=== PATIENT | female | born 1960 | race Caucasian/White ===

== ENCOUNTER 2017-05-13 17:28 | Inpatient (IN) | payer MEDICAID ==
--- NOTE | 2017-05-13 17:52 | DR.H&P ---
H&P - History & Physical for Day of: H&P Date: 05/13/17 - Chief Complaint Chief Complaint: FEVER, CCC, N/V, ELEVATED BP - Allergies Allergies/Adverse Reactions: Allergies Allergy/AdvReac Type Severity Reaction Status Date / Time MS No Known Drug Allergy Allergy Verified 10/09/15 18:11 [No Known Drug Allergy] - History of Present Illness History of Present Illness: 56WF ADMITTED FROM DR TUBBS OFFICE AFTER PRESENTING WITH FEVER AND CCC FOR 2 WEEKS, PT HAS TAKEN PO ANTIBIOTICS WITHOUT IMPROVEMENT. PT HAS ELEVATED BP IN THE OFFICE TODAY, GIVEN CATAPRES .1MG BP 168/ 98 AFTER MEDICATION, PT HAS PMH OF CVA, DM, HTN, OA, DEPRESSION AND COPD. 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 - Family History Family Medical History: Diabetes Mellitus, Cancer, Heart Failure, Hypertension - Social History Does patient currently use any type of tobacco product: No Have you used tobacco products in the last 12 months: Yes (CIAGRETTES) Type of Tobacco Use: None Does any household member use tobacco: No Alcohol Use: None Drug Use: None - Review of Systems Constitutional: Fever, Chills, Sweats, Weakness, Malaise Eyes: No Symptoms Reported ENT: Nose Congestion Respiratory: Cough, Shortness of Breath, Wheezing Cardiovascular: No Symptoms Reported Gastrointestinal: Nausea, Vomiting Genitourinary: No Symptoms Reported Musculoskeletal: Leg Pain Skin: No Symptoms Reported Neurological: Weakness - Physical Exam Vital Signs: Blood Pressure [Right Arm] 183/86 Blood Pressure [Left Arm] 148/72 Blood Pressure 183/86 Oriented: Normal Eyes: Normal Ear: Normal Nose: Normal Throat: Red, Dry Respiratory: Rhonchi Throughout, Wheezes Throughout Cardiovascular: Normal : Normal Auscultation: Bowel Sounds: Normal Palpation: Normal Tenderness: Epigastric Skin: Normal Musculoskeletal: Back:Lumbar Psychiatric: Anxiety Speech Pattern: Clear (PT IS LOUD AND USES PROFANITY, WORSE AFTER CVA PER FAMILY. PT IS COOPERATIVE AND FOLLOWS COMMANDS) - Assessment/Plan (1) Acute bronchitis Qualifiers: Bronchitis organism: B Status: Acute Plan: ADMIT, FOLLOW PNEUMONIA PATHWAY FOR FAILED OUTPT TREATMENT OF BRONCHITIS, R/O PNEUMONIA. CONSULT RESP, EKG AND CE DUE TO SOB. BLOOD AND SPUTUM AND UA DUE TO FEVER. CONTINUE HOME MEDS, BLOOD SUGAR AND BP CONTROL (2) SOB (shortness of breath) Status: Acute (3) Fever Qualifiers: Fever type: F Encounter type: E Status: Acute (4) HTN (hypertension) Qualifiers: Hypertension type: H Status: Acute (5) Diabetes Qualifiers: Diabetes mellitus type: D Diabetes mellitus complication status: D Diabetes mellitus complication detail: D Diabetic retinopathy severity: D Proliferative retinopathy type: P Diabetes mellitus macular edema: D Diabetes mellitus fdc insulin use: D Laterality: L Chronic kidney disease stage: C Status: Acute (6) CVA (cerebral vascular accident) Qualifiers: CVA mechanism: other Precerebral and cerebral artery: P Laterality of affected vessel: L Qualified Code(s): I63.8 - Other cerebral infarction Status: Acute
[2017-05-13] MEDS ORDERED: CATAPRES TAB 0.1 MG PO PRN (18:39)
[2017-05-13 18:54] VITALS: BMI 28.1
[2017-05-13] MEDS ORDERED: DUONEB 0.5 MG/3 MG ONE (19:35)
[2017-05-13] MEDS ORDERED: SALINE 3% 15 ML NEB TX ONE (20:06)
[2017-05-13 20:09] LABS: BASOPHILS # (AUTO) 0.1 X10^3/uL (0.0-0.1); BASOPHILS % (AUTO) 0.7 % (0.2-1.0); EOSINOPHILS # (AUTO) 0.2 x10^3/uL (0.0-0.2); EOSINOPHILS % (AUTO) 1.4 % (0.9-2.9); HEMATOCRIT 31.1 % (36.0-47.0); HEMOGLOBIN 10.6 g/dL (12.0-16.0); LYMPHOCYTES # (AUTO) 3.3 X10^3/uL (1.3-2.9); LYMPHOCYTES % (AUTO) 19.4 % (21.0-51.0); MEAN CORPUSCULAR HEMOGLOBIN 29.8 pg (27.0-34.0); MEAN CORPUSCULAR HGB CONC 34.2 g/dL (33.0-35.0); MEAN CORPUSCULAR VOLUME 87.1 fL (80.0-100.0); MEAN PLATELET VOLUME 8.1 fL (7.4-11.0); MONOCYTES % (AUTO) 6.1 % (0.0-13.0); NEUTROPHILS # (AUTO) 12.2 x10^3/uL (2.2-4.8); NEUTROPHILS % (AUTO) 72.4 % (42.0-75.0); PLATELET COUNT 537 X10^3/uL (150.0-450.0); RED BLOOD COUNT 3.57 X10^6/uL (3.5-5.4); RED CELL DISTRIBUTION WIDTH 12.5 % (11.6-16.5); WHITE BLOOD COUNT 16.8 X10^3/uL (3.6-10.0)
[2017-05-13] MEDS ORDERED: NS 1/2 1000 ML IV 1,000 ML IV ONE (20:18)
[2017-05-13 20:30] LABS: ALANINE AMINOTRANSFERASE 21 Units/L (12-78); ALBUMIN 2.9 g/dL (3.4-5.0); ALKALINE PHOSPHATASE 76 Units/L (46-116); ASPARTATE AMINO TRANSFERASE 15 Units/L (15-37); BLOOD UREA NITROGEN 19 mg/dL (7-18); CALCIUM 9.4 mg/dL (8.5-10.1); CARBON DIOXIDE 20.2 mmol/L (21-32); CHLORIDE 102 mmol/L (98-107); CKMB % 1.8 % (<4); COR CA(FOR HYPOALB) 10.3 mg/dL (8.5-10.1); COR NA(FOR HYPERGLY) 139 mmol/L (136-145); CREATINE KINASE 57 Units/L (26-192); CREATINE KINASE MB < 1.0 ng/mL (0-4.0); CREATININE 1.02 mg/dL (0.55-1.02); GLUCOSE 217 mg/dL (65-99); SODIUM 136 mmol/L (136-145); TOTAL PROTEIN 8.7 g/dL (6.4-8.2); TROPONIN I < 0.02 ng/mL (0-1.5); eGFR BLACK RACES > 60 (>60); eGFR NON BLACK RACES 60 (>60)
[2017-05-13] MEDS: NS 1/2 1000 ML IV 1,000 ML IV SCH (20:30)
[2017-05-13] MEDS ORDERED: SALINE 3% 15 ML NEB TX NEB ONE (20:30)
[2017-05-13] MEDS: ROBITUSSIN DM PO SCH (20:30)
[2017-05-13] MEDS: SNACK - Diabetic Appropriate PO SCH (20:31)
[2017-05-13] MEDS: LEVAQUIN PREMIX IV 750 MG 750 MG/150 ML BAG IV SCH (20:31)
[2017-05-13] MEDS: TUSSIONEX PENNKINETIC SUSP PO PRN (21:18)
[2017-05-13] MEDS: HumuLIN R SUBCUT PRN (21:19)
--- NOTE | 2017-05-13 21:26 | RAD ---
Chest, two views Indication: Cough, sore throat, nausea Comparison: 07/03/2015 Findings: Mild cardiac silhouette enlargement is unchanged. There is no overt edema, focal infiltrat e, or pleural effusion. The bony thorax is unremarkable. Impression: No acute cardiopulmonary disease. Reported By:
[2017-05-13] MEDS: ZOSYN VIAL 4.5 GM 4.5 GM in NS 100 ML IV + SPIKE MINIBAG* 100 ML IV SCH (22:22)
[2017-05-13 22:47] LABS: BILIRUBIN,URINE NEGATIVE (NEGATIVE); BLOOD/HEMOGLOBIN,URINE NEGATIVE (NEGATIVE); GLUCOSE, URINE NEGATIVE (NEGATIVE); KETONES,URINE NEGATIVE (NEGATIVE); LEUKOCYTE ESTERASE ,URINE NEGATIVE (NEGATIVE); NITRITES,URINE NEGATIVE (NEGATIVE); PROTEIN,URINE NEGATIVE (NEGATIVE); UROBILINOGEN,URINE NORMAL (NORMAL)
[2017-05-13 22:53] LABS: APPEARANCE,URINE CLEAR (CLEAR); BACTERIA,URINE NEGATIVE /HPF (NEGATIVE); COLOR,URINE YELLOW (YELLOW); RBC,URINE NONE SEEN /HPF (NEGATIVE); SQUAMOUS EPITHELIAL CELL,UR RARE /HPF (NEGATIVE)
[2017-05-14 01:13] LABS: CKMB % 2.1 % (<4); CREATINE KINASE 62 Units/L (26-192); CREATINE KINASE MB 1.3 ng/mL (0-4.0); TROPONIN I < 0.02 ng/mL (0-1.5)
[2017-05-14] MEDS: ZOFRAN INJ 4 MG VIAL IVP PRN ×2 (02:13→20:24)
[2017-05-14] MEDS: ZOSYN VIAL 4.5 GM 4.5 GM in NS 100 ML IV + SPIKE MINIBAG* 100 ML IV SCH ×3 (05:14→21:08)
[2017-05-14 06:59] LABS: CREATINE KINASE 50 Units/L (26-192); CREATINE KINASE MB < 1.0 ng/mL (0-4.0); TROPONIN I < 0.02 ng/mL (0-1.5)
[2017-05-14] MEDS: ROBITUSSIN DM PO SCH ×4 (09:15→20:18)
[2017-05-14 09:24] LABS: BASOPHILS # (AUTO) 0.1 X10^3/uL (0.0-0.1); BASOPHILS % (AUTO) 0.8 % (0.2-1.0); EOSINOPHILS # (AUTO) 0.4 x10^3/uL (0.0-0.2); EOSINOPHILS % (AUTO) 2.5 % (0.9-2.9); LYMPHOCYTES % (AUTO) 18.8 % (21.0-51.0); MEAN CORPUSCULAR HEMOGLOBIN 29.9 pg (27.0-34.0); MEAN CORPUSCULAR HGB CONC 34.6 g/dL (33.0-35.0); MEAN CORPUSCULAR VOLUME 86.4 fL (80.0-100.0); MEAN PLATELET VOLUME 7.7 fL (7.4-11.0); MONOCYTES # (AUTO) 1.1 x10^3/uL (0.3-0.8); NEUTROPHILS # (AUTO) 11.3 x10^3/uL (2.2-4.8); NEUTROPHILS % (AUTO) 70.9 % (42.0-75.0); PLATELET COUNT 468 X10^3/uL (150.0-450.0); RED BLOOD COUNT 3.36 X10^6/uL (3.5-5.4); RED CELL DISTRIBUTION WIDTH 12.4 % (11.6-16.5)
[2017-05-14 10:19] LABS: ALANINE AMINOTRANSFERASE 22 Units/L (12-78); ALBUMIN 2.6 g/dL (3.4-5.0); ALKALINE PHOSPHATASE 66 Units/L (46-116); ASPARTATE AMINO TRANSFERASE 14 Units/L (15-37); BLOOD UREA NITROGEN 13 mg/dL (7-18); CALCIUM 9.4 mg/dL (8.5-10.1); CARBON DIOXIDE 21.4 mmol/L (21-32); CHLORIDE 105 mmol/L (98-107); COR CA(FOR HYPOALB) 10.5 mg/dL (8.5-10.1); COR NA(FOR HYPERGLY) 140 mmol/L (136-145); CREATININE 1.13 mg/dL (0.55-1.02); GLUCOSE 128 mg/dL (65-99); SODIUM 139 mmol/L (136-145); TOTAL PROTEIN 8.1 g/dL (6.4-8.2); eGFR BLACK RACES > 60 (>60); eGFR NON BLACK RACES 53 (>60)
[2017-05-14] MEDS: LIPITOR TAB 40 MG PO SCH (10:46)
[2017-05-14] MEDS: KLONOPIN TAB 0.5 MG PO SCH ×2 (10:47→20:18)
[2017-05-14] MEDS: MOBIC TAB 15 MG PO SCH (10:47)
[2017-05-14] MEDS: NS 1/2 1000 ML IV 1,000 ML IV SCH ×2 (13:26→22:03)
--- NOTE | 2017-05-14 13:49 | PCM.PROG ---
Progress Note - Progress Note for Day of Date: 05/14/17 - Subjective Subjective: weak, cough adn fever last night - Past Medical Family Social History Past Med/Fam/Surg Hx: No changes since H&P Allergies: Allergies No Known Allergies Allergy (Verified 05/13/17 19:02) - Review of Systems ROS: No change since H&P - Vital Signs and I&O's Vital Signs: Temperature 98.4 F Pulse Rate [Right Brachial] 83 Pulse Rate 93 Respiratory Rate 19 Blood Pressure [Right Arm] 128/65 Blood Pressure [Left Arm] 125/64 Blood Pressure 183/86 O2 Sat by Pulse Oximetry 94 Intake and Output: Intake & Output 05/12/17 05/13/17 05/14/17 05/15/17 11:59 11:59 11:59 11:59 Intake Total 778 Output Total 400 Balance 378 - Physical Exam Oriented: Normal Eyes: Normal Ear: Normal Nose: Normal Throat: Red, Dry Respiratory: Diminished, Wheezes Cardiovascular: Normal : Normal Auscultation: Bowel Sounds: Normal Tenderness: Epigastric Skin: Normal Musculoskeletal: Back:Lumbar Psychiatric: Anxiety Speech Pattern: Clear, Appropriate - Laboratory and Diagnostics Result Diagrams: 05/14/17 08:48 05/14/17 08:48 Labs: Laboratory WBC 16.0 X10^3/uL (3.6-10.0) H 05/14/17 08:48 RBC 3.36 X10^6/uL (3.5-5.4) L 05/14/17 08:48 Hgb 10.0 g/dL (12.0-16.0) L 05/14/17 08:48 Hct 29.0 % (36.0-47.0) L 05/14/17 08:48 MCV 86.4 fL (80.0-100.0) 05/14/17 08:48 MCH 29.9 pg (27.0-34.0) 05/14/17 08:48 MCHC 34.6 g/dL (33.0-35.0) 05/14/17 08:48 RDW 12.4 % (11.6-16.5) 05/14/17 08:48 Plt Count 468 X10^3/uL (150.0-450.0) H 05/14/17 08:48 MPV 7.7 fL (7.4-11.0) 05/14/17 08:48 Neut % 70.9 % (42.0-75.0) 05/14/17 08:48 Lymph % 18.8 % (21.0-51.0) L 05/14/17 08:48 [place] % 7.0 % (0.0-13.0) 05/14/17 08:48 Eos % 2.5 % (0.9-2.9) 05/14/17 08:48 Baso % 0.8 % (0.2-1.0) 05/14/17 08:48 Neut # 11.3 x10^3/uL (2.2-4.8) H 05/14/17 08:48 Lymph # 3.0 X10^3/uL (1.3-2.9) H 05/14/17 08:48 [place] # 1.1 x10^3/uL (0.3-0.8) H 05/14/17 08:48 Eos # 0.4 x10^3/uL (0.0-0.2) H 05/14/17 08:48 Baso # 0.1 X10^3/uL (0.0-0.1) 05/14/17 08:48 Absolute Nucleated RBC 0.0 /100WBC 05/14/17 08:48 Sodium 139 mmol/L (136-145) 05/14/17 08:48 Corrected Sodium 140 mmol/L (136-145) 05/14/17 08:48 Potassium 3.8 mmol/L (3.5-5.1) 05/14/17 08:48 Chloride 105 mmol/L (98-107) 05/14/17 08:48 Carbon Dioxide 21.4 mmol/L (21-32) 05/14/17 08:48 BUN 13 mg/dL (7-18) 05/14/17 08:48 Creatinine 1.13 mg/dL (0.55-1.02) H 05/14/17 08:48 Est GFR (MDRD) Af Amer > 60 (>60) 05/14/17 08:48 Est GFR (MDRD) Non-Af 53 (>60) L 05/14/17 08:48 Glucose 128 mg/dL (65-99) H 05/14/17 08:48 Calcium 9.4 mg/dL (8.5-10.1) 05/14/17 08:48 Corrected Calcium 10.5 mg/dL (8.5-10.1) H 05/14/17 08:48 Total Bilirubin 0.30 mg/dL (0.2-1.0) 05/14/17 08:48 AST 14 Units/L (15-37) L 05/14/17 08:48 ALT 22 Units/L (12-78) 05/14/17 08:48 Alkaline Phosphatase 66 Units/L (46-116) 05/14/17 08:48 Creatine Kinase 50 Units/L (26-192) 05/14/17 06:20 CK-MB (CK-2) < 1.0 ng/mL (0-4.0) 05/14/17 06:20 CK/CKMB % Calc 2.0 % (<4) 05/14/17 06:20 Troponin I < 0.02 ng/mL (0-1.5) 05/14/17 06:20 Total Protein 8.1 g/dL (6.4-8.2) 05/14/17 08:48 Albumin 2.6 g/dL (3.4-5.0) L 05/14/17 08:48 Globulin 5.5 g/dL (2.5-4.5) H 05/14/17 08:48 Albumin/Globulin Ratio 0.5 Ratio (1.1-2.1) L 05/14/17 08:48 Specimen Type Clean catch urine 05/13/17 22:18 Urine Color Yellow (YELLOW) 05/13/17 22:18 Urine Appearance Clear (CLEAR) 05/13/17 22:18 Urine pH 7.0 (5.0 - 8.0) 05/13/17 22:18 Ur Specific [place] 1.015 (1.000-1.030) 05/13/17 22:18 Urine Protein Negative (NEGATIVE) 05/13/17 22:18 Urine Glucose (UA) Negative (NEGATIVE) 05/13/17 22:18 Urine Ketones Negative (NEGATIVE) 05/13/17 22:18 Urine Occult Blood Negative (NEGATIVE) 05/13/17 22:18 Urine Nitrite Negative (NEGATIVE) 05/13/17 22:18 Urine Bilirubin Negative (NEGATIVE) 05/13/17 22:18 Urine Urobilinogen Normal (NORMAL) 05/13/17 22:18 Ur Leukocyte Esterase Negative (NEGATIVE) 05/13/17 22:18 Urine RBC None seen /HPF (NEGATIVE) 05/13/17 22:18 Urine WBC None seen /HPF (NEGATIVE) 05/13/17 22:18 Ur Squamous Epith Cells Rare /HPF (NEGATIVE) 05/13/17 22:18 Urine Bacteria Negative /HPF (NEGATIVE) 05/13/17 22:18 Ur Culture Indicated? No/not indicated 05/13/17 22:18 - Plan (1) Acute bronchitis Status: Acute Qualifiers: Bronchitis organism: B Plan: CONTINUE PNEUMONIA PATHWAY FOR FAILED OUTPT TREATMENT OF BRONCHITIS. CONSULT RESP, EKG AND CE DUE TO SOB. BLOOD AND SPUTUM AND UA DUE TO FEVER. CONTINUE HOME MEDS, BLOOD SUGAR AND BP CONTROL (2) SOB (shortness of breath) Status: Acute Plan: SERIAL EKG, AND CE'S STABLE, CONTINUE BP CONTROL AND LIPID PANEL (3) Fever Status: Acute Qualifiers: Fever type: F Encounter type: E (4) HTN (hypertension) Status: Acute Qualifiers: Hypertension type: H (5) Diabetes Status: Acute Qualifiers: Diabetes mellitus type: D Diabetes mellitus complication status: D Diabetes mellitus complication detail: D Diabetic retinopathy severity: D Proliferative retinopathy type: P Diabetes mellitus macular edema: D Diabetes mellitus care home insulin use: D Laterality: L Chronic kidney disease stage: C Plan: SSI (6) CVA (cerebral vascular accident) Status: Acute Qualifiers: CVA mechanism: other Precerebral and cerebral artery: P Laterality of affected vessel: L Qualified Code(s): I63.8 - Other cerebral infarction Plan: BP AND LIPID CONTROL
[2017-05-14] MEDS ORDERED: NS 1/2 1000 ML IV 1,000 ML IV ONE (16:17)
[2017-05-14] MEDS: LEVAQUIN PREMIX IV 750 MG 750 MG/150 ML BAG IV SCH ×2 (16:46→19:00)
[2017-05-14] MEDS: TOPAMAX TAB 100 MG PO SCH (20:18)
[2017-05-14] MEDS: NEURONTIN CAP 100 MG PO SCH (20:18)
[2017-05-14] MEDS: COREG TAB 12.5 MG PO SCH (20:18)
[2017-05-14] MEDS: SNACK - Diabetic Appropriate PO SCH (20:24)
[2017-05-15 04:40] LABS: ALANINE AMINOTRANSFERASE 21 Units/L (12-78); ALBUMIN 2.5 g/dL (3.4-5.0); ALKALINE PHOSPHATASE 63 Units/L (46-116); ASPARTATE AMINO TRANSFERASE 14 Units/L (15-37); BLOOD UREA NITROGEN 14 mg/dL (7-18); CALCIUM 8.9 mg/dL (8.5-10.1); CARBON DIOXIDE 22.7 mmol/L (21-32); CHLORIDE 105 mmol/L (98-107); COR CA(FOR HYPOALB) 10.1 mg/dL (8.5-10.1); COR NA(FOR HYPERGLY) 141 mmol/L (136-145); CREATININE 1.04 mg/dL (0.55-1.02); GLUCOSE 173 mg/dL (65-99); SODIUM 139 mmol/L (136-145); TOTAL PROTEIN 7.8 g/dL (6.4-8.2); eGFR BLACK RACES > 60 (>60); eGFR NON BLACK RACES 58 (>60)
[2017-05-15] MEDS: ZOSYN VIAL 4.5 GM 4.5 GM in NS 100 ML IV + SPIKE MINIBAG* 100 ML IV SCH ×3 (05:01→21:01)
[2017-05-15 05:18] LABS: BASOPHILS # (AUTO) 0.1 X10^3/uL (0.0-0.1); BASOPHILS % (AUTO) 0.7 % (0.2-1.0); EOSINOPHILS # (AUTO) 0.5 x10^3/uL (0.0-0.2); HEMATOCRIT 28.2 % (36.0-47.0); HEMOGLOBIN 9.6 g/dL (12.0-16.0); LYMPHOCYTES # (AUTO) 4.1 X10^3/uL (1.3-2.9); MEAN CORPUSCULAR HEMOGLOBIN 29.5 pg (27.0-34.0); MEAN CORPUSCULAR HGB CONC 33.9 g/dL (33.0-35.0); MEAN CORPUSCULAR VOLUME 87.1 fL (80.0-100.0); MEAN PLATELET VOLUME 7.9 fL (7.4-11.0); MONOCYTES % (AUTO) 6.3 % (0.0-13.0); NEUTROPHILS # (AUTO) 9.6 x10^3/uL (2.2-4.8); PLATELET COUNT 484 X10^3/uL (150.0-450.0); RED BLOOD COUNT 3.24 X10^6/uL (3.5-5.4); RED CELL DISTRIBUTION WIDTH 12.2 % (11.6-16.5); WHITE BLOOD COUNT 15.3 X10^3/uL (3.6-10.0)
[2017-05-15] MEDS: MOBIC TAB 15 MG PO SCH (08:53)
[2017-05-15] MEDS: COREG TAB 12.5 MG PO SCH ×2 (08:54→21:02)
[2017-05-15] MEDS: LIPITOR TAB 40 MG PO SCH (08:55)
[2017-05-15] MEDS: PLAVIX PO SCH (08:55)
[2017-05-15] MEDS: TOPAMAX TAB 100 MG PO SCH ×2 (08:55→21:03)
[2017-05-15] MEDS: KLONOPIN TAB 0.5 MG PO SCH ×2 (08:55→21:03)
[2017-05-15] MEDS: ROBITUSSIN DM PO SCH ×4 (08:56→21:01)
[2017-05-15] MEDS ORDERED: PATIENT'S HOME MEDICATION (Meloxicam [Meloxicam] 7.5 MG) PO SCH (09:00)
[2017-05-15] MEDS ORDERED: PATIENT'S HOME MEDICATION (Atorvastatin Calcium [Atorvastatin Calcium] 80 MG) PO SCH (09:00)
[2017-05-15] MEDS: DUONEB 0.5 MG/3 MG NEB SCH ×4 (09:22→21:19)
[2017-05-15] MEDS: NORCO 5/325 MG TAB PO PRN ×3 (10:12→21:02)
[2017-05-15] MEDS: PHENERGAN TAB 25 MG PO PRN ×2 (10:12→22:25)
[2017-05-15] MEDS: SOLU-Medrol 40 MG VIAL IVP SCH ×3 (10:15→21:01)
[2017-05-15] MEDS: MILK OF MAGNESIA PO SCH ×2 (10:15→21:01)
[2017-05-15] MEDS ORDERED: NS 1/2 1000 ML IV 1,000 ML IV ONE (12:42)
[2017-05-15] MEDS: NS 1/2 1000 ML IV 1,000 ML IV SCH (13:05)
[2017-05-15] MEDS: HumuLIN R SUBCUT PRN ×3 (13:05→22:25)
--- NOTE | 2017-05-15 13:26 | PCM.PROG ---
Progress Note - Progress Note for Day of Date: 05/15/17 - Subjective Subjective: PT STATES SHE HAD NO SLEEP LAST NIGHT, CONTINUES WITH SOB AND COUGH. PT WHEEZING WITHOUT COUGHING UP SPUTUM. PLAN TO ADD SMART VEST, SOLU MEDROL 40 IV X 3 DOSES WITH SLINDING SCALE INSULINE COVERAGE, BC NEGATIVE SO FAR ,. WILL CONTINUE IV HYDRATION , IV ATBX, JET NEBS, AND CTA CHEST IN THE AM - Past Medical Family Social History Past Med/Fam/Surg Hx: No changes since H&P Allergies: Allergies No Known Allergies Allergy (Verified 05/13/17 19:02) - Review of Systems ROS: No change since H&P - Vital Signs and I&O's Vital Signs: Temperature 99.3 F Pulse Rate [Left Brachial] 76 Pulse Rate [Right Brachial] 83 Pulse Rate 85 Respiratory Rate 18 Blood Pressure [Right Arm] 134/71 Blood Pressure [Left Arm] 132/76 Blood Pressure 183/86 O2 Sat by Pulse Oximetry 97 Intake and Output: Intake & Output 05/13/17 05/14/17 05/15/17 05/16/17 11:59 11:59 11:59 11:59 Intake Total 778 1585 Output Total 400 1500 Balance 378 85 - Physical Exam Oriented: Normal Eyes: Normal Ear: Normal Nose: Normal Throat: Red, Dry Respiratory: Diminished, Wheezes Cardiovascular: Normal : Normal Auscultation: Bowel Sounds: Normal Tenderness: Epigastric Skin: Normal Musculoskeletal: Back:Lumbar Psychiatric: Anxiety Speech Pattern: Clear, Appropriate - Laboratory and Diagnostics Result Diagrams: 05/15/17 03:55 05/15/17 03:55 Labs: Laboratory WBC 15.3 X10^3/uL (3.6-10.0) H 05/15/17 03:55 RBC 3.24 X10^6/uL (3.5-5.4) L 05/15/17 03:55 Hgb 9.6 g/dL (12.0-16.0) L 05/15/17 03:55 Hct 28.2 % (36.0-47.0) L 05/15/17 03:55 MCV 87.1 fL (80.0-100.0) 05/15/17 03:55 MCH 29.5 pg (27.0-34.0) 05/15/17 03:55 MCHC 33.9 g/dL (33.0-35.0) 05/15/17 03:55 RDW 12.2 % (11.6-16.5) 05/15/17 03:55 Plt Count 484 X10^3/uL (150.0-450.0) H 05/15/17 03:55 MPV 7.9 fL (7.4-11.0) 05/15/17 03:55 Neut % 63.0 % (42.0-75.0) 05/15/17 03:55 Lymph % 27.0 % (21.0-51.0) 05/15/17 03:55 [place] % 6.3 % (0.0-13.0) 05/15/17 03:55 Eos % 3.0 % (0.9-2.9) H 05/15/17 03:55 Baso % 0.7 % (0.2-1.0) 05/15/17 03:55 Neut # 9.6 x10^3/uL (2.2-4.8) H 05/15/17 03:55 Lymph # 4.1 X10^3/uL (1.3-2.9) H 05/15/17 03:55 [place] # 1.0 x10^3/uL (0.3-0.8) H 05/15/17 03:55 Eos # 0.5 x10^3/uL (0.0-0.2) H 05/15/17 03:55 Baso # 0.1 X10^3/uL (0.0-0.1) 05/15/17 03:55 Absolute Nucleated RBC 0.0 /100WBC 05/15/17 03:55 Sodium 139 mmol/L (136-145) 05/15/17 03:55 Corrected Sodium 141 mmol/L (136-145) 05/15/17 03:55 Potassium 3.6 mmol/L (3.5-5.1) 05/15/17 03:55 Chloride 105 mmol/L (98-107) 05/15/17 03:55 Carbon Dioxide 22.7 mmol/L (21-32) 05/15/17 03:55 BUN 14 mg/dL (7-18) 05/15/17 03:55 Creatinine 1.04 mg/dL (0.55-1.02) H 05/15/17 03:55 Est GFR (MDRD) Af Amer > 60 (>60) 05/15/17 03:55 Est GFR (MDRD) Non-Af 58 (>60) L 05/15/17 03:55 Glucose 173 mg/dL (65-99) H 05/15/17 03:55 Calcium 8.9 mg/dL (8.5-10.1) 05/15/17 03:55 Corrected Calcium 10.1 mg/dL (8.5-10.1) 05/15/17 03:55 Total Bilirubin 0.20 mg/dL (0.2-1.0) 05/15/17 03:55 AST 14 Units/L (15-37) L 05/15/17 03:55 ALT 21 Units/L (12-78) 05/15/17 03:55 Alkaline Phosphatase 63 Units/L (46-116) 05/15/17 03:55 Creatine Kinase 50 Units/L (26-192) 05/14/17 06:20 CK-MB (CK-2) < 1.0 ng/mL (0-4.0) 05/14/17 06:20 CK/CKMB % Calc 2.0 % (<4) 05/14/17 06:20 Troponin I < 0.02 ng/mL (0-1.5) 05/14/17 06:20 Total Protein 7.8 g/dL (6.4-8.2) 05/15/17 03:55 Albumin 2.5 g/dL (3.4-5.0) L 05/15/17 03:55 Globulin 5.3 g/dL (2.5-4.5) H 05/15/17 03:55 Albumin/Globulin Ratio 0.5 Ratio (1.1-2.1) L 05/15/17 03:55 Specimen Type Clean catch urine 05/13/17 22:18 Urine Color Yellow (YELLOW) 05/13/17 22:18 Urine Appearance Clear (CLEAR) 05/13/17 22:18 Urine pH 7.0 (5.0 - 8.0) 05/13/17 22:18 Ur Specific [place] 1.015 (1.000-1.030) 05/13/17 22:18 Urine Protein Negative (NEGATIVE) 05/13/17 22:18 Urine Glucose (UA) Negative (NEGATIVE) 05/13/17 22:18 Urine Ketones Negative (NEGATIVE) 05/13/17 22:18 Urine Occult Blood Negative (NEGATIVE) 05/13/17 22:18 Urine Nitrite Negative (NEGATIVE) 05/13/17 22:18 Urine Bilirubin Negative (NEGATIVE) 05/13/17 22:18 Urine Urobilinogen Normal (NORMAL) 05/13/17 22:18 Ur Leukocyte Esterase Negative (NEGATIVE) 05/13/17 22:18 Urine RBC None seen /HPF (NEGATIVE) 05/13/17 22:18 Urine WBC None seen /HPF (NEGATIVE) 05/13/17 22:18 Ur Squamous Epith Cells Rare /HPF (NEGATIVE) 05/13/17 22:18 Urine Bacteria Negative /HPF (NEGATIVE) 05/13/17 22:18 Ur Culture Indicated? No/not indicated 05/13/17 22:18 - Plan (1) Acute bronchitis Status: Acute Qualifiers: Bronchitis organism: B Plan: CONTINUE PNEUMONIA PATHWAY FOR FAILED OUTPT TREATMENT OF BRONCHITIS. RESP THERAPY CONTINUED, CTA CHEST Q AM. UNABLE TO OBTAIN SPUTUM, ENCOURAGE PO FLUIDS, JET NEBS AND SMART VEST. CONTINUE HOME MEDS, BLOOD SUGAR AND BP CONTROL (2) SOB (shortness of breath) Status: Acute Plan: SERIAL EKG, AND CE'S STABLE, CONTINUE BP CONTROL AND LIPID PANEL (3) Fever Status: Acute Qualifiers: Fever type: F Encounter type: E Plan: SYMPTOM CONTROL. CULTURES PENDING. (4) HTN (hypertension) Status: Acute Qualifiers: Hypertension type: H (5) Diabetes Status: Acute Qualifiers: Diabetes mellitus type: D Diabetes mellitus complication status: D Diabetes mellitus complication detail: D Diabetic retinopathy severity: D Proliferative retinopathy type: P Diabetes mellitus macular edema: D Diabetes mellitus senior care insulin use: D Laterality: L Chronic kidney disease stage: C Plan: SSI (6) CVA (cerebral vascular accident) Status: Acute Qualifiers: CVA mechanism: other Precerebral and cerebral artery: P Laterality of affected vessel: L Qualified Code(s): I63.8 - Other cerebral infarction Plan: BP AND LIPID CONTROL
[2017-05-15] MEDS: LEVAQUIN PREMIX IV 750 MG 750 MG/150 ML BAG IV SCH (17:24)
[2017-05-15] MEDS: ZOFRAN INJ 4 MG VIAL IVP PRN (19:29)
[2017-05-15] MEDS: NEURONTIN CAP 100 MG PO SCH (21:02)
[2017-05-15] MEDS: COLACE CAP 100 MG PO SCH (21:02)
[2017-05-15] MEDS: SNACK - Diabetic Appropriate PO SCH (22:24)
[2017-05-16] MEDS: MILK OF MAGNESIA PO SCH ×4 (00:07→22:10)
[2017-05-16] MEDS: AMBIEN PO PRN ×2 (00:08→22:15)
[2017-05-16] MEDS: NS 1/2 1000 ML IV 1,000 ML IV SCH ×2 (03:46→12:01)
[2017-05-16] MEDS ORDERED: NS 100 ML IV 100 ML IV ONE (05:38)
[2017-05-16 06:13] LABS: BASOPHILS % (AUTO) 0.2 % (0.2-1.0); HEMATOCRIT 29.1 % (36.0-47.0); LYMPHOCYTES # (AUTO) 1.6 X10^3/uL (1.3-2.9); LYMPHOCYTES % (AUTO) 10.9 % (21.0-51.0); MEAN CORPUSCULAR HEMOGLOBIN 29.6 pg (27.0-34.0); MEAN CORPUSCULAR HGB CONC 34.2 g/dL (33.0-35.0); MEAN CORPUSCULAR VOLUME 86.4 fL (80.0-100.0); MEAN PLATELET VOLUME 7.8 fL (7.4-11.0); MONOCYTES # (AUTO) 0.4 x10^3/uL (0.3-0.8); MONOCYTES % (AUTO) 2.5 % (0.0-13.0); NEUTROPHILS # (AUTO) 13.1 x10^3/uL (2.2-4.8); NEUTROPHILS % (AUTO) 86.4 % (42.0-75.0); PLATELET COUNT 525 X10^3/uL (150.0-450.0); RED BLOOD COUNT 3.37 X10^6/uL (3.5-5.4); RED CELL DISTRIBUTION WIDTH 12.5 % (11.6-16.5); WHITE BLOOD COUNT 15.2 X10^3/uL (3.6-10.0)
[2017-05-16] MEDS: SOLU-Medrol 40 MG VIAL IVP SCH ×3 (06:17→22:11)
[2017-05-16] MEDS: ZOSYN VIAL 4.5 GM 4.5 GM in NS 100 ML IV + SPIKE MINIBAG* 100 ML IV SCH ×3 (06:17→22:10)
[2017-05-16] MEDS: HumuLIN R SUBCUT PRN ×4 (06:28→22:07)
--- NOTE | 2017-05-16 06:29 | CT ---
EXAM: CTA CHEST WITH CONTRAST INDICATION: Pneumonia COMPARISION: No priors for comparison TECHNIQUE: Spiral CT of the chest was performed with contrast. Thin reconstructions in the axial and para-coron al planes were obtained. 3D MIP imaging sequences were obtained using the axial data. The patient re ceived intravenous contrast without adverse reaction. FINDINGS: There is consolidation in the left lower lobe. Subpleural bleb formation is seen in both lungs. Ther e is sub carinal mediastinal lymphadenopathy. The heart is mildly enlarged. No pulmonary embolism. N o aortic aneurysm or dissection. Atherosclerotic calcifications are seen in the aorta. No pneumothor ax or pleural effusion. The regional skeleton is intact. IMPRESSION: There is left lower lobe consolidation consistent with pneumonia. There is prominence of the subcari nal lymph nodes which are likely reactive related to the left lung changes. Reported By:
[2017-05-16] MEDS: NORCO 5/325 MG TAB PO PRN ×3 (06:38→22:23)
[2017-05-16 06:39] LABS: ALANINE AMINOTRANSFERASE 19 Units/L (12-78); ALBUMIN 2.6 g/dL (3.4-5.0); ALKALINE PHOSPHATASE 64 Units/L (46-116); ASPARTATE AMINO TRANSFERASE 13 Units/L (15-37); BLOOD UREA NITROGEN 20 mg/dL (7-18); CARBON DIOXIDE 20.7 mmol/L (21-32); CHLORIDE 103 mmol/L (98-107); COR CA(FOR HYPOALB) 10.1 mg/dL (8.5-10.1); COR NA(FOR HYPERGLY) 141 mmol/L (136-145); CREATININE 0.97 mg/dL (0.55-1.02); GLUCOSE 299 mg/dL (65-99); SODIUM 136 mmol/L (136-145); TOTAL PROTEIN 8.1 g/dL (6.4-8.2); eGFR BLACK RACES > 60 (>60); eGFR NON BLACK RACES > 60 (>60)
[2017-05-16] MEDS: DUONEB 0.5 MG/3 MG NEB SCH ×4 (08:18→20:23)
[2017-05-16] MEDS: MOBIC TAB 15 MG PO SCH (09:38)
[2017-05-16] MEDS: ROBITUSSIN DM PO SCH ×4 (09:38→22:10)
[2017-05-16] MEDS: KLONOPIN TAB 0.5 MG PO SCH ×2 (09:39→22:15)
[2017-05-16] MEDS: LIPITOR TAB 40 MG PO SCH (09:39)
[2017-05-16] MEDS: PLAVIX PO SCH (09:39)
[2017-05-16] MEDS: COREG TAB 12.5 MG PO SCH ×2 (09:39→22:15)
[2017-05-16] MEDS: TOPAMAX TAB 100 MG PO SCH ×2 (09:39→22:16)
[2017-05-16] MEDS: TUSSIONEX PENNKINETIC SUSP PO PRN (09:47)
[2017-05-16] MEDS: PHENERGAN TAB 25 MG PO PRN ×2 (09:47→22:15)
--- NOTE | 2017-05-16 16:13 | PCM.PROG ---
Progress Note - Progress Note for Day of Date: 05/16/17 - Subjective Subjective: 56-YEAR-OLD WHITE FEMALE ADMITTED 2 DAYS AGO FOR TREATMENT OF BRONCHITIS.PATIENT CONTINUES TO COMPLAIN OF COUGH WITH MILD SPUTUM PRODUCTION. pATIENT WHITE COUNT THIS MORNING CONTINUES TO BE ELEVATED AT 15,000. pATIENT HAD A ct a OF HER CHEST DUE TO HIS SHORTNESS OF BREATH. ct REVEALED LEFT LOWER LOBE PNEUMONIA. pLAN TO CONTINUE iv ANTIBIOTIC THERAPY WELL SPUTUM INDUCTION iv HYDRATION, RESPIRATORY THERAPY AND sMART TEST. pATIENT ON iv STEROIDS WITH SLIDING SCALE INSULIN COVERAGE PLAN TO REPEAT A.M. LABS AND CHEST X-RAY - Past Medical Family Social History Past Med/Fam/Surg Hx: No changes since H&P Allergies: Allergies No Known Allergies Allergy (Verified 05/13/17 19:02) - Review of Systems ROS: No change since H&P - Vital Signs and I&O's Vital Signs: Temperature 97.6 F Pulse Rate [Left Brachial] 87 Pulse Rate [Right Brachial] 89 Pulse Rate 73 Respiratory Rate 20 Blood Pressure [Right Arm] 139/67 Blood Pressure [Left Arm] 143/81 Blood Pressure 183/86 O2 Sat by Pulse Oximetry 96 Intake and Output: Intake & Output 05/14/17 05/15/17 05/16/17 05/17/17 11:59 11:59 11:59 11:59 Intake Total 778 1585 1810 780 Output Total 400 1500 2400 Balance 378 85 -590 780 - Physical Exam Oriented: Normal Eyes: Normal Ear: Normal Nose: Normal Throat: Red, Dry Respiratory: Diminished, Wheezes Cardiovascular: Normal : Normal Auscultation: Bowel Sounds: Normal Tenderness: Epigastric Skin: Normal Musculoskeletal: Back:Lumbar Psychiatric: Anxiety Speech Pattern: Clear, Appropriate - Laboratory and Diagnostics Result Diagrams: 05/16/17 05:41 05/16/17 05:41 Labs: 05/13/17 19:25 Blood Blood Culture - Preliminary 05/13/17 19:05 Blood Blood Culture - Preliminary Laboratory WBC 15.2 X10^3/uL (3.6-10.0) H 05/16/17 05:41 RBC 3.37 X10^6/uL (3.5-5.4) L 05/16/17 05:41 Hgb 10.0 g/dL (12.0-16.0) L 05/16/17 05:41 Hct 29.1 % (36.0-47.0) L 05/16/17 05:41 MCV 86.4 fL (80.0-100.0) 05/16/17 05:41 MCH 29.6 pg (27.0-34.0) 05/16/17 05:41 MCHC 34.2 g/dL (33.0-35.0) 05/16/17 05:41 RDW 12.5 % (11.6-16.5) 05/16/17 05:41 Plt Count 525 X10^3/uL (150.0-450.0) H 05/16/17 05:41 MPV 7.8 fL (7.4-11.0) 05/16/17 05:41 Neut % 86.4 % (42.0-75.0) H 05/16/17 05:41 Lymph % 10.9 % (21.0-51.0) L 05/16/17 05:41 [place] % 2.5 % (0.0-13.0) 05/16/17 05:41 Eos % 0.0 % (0.9-2.9) L 05/16/17 05:41 Baso % 0.2 % (0.2-1.0) 05/16/17 05:41 Neut # 13.1 x10^3/uL (2.2-4.8) H 05/16/17 05:41 Lymph # 1.6 X10^3/uL (1.3-2.9) 05/16/17 05:41 [place] # 0.4 x10^3/uL (0.3-0.8) 05/16/17 05:41 Eos # 0.0 x10^3/uL (0.0-0.2) 05/16/17 05:41 Baso # 0.0 X10^3/uL (0.0-0.1) 05/16/17 05:41 Absolute Nucleated RBC 0.0 /100WBC 05/16/17 05:41 Sodium 136 mmol/L (136-145) 05/16/17 05:41 Corrected Sodium 141 mmol/L (136-145) 05/16/17 05:41 Potassium 4.0 mmol/L (3.5-5.1) 05/16/17 05:41 Chloride 103 mmol/L (98-107) 05/16/17 05:41 Carbon Dioxide 20.7 mmol/L (21-32) L 05/16/17 05:41 BUN 20 mg/dL (7-18) H 05/16/17 05:41 Creatinine 0.97 mg/dL (0.55-1.02) 05/16/17 05:41 Est GFR (MDRD) Af Amer > 60 (>60) 05/16/17 05:41 Est GFR (MDRD) Non-Af > 60 (>60) 05/16/17 05:41 Glucose 299 mg/dL (65-99) H 05/16/17 05:41 Calcium 9.0 mg/dL (8.5-10.1) 05/16/17 05:41 Corrected Calcium 10.1 mg/dL (8.5-10.1) 05/16/17 05:41 Total Bilirubin 0.10 mg/dL (0.2-1.0) L 05/16/17 05:41 AST 13 Units/L (15-37) L 05/16/17 05:41 ALT 19 Units/L (12-78) 05/16/17 05:41 Alkaline Phosphatase 64 Units/L (46-116) 05/16/17 05:41 Creatine Kinase 50 Units/L (26-192) 05/14/17 06:20 CK-MB (CK-2) < 1.0 ng/mL (0-4.0) 05/14/17 06:20 CK/CKMB % Calc 2.0 % (<4) 05/14/17 06:20 Troponin I < 0.02 ng/mL (0-1.5) 05/14/17 06:20 Total Protein 8.1 g/dL (6.4-8.2) 05/16/17 05:41 Albumin 2.6 g/dL (3.4-5.0) L 05/16/17 05:41 Globulin 5.5 g/dL (2.5-4.5) H 05/16/17 05:41 Albumin/Globulin Ratio 0.5 Ratio (1.1-2.1) L 05/16/17 05:41 Specimen Type Clean catch urine 05/13/17 22:18 Urine Color Yellow (YELLOW) 05/13/17 22:18 Urine Appearance Clear (CLEAR) 05/13/17 22:18 Urine pH 7.0 (5.0 - 8.0) 05/13/17 22:18 Ur Specific [place] 1.015 (1.000-1.030) 05/13/17 22:18 Urine Protein Negative (NEGATIVE) 05/13/17 22:18 Urine Glucose (UA) Negative (NEGATIVE) 05/13/17 22:18 Urine Ketones Negative (NEGATIVE) 05/13/17 22:18 Urine Occult Blood Negative (NEGATIVE) 05/13/17 22:18 Urine Nitrite Negative (NEGATIVE) 05/13/17 22:18 Urine Bilirubin Negative (NEGATIVE) 05/13/17 22:18 Urine Urobilinogen Normal (NORMAL) 05/13/17 22:18 Ur Leukocyte Esterase Negative (NEGATIVE) 05/13/17 22:18 Urine RBC None seen /HPF (NEGATIVE) 05/13/17 22:18 Urine WBC None seen /HPF (NEGATIVE) 05/13/17 22:18 Ur Squamous Epith Cells Rare /HPF (NEGATIVE) 05/13/17 22:18 Urine Bacteria Negative /HPF (NEGATIVE) 05/13/17 22:18 Ur Culture Indicated? No/not indicated 05/13/17 22:18 - Plan (1) Pneumonia Status: Acute Qualifiers: Pneumonia type: P Aspiration pneumonia type: A Laterality: L Lung location: L Plan: CONTINUE PNEUMONIA PATHWAY FOR FAILED OUTPT TREATMENT OF BRONCHITIS. RESP THERAPY CONTINUED, CTA CHEST REVEALED LLL PNEUMONIA. UNABLE TO OBTAIN SPUTUM, ENCOURAGE PO FLUIDS, JET NEBS AND SMART VEST. CONTINUE HOME MEDS, BLOOD SUGAR AND BP CONTROL (2) SOB (shortness of breath) Status: Acute Plan: SERIAL EKG, AND CE'S STABLE, CONTINUE BP CONTROL AND LIPID PANEL (3) HTN (hypertension) Status: Acute Qualifiers: Hypertension type: H (4) Diabetes Status: Acute Qualifiers: Diabetes mellitus type: D Diabetes mellitus complication status: D Diabetes mellitus complication detail: D Diabetic retinopathy severity: D Proliferative retinopathy type: P Diabetes mellitus macular edema: D Diabetes mellitus [facility] insulin use: D Laterality: L Chronic kidney disease stage: C Plan: SSI (5) CVA (cerebral vascular accident) Status: Acute Qualifiers: CVA mechanism: other Precerebral and cerebral artery: P Laterality of affected vessel: L Qualified Code(s): I63.8 - Other cerebral infarction Plan: BP AND LIPID CONTROL
[2017-05-16] MEDS ORDERED: NS 1/2 1000 ML IV 1,000 ML IV ONE (16:20)
[2017-05-16] MEDS: LEVAQUIN PREMIX IV 750 MG 750 MG/150 ML BAG IV SCH (17:03)
[2017-05-16] MEDS: NEURONTIN CAP 100 MG PO SCH (22:15)
[2017-05-16] MEDS: COLACE CAP 100 MG PO SCH (22:15)
[2017-05-16] MEDS: SNACK - Diabetic Appropriate PO SCH (22:16)
[2017-05-16] MEDS ORDERED: NS 500 ML IV 500 ML IV ONE (22:20)
[2017-05-17] MEDS: ZOSYN VIAL 4.5 GM 4.5 GM in NS 100 ML IV + SPIKE MINIBAG* 100 ML IV SCH ×2 (05:53→14:10)
[2017-05-17] MEDS: SOLU-Medrol 40 MG VIAL IVP SCH ×2 (05:54→14:10)
[2017-05-17] MEDS: HumuLIN R SUBCUT PRN ×3 (05:56→16:43)
[2017-05-17 06:06] LABS: BASOPHILS % (AUTO) 0.2 % (0.2-1.0); HEMATOCRIT 30.2 % (36.0-47.0); HEMOGLOBIN 10.2 g/dL (12.0-16.0); LYMPHOCYTES # (AUTO) 1.8 X10^3/uL (1.3-2.9); LYMPHOCYTES % (AUTO) 9.5 % (21.0-51.0); MEAN CORPUSCULAR HEMOGLOBIN 29.2 pg (27.0-34.0); MEAN CORPUSCULAR HGB CONC 33.9 g/dL (33.0-35.0); MEAN CORPUSCULAR VOLUME 86.2 fL (80.0-100.0); MONOCYTES # (AUTO) 0.5 x10^3/uL (0.3-0.8); MONOCYTES % (AUTO) 2.7 % (0.0-13.0); NEUTROPHILS # (AUTO) 16.8 x10^3/uL (2.2-4.8); NEUTROPHILS % (AUTO) 87.6 % (42.0-75.0); PLATELET COUNT 515 X10^3/uL (150.0-450.0); RED BLOOD COUNT 3.51 X10^6/uL (3.5-5.4); RED CELL DISTRIBUTION WIDTH 12.4 % (11.6-16.5); WHITE BLOOD COUNT 19.1 X10^3/uL (3.6-10.0)
[2017-05-17] MEDS: NS 1/2 1000 ML IV 1,000 ML IV SCH ×3 (06:06→12:58)
[2017-05-17] MEDS: NORCO 5/325 MG TAB PO PRN ×2 (06:07→16:35)
[2017-05-17 06:35] LABS: ALANINE AMINOTRANSFERASE 24 Units/L (12-78); ALBUMIN 2.6 g/dL (3.4-5.0); ALKALINE PHOSPHATASE 61 Units/L (46-116); ASPARTATE AMINO TRANSFERASE 18 Units/L (15-37); BLOOD UREA NITROGEN 22 mg/dL (7-18); CALCIUM 8.7 mg/dL (8.5-10.1); CARBON DIOXIDE 21.1 mmol/L (21-32); CHLORIDE 104 mmol/L (98-107); COR CA(FOR HYPOALB) 9.8 mg/dL (8.5-10.1); COR NA(FOR HYPERGLY) 141 mmol/L (136-145); CREATININE 0.95 mg/dL (0.55-1.02); GLUCOSE 266 mg/dL (65-99); SODIUM 137 mmol/L (136-145); TOTAL PROTEIN 7.9 g/dL (6.4-8.2); eGFR BLACK RACES > 60 (>60); eGFR NON BLACK RACES > 60 (>60)
[2017-05-17] MEDS: MOBIC TAB 15 MG PO SCH (09:01)
[2017-05-17] MEDS: LIPITOR TAB 40 MG PO SCH (09:01)
[2017-05-17] MEDS: MILK OF MAGNESIA PO SCH (09:02)
[2017-05-17] MEDS: KLONOPIN TAB 0.5 MG PO SCH (09:02)
[2017-05-17] MEDS: PLAVIX PO SCH (09:02)
[2017-05-17] MEDS: COREG TAB 12.5 MG PO SCH (09:02)
[2017-05-17] MEDS: ROBITUSSIN DM PO SCH ×3 (09:02→16:36)
[2017-05-17] MEDS: TOPAMAX TAB 100 MG PO SCH (09:02)
[2017-05-17] MEDS: DUONEB 0.5 MG/3 MG NEB SCH ×3 (09:03→16:22)
[2017-05-17] MEDS: ZOFRAN INJ 4 MG VIAL IVP PRN (10:23)
[2017-05-17] MEDS ORDERED: PATIENT'S HOME MEDICATION (Metformin Hcl [Metformin Hcl] 1,000 MG) PO SCH (12:45)
[2017-05-17] MEDS ORDERED: RIVASTIGMINE TARTRATE 4.5 MG PO SCH (12:45)
[2017-05-17] MEDS ORDERED: NS 1/2 1000 ML IV 1,000 ML IV ONE (12:53)
[2017-05-17] MEDS ORDERED: GLUCOPHAGE ONE (16:32)
[2017-05-17] MEDS ORDERED: GLUCOPHAGE PO SCH (17:00)
[2017-05-17 17:11] VITALS: BP 193/88
[2017-05-17] MEDS ORDERED: LANTUS SC SCH (21:00)
[2017-05-17] MEDS ORDERED: EXELON PO SCH (21:00)
--- NOTE | 2017-05-18 13:25 | RAD ---
HISTORY: Pneumonia Study: Two-view chest Comparison: May 13, 2017 Findings: The trachea is midline. The cardiac silhouette is unremarkable. The lungs demonstrate a small left basilar infiltrate suggesting pneumonia which is best seen lateral view.. The bony thorax is unrem arkable. IMPRESSION: 1. Left lower lobe pneumonia. Reported By:
== END 2017-05-17 17:45 | disposition home or self-care (01) | DRG 202 ==
LOC: OBSVTOIN 17:28 → MED/SURG 17:28
PROVIDERS: ADMIT Internal Medicine; ATTEND Internal Medicine
DX: J20.8 Acute bronchitis due to other specified organisms (principal); J18.1 Lobar pneumonia, unspecified organism; J44.9 Chronic obstructive pulmonary disease, unspecified; R11.2 Nausea with vomiting, unspecified; I10 Essential (primary) hypertension; I25.10 Atherosclerotic heart disease of native coronary artery without angina pectoris; E11.65 Type 2 diabetes mellitus with hyperglycemia; F32.89 Other specified depressive episodes; R06.02 Shortness of breath; I63.8 Other cerebral infarction
CPT/HCPCS: 36415; 71020; 71275; 80053; 81001; 82550; 82553; 82947; 84484; 85025; 87040; 93005; 93010; 94640; 94669; 94760; A4222; Q0169; J1815; J1956; J2405; J2543; J2920; J7620

== ENCOUNTER → 2017-06-16 | Outpatient (CLI) | payer MEDICAID ==
[2017-05-17 17:11] VITALS: BP 193/88
--- NOTE | 2017-06-16 15:17 | MRI ---
HISTORY: Neck pain, paresthesias Study: MRI cervical spine without contrast Comparison: None Technique: Multiplanar multisequence MRI of the cervical spine was obtained utilizing standard depar tmental protocol. Findings: Alignment of the cervical spine is maintained. No abnormal signal characteristics of the bone marro w can be identified. No evidence for fracture or significant bone or edema can be seen. The surrou nding soft tissues are unremarkable. The cervical spinal cord is normal in size and configuration a nd without foci of abnormal signal. C2 -- C3: No evidence for compressive disc disease. The neural foramina are patent. C3 -- C4: No evidence for compressive disc disease. The neural foramina are patent peer C4 -- C5: No evidence for compressive disc disease. The neural foramina are patent. C5 -- C6: No evidence for compressive disc disease. The neural foramina are patent. C6 -- C7: No evidence for compressive disc disease. The neural foramina are patent. C7 -- T1: No evidence for compressive disc disease. The neural foramina are patent. IMPRESSION: No evidence for significant compressive disc disease or compresses spondylitic change at any level. Reported By:
== END ==
LOC: RAD 13:15
PROVIDERS: ATTEND Internal Medicine
DX: M54.2 Cervicalgia (principal)
CPT/HCPCS: 72141

== ENCOUNTER → 2017-06-26 | Outpatient (CLI) | payer MEDICAID ==
--- NOTE | 2017-06-26 12:15 | RAD ---
HISTORY: Thoracic back pain Study: T-spine three views Comparison: None Findings: The alignment is normal with the exception of several millimeters anterolisthesis T2 on T3. This cou ld be better evaluated with CT. The vertebral bodies are of average height. The disc spaces are for the most part preserved. Moderate spondylosis is present. The pedicles are intact. The paraspinous s oft tissues are normal. IMPRESSION: Several millimeters anterolisthesis T2 on T3 which could be better evaluated with CT. Moderate spondylosis Reported By:
== END | disposition home or self-care (01) | DRG 552 ==
LOC: RAD 11:18
PROVIDERS: ATTEND Nurse Practitioner Family
DX: M54.6 Pain in thoracic spine (principal); M47.894 Other spondylosis, thoracic region
CPT/HCPCS: 72072

== ENCOUNTER → 2017-07-09 | Outpatient (CLI) | payer MEDICAID ==
[~2017-07-09] MED LIST: NS 100 ML IV 100 ML IV ONE
[2017-07-09 09:18] LABS: CREATININE 0.9 mg/dL (0.55-1.02)
== END ==
LOC: RAD 08:38
PROVIDERS: ATTEND Nurse Practitioner Family
DX: L04.8 Acute lymphadenitis of other sites (principal)
CPT/HCPCS: 36415; 82565; 84520; A4222

== ENCOUNTER → 2017-07-14 | Outpatient (CLI) | payer MEDICAID ==
--- NOTE | 2017-07-17 08:25 | CT ---
HISTORY: Lymphadenitis left neck Study: CT soft tissue neck with contrast Comparison: None Technique: Axial post-contrast images with coronal and sagittal reformats. Dose reduction procedures were used with MA/kv adjusted for body size. Findings: The parotid and submandibular glands are symmetric and normal. No nasopharyngeal abnormality is ident ified. No sonia pharyngeal abnormality is identified. The piriform sinuses are clear. No definite laryn geal abnormality is identified. The thyroid gland is normal. No enlarged supraclavicular adenopathy i s identified. Retrocaval pretracheal lymphadenopathy is unchanged from a recent CTA chest May 16 17. Multiple but nonenlarged AP window lymph nodes are incidentally noted. The visualized portions of the lung bush are clear. Biapical blebs are present. No skeletal abnormality is identified. The si nuses are clear with the exception of mild inflammatory mucosal changes in the left maxillary sinus. Multiple but nonenlarged lymph nodes are present in the anterior and posterior cervical chains bilate rally. No abnormal soft tissue masses are identified. Calcific atherosclerotic changes present at bot h carotid bifurcations. IMPRESSION: Bilateral but nonenlarged anterior and posterior cervical chain lymph nodes Stable mildly enlarged retrocaval pretracheal lymph node Multiple but nonenlarged left AP window lymph nodes which are new Calcific atherosclerotic change at the carotid bifurcations bilaterally Reported By:
== END | disposition home or self-care (01) ==
LOC: RAD 08:53
PROVIDERS: ATTEND Nurse Practitioner Family
DX: L04.8 Acute lymphadenitis of other sites (principal); M54.2 Cervicalgia
CPT/HCPCS: 70491; A4222

== ENCOUNTER → 2017-08-29 | Outpatient (CLI) | payer MEDICAID ==
[2017-08-29 10:12] LABS: CREATININE 1.26 mg/dL (0.55-1.02)
--- NOTE | 2017-09-01 12:22 | MRI ---
HISTORY: Chronic low back pain Study: MRI lumbar spine with and without contrast Comparison: Technique: Multiplanar multi-sequence pre and postcontrast MRI of the lumbar spine was obtained. Sag ittal T1, sagittal T2, and stir weighted images, axial T1, and axial T2 images were obtained. Sagitta l and axial post-contrast images were obtained. Findings: The lumbar spine demonstrates normal alignment with the expected signal characteristics of the bone m arrow. No areas of abnormal enhancement are identified. The conus of the cord terminates normally. T12 -- L1: Mild noncompressive disc bulging is present. The neural foramina are patent. The joints ar e normal. L1 -- L2: No evidence for compressive disc disease. The neural foramina are patent. The joints are no rmal. L2 -- L3: No evidence for compressive disc disease. The neural foramina are patent. The joints are no rmal. L3 -- L4: Mild broad-based disc bulging effaces the thecal sac and contributes along with mild facet arthropathy to mild lateral recess narrowing bilaterally. L4 -- L5: There is broad-based disc protrusion which extends somewhat more to the left than the right where it contributes along with mild bilateral facet arthropathy to significant lateral recess and f oraminal narrowing. Lateral recess of a lesser degree narrowing is present on the right. L5 -- S1: There is disc degeneration with broad-based disc bulging which contributes along with spond ylitic change and mild bilateral facet arthropathy to lateral recess and foraminal narrowing bilatera lly. IMPRESSION: As above Note: The use of MR contrast in the setting of chronic low back pain and a screening for degenerative disc disease is not necessary and not indicated. The use of contrast should be reserved for postoper ative disc disease, metastatic disease, and infection/inflammation. Reported By:
== END | disposition home or self-care (01) ==
LOC: RAD 09:45
PROVIDERS: ATTEND Nurse Practitioner Family
DX: M54.5 Low back pain (principal); M12.88 Other specific arthropathies, not elsewhere classified, other specified site
CPT/HCPCS: 36415; 72158; 82565; 84520

== ENCOUNTER 2017-12-23 16:29 | Observation (INO) | payer MEDICAID ==
--- NOTE | 2017-12-23 18:32 | DR.H&P ---
H&P - History & Physical for Day of: H&P Date: 12/23/17 - Chief Complaint Chief Complaint: chest pain - Allergies Allergies/Adverse Reactions: Allergies Allergy/AdvReac Type Severity Reaction Status Date / Time No Known Allergies Allergy Verified 05/13/17 19:02 - History of Present Illness History of Present Illness: 57 WF DIRECT ADMIT FROM DR GALAN OFFICE WITH CO CHEST PAIN WITH SOB. PT HAS PMH OF HTN, CAD, HYPERLIPIDEMIA, CVD, COPD, AMITA. PT STATES SHE HAS HAD INCREASED AGEE'S AND ELEVATED BP. PT ADMITTED FOR CARDIAC MONITORING, R/O AMI - Past Medical History Past Medical History: Anxiety, CHF, COPD, Coronary Artery Disease, CVA, Depression, Diabetes, Migraines, Hypertension - Past Surgical History Surgical History: [employer] Surgery - Family History Family Medical History: Diabetes Mellitus, Cancer, Heart Failure, Hypertension - Social History Does patient currently use any type of tobacco product: Yes Have you used tobacco products in the last 12 months: Yes Type of Tobacco Use: Cigarettes Does any household member use tobacco: Yes Alcohol Use: None Drug Use: None - Review of Systems Constitutional: Weakness Eyes: No Symptoms Reported ENT: No Symptoms Reported Respiratory: Shortness of Breath Cardiovascular: Chest Pain Gastrointestinal: Nausea Genitourinary: No Symptoms Reported Musculoskeletal: Back Pain, Leg Pain Skin: No Symptoms Reported - Physical Exam Vital Signs: Blood Pressure [Right Arm] 155/86 Blood Pressure [Left Arm] 193/88 Blood Pressure 193/88 Oriented: Normal Eyes: Normal Ear: Normal Nose: Normal Throat: Normal Respiratory: RLL Diminished, LLL Diminished Cardiovascular: Normal : Normal Auscultation: Bowel Sounds: Normal Palpation: Normal Tenderness: Epigastric Skin: Normal Musculoskeletal: Back:Lumbar Psychiatric: Anxiety Affect: Anxious Speech Pattern: Clear, Appropriate - Assessment/Plan (1) Chest pain Status: Acute Plan: ADMIT, SERIAL CE, EKG'S AND CXR. BP AND LIPID CONTROL. RESUME HOME MED. SSI, REPEAT AM LABS (2) CVA (cerebral vascular accident) Qualifiers: CVA mechanism: other Qualified Code(s): I63.8 - Other cerebral infarction Status: Acute (3) Diabetes Status: Acute (4) HTN (hypertension) Status: Acute (5) History of CVA (cerebrovascular accident) Status: Chronic
[2017-12-23 19:11] LABS: BASOPHILS % (AUTO) 0.2 % (0.2-1.0); EOSINOPHILS # (AUTO) 0.4 x10^3/uL (0.0-0.2); EOSINOPHILS % (AUTO) 2.5 % (0.9-2.9); HEMATOCRIT 35.7 % (36.0-47.0); LYMPHOCYTES # (AUTO) 5.1 X10^3/uL (1.3-2.9); LYMPHOCYTES % (AUTO) 35.2 % (21.0-51.0); MEAN CORPUSCULAR HEMOGLOBIN 29.2 pg (27.0-34.0); MEAN CORPUSCULAR HGB CONC 33.6 g/dL (33.0-35.0); MEAN CORPUSCULAR VOLUME 86.8 fL (80.0-100.0); MEAN PLATELET VOLUME 8.7 fL (7.4-11.0); MONOCYTES # (AUTO) 0.9 x10^3/uL (0.3-0.8); NEUTROPHILS % (AUTO) 56.1 % (42.0-75.0); PLATELET COUNT 309 X10^3/uL (150.0-450.0); RED BLOOD COUNT 4.12 X10^6/uL (3.5-5.4); RED CELL DISTRIBUTION WIDTH 14.8 % (11.6-16.5); WHITE BLOOD COUNT 14.3 X10^3/uL (3.6-10.0)
[2017-12-23 19:24] LABS: PLATELET MORPHOLOGY COMMENT NORMAL (NORMAL)
[2017-12-23 19:34] LABS: BLOOD UREA NITROGEN 22 mg/dL (7-18); CALCIUM 9.5 mg/dL (8.5-10.1); CARBON DIOXIDE 24.6 mmol/L (21-32); CHLORIDE 100 mmol/L (98-107); COR NA(FOR HYPERGLY) 138 mmol/L (136-145); CREATININE 1.04 mg/dL (0.55-1.02); SODIUM 137 mmol/L (136-145); TROPONIN I < 0.02 ng/mL (0-1.5); eGFR BLACK RACES > 60 (>60); eGFR NON BLACK RACES 58 (>60)
[2017-12-23 19:38] LABS: ALANINE AMINOTRANSFERASE 19 Units/L (12-78); ALBUMIN 3.9 g/dL (3.4-5.0); ALKALINE PHOSPHATASE 86 Units/L (46-116); AMYLASE 84 Units/L (25-115); ASPARTATE AMINO TRANSFERASE 19 Units/L (15-37); CKMB % 1.8 % (<4); CREATINE KINASE 128 Units/L (26-192); CREATINE KINASE MB 2.3 ng/mL (0-4.0); LIPASE 261 Units/L (73-393); MAGNESIUM 1.7 mg/dL (1.7-2.9)
[2017-12-23 19:51] VITALS: BMI 29.0
[2017-12-23] MEDS: TOPAMAX TAB 100 MG PO SCH (21:17)
[2017-12-23] MEDS: NEURONTIN CAP 100 MG PO SCH (21:17)
[2017-12-23] MEDS: KLONOPIN TAB 0.5 MG PO SCH (21:17)
[2017-12-23] MEDS: NORCO 5/325 MG TAB PO PRN (21:27)
[2017-12-23] MEDS: NICOTINE PATCH TD SCH (21:28)
[2017-12-23] MEDS: LANTUS SC SCH (21:34)
[2017-12-23] MEDS ORDERED: POTASSIUM CHL 40 MEQ/NS 0.45% 500 ML IV PRN (21:45)
[2017-12-23] MEDS ORDERED: K-RIDER 10 MEQ/NS 100 ML 10 MEQ/100 ML BAG IV PRN (21:45)
[2017-12-23] MEDS ORDERED: POTASSIUM CHLORIDE LIQ 20 MEQ UDC PO PRN (21:45)
[2017-12-23] MEDS ORDERED: MAGNESIUM SULFATE 1 GM/100 mL PREMIX 1 GM/100 ML BAG IV PRN (21:45)
[2017-12-23] MEDS ORDERED: K-LYTE EFFERVESCENT PO PRN (21:45)
[2017-12-23] MEDS ORDERED: MAG-OX TAB PO PRN (21:45)
[2017-12-23] MEDS ORDERED: POTASSIUM CHL 60 MEQ/NS 0.45% 500 ML IV PRN (21:45)
[2017-12-23] MEDS ORDERED: NS 500 ML IV 500 ML IV ONE (22:02)
[2017-12-23 22:18] LABS: BILIRUBIN,URINE NEGATIVE (NEGATIVE); BLOOD/HEMOGLOBIN,URINE NEGATIVE (NEGATIVE); GLUCOSE, URINE NEGATIVE (NEGATIVE); KETONES,URINE NEGATIVE (NEGATIVE); LEUKOCYTE ESTERASE ,URINE 1+ (NEGATIVE); NITRITES,URINE NEGATIVE (NEGATIVE); PROTEIN,URINE NEGATIVE (NEGATIVE); UROBILINOGEN,URINE NORMAL (NORMAL)
[2017-12-23 22:26] LABS: APPEARANCE,URINE CLEAR (CLEAR); BACTERIA,URINE TRACE /HPF (NEGATIVE); COLOR,URINE YELLOW (YELLOW); RBC,URINE 0-1 /HPF (NEGATIVE); RENAL EPITHELIAL CELLS,URINE RARE /HPF (NEGATIVE); SQUAMOUS EPITHELIAL CELL,UR FEW /HPF (NEGATIVE)
[2017-12-24 02:07] LABS: CKMB % 1.9 % (<4); CREATINE KINASE 95 Units/L (26-192); CREATINE KINASE MB 1.8 ng/mL (0-4.0); TROPONIN I < 0.02 ng/mL (0-1.5)
--- NOTE | 2017-12-24 06:49 | RAD ---
History: Chest pain Study: Portable AP chest Comparison: May 17, 2017 Findings: The heart size is normal. The lungs are clear of active disease. There is no edema or effus ion. Impression: No acute cardiopulmonary disease Reported By:
[2017-12-24 06:55] LABS: CHOL/HDL RATIO 3.8 (0.0-5.0)
[2017-12-24 06:57] LABS: CREATINE KINASE 92 Units/L (26-192); CREATINE KINASE MB 1.8 ng/mL (0-4.0); TROPONIN I < 0.02 ng/mL (0-1.5)
[2017-12-24] MEDS: KLONOPIN TAB 0.5 MG PO SCH ×2 (09:36→20:44)
[2017-12-24] MEDS: TOPAMAX TAB 100 MG PO SCH ×2 (09:36→20:43)
[2017-12-24] MEDS: LIPITOR TAB 40 MG PO SCH (09:36)
[2017-12-24] MEDS: NICOTINE PATCH TD SCH (09:36)
[2017-12-24] MEDS: NORCO 5/325 MG TAB PO PRN ×2 (09:37→17:06)
[2017-12-24] MEDS: PLAVIX PO SCH (09:37)
--- NOTE | 2017-12-24 13:50 | PCM.PROG ---
Progress Note - Progress Note for Day of Date: 12/24/17 - Subjective Subjective: the patient is a 57-year-old white female who was admitted for chest pain with shortness of breath. Patient states she's had intermittent chest pain lasting for a few seconds without shortness of breath or diaphoresis since admission. Patient does complain of COPD symptoms and chronic wheezing as well as shortness of breath. Her pain patient's serial cardiac enzymes and EKGs discussed possible CT of the chest in transfer for cardiac catheter and continued pain. - Past Medical Family Social History Past Med/Fam/Surg Hx: No changes since H&P Allergies: Allergies No Known Allergies Allergy (Verified 05/13/17 19:02) - Vital Signs and I&O's Vital Signs: Temperature 98.9 F Pulse Rate [Left Radial] 76 Respiratory Rate 20 Blood Pressure [Right Arm] 115/53 Blood Pressure [Left Arm] 130/67 Blood Pressure 193/88 O2 Sat by Pulse Oximetry 92 Intake and Output: Intake & Output 12/22/17 12/23/17 12/24/17 12/25/17 11:59 11:59 11:59 11:59 Intake Total 1080 Balance 1080 - Physical Exam Oriented: Normal Eyes: Normal Ear: Normal Nose: Normal Throat: Normal Respiratory: Diminished Cardiovascular: Normal : Normal Auscultation: Bowel Sounds: Normal Tenderness: Epigastric Skin: Normal Musculoskeletal: Back:Lumbar Psychiatric: Anxiety Affect: Anxious Speech Pattern: Clear, Appropriate - Laboratory and Diagnostics Result Diagrams: 12/23/17 18:50 12/23/17 18:50 Labs: Laboratory WBC 14.3 X10^3/uL (3.6-10.0) H 12/23/17 18:50 RBC 4.12 X10^6/uL (3.5-5.4) 12/23/17 18:50 Hgb 12.0 g/dL (12.0-16.0) 12/23/17 18:50 Hct 35.7 % (36.0-47.0) L 12/23/17 18:50 MCV 86.8 fL (80.0-100.0) 12/23/17 18:50 MCH 29.2 pg (27.0-34.0) 12/23/17 18:50 MCHC 33.6 g/dL (33.0-35.0) 12/23/17 18:50 RDW 14.8 % (11.6-16.5) 12/23/17 18:50 Plt Count 309 X10^3/uL (150.0-450.0) 12/23/17 18:50 Plt Count Comment Adequate (ADEQUATE) 12/23/17 18:50 MPV 8.7 fL (7.4-11.0) 12/23/17 18:50 Neut % 56.1 % (42.0-75.0) 12/23/17 18:50 Lymph % 35.2 % (21.0-51.0) 12/23/17 18:50 [place] % 6.0 % (0.0-13.0) 12/23/17 18:50 Eos % 2.5 % (0.9-2.9) 12/23/17 18:50 Baso % 0.2 % (0.2-1.0) 12/23/17 18:50 Neut # 8.0 x10^3/uL (2.2-4.8) H 12/23/17 18:50 Lymph # 5.1 X10^3/uL (1.3-2.9) H 12/23/17 18:50 [place] # 0.9 x10^3/uL (0.3-0.8) H 12/23/17 18:50 Eos # 0.4 x10^3/uL (0.0-0.2) H 12/23/17 18:50 Baso # 0.0 X10^3/uL (0.0-0.1) 12/23/17 18:50 Absolute Nucleated RBC 0.1 /100WBC 12/23/17 18:50 Plt Morphology Comment Normal (NORMAL) 12/23/17 18:50 RBC Morphology Normal (NORMAL) 12/23/17 18:50 INR Target Range - 12/23/17 20:06 INR 0.92 (0.8-1.3) 12/23/17 20:06 PTT 25.2 SECONDS (22.9-36.5) 12/23/17 20:06 PTT Comment - 12/23/17 20:06 Sodium 137 mmol/L (136-145) 12/23/17 18:50 Corrected Sodium 138 mmol/L (136-145) 12/23/17 18:50 Potassium 3.3 mmol/L (3.5-5.1) L 12/23/17 18:50 Chloride 100 mmol/L (98-107) 12/23/17 18:50 Carbon Dioxide 24.6 mmol/L (21-32) 12/23/17 18:50 BUN 22 mg/dL (7-18) H 12/23/17 18:50 Creatinine 1.04 mg/dL (0.55-1.02) H 12/23/17 18:50 Est GFR (MDRD) Af Amer > 60 (>60) 12/23/17 18:50 Est GFR (MDRD) Non-Af 58 (>60) L 12/23/17 18:50 Glucose 160 mg/dL (65-99) H 12/23/17 18:50 POC Glucose (mg/dL) 187 mg/dL (65-99) H 12/24/17 11:04 Calcium 9.5 mg/dL (8.5-10.1) 12/23/17 18:50 Corrected Calcium TNP 12/23/17 18:50 Magnesium 1.6 mg/dL (1.7-2.9) L 12/23/17 18:50 Total Bilirubin 0.10 mg/dL (0.2-1.0) L 12/23/17 18:50 AST 19 Units/L (15-37) 12/23/17 18:50 ALT 19 Units/L (12-78) 12/23/17 18:50 Alkaline Phosphatase 86 Units/L (46-116) 12/23/17 18:50 Creatine Kinase 92 Units/L (26-192) 12/24/17 06:05 CK-MB (CK-2) 1.8 ng/mL (0-4.0) 12/24/17 06:05 CK/CKMB % Calc 2.0 % (<4) 12/24/17 06:05 Troponin I < 0.02 ng/mL (0-1.5) 12/24/17 06:05 Total Protein 8.0 g/dL (6.4-8.2) 12/23/17 18:50 Albumin 3.9 g/dL (3.4-5.0) 12/23/17 18:50 Globulin 4.1 g/dL (2.5-4.5) 12/23/17 18:50 Albumin/Globulin Ratio 1.0 Ratio (1.1-2.1) L 12/23/17 18:50 Triglycerides 159 mg/dL (0-150) H 12/24/17 06:05 Cholesterol 149 mg/dL (0-200) 12/24/17 06:05 LDL Cholesterol, Calc 78 mg/dL (0-100) 12/24/17 06:05 HDL Cholesterol 39 mg/dL (40-60) L 12/24/17 06:05 Cholesterol/HDL Ratio 3.8 (0.0-5.0) 12/24/17 06:05 Amylase 84 Units/L (25-115) 12/23/17 18:50 Lipase 261 Units/L (73-393) 12/23/17 18:50 Specimen Type Clean catch urine 12/23/17 22:04 Urine Color Yellow (YELLOW) 12/23/17 22:04 Urine Appearance Clear (CLEAR) 12/23/17 22:04 Urine pH 6.0 (5.0 - 8.0) 12/23/17 22:04 Ur Specific [place] 1.010 (1.000-1.030) 12/23/17 22:04 Urine Protein Negative (NEGATIVE) 12/23/17 22:04 Urine Glucose (UA) Negative (NEGATIVE) 12/23/17 22:04 Urine Ketones Negative (NEGATIVE) 12/23/17 22:04 Urine Occult Blood Negative (NEGATIVE) 12/23/17 22:04 Urine Nitrite Negative (NEGATIVE) 12/23/17 22:04 Urine Bilirubin Negative (NEGATIVE) 12/23/17 22:04 Urine Urobilinogen Normal (NORMAL) 12/23/17 22:04 Ur Leukocyte Esterase 1+ (NEGATIVE) 12/23/17 22:04 Urine RBC 0-1 /HPF (NEGATIVE) 12/23/17 22:04 Urine WBC 1-2 /HPF (NEGATIVE) 12/23/17 22:04 Ur Squamous Epith Cells Few /HPF (NEGATIVE) 12/23/17 22:04 Ur Renal Epithelial Cell Rare /HPF (NEGATIVE) 12/23/17 22:04 Urine Bacteria Trace /HPF (NEGATIVE) 12/23/17 22:04 Ur Culture Indicated? No/not indicated 12/23/17 22:04 - Plan (1) Chest pain Status: Acute Plan: SERIAL CE, EKG'S AND CXR ON ADMISSION. BP AND LIPID CONTROL. RESUME HOME MEDS. SSI, REPEAT AM LABS (2) CVA (cerebral vascular accident) Status: Acute Qualifiers: CVA mechanism: other Qualified Code(s): I63.8 - Other cerebral infarction (3) Diabetes Status: Acute (4) HTN (hypertension) Status: Acute (5) History of CVA (cerebrovascular accident) Status: Chronic (6) COPD (chronic obstructive pulmonary disease) Status: Acute (7) SOB (shortness of breath) Status: Acute Plan: CT CHEST, SUPPLEMENTAL O2
--- NOTE | 2017-12-24 16:55 | CT ---
CT chest without contrast. Indication: Chest pain, shortness of breath Comparison: Chest radiograph 12/24/2017. CTA chest 05/16/2017 Technique: CT images of the chest were obtained without contrast. Automatic exposure control was util ized. Findings: There is multilevel spondylosis. No acute skeletal abnormality is seen. The upper abdomen i s grossly unremarkable. The heart size is normal, without significant pericardial thickening or pericardial effusion. Moderat e coronary artery disease is noted. The thoracic aorta is grossly unremarkable aside from scattered a therosclerotic calcifications. No bulky intrathoracic adenopathy appreciated, within noncontrast CT l imitations. There is mild upper lobe predominant paraseptal emphysema. There is minimal lower lobe atelectasis. T he lungs are otherwise clear. No pleural effusion or pneumothorax. The major airways are patent. Impression: 1. No acute cardiopulmonary abnormality. 2. Emphysema. 3. Coronary artery disease. Reported By:
[2017-12-24] MEDS: LANTUS SC SCH (20:41)
[2017-12-24] MEDS: NEURONTIN CAP 100 MG PO SCH (20:43)
[2017-12-25 06:31] LABS: ALANINE AMINOTRANSFERASE 18 Units/L (12-78); ALBUMIN 3.7 g/dL (3.4-5.0); ALKALINE PHOSPHATASE 78 Units/L (46-116); ASPARTATE AMINO TRANSFERASE 19 Units/L (15-37); BLOOD UREA NITROGEN 17 mg/dL (7-18); CALCIUM 9.1 mg/dL (8.5-10.1); CARBON DIOXIDE 25.2 mmol/L (21-32); CHLORIDE 106 mmol/L (98-107); COR NA(FOR HYPERGLY) 142 mmol/L (136-145); CREATININE 0.87 mg/dL (0.55-1.02); SODIUM 142 mmol/L (136-145); TOTAL PROTEIN 7.6 g/dL (6.4-8.2); eGFR BLACK RACES > 60 (>60); eGFR NON BLACK RACES > 60 (>60)
[2017-12-25 06:35] LABS: BASOPHILS # (AUTO) 0.1 X10^3/uL (0.0-0.1); BASOPHILS % (AUTO) 1.2 % (0.2-1.0); EOSINOPHILS # (AUTO) 0.5 x10^3/uL (0.0-0.2); EOSINOPHILS % (AUTO) 4.2 % (0.9-2.9); HEMOGLOBIN 12.5 g/dL (12.0-16.0); LYMPHOCYTES # (AUTO) 3.5 X10^3/uL (1.3-2.9); LYMPHOCYTES % (AUTO) 31.5 % (21.0-51.0); MEAN CORPUSCULAR HEMOGLOBIN 29.5 pg (27.0-34.0); MEAN CORPUSCULAR HGB CONC 33.7 g/dL (33.0-35.0); MEAN CORPUSCULAR VOLUME 87.3 fL (80.0-100.0); MEAN PLATELET VOLUME 8.7 fL (7.4-11.0); MONOCYTES # (AUTO) 0.7 x10^3/uL (0.3-0.8); MONOCYTES % (AUTO) 6.1 % (0.0-13.0); NEUTROPHILS # (AUTO) 6.3 x10^3/uL (2.2-4.8); PLATELET COUNT 283 X10^3/uL (150.0-450.0); RED BLOOD COUNT 4.23 X10^6/uL (3.5-5.4); RED CELL DISTRIBUTION WIDTH 14.8 % (11.6-16.5)
[2017-12-25] MEDS: NORCO 5/325 MG TAB PO PRN (07:04)
[2017-12-25] MEDS: KLONOPIN TAB 0.5 MG PO SCH (09:30)
[2017-12-25] MEDS: TOPAMAX TAB 100 MG PO SCH (09:30)
[2017-12-25] MEDS: PLAVIX PO SCH (09:30)
[2017-12-25] MEDS: LIPITOR TAB 40 MG PO SCH (09:31)
[2017-12-25] MEDS: NICOTINE PATCH TD SCH (09:31)
[2017-12-25 12:13] VITALS: BP 136/80
== END 2017-12-25 14:25 | disposition home or self-care (01) ==
LOC: MED/SURG 16:29
PROVIDERS: ADMIT Internal Medicine; ATTEND Internal Medicine
DX: R07.89 Other chest pain (principal); R06.02 Shortness of breath; I63.8 Other cerebral infarction; I10 Essential (primary) hypertension; I25.10 Atherosclerotic heart disease of native coronary artery without angina pectoris; F32.89 Other specified depressive episodes; E11.65 Type 2 diabetes mellitus with hyperglycemia; F41.8 Other specified anxiety disorders; Z86.73 Personal history of transient ischemic attack (TIA), and cerebral infarction without residual deficits
CPT/HCPCS: 36415; 71045; 71250; 80053; 80061; 81001; 82150; 82550; 82553; 83690; 83735; 84484; 85025; 85378; 85610; 85730; 93005; 93010; 94760; A4216; A4222; G0378; J1815

== ENCOUNTER 2017-12-26 11:38 | Emergency (ER) | payer MEDICAID ==
[2017-12-26 11:49] VITALS: BP 173/81; BMI 31.1
--- NOTE | 2017-12-26 12:04 | DR.GENAD ---
HPI - HPI Comment HPI Comment: PATIENT DENIES TRAUMA. IN ED, PATIENT HAVE GOOD STRENTH ON THE LEFT SIDE. HER SYMTOM IS SUBSIDING. NO FEVER OR DYSURIA. NO N/V/D. - Complaint/Symptoms Chief Complaint Doctors Comments: LEFT SIDED WEAKNESS SINCE THIS MORNING. Chief Complaint:: "left sided weakness in arm and leg since this morning." - Nurses notes reviewed Nurses Notes Review: Yes - Source History Provided: Family Member, EMS - Mode of Arrival Mode of Arrival: EMS - Timing Onset of Chief Complaint: 12/26/17 Came on: Suddenly - Duration Duration: Since Onset Duration: Hours - Severity Severity: Moderate PMH - PMH Past Medical History: Yes Past Medical History: Anxiety, CHF, COPD, Coronary Artery Disease, CVA, Depression, Diabetes, Migraines, Hypertension Past Surgical History: Yes Surgical History: [employer] Surgery - Family History History of Family Medical Conditions: Yes Family Medical History: Diabetes Mellitus, Cancer, Heart Failure, Hypertension - Social History Does patient currently use any type of tobacco product: Yes Have you used tobacco products in the last 12 months: Yes Type of Tobacco Use: Cigarettes Does any household member use tobacco: No Alcohol Use: None Do you use any recreational Drugs:: No Lives With: Family Lives Where: Home - infectious screening In the last 2 months have you had wt loss of >10#?: NO Have you had fever, night sweats or hemotysis?: No Have you traveled outside the country in the last 6 months?: No Isolation: Standard ROS - Review of Systems Constitutional: Weakness, Fatigue Eyes: negative: Eye Pain ENTM: No Symptoms Reported. negative: Ear Discharge, Nose Discharge, Nose Congestion, Throat Pain Respiratoy: No Symptoms Reported, Non-Productive Cough. negative: Short of Breath, Wheezing, Hemoptysis Cardiovascular: No Symptoms Reported Gastrointestinal/Abdominal: No Symptoms Reported Genitourinary: No Symptoms Reported Neurological: Headache Musculoskeletal: Muscle Pain Integumentary: No Symptoms Reported Hematologic/Lymphatic: No Symptoms Reported Endocrine: No Symptoms Reported All Other Systems: Reviewed and Negative PE - Vital Signs Vitals: Temperature 98 F Pulse Rate 63 Respiratory Rate 18 Blood Pressure [Right Arm] 136/80 Blood Pressure [Left Arm] 178/79 Blood Pressure 173/81 O2 Sat by Pulse Oximetry 99 - General Limitations: No Limitations General Appearance: Alert - Head Head Exam: Normal Inspection - Eyes Eye exam: Normal Appearance - ENT ENT Exam: Normal External Ear Exam External Ear Exam: Normal External Inspection TM/Canal Exam: Bilateral Normal Nose Exam: Normal Nose Exam Mouth Exam: Normal Inspection Throat Exam: Tonsillar Erythema - Neck Neck Exam: Normal Inspection, Full ROM - Chest Chest Inspection: Symmetric Chest Wall Rise MDM - Additional Information Additional Information Obtained From: Family, PCP - Differential Diagnosis Differential Diagnosis: HISTORY LEFT SIDED WEAKNESS/RESOLVE CURRENTLY. Course - Treatment Treatment: SEE ORDERS. - Education/Counseling Education/Counseling: Patient, Education Educated On: Diagnosis, Needs for Follow Up ROR - Labs Reviewed Laboratory Results Reviewed?: Yes Result Diagrams: 12/26/17 12:20 12/26/17 12:20 Laboratory: WBC 11.8 X10^3/uL (3.6-10.0) H 12/26/17 12:20 RBC 4.23 X10^6/uL (3.5-5.4) 12/26/17 12:20 Hgb 12.3 g/dL (12.0-16.0) 12/26/17 12:20 Hct 37.5 % (36.0-47.0) 12/26/17 12:20 MCV 88.7 fL (80.0-100.0) 12/26/17 12:20 MCH 29.0 pg (27.0-34.0) 12/26/17 12:20 MCHC 32.7 g/dL (33.0-35.0) L 12/26/17 12:20 RDW 14.8 % (11.6-16.5) 12/26/17 12:20 Plt Count 294 X10^3/uL (150.0-450.0) 12/26/17 12:20 MPV 8.3 fL (7.4-11.0) 12/26/17 12:20 Neut % 57.4 % (42.0-75.0) 12/26/17 12:20 Lymph % 30.3 % (21.0-51.0) 12/26/17 12:20 [place] % 7.0 % (0.0-13.0) 12/26/17 12:20 Eos % 3.9 % (0.9-2.9) H 12/26/17 12:20 Baso % 1.4 % (0.2-1.0) H 12/26/17 12:20 Neut # 6.8 x10^3/uL (2.2-4.8) H 12/26/17 12:20 Lymph # 3.6 X10^3/uL (1.3-2.9) H 12/26/17 12:20 [place] # 0.8 x10^3/uL (0.3-0.8) 12/26/17 12:20 Eos # 0.5 x10^3/uL (0.0-0.2) H 12/26/17 12:20 Baso # 0.2 X10^3/uL (0.0-0.1) H 12/26/17 12:20 Absolute Nucleated RBC 0.0 /100WBC 12/26/17 12:20 Sodium 141 mmol/L (136-145) 12/26/17 12:20 Corrected Sodium TNP 12/26/17 12:20 Potassium 4.3 mmol/L (3.5-5.1) 12/26/17 12:20 Chloride 107 mmol/L (98-107) 12/26/17 12:20 Carbon Dioxide 26.0 mmol/L (21-32) 12/26/17 12:20 BUN 19 mg/dL (7-18) H 12/26/17 12:20 Creatinine 0.94 mg/dL (0.55-1.02) 12/26/17 12:20 Est GFR (MDRD) Af Amer > 60 (>60) 12/26/17 12:20 Est GFR (MDRD) Non-Af > 60 (>60) 12/26/17 12:20 Glucose 107 mg/dL (65-99) H 12/26/17 12:20 Calcium 9.3 mg/dL (8.5-10.1) 12/26/17 12:20 Corrected Calcium TNP 12/26/17 12:20 Total Bilirubin 0.20 mg/dL (0.2-1.0) 12/26/17 12:20 AST 13 Units/L (15-37) L 12/26/17 12:20 ALT 16 Units/L (12-78) 12/26/17 12:20 Alkaline Phosphatase 84 Units/L (46-116) 12/26/17 12:20 Creatine Kinase 83 Units/L (26-192) 12/26/17 12:20 CK-MB (CK-2) 2.3 ng/mL (0-4.0) 12/26/17 12:20 CK/CKMB % Calc 2.8 % (<4) 12/26/17 12:20 Troponin I < 0.02 ng/mL (0-1.5) 12/26/17 12:20 Total Protein 7.6 g/dL (6.4-8.2) 12/26/17 12:20 Albumin 3.7 g/dL (3.4-5.0) 12/26/17 12:20 Globulin 3.9 g/dL (2.5-4.5) 12/26/17 12:20 Albumin/Globulin Ratio 0.9 Ratio (1.1-2.1) L 12/26/17 12:20 - XRAY XRAY Interpreted by: Radiologist XRAY Findings: REPORT DISCUSS WITH PATIENT. - EKG Rhythm: NSR (EKG NOTED.) - Diagnosis Discharge Problem: Weakness of left side of body - Discharge Plan Disposition: 01 HOME, SELF-CARE Condition: Stable - Follow ups/Referrals Follow ups/Referrals: NFD,None [Primary Care Provider] - 3 days - Instructions Instructions: Paresthesia Additional Instructions: RETURN TOED IF WORSE.
[2017-12-26 12:30] LABS: BASOPHILS # (AUTO) 0.2 X10^3/uL (0.0-0.1); BASOPHILS % (AUTO) 1.4 % (0.2-1.0); EOSINOPHILS # (AUTO) 0.5 x10^3/uL (0.0-0.2); EOSINOPHILS % (AUTO) 3.9 % (0.9-2.9); HEMATOCRIT 37.5 % (36.0-47.0); HEMOGLOBIN 12.3 g/dL (12.0-16.0); LYMPHOCYTES # (AUTO) 3.6 X10^3/uL (1.3-2.9); LYMPHOCYTES % (AUTO) 30.3 % (21.0-51.0); MEAN CORPUSCULAR HGB CONC 32.7 g/dL (33.0-35.0); MEAN CORPUSCULAR VOLUME 88.7 fL (80.0-100.0); MEAN PLATELET VOLUME 8.3 fL (7.4-11.0); MONOCYTES # (AUTO) 0.8 x10^3/uL (0.3-0.8); NEUTROPHILS # (AUTO) 6.8 x10^3/uL (2.2-4.8); NEUTROPHILS % (AUTO) 57.4 % (42.0-75.0); PLATELET COUNT 294 X10^3/uL (150.0-450.0); RED BLOOD COUNT 4.23 X10^6/uL (3.5-5.4); RED CELL DISTRIBUTION WIDTH 14.8 % (11.6-16.5); WHITE BLOOD COUNT 11.8 X10^3/uL (3.6-10.0)
[2017-12-26 12:50] LABS: BLOOD UREA NITROGEN 19 mg/dL (7-18); CALCIUM 9.3 mg/dL (8.5-10.1); CHLORIDE 107 mmol/L (98-107); CREATININE 0.94 mg/dL (0.55-1.02); SODIUM 141 mmol/L (136-145); TROPONIN I < 0.02 ng/mL (0-1.5); eGFR BLACK RACES > 60 (>60); eGFR NON BLACK RACES > 60 (>60)
[2017-12-26 12:54] LABS: ALANINE AMINOTRANSFERASE 16 Units/L (12-78); ALBUMIN 3.7 g/dL (3.4-5.0); ALKALINE PHOSPHATASE 84 Units/L (46-116); ASPARTATE AMINO TRANSFERASE 13 Units/L (15-37); CKMB % 2.8 % (<4); CREATINE KINASE 83 Units/L (26-192); CREATINE KINASE MB 2.3 ng/mL (0-4.0); TOTAL PROTEIN 7.6 g/dL (6.4-8.2)
--- NOTE | 2017-12-26 13:03 | RAD ---
HISTORY: Shortness of breath Study: AP portable chest Comparison: 12/24/2017 Findings: Low volume inspiration is present. There appears to be mild vascular congestion at this time. The h eart size is normal for technique of the film. No acute bony abnormalities are identified. IMPRESSION: 1. Mildly prominent lung markings predominantly centrally suggesting mild centrum pulmonary vascular congestion. Clinical correlation is recommended. 2. Otherwise, no radiographic evidence of acute cardiopulmonary disease or significant change is not ed when compared to the prior examination. Reported By:
--- NOTE | 2017-12-26 13:07 | CT ---
History: Left-sided weakness and altered mental status Study: CT head without contrast. Sagittal and coronal reformations were provided. Comparison: January 29, 2016 Findings: There is an old infarct in the right posterior parietal and right occipital lobe with the f low malacia. There is a smaller old infarct in the left occipital lobe. There is no hemorrhage or mas s or edema. There is enlargement of the right sylvian fissure and right occipital horn. There is no h emorrhage or mass or subdural collection of fluid. The calvarium is intact. There is mucosal thickeni ng in the maxillary sinuses and the right sphenoid sinus. There are prominent subarachnoid spaces. Th e ventricles and sulci are diffusely enlarged, more so than and 2016. Impression: 1. Old infarcts right posterior parietal and occipital lobe larger than on left side 2. Atrophy, no acute disease demonstrated. Reported By:
== END 2017-12-26 14:56 | disposition home or self-care (01) ==
LOC: ER 12:01
DX: R53.1 Weakness (principal); G31.9 Degenerative disease of nervous system, unspecified; R51 Headache
CPT/HCPCS: 36415; 70450; 71045; 80053; 82550; 82553; 84484; 85025; 99283

== ENCOUNTER 2017-12-26 21:17 | Inpatient (IN) | payer MEDICAID ==
--- NOTE | 2017-12-26 21:44 | DR.GENAD ---
HPI - PCP Primary Care Physician: SULY - Complaint/Symptoms Chief Complaint Doctors Comments: Patient states she do not know what is going on but daughter called and states the patient has been going in and out and stands there at times like she is in a trace. Daughter states the patient has had several strokes before and they are wondering if she is regressing. Family states she had not had any recent trauma. States she was here earlier and they let her go home. Son in room with patient and state he want to take her to a different hospital. Patient states she want to go to a different hospital. Patient states she is out of her Lorcets. Patient came in by EMS. 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 Talked with another son and he states patient is on a lot of medicines and she asked him to take her to another hospital but he cannot see what another hospital can do that they cannot do in [place]. Chief Complaint:: DAUGHTER FOUND PT AT HOME IN "TRANCE" STATE; APHASIC; C/O HEADACHE UPON ARRIVAL; OTBS REPORTED BY EMS IS 85 - Nurses notes reviewed Nurses Notes Review: Yes - Source History Provided: Patient, EMS - Mode of Arrival Mode of Arrival: Stretcher - Timing Onset of Chief Complaint: 12/26/17 Came on: Gradually - Duration Duration: Intermittent How lon Duration: Days - Location Location: altered mental status - Severity Severity: Mild - Modifying Factors Worsens:: nothing Improves:: nothing PMH - PMH Past Medical History: Yes Past Medical History: CVA Past Surgical History: No Surgical History: DOLL WIG [employer] ROOTED HAIR Surgery - Family History History of Family Medical Conditions: No Family Medical History: Diabetes Mellitus, Cancer, Heart Failure, Hypertension - Social History Alcohol Use: None Do you use any recreational Drugs:: No Lives With: Alone Lives Where: Home - infectious screening In the last 2 months have you had wt loss of >10#?: NO Have you had fever, night sweats or hemotysis?: No Have you traveled outside the country in the last 6 months?: No Isolation: Standard ROS - Review of Systems Constitutional: No Symptoms Reported, Weakness, Loss of Appetite. negative: See HPI, Chills, Diaphoresis, Fever, Malaise, Irritable, Fatigue, Other Eyes: No Symptoms Reported. negative: See HPI, Eye Pain, Blurred Vision, Tearing, Discharge, Photophobia, Diplopia, Other ENTM: No Symptoms Reported Respiratoy: No Symptoms Reported. negative: See HPI, Productive Cough, Non- Productive Cough, Moist Cough, Dry Cough, Hacking Cough, Barking Cough, Brassy Cough, Orthopnea, Short of Breath, Stridor, Wheezing, Hemoptysis, Other Cardiovascular: negative: No Symptoms Reported, See HPI, Chest Pain, Edema, Palpitations, Syncope, Cyanosis, Skin Mottling, Other Gastrointestinal/Abdominal: No Symptoms Reported. negative: See HPI, Abdominal Pain, Constipation, Diarrhea, Nausea, Vomiting, Food Intolerance, Other Genitourinary: No Symptoms Reported. negative: See HPI, Discharge, Dysuria, Frequency, Hematuria, Pain, Bleeding, Other Neurological: No Symptoms Reported, Weakness, Problems Walking, Speech Problem Musculoskeletal: No Symptoms Reported Integumentary: No Symptoms Reported Hematologic/Lymphatic: No Symptoms Reported Endocrine: No Symptoms Reported Psychiatric: No Symptoms Reported PE - Vital Signs Vitals: Temperature 97.6 F Pulse Rate 63 Respiratory Rate 20 Blood Pressure [Right Arm] 136/80 Blood Pressure [Left Arm] 178/79 Blood Pressure 191/84 O2 Sat by Pulse Oximetry 99 - General Limitations: Altered Mental Status (patient state she do not know what is wrong) General Appearance: Alert, In No Apparent Distress - Head Head Exam: Normal Inspection, Atraumatic, Normocephalic - Eyes Eye exam: Normal Appearance, PERRL, EOMI. negative: Scleral Icterus, Conjunctival Injection, Nystagmus, Miosis, Mydrasis, Periorbital Swelling, Periorbital Tenderness, Other - ENT ENT Exam: Normal Exam, Normal Oropharynx, Normal External Ear Exam, Mucous Membranes Moist, TM's Normal Bilaterally External Ear Exam: Normal External Inspection TM/Canal Exam: Bilateral Normal Nose Exam: Normal Nose Exam Mouth Exam: Normal Inspection Throat Exam: Normal Inspection - Neck Neck Exam: Normal Inspection, Full ROM, Trachea Midline - Chest Chest Inspection: Normal Inspection, Symmetric Chest Wall Rise - Respiratory Respiratory Exam: Normal Lung Sounds Bilat Respiratory Exam: Bilateral Clear to Auscultation - Cardiovascular Cardiovascular Exam: Regular Rate, Normal Rhythm, Normal Heart Sounds - Abdominal Exam Abdominal Exam: Normal Inspection, Normal Bowel Sounds, Soft Abdominal Tenderness: negative: RUQ, RLQ, LUQ, LLQ, Epigastrium, Suprapubic, Diffuse, Mild, Moderate, Severe, Other - Extremities Extremities Exam: Normal Inspection, Full ROM, Normal Capillary Refill. negative: Tenderness, Edema, Joint Swelling, Calf Tenderness, Other - Back Back Exam: Normal Inspection, Full ROM - Neurologic Neurological Exam: Alert, Oriented X3, Reflexes Normal. negative: CN II-XII Intact (patient will not follow command), Normal Gait (gait not tested) - Psychiatric Psychiatric Exam: Normal Affect, Normal Mood - Skin Skin Exam: Warm, Dry, Intact, Normal Color. negative: Rash, Cyanosis, Diaphoresis, Erythema, Pallor, Mottled, Other Course - Consultation Called: 00:03 Call Returned: 00:03 (Dr. Pitts to admit) - Education/Counseling Education/Counseling: Patient, Family Educated On: Treatment, Diagnosis, Needs for Follow Up ROR - Labs Reviewed Laboratory Results Reviewed?: Yes (all lab and x-ray results reviewed and discussed with patient and family) Result Diagrams: 12/26/17 22:43 12/26/17 22:43 Laboratory: WBC 12.7 X10^3/uL (3.6-10.0) H 12/26/17 22:43 RBC 4.24 X10^6/uL (3.5-5.4) 12/26/17 22:43 Hgb 12.3 g/dL (12.0-16.0) 12/26/17 22:43 Hct 36.8 % (36.0-47.0) 12/26/17 22:43 MCV 86.8 fL (80.0-100.0) 12/26/17 22:43 MCH 29.1 pg (27.0-34.0) 12/26/17 22:43 MCHC 33.5 g/dL (33.0-35.0) 12/26/17 22:43 RDW 15.1 % (11.6-16.5) 12/26/17 22:43 Plt Count 311 X10^3/uL (150.0-450.0) 12/26/17 22:43 MPV 8.5 fL (7.4-11.0) 12/26/17 22:43 Neut % 64.2 % (42.0-75.0) 12/26/17 22:43 Lymph % 24.7 % (21.0-51.0) 12/26/17 22:43 [place] % 5.9 % (0.0-13.0) 12/26/17 22:43 Eos % 4.2 % (0.9-2.9) H 12/26/17 22:43 Baso % 1.0 % (0.2-1.0) 12/26/17 22:43 Neut # 8.1 x10^3/uL (2.2-4.8) H 12/26/17 22:43 Lymph # 3.1 X10^3/uL (1.3-2.9) H 12/26/17 22:43 [place] # 0.7 x10^3/uL (0.3-0.8) 12/26/17 22:43 Eos # 0.5 x10^3/uL (0.0-0.2) H 12/26/17 22:43 Baso # 0.1 X10^3/uL (0.0-0.1) 12/26/17 22:43 Absolute Nucleated RBC 0.0 /100WBC 12/26/17 22:43 INR Target Range - 12/26/17 22:43 INR 0.97 (0.8-1.3) 12/26/17 22:43 PTT 27.3 SECONDS (22.9-36.5) 12/26/17 22:43 PTT Comment - 12/26/17 22:43 D-Dimer < 100 ng/mL (0-400) 12/26/17 22:43 Sodium 140 mmol/L (136-145) 12/26/17 22:43 Corrected Sodium TNP 12/26/17 22:43 Potassium 3.2 mmol/L (3.5-5.1) L 12/26/17 22:43 Chloride 105 mmol/L (98-107) 12/26/17 22:43 Carbon Dioxide 23.4 mmol/L (21-32) 12/26/17 22:43 BUN 17 mg/dL (7-18) 12/26/17 22:43 Creatinine 0.97 mg/dL (0.55-1.02) 12/26/17 22:43 Est GFR (MDRD) Af Amer > 60 (>60) 12/26/17 22:43 Est GFR (MDRD) Non-Af > 60 (>60) 12/26/17 22:43 Glucose 94 mg/dL (65-99) 12/26/17 22:43 Calcium 9.5 mg/dL (8.5-10.1) 12/26/17 22:43 Corrected Calcium TNP 12/26/17 22:43 Magnesium 1.7 mg/dL (1.7-2.9) 12/26/17 22:43 Total Bilirubin 0.30 mg/dL (0.2-1.0) 12/26/17 22:43 AST 15 Units/L (15-37) 12/26/17 22:43 ALT 18 Units/L (12-78) 12/26/17 22:43 Alkaline Phosphatase 88 Units/L (46-116) 12/26/17 22:43 Creatine Kinase 78 Units/L (26-192) 12/26/17 22:43 CK-MB (CK-2) 2.2 ng/mL (0-4.0) 12/26/17 22:43 CK/CKMB % Calc 2.8 % (<4) 12/26/17 22:43 Troponin I < 0.02 ng/mL (0-1.5) 12/26/17 22:43 Total Protein 8.0 g/dL (6.4-8.2) 12/26/17 22:43 Albumin 3.9 g/dL (3.4-5.0) 12/26/17 22:43 Globulin 4.1 g/dL (2.5-4.5) 12/26/17 22:43 Albumin/Globulin Ratio 1.0 Ratio (1.1-2.1) L 12/26/17 22:43 Triglycerides 157 mg/dL (0-150) H 12/27/17 22:43 Cholesterol 190 mg/dL (0-200) 12/27/17 22:43 LDL Cholesterol, Calc 112 mg/dL (0-100) H 12/27/17 22:43 HDL Cholesterol 47 mg/dL (40-60) 12/27/17 22:43 Cholesterol/HDL Ratio 4.0 (0.0-5.0) 12/27/17 22:43 - XRAY XRAY Interpreted by: Radiologist (CT head: Old infarcts right posterior parietal and occipital lobe larger than on left side. Atrophy, no acute disease) XRAY Findings: CXR: Mildly prominent lung markings predominantly centrally suggesting mild - Diagnosis Discharge Problem: Altered mental status, CVA prob recurrent, Aphasia, Hypokalemia, Hypertension, Diabetes, History of CVA (cerebrovascular accident) - Discharge Plan Disposition: ADMITTED INPATIENT Condition: Stable - Follow ups/Referrals Follow ups/Referrals: BETZAIDA PORTILLO [Primary Care Provider] - 3 days - Instructions
[2017-12-26] MEDS ORDERED: NS 1000 ML 1,000 ML ONE ×2 (22:08→22:36)
[2017-12-26 23:04] LABS: BASOPHILS # (AUTO) 0.1 X10^3/uL (0.0-0.1); EOSINOPHILS # (AUTO) 0.5 x10^3/uL (0.0-0.2); EOSINOPHILS % (AUTO) 4.2 % (0.9-2.9); HEMATOCRIT 36.8 % (36.0-47.0); HEMOGLOBIN 12.3 g/dL (12.0-16.0); LYMPHOCYTES # (AUTO) 3.1 X10^3/uL (1.3-2.9); LYMPHOCYTES % (AUTO) 24.7 % (21.0-51.0); MEAN CORPUSCULAR HEMOGLOBIN 29.1 pg (27.0-34.0); MEAN CORPUSCULAR HGB CONC 33.5 g/dL (33.0-35.0); MEAN CORPUSCULAR VOLUME 86.8 fL (80.0-100.0); MEAN PLATELET VOLUME 8.5 fL (7.4-11.0); MONOCYTES # (AUTO) 0.7 x10^3/uL (0.3-0.8); MONOCYTES % (AUTO) 5.9 % (0.0-13.0); NEUTROPHILS # (AUTO) 8.1 x10^3/uL (2.2-4.8); NEUTROPHILS % (AUTO) 64.2 % (42.0-75.0); PLATELET COUNT 311 X10^3/uL (150.0-450.0); RED BLOOD COUNT 4.24 X10^6/uL (3.5-5.4); RED CELL DISTRIBUTION WIDTH 15.1 % (11.6-16.5); WHITE BLOOD COUNT 12.7 X10^3/uL (3.6-10.0)
[2017-12-26 23:24] LABS: BLOOD UREA NITROGEN 17 mg/dL (7-18); CALCIUM 9.5 mg/dL (8.5-10.1); CARBON DIOXIDE 23.4 mmol/L (21-32); CHLORIDE 105 mmol/L (98-107); CREATININE 0.97 mg/dL (0.55-1.02); SODIUM 140 mmol/L (136-145); TROPONIN I < 0.02 ng/mL (0-1.5); eGFR BLACK RACES > 60 (>60); eGFR NON BLACK RACES > 60 (>60)
[2017-12-26 23:44] LABS: ALANINE AMINOTRANSFERASE 18 Units/L (12-78); ALBUMIN 3.9 g/dL (3.4-5.0); ALKALINE PHOSPHATASE 88 Units/L (46-116); ASPARTATE AMINO TRANSFERASE 15 Units/L (15-37); CKMB % 2.8 % (<4); CREATINE KINASE 78 Units/L (26-192); CREATINE KINASE MB 2.2 ng/mL (0-4.0); MAGNESIUM 1.7 mg/dL (1.7-2.9)
[2017-12-27] MEDS ORDERED: LOVENOX INJ 80 MG SYR SC SCH (01:00)
[2017-12-27] MEDS: PLAVIX PO SCH ×2 (01:33→09:24)
[2017-12-27] MEDS: K-LYTE EFFERVESCENT PO SCH ×2 (01:33→09:23)
[2017-12-27] MEDS: NS 1/2 1000 ML IV 1,000 ML IV SCH (04:00)
[2017-12-27] MEDS ORDERED: NS 1/2 1000 ML IV 1,000 ML IV ONE (06:05)
[2017-12-27 06:08] VITALS: BMI 29.0
[2017-12-27 06:52] LABS: ALANINE AMINOTRANSFERASE 18 Units/L (12-78); ALKALINE PHOSPHATASE 94 Units/L (46-116); ASPARTATE AMINO TRANSFERASE 16 Units/L (15-37); BLOOD UREA NITROGEN 17 mg/dL (7-18); CALCIUM 9.6 mg/dL (8.5-10.1); CARBON DIOXIDE 23.4 mmol/L (21-32); CHLORIDE 105 mmol/L (98-107); CKMB % 2.5 % (<4); CREATINE KINASE 72 Units/L (26-192); CREATINE KINASE MB 1.8 ng/mL (0-4.0); CREATININE 0.91 mg/dL (0.55-1.02); SODIUM 141 mmol/L (136-145); TOTAL PROTEIN 8.2 g/dL (6.4-8.2); TROPONIN I < 0.02 ng/mL (0-1.5); eGFR BLACK RACES > 60 (>60); eGFR NON BLACK RACES > 60 (>60)
[2017-12-27 14:12] LABS: BASOPHILS # (AUTO) 0.1 X10^3/uL (0.0-0.1); BASOPHILS % (AUTO) 0.7 % (0.2-1.0); EOSINOPHILS # (AUTO) 0.4 x10^3/uL (0.0-0.2); EOSINOPHILS % (AUTO) 3.5 % (0.9-2.9); HEMATOCRIT 35.2 % (36.0-47.0); HEMOGLOBIN 12.1 g/dL (12.0-16.0); LYMPHOCYTES # (AUTO) 2.5 X10^3/uL (1.3-2.9); LYMPHOCYTES % (AUTO) 24.7 % (21.0-51.0); MEAN CORPUSCULAR HEMOGLOBIN 29.5 pg (27.0-34.0); MEAN CORPUSCULAR HGB CONC 34.4 g/dL (33.0-35.0); MEAN CORPUSCULAR VOLUME 85.7 fL (80.0-100.0); MEAN PLATELET VOLUME 8.5 fL (7.4-11.0); MONOCYTES # (AUTO) 0.5 x10^3/uL (0.3-0.8); MONOCYTES % (AUTO) 4.9 % (0.0-13.0); NEUTROPHILS # (AUTO) 6.8 x10^3/uL (2.2-4.8); NEUTROPHILS % (AUTO) 66.2 % (42.0-75.0); PLATELET COUNT 332 X10^3/uL (150.0-450.0); RED BLOOD COUNT 4.11 X10^6/uL (3.5-5.4); RED CELL DISTRIBUTION WIDTH 14.9 % (11.6-16.5); WHITE BLOOD COUNT 10.3 X10^3/uL (3.6-10.0)
[2017-12-27] MEDS ORDERED: HumuLIN R SUBCUT PRN (17:37)
[2017-12-27 20:43] LABS: BILIRUBIN,URINE NEGATIVE (NEGATIVE); BLOOD/HEMOGLOBIN,URINE NEGATIVE (NEGATIVE); GLUCOSE, URINE NEGATIVE (NEGATIVE); KETONES,URINE NEGATIVE (NEGATIVE); LEUKOCYTE ESTERASE ,URINE 1+ (NEGATIVE); NITRITES,URINE NEGATIVE (NEGATIVE); PROTEIN,URINE NEGATIVE (NEGATIVE); UROBILINOGEN,URINE NORMAL (NORMAL)
[2017-12-27] MEDS ORDERED: CEREBYX INJ IVP ONE (20:55)
[2017-12-27 21:11] LABS: APPEARANCE,URINE CLEAR (CLEAR); BACTERIA,URINE NEGATIVE /HPF (NEGATIVE); COLOR,URINE YELLOW (YELLOW); RBC,URINE 0-3 /HPF (NEGATIVE); SQUAMOUS EPITHELIAL CELL,UR FEW /HPF (NEGATIVE)
[2017-12-27] MEDS ORDERED: CEREBYX INJ ONE (21:43)
[2017-12-27] MEDS ORDERED: NS 100 ML IV 100 ML IV ONE (21:44)
[2017-12-27] MEDS ORDERED: CEREBYX IVP SCH (22:00)
[2017-12-27] MEDS ORDERED: NS IVP SCH (22:00)
[2017-12-27] MEDS: COLACE CAP 100 MG PO SCH (22:30)
[2017-12-27] MEDS: SNACK - Diabetic Appropriate PO SCH (22:30)
[2017-12-27] MEDS: MILK OF MAGNESIA PO SCH (22:31)
--- NOTE | 2017-12-27 22:38 | VAS ---
HISTORY: Carotid stenosis Study: Color-flow duplex Doppler studies were performed of the neck vessels. Comparison: None Technique: Multiple galan scale and color flow Doppler images of the right and left carotid arterial s ystem were obtained. The vertebral arterial system was evaluated as well. Findings: There is mild intimal thickening in both bifurcations. The peak velocity on the right is 83 centimete rs/seconds and the peak velocity on the left is 115 centimeters/second. There is no significant plaqu e or narrowing on the real-time images. The ICA to CCA ratios are unremarkable. There is antegrade fl ow in the vertebrals. There is no spectral broadening. IMPRESSION: Mild intimal thickening in the bifurcations causing narrowing in the range of 0-15% with no hemodynam ically significant plaque or narrowing seen. Reported By:
[2017-12-28 06:21] LABS: BASOPHILS # (AUTO) 0.1 X10^3/uL (0.0-0.1); BASOPHILS % (AUTO) 0.9 % (0.2-1.0); EOSINOPHILS # (AUTO) 0.2 x10^3/uL (0.0-0.2); EOSINOPHILS % (AUTO) 1.4 % (0.9-2.9); HEMATOCRIT 34.8 % (36.0-47.0); HEMOGLOBIN 11.9 g/dL (12.0-16.0); LYMPHOCYTES # (AUTO) 3.8 X10^3/uL (1.3-2.9); LYMPHOCYTES % (AUTO) 29.5 % (21.0-51.0); MEAN CORPUSCULAR HEMOGLOBIN 29.1 pg (27.0-34.0); MEAN CORPUSCULAR HGB CONC 34.3 g/dL (33.0-35.0); MEAN CORPUSCULAR VOLUME 84.8 fL (80.0-100.0); MEAN PLATELET VOLUME 8.6 fL (7.4-11.0); MONOCYTES # (AUTO) 0.8 x10^3/uL (0.3-0.8); MONOCYTES % (AUTO) 6.6 % (0.0-13.0); NEUTROPHILS # (AUTO) 7.9 x10^3/uL (2.2-4.8); NEUTROPHILS % (AUTO) 61.6 % (42.0-75.0); PLATELET COUNT 334 X10^3/uL (150.0-450.0); RED CELL DISTRIBUTION WIDTH 14.9 % (11.6-16.5); WHITE BLOOD COUNT 12.9 X10^3/uL (3.6-10.0)
[2017-12-28 06:52] LABS: ALANINE AMINOTRANSFERASE 16 Units/L (12-78); ALBUMIN 3.6 g/dL (3.4-5.0); ALKALINE PHOSPHATASE 82 Units/L (46-116); ASPARTATE AMINO TRANSFERASE 14 Units/L (15-37); BLOOD UREA NITROGEN 21 mg/dL (7-18); CALCIUM 9.2 mg/dL (8.5-10.1); CHLORIDE 106 mmol/L (98-107); COR NA(FOR HYPERGLY) 141 mmol/L (136-145); CREATININE 0.93 mg/dL (0.55-1.02); SODIUM 141 mmol/L (136-145); TOTAL PROTEIN 7.5 g/dL (6.4-8.2); eGFR BLACK RACES > 60 (>60); eGFR NON BLACK RACES > 60 (>60)
[2017-12-28] MEDS ORDERED: POTASSIUM CHLORIDE LIQ 20 MEQ UDC PO PRN (07:59)
[2017-12-28] MEDS ORDERED: K-LYTE EFFERVESCENT PO PRN (07:59)
[2017-12-28] MEDS ORDERED: MAGNESIUM SULFATE 1 GM/100 mL PREMIX 1 GM/100 ML BAG IV PRN (07:59)
[2017-12-28] MEDS ORDERED: K-RIDER 10 MEQ/NS 100 ML 10 MEQ/100 ML BAG IV PRN (07:59)
[2017-12-28] MEDS ORDERED: MAG-OX TAB PO PRN (07:59)
[2017-12-28] MEDS ORDERED: POTASSIUM CHL 40 MEQ/NS 0.45% 500 ML IV PRN (07:59)
[2017-12-28] MEDS ORDERED: POTASSIUM CHL 60 MEQ/NS 0.45% 500 ML IV PRN (07:59)
[2017-12-28] MEDS: DILANTIN CAP 100 MG EXT REL PO SCH ×2 (08:55→20:24)
[2017-12-28] MEDS ORDERED: NS 100 ML IV 100 ML IV ONE (09:06)
[2017-12-28] MEDS: K-LYTE EFFERVESCENT PO SCH (10:45)
[2017-12-28] MEDS: PLAVIX PO SCH (10:46)
[2017-12-28] MEDS: MILK OF MAGNESIA PO SCH ×2 (10:48→21:30)
--- NOTE | 2017-12-28 12:41 | CT ---
HISTORY: Altered mental status, aphasia, CVA Study: CTA neck without and with contrast Comparison: July 14, 2017 and December 26, 2017 Technique: CT angiography of the neck was performed prior to and after the administration of intraven ous contrast utilizing standard protocol with MIP 3D reformatted post processing performed and review ed. AEC was utilized. Findings: Incidentals: There is chronic paranasal sinus mucosal thickening with air-fluid levels noted in the l eft maxillary, left ethmoid, and right sphenoid sinuses likely indicating an acute component. There a re stable nonspecific cervical and mediastinal lymph nodes. Biapical paraseptal emphysema is noted. Vascular: Coronary and aortic atherosclerosis are noted. The aortic arch and takeoff of the great ves sels demonstrate mild atherosclerotic plaque but no flow-limiting stenosis, aneurysm, or dissection. The right subclavian artery is widely patent. The left subclavian artery demonstrates multifocal shor t-segment 50-60% stenosis. The bilateral vertebral arteries are codominant and widely patent. The dima ateral common carotid arteries are widely patent. There is irregular mixed soft and calcified plaque in the right carotid bulb extending into the proximal ICA with segmental 60-70% stenosis. There is pr edominately calcified plaque in the left carotid bulb and proximal ICA with short-segment high-grade stenosis in the proximal ICA of 70-80% and with soft plaque noted extending distally but without high -grade stenosis in the mid and distal portions. IMPRESSION: Moderate to high-grade bilateral internal carotid artery stenosis, left greater than right. Acute on chronic paranasal sinusitis. Reported By:
[2017-12-28] MEDS ORDERED: GLUCOPHAGE ONE (16:00)
[2017-12-28] MEDS ORDERED: GLUCOPHAGE XR PO ONE (16:06)
[2017-12-28] MEDS: GLUCOPHAGE PO SCH (16:38)
[2017-12-28] MEDS: HYDROCHLOROTHIAZIDE 12.5 MG CAP PO SCH (16:38)
[2017-12-28] MEDS: NORVASC TAB 5 MG PO SCH (16:38)
[2017-12-28] MEDS: COREG TAB 12.5 MG PO SCH (20:23)
[2017-12-28] MEDS: NEURONTIN CAP 100 MG PO SCH (20:24)
[2017-12-28] MEDS: EXELON PO SCH (20:25)
[2017-12-28] MEDS: TOPAMAX TAB 100 MG PO SCH (20:26)
[2017-12-28] MEDS: COLACE CAP 100 MG PO SCH (20:26)
[2017-12-28] MEDS: SNACK - Diabetic Appropriate PO SCH (20:27)
[2017-12-28] MEDS: LANTUS SC SCH (20:27)
[2017-12-29] MEDS ORDERED: NS 1/2 1000 ML IV 1,000 ML IV ONE (05:53)
[2017-12-29] MEDS: NS 1/2 1000 ML IV 1,000 ML IV SCH (05:56)
[2017-12-29 06:30] LABS: BASOPHILS # (AUTO) 0.2 X10^3/uL (0.0-0.1); EOSINOPHILS # (AUTO) 0.1 x10^3/uL (0.0-0.2); EOSINOPHILS % (AUTO) 0.9 % (0.9-2.9); HEMATOCRIT 34.3 % (36.0-47.0); HEMOGLOBIN 11.8 g/dL (12.0-16.0); LYMPHOCYTES # (AUTO) 4.2 X10^3/uL (1.3-2.9); MEAN CORPUSCULAR HEMOGLOBIN 29.4 pg (27.0-34.0); MEAN CORPUSCULAR HGB CONC 34.5 g/dL (33.0-35.0); MEAN CORPUSCULAR VOLUME 85.1 fL (80.0-100.0); MEAN PLATELET VOLUME 8.4 fL (7.4-11.0); MONOCYTES # (AUTO) 1.2 x10^3/uL (0.3-0.8); MONOCYTES % (AUTO) 7.7 % (0.0-13.0); NEUTROPHILS # (AUTO) 9.4 x10^3/uL (2.2-4.8); NEUTROPHILS % (AUTO) 62.4 % (42.0-75.0); PLATELET COUNT 329 X10^3/uL (150.0-450.0); RED BLOOD COUNT 4.03 X10^6/uL (3.5-5.4); RED CELL DISTRIBUTION WIDTH 14.9 % (11.6-16.5)
[2017-12-29 06:39] LABS: ALANINE AMINOTRANSFERASE 16 Units/L (12-78); ALBUMIN 3.6 g/dL (3.4-5.0); ALKALINE PHOSPHATASE 84 Units/L (46-116); ASPARTATE AMINO TRANSFERASE 15 Units/L (15-37); BLOOD UREA NITROGEN 20 mg/dL (7-18); CALCIUM 8.8 mg/dL (8.5-10.1); CARBON DIOXIDE 22.7 mmol/L (21-32); CHLORIDE 101 mmol/L (98-107); MAGNESIUM 2.1 mg/dL (1.7-2.9); SODIUM 137 mmol/L (136-145); TOTAL PROTEIN 7.6 g/dL (6.4-8.2); eGFR BLACK RACES > 60 (>60); eGFR NON BLACK RACES 55 (>60)
[2017-12-29] MEDS: GLUCOPHAGE PO SCH (08:16)
[2017-12-29] MEDS: KLONOPIN TAB 1 MG PO SCH ×2 (09:55→21:12)
[2017-12-29] MEDS ORDERED: DULCOLAX SUPPOSITORY 10 MG RECTAL ONE (10:47)
[2017-12-29] MEDS: ATIVAN INJ 2 MG VIAL IVP SCH (11:31)
[2017-12-29] MEDS ORDERED: ROCEPHIN VIAL 1 GM 1 GM in NS 100 ML IV + SPIKE MINIBAG* 100 ML IV SCH (13:15)
--- NOTE | 2017-12-29 14:02 | RAD ---
Examination: Portable AP chest History: COPD Comparison December 26, 2017 Findings: Continued normal heart size with no acute pulmonary or pleural lesion identified. Impression: No significant change or acute chest findings Reported By:
--- NOTE | 2017-12-29 14:33 | MRI ---
HISTORY: Altered mental status, aphasia, severe confusion, headaches Study: MRI brain with and without contrast Comparison: CT performed on 12/26/2017 Technique: Multisequence, multiplanar imaging of the brain was performed both before and after the administratio n of 16 cc Omniscan. Findings: Imaging of the brain demonstrates gliosis and encephalomalacia involving the bilateral posterior temp oral lobes and posterior parietal lobes. There is associated gyriform T1 hyperintense signal within t hese regions as well, findings most consistent with late subacute to early chronic infarcts with asso ciated pseudo laminar necrosis. No restricted diffusion is identified to suggest acute or early subac lukas infarcts. Similar findings are also identified within the medial right occipital lobe and likely reflect late subacute to early chronic right [employer] distribution infarct as well. There is no intracrani al hemorrhage or midline shift. The midline structures are intact. Global atrophy is noted. There is focal T2/FLAIR hyperintense signal present within the right posterior frontal lobe along the superior aspect of the sylvian fissure, likely reflecting prior remote ischemia. No extra-axial fluid collect ion is identified. The basilar cisterns are patent. The bilateral cerebellopontine angles are grossly unremarkable. Postcontrast images demonstrate no abnormal contrast enhancement within the brain. Air -fluid levels are present within the bilateral maxillary sinuses and right sphenoid sinus, findings w hich can be seen in acute sinusitis in the appropriate clinical setting. IMPRESSION: 1. Findings most consistent with late subacute to early chronic infarcts involving the bilateral post erior temporal lobes and posterior parietal lobes as well as the medial right occipital lobe with ass ociated pseudolaminar necrosis. No acute or early subacute infarct identified. 2. Mild global atrophy and prior remote ischemia involving the posterior right frontal lobe. 3. Air-fluid levels within the paranasal sinuses, findings which can be seen with acute sinusitis in the appropriate clinical setting. Reported By:
[2017-12-29] MEDS: PLAVIX PO SCH (16:20)
[2017-12-29] MEDS: LIPITOR TAB 40 MG PO SCH (16:24)
[2017-12-29] MEDS: COREG TAB 12.5 MG PO SCH ×2 (16:24→21:15)
[2017-12-29] MEDS: DILANTIN CAP 100 MG EXT REL PO SCH ×2 (16:26→21:12)
[2017-12-29] MEDS: EXELON PO SCH ×2 (16:27→21:12)
[2017-12-29] MEDS: HYDROCHLOROTHIAZIDE 12.5 MG CAP PO SCH (16:27)
[2017-12-29] MEDS: TOPAMAX TAB 100 MG PO SCH ×2 (16:27→21:12)
[2017-12-29] MEDS: ROCEPHIN 1 GM IV PREMIX 1 GM/50 ML IV.SOLN. IV SCH (16:32)
[2017-12-29] MEDS: NORVASC TAB 5 MG PO SCH (16:32)
[2017-12-29] MEDS: NEURONTIN CAP 300 MG PO SCH (16:33)
[2017-12-29] MEDS: TYLENOL 325 MG TAB PO PRN (16:35)
[2017-12-29] MEDS: MILK OF MAGNESIA PO SCH ×2 (16:44→21:15)
[2017-12-29] MEDS: K-LYTE EFFERVESCENT PO SCH (17:09)
[2017-12-29] MEDS: COLACE CAP 100 MG PO SCH (21:12)
[2017-12-29] MEDS: NEURONTIN CAP 100 MG PO SCH (21:13)
[2017-12-29] MEDS: LANTUS SC SCH (21:13)
[2017-12-29] MEDS: SNACK - Diabetic Appropriate PO SCH (21:15)
[2017-12-30 05:38] LABS: BASOPHILS # (AUTO) 0.2 X10^3/uL (0.0-0.1); BASOPHILS % (AUTO) 1.2 % (0.2-1.0); EOSINOPHILS # (AUTO) 0.3 x10^3/uL (0.0-0.2); EOSINOPHILS % (AUTO) 1.9 % (0.9-2.9); HEMATOCRIT 36.9 % (36.0-47.0); HEMOGLOBIN 12.6 g/dL (12.0-16.0); LYMPHOCYTES # (AUTO) 3.6 X10^3/uL (1.3-2.9); LYMPHOCYTES % (AUTO) 27.7 % (21.0-51.0); MEAN CORPUSCULAR HEMOGLOBIN 29.2 pg (27.0-34.0); MEAN CORPUSCULAR HGB CONC 34.2 g/dL (33.0-35.0); MEAN CORPUSCULAR VOLUME 85.3 fL (80.0-100.0); MEAN PLATELET VOLUME 8.5 fL (7.4-11.0); MONOCYTES % (AUTO) 7.5 % (0.0-13.0); NEUTROPHILS # (AUTO) 8.1 x10^3/uL (2.2-4.8); NEUTROPHILS % (AUTO) 61.7 % (42.0-75.0); PLATELET COUNT 315 X10^3/uL (150.0-450.0); RED BLOOD COUNT 4.33 X10^6/uL (3.5-5.4); RED CELL DISTRIBUTION WIDTH 14.9 % (11.6-16.5); WHITE BLOOD COUNT 13.1 X10^3/uL (3.6-10.0)
[2017-12-30 05:57] LABS: ALANINE AMINOTRANSFERASE 18 Units/L (12-78); ALBUMIN 3.9 g/dL (3.4-5.0); ALKALINE PHOSPHATASE 96 Units/L (46-116); ASPARTATE AMINO TRANSFERASE 12 Units/L (15-37); BLOOD UREA NITROGEN 17 mg/dL (7-18); CALCIUM 9.5 mg/dL (8.5-10.1); CARBON DIOXIDE 26.6 mmol/L (21-32); CHLORIDE 100 mmol/L (98-107); COR NA(FOR HYPERGLY) 138 mmol/L (136-145); CREATININE 1.07 mg/dL (0.55-1.02); SODIUM 137 mmol/L (136-145); TOTAL PROTEIN 8.3 g/dL (6.4-8.2); eGFR BLACK RACES > 60 (>60); eGFR NON BLACK RACES 56 (>60)
[2017-12-30] MEDS ORDERED: GLUCOPHAGE ONE (06:15)
[2017-12-30] MEDS: GLUCOPHAGE PO SCH (06:17)
[2017-12-30] MEDS: NS 1/2 1000 ML IV 1,000 ML IV SCH (06:31)
[2017-12-30] MEDS: ROCEPHIN 1 GM IV PREMIX 1 GM/50 ML IV.SOLN. IV SCH ×2 (09:19→13:50)
[2017-12-30] MEDS: MILK OF MAGNESIA PO SCH (09:19)
[2017-12-30] MEDS: COREG TAB 12.5 MG PO SCH (09:20)
[2017-12-30] MEDS: DILANTIN CAP 100 MG EXT REL PO SCH ×2 (09:20→22:02)
[2017-12-30] MEDS: TOPAMAX TAB 100 MG PO SCH ×2 (09:20→22:00)
[2017-12-30] MEDS: KLONOPIN TAB 1 MG PO SCH ×2 (09:20→22:00)
[2017-12-30] MEDS: HYDROCHLOROTHIAZIDE 12.5 MG CAP PO SCH (09:20)
[2017-12-30] MEDS: NEURONTIN CAP 300 MG PO SCH (09:20)
[2017-12-30] MEDS: NORVASC TAB 5 MG PO SCH (09:20)
[2017-12-30] MEDS: EXELON PO SCH ×2 (09:20→22:01)
[2017-12-30] MEDS: LIPITOR TAB 40 MG PO SCH (09:21)
[2017-12-30] MEDS: PLAVIX PO SCH (09:22)
[2017-12-30] MEDS: K-LYTE EFFERVESCENT PO SCH (11:28)
[2017-12-30] MEDS: ATIVAN INJ 2 MG VIAL IVP SCH (11:29)
--- NOTE | 2017-12-30 13:17 | PCM.PROG ---
Progress Note - Progress Note for Day of Date: 12/29/17 - Subjective Subjective: patient is a 57-year-old white female who was admitted on 210 with altered mental status and reported seizure activity. Patient is having episodes of confusion as well as "talking out of her head" patient does have an inappropriate verbal responses as well as increased agitation and in cooperation with family and staff. Patient does have a history of CVA, previously had a CT in the ER with an MRI of the brain pending for today. Plan to continue blood sugar and blood pressure control patient is already on an aspirin and statin and Plavix which we will continue and evaluate further after MRI - Past Medical Family Social History Past Med/Fam/Surg Hx: No changes since H&P Allergies: Allergies No Known Allergies Allergy (Verified 05/13/17 19:02) - Review of Systems ROS: No change since H&P - Vital Signs and I&O's Vital Signs: Temperature 98.6 F Pulse Rate [Brachial] 66 Pulse Rate 63 Respiratory Rate 20 Blood Pressure [Right Arm] 136/75 Blood Pressure [Left Arm] 116/69 Blood Pressure 191/84 O2 Sat by Pulse Oximetry 98 Intake and Output: Intake & Output 12/28/17 12/29/17 12/30/17 12/31/17 11:59 11:59 11:59 11:59 Intake Total 120 1165 630 Output Total 450 3250 600 Balance -330 -2085 30 - Physical Exam Oriented: Person Eyes: Normal Ear: Normal Nose: Normal Throat: Normal Respiratory: Wheezes Cardiovascular: Normal. negative: Edema : Normal Auscultation: Bowel Sounds: Normal Tenderness: Normal Skin: Normal Musculoskeletal: Back:Lumbar Mood Description: Flat, Anxious Affect: Anxious Speech Pattern: Clear, Inappropriate (patient having any appropriate verbal responses, loud verbal outburst, using profanity repeatedly "talking to herself ") - Laboratory and Diagnostics Result Diagrams: 12/30/17 05:20 12/30/17 05:20 Labs: Laboratory WBC 13.1 X10^3/uL (3.6-10.0) H 12/30/17 05:20 RBC 4.33 X10^6/uL (3.5-5.4) 12/30/17 05:20 Hgb 12.6 g/dL (12.0-16.0) 12/30/17 05:20 Hct 36.9 % (36.0-47.0) 12/30/17 05:20 MCV 85.3 fL (80.0-100.0) 12/30/17 05:20 MCH 29.2 pg (27.0-34.0) 12/30/17 05:20 MCHC 34.2 g/dL (33.0-35.0) 12/30/17 05:20 RDW 14.9 % (11.6-16.5) 12/30/17 05:20 Plt Count 315 X10^3/uL (150.0-450.0) 12/30/17 05:20 MPV 8.5 fL (7.4-11.0) 12/30/17 05:20 Neut % 61.7 % (42.0-75.0) 12/30/17 05:20 Lymph % 27.7 % (21.0-51.0) 12/30/17 05:20 [place] % 7.5 % (0.0-13.0) 12/30/17 05:20 Eos % 1.9 % (0.9-2.9) 12/30/17 05:20 Baso % 1.2 % (0.2-1.0) H 12/30/17 05:20 Neut # 8.1 x10^3/uL (2.2-4.8) H 12/30/17 05:20 Lymph # 3.6 X10^3/uL (1.3-2.9) H 12/30/17 05:20 [place] # 1.0 x10^3/uL (0.3-0.8) H 12/30/17 05:20 Eos # 0.3 x10^3/uL (0.0-0.2) H 12/30/17 05:20 Baso # 0.2 X10^3/uL (0.0-0.1) H 12/30/17 05:20 Absolute Nucleated RBC 0.0 /100WBC 12/30/17 05:20 INR Target Range - 12/26/17 22:43 INR 0.97 (0.8-1.3) 12/26/17 22:43 PTT 27.3 SECONDS (22.9-36.5) 12/26/17 22:43 PTT Comment - 12/26/17 22:43 D-Dimer < 100 ng/mL (0-400) 12/26/17 22:43 Sodium 137 mmol/L (136-145) 12/30/17 05:20 Corrected Sodium 138 mmol/L (136-145) 12/30/17 05:20 Potassium 3.3 mmol/L (3.5-5.1) L 12/30/17 05:20 Chloride 100 mmol/L (98-107) 12/30/17 05:20 Carbon Dioxide 26.6 mmol/L (21-32) 12/30/17 05:20 BUN 17 mg/dL (7-18) 12/30/17 05:20 Creatinine 1.07 mg/dL (0.55-1.02) H 12/30/17 05:20 Est GFR (MDRD) Af Amer > 60 (>60) 12/30/17 05:20 Est GFR (MDRD) Non-Af 56 (>60) L 12/30/17 05:20 Glucose 135 mg/dL (65-99) H 12/30/17 05:20 POC Glucose (mg/dL) 142 mg/dL (65-99) H 12/30/17 12:48 Calcium 9.5 mg/dL (8.5-10.1) 12/30/17 05:20 Corrected Calcium TNP 12/30/17 05:20 Magnesium 2.1 mg/dL (1.7-2.9) 12/29/17 05:50 Total Bilirubin 0.30 mg/dL (0.2-1.0) 12/30/17 05:20 AST 12 Units/L (15-37) L 12/30/17 05:20 ALT 18 Units/L (12-78) 12/30/17 05:20 Alkaline Phosphatase 96 Units/L (46-116) 12/30/17 05:20 Creatine Kinase 72 Units/L (26-192) 12/27/17 05:33 CK-MB (CK-2) 1.8 ng/mL (0-4.0) 12/27/17 05:33 CK/CKMB % Calc 2.5 % (<4) 12/27/17 05:33 Troponin I < 0.02 ng/mL (0-1.5) 12/27/17 05:33 Total Protein 8.3 g/dL (6.4-8.2) H 12/30/17 05:20 Albumin 3.9 g/dL (3.4-5.0) 12/30/17 05:20 Globulin 4.4 g/dL (2.5-4.5) 12/30/17 05:20 Albumin/Globulin Ratio 0.9 Ratio (1.1-2.1) L 12/30/17 05:20 Triglycerides 157 mg/dL (0-150) H 12/27/17 22:43 Cholesterol 190 mg/dL (0-200) 12/27/17 22:43 LDL Cholesterol, Calc 112 mg/dL (0-100) H 12/27/17 22:43 HDL Cholesterol 47 mg/dL (40-60) 12/27/17:43 Cholesterol/HDL Ratio 4.0 (0.0-5.0) 12/27/17 22:43 Specimen Type Catherized urine 12/27/17 20:10 Urine Color Yellow (YELLOW) 12/27/17 20:10 Urine Appearance Clear (CLEAR) 12/27/17 20:10 Urine pH 7.0 (5.0 - 8.0) 12/27/17 20:10 Ur Specific [place] 1.015 (1.000-1.030) 12/27/17 20:10 Urine Protein Negative (NEGATIVE) 12/27/17 20:10 Urine Glucose (UA) Negative (NEGATIVE) 12/27/17 20:10 Urine Ketones Negative (NEGATIVE) 12/27/17 20:10 Urine Occult Blood Negative (NEGATIVE) 12/27/17 20:10 Urine Nitrite Negative (NEGATIVE) 12/27/17 20:10 Urine Bilirubin Negative (NEGATIVE) 12/27/17 20:10 Urine Urobilinogen Normal (NORMAL) 12/27/17 20:10 Ur Leukocyte Esterase 1+ (NEGATIVE) 12/27/17 20:10 Urine RBC 0-3 /HPF (NEGATIVE) 12/27/17 20:10 Urine WBC 1-4 /HPF (NEGATIVE) 12/27/17 20:10 Ur Squamous Epith Cells Few /HPF (NEGATIVE) 12/27/17 20:10 Urine Bacteria Negative /HPF (NEGATIVE) 12/27/17 20:10 Ur Culture Indicated? No/not indicated 12/27/17 20:10 Phenytoin 14.7 ug/mL (10-20) 12/28/17 05:33 - Plan (1) Altered mental status Status: Acute Plan: MRI PENDING, SYMPTOMATIC TREATMENT. CONTINUE O2, ASPIRIN, PLAVIX AND STATIN. BLOOD SUGAR AND BLOOD PRESSURE CONTROL (2) Anxiety Status: Acute (3) Carotid artery stenosis with cerebral infarction Status: Acute (4) HTN (hypertension) Status: Acute (5) Diabetes Status: Chronic (6) History of CVA (cerebrovascular accident) Status: Chronic (7) COPD (chronic obstructive pulmonary disease) Status: Chronic Plan: RESP THERAPY, IV ATBX (8) Seizure Status: Acute Plan: DILANTIN, MONITOR, EEG ORDERED
[2017-12-30] MEDS: TYLENOL 325 MG TAB PO PRN (13:19)
--- NOTE | 2017-12-30 13:23 | PCM.PROG ---
Progress Note - Progress Note for Day of Date: 12/30/17 - Subjective Subjective: patient is a 57-year-old white female who was admitted on 210 with altered mental status and reported seizure activity. Patient is having episodes of confusion as well as "talking out of her head" patient does have an inappropriate verbal responses as well as increased agitation and in cooperation with family and staff. patient is a little more calm this morning, currently in restraints continued to have some inappropriate responses patient did state "I've had a stroke" on interview this morning. Patient does have a history of CVA, previously had a CT in the ER with an MRI yesterday with subacute findings of CVA. Discussed possible transfer to tertiary care facilty. Plan to continue blood sugar and blood pressure control patient is already on an aspirin and statin and Plavix, seizure precautions. - Past Medical Family Social History Past Med/Fam/Surg Hx: No changes since H&P Allergies: Allergies No Known Allergies Allergy (Verified 05/13/17 19:02) - Review of Systems ROS: No change since H&P - Vital Signs and I&O's Vital Signs: Temperature 98.6 F Pulse Rate [Brachial] 66 Pulse Rate 63 Respiratory Rate 20 Blood Pressure [Right Arm] 136/75 Blood Pressure [Left Arm] 116/69 Blood Pressure 191/84 O2 Sat by Pulse Oximetry 98 Intake and Output: Intake & Output 12/28/17 12/29/17 12/30/17 12/31/17 11:59 11:59 11:59 11:59 Intake Total 120 1165 630 Output Total 450 3250 600 Balance -330 -2085 30 - Physical Exam Oriented: Person Eyes: Normal Ear: Normal Nose: Normal Throat: Normal Respiratory: Wheezes Cardiovascular: Normal. negative: Edema : Normal Auscultation: Bowel Sounds: Normal Tenderness: Normal Skin: Normal Musculoskeletal: Back:Lumbar Mood Description: Flat, Anxious Affect: Anxious Speech Pattern: Clear, Inappropriate (patient having any appropriate verbal responses, loud verbal outburst, using profanity repeatedly "talking to herself ") - Laboratory and Diagnostics Result Diagrams: 12/30/17 05:20 12/30/17 05:20 Labs: Laboratory WBC 13.1 X10^3/uL (3.6-10.0) H 12/30/17 05:20 RBC 4.33 X10^6/uL (3.5-5.4) 12/30/17 05:20 Hgb 12.6 g/dL (12.0-16.0) 12/30/17 05:20 Hct 36.9 % (36.0-47.0) 12/30/17 05:20 MCV 85.3 fL (80.0-100.0) 12/30/17 05:20 MCH 29.2 pg (27.0-34.0) 12/30/17 05:20 MCHC 34.2 g/dL (33.0-35.0) 12/30/17 05:20 RDW 14.9 % (11.6-16.5) 12/30/17 05:20 Plt Count 315 X10^3/uL (150.0-450.0) 12/30/17 05:20 MPV 8.5 fL (7.4-11.0) 12/30/17 05:20 Neut % 61.7 % (42.0-75.0) 12/30/17 05:20 Lymph % 27.7 % (21.0-51.0) 12/30/17 05:20 [place] % 7.5 % (0.0-13.0) 12/30/17 05:20 Eos % 1.9 % (0.9-2.9) 12/30/17 05:20 Baso % 1.2 % (0.2-1.0) H 12/30/17 05:20 Neut # 8.1 x10^3/uL (2.2-4.8) H 12/30/17 05:20 Lymph # 3.6 X10^3/uL (1.3-2.9) H 12/30/17 05:20 [place] # 1.0 x10^3/uL (0.3-0.8) H 12/30/17 05:20 Eos # 0.3 x10^3/uL (0.0-0.2) H 12/30/17 05:20 Baso # 0.2 X10^3/uL (0.0-0.1) H 12/30/17 05:20 Absolute Nucleated RBC 0.0 /100WBC 12/30/17 05:20 INR Target Range - 12/26/17 22:43 INR 0.97 (0.8-1.3) 12/26/17 22:43 PTT 27.3 SECONDS (22.9-36.5) 12/26/17 22:43 PTT Comment - 12/26/17 22:43 D-Dimer < 100 ng/mL (0-400) 12/26/17 22:43 Sodium 137 mmol/L (136-145) 12/30/17 05:20 Corrected Sodium 138 mmol/L (136-145) 12/30/17 05:20 Potassium 3.3 mmol/L (3.5-5.1) L 12/30/17 05:20 Chloride 100 mmol/L (98-107) 12/30/17 05:20 Carbon Dioxide 26.6 mmol/L (21-32) 12/30/17 05:20 BUN 17 mg/dL (7-18) 12/30/17 05:20 Creatinine 1.07 mg/dL (0.55-1.02) H 12/30/17 05:20 Est GFR (MDRD) Af Amer > 60 (>60) 12/30/17 05:20 Est GFR (MDRD) Non-Af 56 (>60) L 12/30/17 05:20 Glucose 135 mg/dL (65-99) H 12/30/17 05:20 POC Glucose (mg/dL) 142 mg/dL (65-99) H 12/30/17 12:48 Calcium 9.5 mg/dL (8.5-10.1) 12/30/17 05:20 Corrected Calcium TNP 12/30/17 05:20 Magnesium 2.1 mg/dL (1.7-2.9) 12/29/17 05:50 Total Bilirubin 0.30 mg/dL (0.2-1.0) 12/30/17 05:20 AST 12 Units/L (15-37) L 12/30/17 05:20 ALT 18 Units/L (12-78) 12/30/17 05:20 Alkaline Phosphatase 96 Units/L (46-116) 12/30/17 05:20 Creatine Kinase 72 Units/L (26-192) 12/27/17 05:33 CK-MB (CK-2) 1.8 ng/mL (0-4.0) 12/27/17 05:33 CK/CKMB % Calc 2.5 % (<4) 12/27/17 05:33 Troponin I < 0.02 ng/mL (0-1.5) 12/27/17 05:33 Total Protein 8.3 g/dL (6.4-8.2) H 12/30/17 05:20 Albumin 3.9 g/dL (3.4-5.0) 12/30/17 05:20 Globulin 4.4 g/dL (2.5-4.5) 12/30/17 05:20 Albumin/Globulin Ratio 0.9 Ratio (1.1-2.1) L 12/30/17 05:20 Triglycerides 157 mg/dL (0-150) H 12/27/17 22:43 Cholesterol 190 mg/dL (0-200) 12/27/17 22:43 LDL Cholesterol, Calc 112 mg/dL (0-100) H 12/27/17 22:43 HDL Cholesterol 47 mg/dL (40-60) 12/27/17 22:43 Cholesterol/HDL Ratio 4.0 (0.0-5.0) 12/27/17 22:43 Specimen Type Catherized urine 12/27/17 20:10 Urine Color Yellow (YELLOW) 12/27/17 20:10 Urine Appearance Clear (CLEAR) 12/27/17 20:10 Urine pH 7.0 (5.0 - 8.0) 12/27/17 20:10 Ur Specific [place] 1.015 (1.000-1.030) 12/27/17 20:10 Urine Protein Negative (NEGATIVE) 12/27/17 20:10 Urine Glucose (UA) Negative (NEGATIVE) 12/27/17 20:10 Urine Ketones Negative (NEGATIVE) 12/27/17 20:10 Urine Occult Blood Negative (NEGATIVE) 12/27/17 20:10 Urine Nitrite Negative (NEGATIVE) 12/27/17 20:10 Urine Bilirubin Negative (NEGATIVE) 12/27/17 20:10 Urine Urobilinogen Normal (NORMAL) 12/27/17 20:10 Ur Leukocyte Esterase 1+ (NEGATIVE) 12/27/17 20:10 Urine RBC 0-3 /HPF (NEGATIVE) 12/27/17 20:10 Urine WBC 1-4 /HPF (NEGATIVE) 12/27/17 20:10 Ur Squamous Epith Cells Few /HPF (NEGATIVE) 12/27/17 20:10 Urine Bacteria Negative /HPF (NEGATIVE) 12/27/17 20:10 Ur Culture Indicated? No/not indicated 12/27/17 20:10 Phenytoin 14.7 ug/mL (10-20) 12/28/17 05:33 - Plan (1) Altered mental status Status: Acute Plan: MRI ON CHART, SYMPTOMATIC TREATMENT. CONTINUE O2, ASPIRIN, PLAVIX AND STATIN. BLOOD SUGAR AND BLOOD PRESSURE CONTROL (2) Anxiety Status: Acute (3) Carotid artery stenosis with cerebral infarction Status: Acute (4) HTN (hypertension) Status: Acute (5) Diabetes Status: Chronic (6) History of CVA (cerebrovascular accident) Status: Chronic (7) COPD (chronic obstructive pulmonary disease) Status: Chronic Plan: RESP THERAPY, IV ATBX (8) Seizure Status: Acute Plan: DILANTIN, MONITOR, EEG ORDERED
[2017-12-30] MEDS: COLACE CAP 100 MG PO SCH (22:01)
[2017-12-30] MEDS: LANTUS SC SCH (22:03)
[2017-12-31] MEDS ORDERED: GLUCOPHAGE ONE ×2 (06:00→09:19)
[2017-12-31 06:17] LABS: BASOPHILS # (AUTO) 0.1 X10^3/uL (0.0-0.1); BASOPHILS % (AUTO) 0.9 % (0.2-1.0); EOSINOPHILS # (AUTO) 0.3 x10^3/uL (0.0-0.2); EOSINOPHILS % (AUTO) 2.5 % (0.9-2.9); HEMATOCRIT 36.8 % (36.0-47.0); HEMOGLOBIN 12.7 g/dL (12.0-16.0); LYMPHOCYTES # (AUTO) 3.8 X10^3/uL (1.3-2.9); LYMPHOCYTES % (AUTO) 29.1 % (21.0-51.0); MEAN CORPUSCULAR HEMOGLOBIN 29.2 pg (27.0-34.0); MEAN CORPUSCULAR HGB CONC 34.6 g/dL (33.0-35.0); MEAN CORPUSCULAR VOLUME 84.5 fL (80.0-100.0); MEAN PLATELET VOLUME 8.6 fL (7.4-11.0); MONOCYTES % (AUTO) 7.8 % (0.0-13.0); NEUTROPHILS # (AUTO) 7.9 x10^3/uL (2.2-4.8); NEUTROPHILS % (AUTO) 59.7 % (42.0-75.0); PLATELET COUNT 338 X10^3/uL (150.0-450.0); RED BLOOD COUNT 4.36 X10^6/uL (3.5-5.4); RED CELL DISTRIBUTION WIDTH 14.8 % (11.6-16.5); WHITE BLOOD COUNT 13.2 X10^3/uL (3.6-10.0)
[2017-12-31 06:41] LABS: ALANINE AMINOTRANSFERASE 16 Units/L (12-78); ALBUMIN 3.9 g/dL (3.4-5.0); ALKALINE PHOSPHATASE 115 Units/L (46-116); ASPARTATE AMINO TRANSFERASE 16 Units/L (15-37); BLOOD UREA NITROGEN 16 mg/dL (7-18); CALCIUM 9.7 mg/dL (8.5-10.1); CARBON DIOXIDE 23.1 mmol/L (21-32); CHLORIDE 99 mmol/L (98-107); CREATININE 1.02 mg/dL (0.55-1.02); SODIUM 136 mmol/L (136-145); TOTAL PROTEIN 8.5 g/dL (6.4-8.2); eGFR BLACK RACES > 60 (>60); eGFR NON BLACK RACES 60 (>60)
[2017-12-31] MEDS: DILANTIN CAP 100 MG EXT REL PO SCH (09:38)
[2017-12-31] MEDS: LIPITOR TAB 40 MG PO SCH (09:38)
[2017-12-31] MEDS: COREG TAB 12.5 MG PO SCH (09:38)
[2017-12-31] MEDS: K-LYTE EFFERVESCENT PO SCH (09:38)
[2017-12-31] MEDS: NEURONTIN CAP 300 MG PO SCH (09:38)
[2017-12-31] MEDS: ROCEPHIN 1 GM IV PREMIX 1 GM/50 ML IV.SOLN. IV SCH (09:38)
[2017-12-31] MEDS: HYDROCHLOROTHIAZIDE 12.5 MG CAP PO SCH (09:39)
[2017-12-31] MEDS: GLUCOPHAGE PO SCH (09:39)
[2017-12-31] MEDS: KLONOPIN TAB 1 MG PO SCH (09:39)
[2017-12-31] MEDS: TOPAMAX TAB 100 MG PO SCH (09:39)
[2017-12-31] MEDS: EXELON PO SCH (09:39)
[2017-12-31] MEDS: MILK OF MAGNESIA PO SCH (09:40)
[2017-12-31] MEDS: PLAVIX PO SCH (09:40)
[2017-12-31] MEDS: ATIVAN INJ 2 MG VIAL IVP SCH (11:27)
[2017-12-31 16:48] VITALS: BP 127/80
[2017-12-31] MEDS ORDERED: ATIVAN INJ 2 MG VIAL IVP SCH (18:24)
[2017-12-31] MEDS ORDERED: ATIVAN INJ 2 MG VIAL ONE (18:28)
== END 2017-12-31 18:40 | disposition short-term general hospital (02) | DRG 948 ==
LOC: ER 21:21 → MED/SURG 12-27 01:35 → OBSVTOIN 12-27 13:00
PROVIDERS: ADMIT Internal Medicine; ATTEND Internal Medicine
DX: R41.82 Altered mental status, unspecified (principal); G40.89 Other seizures; E11.65 Type 2 diabetes mellitus with hyperglycemia; Z86.73 Personal history of transient ischemic attack (TIA), and cerebral infarction without residual deficits; I25.10 Atherosclerotic heart disease of native coronary artery without angina pectoris; J44.9 Chronic obstructive pulmonary disease, unspecified; I10 Essential (primary) hypertension; I25.2 Old myocardial infarction; F41.8 Other specified anxiety disorders; E78.2 Mixed hyperlipidemia; Z79.01 Long term (current) use of anticoagulants; Z78.1 Physical restraint status; F32.89 Other specified depressive episodes; M13.89 Other specified arthritis, multiple sites; D72.828 Other elevated white blood cell count; E87.6 Hypokalemia; R47.01 Aphasia
CPT/HCPCS: 36415; 70450; 70498; 70553; 71045; 71250; 80053; 80061; 80185; 81001; 82150; 82550; 82553; 83690; 83735; 84484; 85025; 85378; 85610; 85730; 87040; 87086; 93005; 93010; 93880; 94760; 95819; 96365; 96374; 99283; 99285; A4216; A4222; S0078; G0378; J0696; J1815; J2060

== ENCOUNTER 2018-01-01 18:06 | Inpatient (IN) | payer MEDICAID ==
[2018-01-02 02:02] VITALS: BMI 23.6
[2018-01-02 05:50] LABS: BASOPHILS # (AUTO) 0.2 X10^3/uL (0.0-0.1); BASOPHILS % (AUTO) 1.2 % (0.2-1.0); EOSINOPHILS # (AUTO) 0.4 x10^3/uL (0.0-0.2); EOSINOPHILS % (AUTO) 2.8 % (0.9-2.9); HEMATOCRIT 35.5 % (36.0-47.0); HEMOGLOBIN 12.3 g/dL (12.0-16.0); LYMPHOCYTES # (AUTO) 3.9 X10^3/uL (1.3-2.9); LYMPHOCYTES % (AUTO) 27.9 % (21.0-51.0); MEAN CORPUSCULAR HEMOGLOBIN 29.2 pg (27.0-34.0); MEAN CORPUSCULAR HGB CONC 34.6 g/dL (33.0-35.0); MEAN CORPUSCULAR VOLUME 84.4 fL (80.0-100.0); MEAN PLATELET VOLUME 8.5 fL (7.4-11.0); MONOCYTES # (AUTO) 0.8 x10^3/uL (0.3-0.8); NEUTROPHILS # (AUTO) 8.7 x10^3/uL (2.2-4.8); NEUTROPHILS % (AUTO) 62.1 % (42.0-75.0); PLATELET COUNT 343 X10^3/uL (150.0-450.0); RED BLOOD COUNT 4.21 X10^6/uL (3.5-5.4); RED CELL DISTRIBUTION WIDTH 14.9 % (11.6-16.5)
[2018-01-02 06:02] LABS: PLATELET MORPHOLOGY COMMENT NORMAL (NORMAL)
[2018-01-02 06:07] LABS: ALANINE AMINOTRANSFERASE 17 Units/L (12-78); ALBUMIN 3.8 g/dL (3.4-5.0); ALKALINE PHOSPHATASE 117 Units/L (46-116); ASPARTATE AMINO TRANSFERASE 18 Units/L (15-37); BLOOD UREA NITROGEN 15 mg/dL (7-18); CALCIUM 9.5 mg/dL (8.5-10.1); CARBON DIOXIDE 25.1 mmol/L (21-32); CHLORIDE 98 mmol/L (98-107); COR NA(FOR HYPERGLY) 136 mmol/L (136-145); SODIUM 136 mmol/L (136-145); TOTAL PROTEIN 8.3 g/dL (6.4-8.2); eGFR BLACK RACES > 60 (>60); eGFR NON BLACK RACES > 60 (>60)
[2018-01-02] MEDS ORDERED: K-LYTE EFFERVESCENT PO ONE (06:22)
[2018-01-02] MEDS ORDERED: POTASSIUM CHL 40 MEQ/NS 0.45% 500 ML IV PRN (08:14)
[2018-01-02] MEDS ORDERED: MAG-OX TAB PO PRN (08:14)
[2018-01-02] MEDS ORDERED: K-LYTE EFFERVESCENT PO PRN (08:14)
[2018-01-02] MEDS ORDERED: POTASSIUM CHL 60 MEQ/NS 0.45% 500 ML IV PRN (08:14)
[2018-01-02] MEDS ORDERED: POTASSIUM CHLORIDE LIQ 20 MEQ UDC PO PRN (08:14)
[2018-01-02] MEDS ORDERED: MAGNESIUM SULFATE 1 GM/100 mL PREMIX 1 GM/100 ML BAG IV PRN (08:14)
[2018-01-02] MEDS ORDERED: K-RIDER 10 MEQ/NS 100 ML 10 MEQ/100 ML BAG IV PRN (08:14)
[2018-01-02] MEDS ORDERED: NS 500 ML IV 500 ML IV PRN (08:16)
[2018-01-02] MEDS ORDERED: PHARMACY CONSULT - DOSE _____ XX SCH (12:00)
--- NOTE | 2018-01-02 12:24 | RAD ---
HISTORY: Congestive heart failure. COPD. Study: AP portable chest Comparison: 12/29/2017 Findings: The lungs remain clear. The heart size is normal. Mild atherosclerotic changes present within the t horacic aorta. No acute bony abnormalities are identified. IMPRESSION: 1. No radiographic evidence of acute cardiopulmonary disease or significant change is noted when com pared to the prior examination. Reported By:
--- NOTE | 2018-01-02 13:42 | DR.H&P ---
H&P - History & Physical for Day of: H&P Date: 01/02/18 - Chief Complaint Chief Complaint: AMS S/P CVA, AGITATION, CONFUSION, UTI. IMPAIRED COMMUNICATION , IMPAIRED GAIT, UNSTABLE - Allergies Allergies/Adverse Reactions: Allergies Allergy/AdvReac Type Severity Reaction Status Date / Time No Known Allergies Allergy Verified 05/13/17 19:02 - History of Present Illness History of Present Illness: 57 WF TRANSFER FROM [place] IN [facility] AFTER BEING SENT FOR [place] FOR SEVERE CAROTID ARTERY DISEASE AND SUBACUTE CVA. PT RETURNED THIS AM. DIAGNOSED WITH A UTI, PT CURRENTLY ON PLAVIX, STATIN, BP CONTROL. PT IS VERY AGITATED, NOT COOPERATIVE WITH STAFF. PLAN TO CONTINUE HOME MEDS, IV ATBX, CONSULT PT, BEHAVIORAL HEALTH TREATMENT - Past Medical History Past Medical History: Anxiety, Arthritis, COPD, Coronary Artery Disease, CVA, Depression, Diabetes, Migraines, GERD, Hypertension - Past Surgical History Surgical History: Hysterectomy - Family History Family Medical History: Diabetes Mellitus, Cancer, Heart Failure, Hypertension - Social History Does patient currently use any type of tobacco product: Yes Have you used tobacco products in the last 12 months: Yes Type of Tobacco Use: Cigarettes Alcohol Use: None Drug Use: None - Medications Home Medications: Alprazolam [Xanax 1 mg] 1 mg PO TID PRN 01/02/18 [History Confirmed 01/02/18] Bisacodyl [Correctol] 5 mg PO DAILY 01/02/18 [History Confirmed 01/02/18] Docusate Sodium 100 mg PO BID 01/02/18 [History Confirmed 01/02/18] Losartan Potassium [Cozaar] 50 mg PO DAILY 01/02/18 [History Confirmed 01/02/18] Magnesium Hydroxide Susp [Milk of Magnesia] 30 ml PO HS PRN 01/02/18 [History Confirmed 01/02/18] Misc Home Med [Patient's Home Medication (Non-PO)] 10 ml IVP DAILY 01/02/18 [ History Confirmed 01/02/18] Ondansetron HCl [Zofran Inj 4 mg Vial] 2 mg IJ Q6HR 01/02/18 [History Confirmed 01/02/18] Phenytoin Sodium Ext Rel [DILANTIN CAP 100 MG EXT REL *] 100 cap PO BID [History Confirmed 01/02/18] - Review of Systems Constitutional: Weakness Eyes: No Symptoms Reported ENT: No Symptoms Reported Respiratory: Wheezing Cardiovascular: No Symptoms Reported. denies: Edema Gastrointestinal: No Symptoms Reported Genitourinary: No Symptoms Reported Musculoskeletal: Back Pain Skin: No Symptoms Reported Neurological: Incoordination, Change in Speech, Confusion, Seizures - Physical Exam Vital Signs: Temperature 99.0 F Pulse Rate [Right Radial] 83 Respiratory Rate 20 Blood Pressure [Right Arm] 170/82 Blood Pressure [Left Arm] 116/69 Blood Pressure 127/80 O2 Sat by Pulse Oximetry 97 Oriented: Normal Eyes: Normal Ear: Normal Nose: Normal Throat: Normal Respiratory: RLL Exp. Wheeze, LLL Exp. 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 TREATMENT OF INFECTIOUS PROCESS, CONSULT PT/OT. PAIN CONTROL, ANTIANXIETY MEDICATION. CASE MANAGEMENT CONSULT FOR BEHAVIORAL HEALTH EVALUATION (2) Altered mental status Status: Acute (3) Aphasia Status: Acute (4) Carotid artery stenosis with cerebral infarction Status: Acute (5) HTN (hypertension) Status: Acute (6) Hypokalemia Status: Acute (7) Seizure Status: Acute (8) Weakness of left side of body Status: Acute (9) COPD (chronic obstructive pulmonary disease) Status: Chronic (10) Diabetes Status: Chronic (11) UTI (urinary tract infection) Status: Acute Plan: BLOOD CULTURES, URINE CULTURES. IV MEROPENEM. ENCOURAGE ORAL HYDRATION
[2018-01-02] MEDS: MERREM VIAL 500 MG in NS 100 ML IV + SPIKE MINIBAG* 100 ML IV SCH ×2 (14:39→21:05)
[2018-01-02] MEDS ORDERED: RIVASTIGMINE TARTRATE 4.5 MG PO SCH (21:00)
[2018-01-02] MEDS: KLONOPIN TAB 1 MG PO SCH (21:04)
[2018-01-02] MEDS: EXELON PO SCH (21:04)
[2018-01-02] MEDS: COLACE CAP 100 MG PO SCH (21:05)
[2018-01-02] MEDS: LIPITOR TAB 40 MG PO SCH (21:05)
[2018-01-02] MEDS: DILANTIN CAP 100 MG EXT REL PO SCH (21:05)
[2018-01-02] MEDS: COREG TAB 12.5 MG PO SCH (21:05)
[2018-01-03] MEDS: MERREM VIAL 500 MG in NS 100 ML IV + SPIKE MINIBAG* 100 ML IV SCH ×3 (05:29→22:46)
[2018-01-03 05:37] LABS: BASOPHILS # (AUTO) 0.1 X10^3/uL (0.0-0.1); EOSINOPHILS # (AUTO) 0.3 x10^3/uL (0.0-0.2); EOSINOPHILS % (AUTO) 2.6 % (0.9-2.9); HEMATOCRIT 32.9 % (36.0-47.0); HEMOGLOBIN 11.2 g/dL (12.0-16.0); LYMPHOCYTES # (AUTO) 4.2 X10^3/uL (1.3-2.9); LYMPHOCYTES % (AUTO) 39.9 % (21.0-51.0); MEAN CORPUSCULAR HEMOGLOBIN 29.3 pg (27.0-34.0); MEAN CORPUSCULAR HGB CONC 34.1 g/dL (33.0-35.0); MEAN PLATELET VOLUME 8.5 fL (7.4-11.0); MONOCYTES # (AUTO) 0.7 x10^3/uL (0.3-0.8); MONOCYTES % (AUTO) 6.5 % (0.0-13.0); NEUTROPHILS # (AUTO) 5.2 x10^3/uL (2.2-4.8); PLATELET COUNT 326 X10^3/uL (150.0-450.0); RED BLOOD COUNT 3.82 X10^6/uL (3.5-5.4); RED CELL DISTRIBUTION WIDTH 14.6 % (11.6-16.5); WHITE BLOOD COUNT 10.4 X10^3/uL (3.6-10.0)
[2018-01-03 05:57] LABS: ALANINE AMINOTRANSFERASE 17 Units/L (12-78); ALBUMIN 3.2 g/dL (3.4-5.0); ALKALINE PHOSPHATASE 98 Units/L (46-116); ASPARTATE AMINO TRANSFERASE 18 Units/L (15-37); BLOOD UREA NITROGEN 12 mg/dL (7-18); CALCIUM 9.1 mg/dL (8.5-10.1); CARBON DIOXIDE 23.5 mmol/L (21-32); CHLORIDE 106 mmol/L (98-107); COR CA(FOR HYPOALB) 9.7 mg/dL (8.5-10.1); CREATININE 0.85 mg/dL (0.55-1.02); SODIUM 139 mmol/L (136-145); TOTAL PROTEIN 7.2 g/dL (6.4-8.2); eGFR BLACK RACES > 60 (>60); eGFR NON BLACK RACES > 60 (>60)
[2018-01-03] MEDS: NORCO 10/325 TAB PO PRN ×3 (07:38→22:45)
[2018-01-03] MEDS: COREG TAB 12.5 MG PO SCH ×2 (08:42→20:52)
[2018-01-03] MEDS: COZAAR PO SCH (08:42)
[2018-01-03] MEDS: KLONOPIN TAB 1 MG PO SCH (08:42)
[2018-01-03] MEDS: DILANTIN CAP 100 MG EXT REL PO SCH ×2 (08:42→20:52)
[2018-01-03] MEDS: EXELON PO SCH ×2 (08:42→20:52)
[2018-01-03] MEDS: NORVASC TAB 5 MG PO SCH (08:42)
[2018-01-03] MEDS: PLAVIX PO SCH (08:43)
[2018-01-03] MEDS: COLACE CAP 100 MG PO SCH ×2 (08:43→20:52)
[2018-01-03] MEDS ORDERED: PATIENT'S HOME MEDICATION (Losartan Potassium [Cozaar] 50 MG) PO SCH (09:00)
[2018-01-03] MEDS ORDERED: PATIENT'S HOME MEDICATION (Atorvastatin Calcium [Atorvastatin Calcium] 80 MG) PO SCH (09:00)
[2018-01-03] MEDS: ATIVAN TAB 1 MG PO PRN ×2 (11:50→20:51)
[2018-01-03] MEDS: LIPITOR TAB 40 MG PO SCH (20:52)
[2018-01-04] MEDS: MERREM VIAL 500 MG in NS 100 ML IV + SPIKE MINIBAG* 100 ML IV SCH ×3 (05:39→22:04)
[2018-01-04] MEDS: ATIVAN TAB 1 MG PO PRN ×2 (05:43→16:19)
[2018-01-04 05:47] LABS: ALANINE AMINOTRANSFERASE 24 Units/L (12-78); ALBUMIN 3.2 g/dL (3.4-5.0); ALKALINE PHOSPHATASE 98 Units/L (46-116); ASPARTATE AMINO TRANSFERASE 23 Units/L (15-37); BLOOD UREA NITROGEN 14 mg/dL (7-18); CALCIUM 9.3 mg/dL (8.5-10.1); CARBON DIOXIDE 21.5 mmol/L (21-32); CHLORIDE 107 mmol/L (98-107); COR CA(FOR HYPOALB) 9.9 mg/dL (8.5-10.1); SODIUM 140 mmol/L (136-145); eGFR BLACK RACES > 60 (>60); eGFR NON BLACK RACES > 60 (>60)
[2018-01-04 06:12] LABS: BASOPHILS % (AUTO) 0.5 % (0.2-1.0); EOSINOPHILS # (AUTO) 0.3 x10^3/uL (0.0-0.2); EOSINOPHILS % (AUTO) 3.2 % (0.9-2.9); HEMATOCRIT 32.4 % (36.0-47.0); LYMPHOCYTES # (AUTO) 3.9 X10^3/uL (1.3-2.9); LYMPHOCYTES % (AUTO) 36.6 % (21.0-51.0); MEAN CORPUSCULAR HEMOGLOBIN 29.3 pg (27.0-34.0); MEAN PLATELET VOLUME 8.2 fL (7.4-11.0); MONOCYTES # (AUTO) 0.7 x10^3/uL (0.3-0.8); MONOCYTES % (AUTO) 6.4 % (0.0-13.0); NEUTROPHILS # (AUTO) 5.6 x10^3/uL (2.2-4.8); NEUTROPHILS % (AUTO) 53.3 % (42.0-75.0); PLATELET COUNT 330 X10^3/uL (150.0-450.0); RED BLOOD COUNT 3.77 X10^6/uL (3.5-5.4); WHITE BLOOD COUNT 10.6 X10^3/uL (3.6-10.0)
[2018-01-04] MEDS: NORCO 10/325 TAB PO PRN ×3 (08:47→22:05)
[2018-01-04] MEDS: COREG TAB 12.5 MG PO SCH ×2 (08:57→20:30)
[2018-01-04] MEDS: COLACE CAP 100 MG PO SCH ×2 (08:57→20:30)
[2018-01-04] MEDS: COZAAR PO SCH (08:57)
[2018-01-04] MEDS: DILANTIN CAP 100 MG EXT REL PO SCH ×2 (08:57→20:30)
[2018-01-04] MEDS: EXELON PO SCH ×2 (08:58→20:31)
[2018-01-04] MEDS: PLAVIX PO SCH (08:58)
[2018-01-04] MEDS: NORVASC TAB 5 MG PO SCH (08:58)
[2018-01-04] MEDS: MILK OF MAGNESIA PO SCH ×2 (09:54→20:31)
[2018-01-04] MEDS: ZOLOFT PO SCH (13:31)
[2018-01-04] MEDS ORDERED: NS 250 ML IV 250 ML IV ONE (20:05)
[2018-01-04] MEDS: LIPITOR TAB 40 MG PO SCH (20:31)
[2018-01-05] MEDS: ATIVAN TAB 1 MG PO PRN ×3 (00:12→18:03)
[2018-01-05] MEDS: MERREM VIAL 500 MG in NS 100 ML IV + SPIKE MINIBAG* 100 ML IV SCH ×3 (05:25→21:04)
[2018-01-05 05:29] LABS: BASOPHILS # (AUTO) 0.1 X10^3/uL (0.0-0.1); BASOPHILS % (AUTO) 1.3 % (0.2-1.0); EOSINOPHILS # (AUTO) 0.4 x10^3/uL (0.0-0.2); EOSINOPHILS % (AUTO) 3.8 % (0.9-2.9); HEMATOCRIT 33.3 % (36.0-47.0); HEMOGLOBIN 11.2 g/dL (12.0-16.0); LYMPHOCYTES # (AUTO) 4.3 X10^3/uL (1.3-2.9); MEAN CORPUSCULAR HEMOGLOBIN 29.2 pg (27.0-34.0); MEAN CORPUSCULAR HGB CONC 33.5 g/dL (33.0-35.0); MEAN CORPUSCULAR VOLUME 87.2 fL (80.0-100.0); MEAN PLATELET VOLUME 8.5 fL (7.4-11.0); MONOCYTES # (AUTO) 0.7 x10^3/uL (0.3-0.8); NEUTROPHILS # (AUTO) 5.6 x10^3/uL (2.2-4.8); NEUTROPHILS % (AUTO) 49.9 % (42.0-75.0); PLATELET COUNT 340 X10^3/uL (150.0-450.0); RED BLOOD COUNT 3.82 X10^6/uL (3.5-5.4); RED CELL DISTRIBUTION WIDTH 15.3 % (11.6-16.5); WHITE BLOOD COUNT 11.2 X10^3/uL (3.6-10.0)
[2018-01-05 05:45] LABS: ALANINE AMINOTRANSFERASE 28 Units/L (12-78); ALBUMIN 3.2 g/dL (3.4-5.0); ALKALINE PHOSPHATASE 92 Units/L (46-116); ASPARTATE AMINO TRANSFERASE 21 Units/L (15-37); BLOOD UREA NITROGEN 13 mg/dL (7-18); CALCIUM 8.9 mg/dL (8.5-10.1); CARBON DIOXIDE 24.1 mmol/L (21-32); CHLORIDE 106 mmol/L (98-107); COR CA(FOR HYPOALB) 9.5 mg/dL (8.5-10.1); CREATININE 0.78 mg/dL (0.55-1.02); SODIUM 140 mmol/L (136-145); TOTAL PROTEIN 6.8 g/dL (6.4-8.2); eGFR BLACK RACES > 60 (>60); eGFR NON BLACK RACES > 60 (>60)
[2018-01-05] MEDS: NORVASC TAB 5 MG PO SCH (08:46)
[2018-01-05] MEDS: ZOLOFT PO SCH (08:47)
[2018-01-05] MEDS: PLAVIX PO SCH (08:47)
[2018-01-05] MEDS: COREG TAB 12.5 MG PO SCH ×2 (08:48→21:01)
[2018-01-05] MEDS: EXELON PO SCH ×2 (08:48→21:03)
[2018-01-05] MEDS: DILANTIN CAP 100 MG EXT REL PO SCH ×2 (08:48→21:03)
[2018-01-05] MEDS: COLACE CAP 100 MG PO SCH ×2 (08:48→21:02)
[2018-01-05] MEDS: COZAAR PO SCH (08:49)
[2018-01-05] MEDS: NORCO 10/325 TAB PO PRN ×2 (10:39→18:03)
[2018-01-05] MEDS: ZOFRAN TAB 4 MG SL PRN (19:17)
[2018-01-05] MEDS: MILK OF MAGNESIA PO SCH (21:03)
[2018-01-05] MEDS: LIPITOR TAB 40 MG PO SCH (21:03)
[2018-01-06] MEDS: NORCO 10/325 TAB PO PRN ×2 (02:48→09:18)
[2018-01-06] MEDS: ATIVAN TAB 1 MG PO PRN (02:48)
[2018-01-06 05:28] LABS: BASOPHILS % (AUTO) 0.5 % (0.2-1.0); EOSINOPHILS # (AUTO) 0.1 x10^3/uL (0.0-0.2); EOSINOPHILS % (AUTO) 1.6 % (0.9-2.9); HEMATOCRIT 34.1 % (36.0-47.0); HEMOGLOBIN 11.6 g/dL (12.0-16.0); LYMPHOCYTES # (AUTO) 1.6 X10^3/uL (1.3-2.9); LYMPHOCYTES % (AUTO) 18.7 % (21.0-51.0); MEAN CORPUSCULAR HEMOGLOBIN 29.5 pg (27.0-34.0); MEAN CORPUSCULAR HGB CONC 33.9 g/dL (33.0-35.0); MEAN CORPUSCULAR VOLUME 87.2 fL (80.0-100.0); MEAN PLATELET VOLUME 8.5 fL (7.4-11.0); MONOCYTES # (AUTO) 0.4 x10^3/uL (0.3-0.8); MONOCYTES % (AUTO) 4.1 % (0.0-13.0); NEUTROPHILS # (AUTO) 6.5 x10^3/uL (2.2-4.8); NEUTROPHILS % (AUTO) 75.1 % (42.0-75.0); PLATELET COUNT 294 X10^3/uL (150.0-450.0); RED BLOOD COUNT 3.91 X10^6/uL (3.5-5.4); RED CELL DISTRIBUTION WIDTH 15.2 % (11.6-16.5); WHITE BLOOD COUNT 8.6 X10^3/uL (3.6-10.0)
[2018-01-06 05:53] LABS: ALANINE AMINOTRANSFERASE 27 Units/L (12-78); ALBUMIN 2.8 g/dL (3.4-5.0); ALKALINE PHOSPHATASE 85 Units/L (46-116); ASPARTATE AMINO TRANSFERASE 25 Units/L (15-37); BLOOD UREA NITROGEN 24 mg/dL (7-18); CALCIUM 8.3 mg/dL (8.5-10.1); CARBON DIOXIDE 22.3 mmol/L (21-32); CHLORIDE 105 mmol/L (98-107); COR CA(FOR HYPOALB) 9.3 mg/dL (8.5-10.1); COR NA(FOR HYPERGLY) 138 mmol/L (136-145); CREATININE 0.78 mg/dL (0.55-1.02); SODIUM 138 mmol/L (136-145); TOTAL PROTEIN 6.4 g/dL (6.4-8.2); eGFR BLACK RACES > 60 (>60); eGFR NON BLACK RACES > 60 (>60)
[2018-01-06] MEDS: MERREM VIAL 500 MG in NS 100 ML IV + SPIKE MINIBAG* 100 ML IV SCH (06:08)
[2018-01-06] MEDS: COLACE CAP 100 MG PO SCH (08:23)
[2018-01-06] MEDS: COZAAR PO SCH (08:23)
[2018-01-06] MEDS: COREG TAB 12.5 MG PO SCH (08:23)
[2018-01-06] MEDS: NORVASC TAB 5 MG PO SCH (08:23)
[2018-01-06] MEDS: EXELON PO SCH (08:23)
[2018-01-06] MEDS: ZOLOFT PO SCH (08:23)
[2018-01-06] MEDS: PLAVIX PO SCH (08:23)
[2018-01-06] MEDS: DILANTIN CAP 100 MG EXT REL PO SCH (08:24)
[2018-01-06] MEDS ORDERED: ROBITUSSIN CF SYRUP PO SCH (09:00)
[2018-01-06] MEDS ORDERED: FLONASE NASAL SPRAY ENOSTRIL SCH (09:00)
[2018-01-06] MEDS: ZOFRAN TAB 4 MG SL PRN (09:19)
[2018-01-06 13:06] VITALS: BP 124/61
== END 2018-01-06 12:20 | disposition home or self-care (01) | DRG 884 ==
LOC: INTOOBSV 18:06 → OBSVTOIN 18:06 → MED/SURG 18:06 → UNDOADMOB 18:06 → MED/SURG 01-05 21:54
PROVIDERS: ADMIT Internal Medicine; ATTEND Internal Medicine
DX: R40.4 Transient alteration of awareness (principal); I69.398 Other sequelae of cerebral infarction; N39.0 Urinary tract infection, site not specified; F41.8 Other specified anxiety disorders; K21.9 Gastro-esophageal reflux disease without esophagitis; I25.10 Atherosclerotic heart disease of native coronary artery without angina pectoris; E11.65 Type 2 diabetes mellitus with hyperglycemia; I10 Essential (primary) hypertension; R47.01 Aphasia; E87.6 Hypokalemia
CPT/HCPCS: 36415; 71045; 80053; 83735; 85025; 87040; 87086; A4216; A4222; S0181; G0378; J2185

== ENCOUNTER 2018-01-09 12:55 | Emergency (ER) | payer MEDICAID ==
[2018-01-09 13:02] VITALS: BP 124/60; BMI 29.2
--- NOTE | 2018-01-09 14:11 | DR.GENAD ---
HPI - PCP Primary Care Physician: juana - Complaint/Symptoms Chief Complaint Doctors Comments: Patient presents with complaint of cough, numbness, and headache for two days. Chief Complaint:: patient stated that cece sent her to the er to be seen for her numbness to her arms since last night. patient daughter stated she has been very confussed since yesterday - Source History Provided: Patient - Mode of Arrival Mode of Arrival: Ambulatory - Timing Onset of Chief Complaint: 01/08/18 PMH - PMH Past Medical History: Yes Past Medical History: Anxiety, Arthritis, COPD, Coronary Artery Disease, CVA, Depression, Diabetes, Migraines, GERD, Hypertension Past Surgical History: Yes Surgical History: Hysterectomy - Family History History of Family Medical Conditions: Yes Family Medical History: Diabetes Mellitus, Cancer, Heart Failure, Hypertension - Social History Does patient currently use any type of tobacco product: Yes Have you used tobacco products in the last 12 months: Yes Type of Tobacco Use: Cigarettes How many years tobacco product used: 20 Does any household member use tobacco: No Alcohol Use: None Do you use any recreational Drugs:: No Lives With: Family Lives Where: Home - infectious screening In the last 2 months have you had wt loss of >10#?: NO Have you had fever, night sweats or hemotysis?: No Have you traveled outside the country in the last 6 months?: No Isolation: Standard ROS - Review of Systems Eyes: No Symptoms Reported ENTM: No Symptoms Reported Respiratoy: No Symptoms Reported Cardiovascular: No Symptoms Reported Gastrointestinal/Abdominal: No Symptoms Reported Genitourinary: No Symptoms Reported Neurological: No Symptoms Reported Musculoskeletal: No Symptoms Reported Integumentary: No Symptoms Reported Hematologic/Lymphatic: No Symptoms Reported Endocrine: No Symptoms Reported Psychiatric: No Symptoms Reported All Other Systems: Reviewed and Negative PE - Vital Signs Vitals: Temperature 98.7 F Pulse Rate 75 Respiratory Rate 16 Blood Pressure [Right Arm] 124/61 Blood Pressure [Left Arm] 116/69 Blood Pressure 124/60 O2 Sat by Pulse Oximetry 100 - General Limitations: Physical Limitation (s/p old infarct with right hemiparesis) General Appearance: Alert, In No Apparent Distress - Head Head Exam: Normal Inspection, Atraumatic - Eyes Eye exam: Normal Appearance, PERRL, EOMI - ENT ENT Exam: Normal Exam External Ear Exam: Normal External Inspection TM/Canal Exam: Bilateral Normal Nose Exam: Normal Nose Exam Mouth Exam: Normal Inspection Throat Exam: Normal Inspection - Neck Neck Exam: Normal Inspection, Full ROM - Chest Chest Inspection: Normal Inspection, Symmetric Chest Wall Rise - Respiratory Respiratory Exam: Normal Lung Sounds Bilat Respiratory Exam: Bilateral Clear to Auscultation - Cardiovascular Cardiovascular Exam: Regular Rate, Normal Rhythm - Abdominal Exam Abdominal Exam: Normal Inspection, Normal Bowel Sounds Abdominal Tenderness: negative: RUQ, RLQ, LUQ, LLQ, Epigastrium, Suprapubic, Diffuse, Mild, Moderate, Severe, Other - Extremities Extremities Exam: Other (left sided hemiparesis) - Back Back Exam: Full ROM - Neurologic Neurological Exam: Alert, Oriented X3, CN II-XII Intact - Psychiatric Psychiatric Exam: Normal Affect, Normal Mood - Skin Skin Exam: Warm, Dry, Intact Course - Reevaluation 1st: Unchanged ROR - Labs Reviewed Result Diagrams: 01/09/18 14:26 01/09/18 14: Laboratory: WBC 9.7 X10^3/uL (3.6-10.0) 01/09/18 14: RBC 3.97 X10^6/uL (3.5-5.4) 01/09/18 14: Hgb 11.8 g/dL (12.0-16.0) L 01/09/18 14: Hct 35.0 % (36.0-47.0) L 01/09/18 14: MCV 88.0 fL (80.0-100.0) 01/09/18 14: MCH 29.6 pg (27.0-34.0) 01/09/18 14: MCHC 33.6 g/dL (33.0-35.0) 01/09/18 14: RDW 15.1 % (11.6-16.5) 01/09/18 14: Plt Count 321 X10^3/uL (150.0-450.0) 01/09/18 14: MPV 8.3 fL (7.4-11.0) 01/09/18 14: Neut % 49.4 % (42.0-75.0) 01/09/18 14: Lymph % 34.8 % (21.0-51.0) 01/09/18 14: [place] % 7.2 % (0.0-13.0) 01/09/18 14: Eos % 7.8 % (0.9-2.9) H 01/09/18 14:26 Baso % 0.8 % (0.2-1.0) 01/09/18 14:26 Neut # 4.8 x10^3/uL (2.2-4.8) 01/09/18 14: Lymph # 3.4 X10^3/uL (1.3-2.9) H 01/09/18 14:26 [place] # 0.7 x10^3/uL (0.3-0.8) 01/09/18 14: Eos # 0.8 x10^3/uL (0.0-0.2) H 01/09/18 14: Baso # 0.1 X10^3/uL (0.0-0.1) 01/09/18 14: Absolute Nucleated RBC 0.0 /100WBC 01/09/18 14:26 Sodium 140 mmol/L (136-145) 01/09/18 14:26 Corrected Sodium TNP 01/09/18 14:26 Potassium 3.6 mmol/L (3.5-5.1) 01/09/18 14:26 Chloride 104 mmol/L (98-107) 01/09/18 14:26 Carbon Dioxide 24.2 mmol/L (21-32) 01/09/18 14:26 BUN 19 mg/dL (7-18) H 01/09/18 14:26 Creatinine 0.98 mg/dL (0.55-1.02) 01/09/18 14:26 Est GFR (MDRD) Af Amer > 60 (>60) 01/09/18 14:26 Est GFR (MDRD) Non-Af > 60 (>60) 01/09/18 14:26 Glucose 95 mg/dL (65-99) 01/09/18 14:26 Calcium 8.8 mg/dL (8.5-10.1) 01/09/18 14:26 Specimen Type Random urine 01/09/18 15:21 Urine Color Yellow (YELLOW) 01/09/18 15:21 Urine Appearance Clear (CLEAR) 01/09/18 15:21 Urine pH 5.0 (5.0 - 8.0) 01/09/18 15:21 Ur Specific [place] 1.015 (1.000-1.030) 01/09/18 15:21 Urine Protein Negative (NEGATIVE) 01/09/18 15:21 Urine Glucose (UA) Negative (NEGATIVE) 01/09/18 15:21 Urine Ketones Negative (NEGATIVE) 01/09/18 15:21 Urine Occult Blood Negative (NEGATIVE) 01/09/18 15:21 Urine Nitrite Negative (NEGATIVE) 01/09/18 15:21 Urine Bilirubin Negative (NEGATIVE) 01/09/18 15:21 Urine Urobilinogen Normal (NORMAL) 01/09/18 15:21 Ur Leukocyte Esterase Negative (NEGATIVE) 01/09/18 15:21 Urine RBC None seen /HPF (NONE SEEN) 01/09/18 15:21 Urine WBC None seen /HPF (NONE SEEN) 01/09/18 15:21 Ur Squamous Epith Cells Moderate /HPF (NEGATIVE) 01/09/18 15:21 Urine Bacteria Negative /HPF (NEGATIVE) 01/09/18 15:21 Ur Culture Indicated? No/not indicated 01/09/18 15:21 Urine Opiates Screen Negative (NEG=<300) 01/09/18 15:21 Urine Methadone Screen Negative (NEG=<300) 01/09/18 15:21 Ur Barbiturates Screen Negative (NEG=<200) 01/09/18 15:21 Ur Phencyclidine Scrn Negative (NEG=<25) 01/09/18 15:21 Ur Amphetamines Screen Negative (NEG=<1000) 01/09/18 15:21 U Benzodiazepines Scrn Negative (NEG=<200) 01/09/18 15:21 Urine Cocaine Screen Negative (NEG=<300) 01/09/18 15:21 U Marijuana (THC) Screen Negative (NEG=<50) 01/09/18 15:21 Influenza Type A (PCR) Negative (NEGATIVE) 01/09/18 15:08 Influenza Type B (PCR) Negative (NEGATIVE) 01/09/18 15:08 S. pyogenes (TEM-PCR) Not detected (NOT DETECT) 01/09/18 15:08 - XRAY XRAY Interpreted by: Radiologist (Brain: Comparison: 12/26/17;Findings: There is no significatn change. There are old occipital and posterior parietal right6 posterior temporal lobe infarcts. There is no hemorrhage or mass. There is no midline shift. There ventricles are prominent. There is no subdural collection of fluid. The calvarium is intact. There is mucosal thickening with air-fluid levels in the maxillary sinuses. Impression: Old unchanged infarcts, no acute intracranial diswase demonstrated. Bilateral maxillary sinus disease.) - Diagnosis Discharge Problem: Sinusitis Qualifiers: Sinusitis location: maxillary Chronicity: acute Recurrence: non-recurrent Qualified Code(s): J01.00 - Acute maxillary sinusitis, unspecified - Discharge Plan Condition: Stable - Follow ups/Referrals Follow ups/Referrals: CECE PORTILLO [Primary Care Provider] - 3 days - Instructions
[2018-01-09 14:44] LABS: BLOOD UREA NITROGEN 19 mg/dL (7-18); CALCIUM 8.8 mg/dL (8.5-10.1); CARBON DIOXIDE 24.2 mmol/L (21-32); CHLORIDE 104 mmol/L (98-107); CREATININE 0.98 mg/dL (0.55-1.02); SODIUM 140 mmol/L (136-145); eGFR BLACK RACES > 60 (>60); eGFR NON BLACK RACES > 60 (>60)
--- NOTE | 2018-01-09 15:03 | RAD ---
HISTORY: Cough Study: Chest AP portable Comparison: 01/02/2018 Findings: The heart is enlarged. No congestive heart failure is noted. The niecy are normal. The aorta is calcif ied. The lung bush are clear. The bony thorax is unremarkable. IMPRESSION: Mild cardiomegaly without congestive heart failure Lungs clear Reported By:
[2018-01-09 15:04] LABS: BASOPHILS # (AUTO) 0.1 X10^3/uL (0.0-0.1); BASOPHILS % (AUTO) 0.8 % (0.2-1.0); EOSINOPHILS # (AUTO) 0.8 x10^3/uL (0.0-0.2); EOSINOPHILS % (AUTO) 7.8 % (0.9-2.9); HEMOGLOBIN 11.8 g/dL (12.0-16.0); LYMPHOCYTES # (AUTO) 3.4 X10^3/uL (1.3-2.9); LYMPHOCYTES % (AUTO) 34.8 % (21.0-51.0); MEAN CORPUSCULAR HEMOGLOBIN 29.6 pg (27.0-34.0); MEAN CORPUSCULAR HGB CONC 33.6 g/dL (33.0-35.0); MEAN PLATELET VOLUME 8.3 fL (7.4-11.0); MONOCYTES # (AUTO) 0.7 x10^3/uL (0.3-0.8); MONOCYTES % (AUTO) 7.2 % (0.0-13.0); NEUTROPHILS # (AUTO) 4.8 x10^3/uL (2.2-4.8); NEUTROPHILS % (AUTO) 49.4 % (42.0-75.0); PLATELET COUNT 321 X10^3/uL (150.0-450.0); RED BLOOD COUNT 3.97 X10^6/uL (3.5-5.4); RED CELL DISTRIBUTION WIDTH 15.1 % (11.6-16.5); WHITE BLOOD COUNT 9.7 X10^3/uL (3.6-10.0)
[2018-01-09 15:28] LABS: BILIRUBIN,URINE NEGATIVE (NEGATIVE); BLOOD/HEMOGLOBIN,URINE NEGATIVE (NEGATIVE); GLUCOSE, URINE NEGATIVE (NEGATIVE); KETONES,URINE NEGATIVE (NEGATIVE); LEUKOCYTE ESTERASE ,URINE NEGATIVE (NEGATIVE); NITRITES,URINE NEGATIVE (NEGATIVE); PROTEIN,URINE NEGATIVE (NEGATIVE); UROBILINOGEN,URINE NORMAL (NORMAL)
[2018-01-09 15:30] LABS: APPEARANCE,URINE CLEAR (CLEAR); COLOR,URINE YELLOW (YELLOW)
[2018-01-09 15:36] LABS: BACTERIA,URINE NEGATIVE /HPF (NEGATIVE); RBC,URINE NONE SEEN /HPF (NONE SEEN); SQUAMOUS EPITHELIAL CELL,UR MODERATE /HPF (NEGATIVE)
--- NOTE | 2018-01-09 16:16 | RAD ---
Examination: Cervical spine, three views History: AMS, hypertension and CVA Findings: There is accentuation of the normal lordosis. No fracture or bone destruction is seen. Ther e is minimal suspect retrolisthesis at C3-4. No bone destruction or odontoid abnormality is demonstra jaison. There is vascular calcification in the left neck. Impression: 1. No acute cervical spine abnormality identified. 2. Minimal malalignment at C3-4 is consistent with facet joint arthrosis. 3. Vascular calcification left neck consistent with arteriosclerosis of the carotid bifurcation. This may be significant in view of the CVA history. Reported By:
--- NOTE | 2018-01-09 16:16 | CT ---
History: Altered mental status and left-sided weakness Study: CT head without contrast. Sagittal and coronal reformations were provided. Comparison: December 26 Findings: There is no significant change. There are old occipital and posterior parietal and right po sterior temporal lobe infarcts. There is no hemorrhage or mass. There is no midline shift. The ventri cles are prominent. There is no subdural collection of fluid. The calvarium is intact . There is muco art thickening with air-fluid levels in the maxillary sinuses. Impression: 1. Old unchanged infarcts, no acute intracranial disease demonstrated 2. Bilateral maxillary sinus disease Reported By:
[2018-01-09] MEDS ORDERED: ROCEPHIN VIAL 1 GM IM ONE (16:20)
[2018-01-09] MEDS ORDERED: ROCEPHIN VIAL 2 GM ONE (16:21)
[2018-01-09] MEDS ORDERED: XYLOCAINE 1 % (PLAIN) ONE (16:21)
== END 2018-01-09 16:49 | disposition home or self-care (01) ==
LOC: ER 13:08
CPT/HCPCS: 36415; 70450; 71045; 72040; 80048; 80307; 81001; 85025; 87502; 87651; 96372; 99283; G0434; J0696; J2001

== ENCOUNTER 2018-12-28 16:33 | Inpatient (IN) ==
[2018-12-28 16:45] VITALS: BMI 30.9
[2018-12-28 17:10] LABS: BILIRUBIN,URINE NEGATIVE (NEGATIVE); BLOOD/HEMOGLOBIN,URINE NEGATIVE (NEGATIVE); GLUCOSE, URINE NEGATIVE (NEGATIVE); KETONES,URINE NEGATIVE (NEGATIVE); LEUKOCYTE ESTERASE ,URINE 1+ (NEGATIVE); NITRITES,URINE NEGATIVE (NEGATIVE); PROTEIN,URINE NEGATIVE (NEGATIVE); UROBILINOGEN,URINE NORMAL (NORMAL)
[2018-12-28 17:16] LABS: APPEARANCE,URINE SLIGHTLY HAZY (CLEAR); BACTERIA,URINE TRACE /HPF (NEGATIVE); COLOR,URINE YELLOW (YELLOW); RENAL EPITHELIAL CELLS,URINE RARE /HPF (NEGATIVE); SQUAMOUS EPITHELIAL CELL,UR FEW /HPF (NEGATIVE)
--- NOTE | 2018-12-28 17:17 | DR.AMS ---
HPI Time Seen Time Seen by Provider: 12/28/18 17:16 HPI Comment HPI Comment: PATIENT IS 58YRS. OLD WHITE FEMALE WITH HISTORY OF HTN, CAD, DM AND PREVIOUS STROKE PRESENTS TO ED WITH CONFUSION AND NOT RESPONDING NORMAL TO FAMILY MEMBERS AND HER EX- WHO IS HER RETAIL PLANNER. STARTED 3 DAYS AGO AND IS GETTING WORSE. Complaint Cheif Complaint Doctors Comments: NOT ACTING RIGHT TIMES 3 DAYS. Chief Complaint:: PT'S FAMILY BROUGHT PT TO ER WITH C/O NOT ACTING RIGHT, AND FAMILY STATES PT HAS HISTORY OF STROKES ,AND PT HAS BEEN MOVING AROUND ASKING WHAT DO I DO AND THAT IT STARTED 3 DAYS AGO ,BR Self Treatment fo Chief Complaint: PTS EX- STATES " SHE DID THIS SOME A LITTLE AND ITS WORSE TODAY ..BR Reviewed Nurses Notes Reviewed: Yes Source History Provided: Patient and Family Member Mode of Arrival Mode of Arrival: Ambulatory Timing Onset of Chief Complaint: 12/26/18 Came On: Suddenly Symptoms: Worsening Duration Duration: Constant Duration: Days Quality Quality: Change in Behavior, Confusion and Memory Loss Severity Severity: Moderate Context Recent: None History Of: CVA, Hypoglycemia and Diabetes Associated Signs and Symptoms Associated Signs and Symptoms: Change in Behavior, Confusion and Change in Memory PMH PMH Past Medical History: Yes Past Medical History: Anxiety, Arthritis, COPD, Coronary Artery Disease, CVA, Depression, Diabetes, Migraines, GERD and Hypertension Past Surgical History: Yes Surgical History: Hysterectomy Family History History of Family Medical Conditions: Yes Family Medical History: Diabetes Mellitus, Cancer, Heart Failure and Hypertension Social History Does patient currently use any type of tobacco product: Yes Have you used tobacco products in the last 12 months: Yes Type of Tobacco Use: Cigarettes Does any household member use tobacco: No Alcohol Use: None Do you use any recreational Drugs:: No Lives With: Family Lives Where: Home infectious screening In the last 2 months have you had wt loss of >10#?: NO Have you had fever, night sweats or hemotysis?: No Have you traveled outside the country in the last 6 months?: No Isolation: Standard ROS Review of Systems Constitutional: No Symptoms Reported Eyes: No Symptoms Reported ENTM: No Symptoms Reported Respiratoy: No Symptoms Reported Cardiovascular: No Symptoms Reported Gastrointestinal/Abdominal: No Symptoms Reported Genitourinary: No Symptoms Reported Neurological: Speech Problem Musculoskeletal: No Symptoms Reported Integumentary: No Symptoms Reported Hematologic/Lymphatic: No Symptoms Reported Endocrine: No Symptoms Reported Psychiatric: Anxiety and Depression All Other Systems: Reviewed and Negative PE Vitals Vital Signs: Temp Pulse Pulse Pulse Resp BP BP 01/07/19 12:00 98.2 F 118 H 20 117/71 01/07/19 08:00 98.9 F 106 H 20 125/76 01/07/19 04:00 98.3 F 102 H 16 01/07/19 00:00 98.6 F 121 H 18 01/06/19 20:00 99.6 F 106 H 22 01/06/19 16:00 100.0 F H 121 H 20 01/06/19 12:00 99.5 F 128 H 20 01/06/19 08:00 98.5 F 98 H 18 125/62 01/06/19 04:00 97.8 F 73 20 01/06/19 00:00 97.9 F 96 H 20 01/05/19 20:00 98.7 F 108 H 20 01/05/19 16:00 98.3 F 99 H 18 01/05/19 12:00 98.6 F 109 H 20 01/05/19 08:00 97.6 F 98 H 18 01/05/19 04:00 98.1 F 88 20 01/05/19 00:00 98.8 F 84 18 01/04/19 20:00 98.6 F 95 H 20 01/04/19 16:00 97.3 F L 121 H 20 01/04/19 12:00 99.5 F 126 H 20 01/04/19 08:00 98.6 F 89 18 01/04/19 04:00 97.1 F L 87 16 123/74 01/03/19 20:00 98.8 F 121 H 20 01/03/19 16:00 98.4 F 122 H 20 01/03/19 12:00 98.4 F 89 18 01/03/19 08:00 98.4 F 68 18 01/03/19 04:00 98.2 F 88 18 01/03/19 00:00 97.7 F 107 H 20 01/02/19 20:00 98.1 F 104 H 01/02/19 12:00 100.1 F H 108 H 20 01/02/19 08:00 98.5 F 100 H 20 01/02/19 04:00 98 F 90 20 01/01/19 20:00 98.8 F 97 H 18 01/01/19 16:00 99.2 F 82 20 01/01/19 12:00 99 F 86 20 01/01/19 08:00 98.6 F 79 20 01/01/19 04:00 98.0 F 71 18 12/31/18 23:45 98.8 F 114 H 20 12/31/18 20:00 98.6 F 90 20 12/31/18 16:00 98.7 F 102 H 20 12/31/18 12:00 99.4 F 116 H 20 190/86 12/31/18 08:00 98.1 F 71 18 118/58 12/31/18 03:53 97.9 F 78 20 137/65 12/31/18 00:00 98.2 F 73 20 130/60 12/30/18 20:00 98.4 F 79 20 119/60 12/30/18 16:00 99.9 F H 76 20 118/57 12/30/18 12:00 100.2 F H 81 20 120/62 12/30/18 08:00 100.1 F H 94 H 18 103/61 12/30/18 04:00 98.7 F 73 18 117/59 12/30/18 00:00 98.6 F 58 L 18 125/65 12/29/18 20:00 98.4 F 70 18 147/70 12/29/18 16:00 98.4 F 64 18 157/67 12/29/18 12:00 98.6 F 60 20 12/29/18 06:31 98.3 F 59 L 17 12/29/18 05:49 54 L 18 12/29/18 05:00 57 L 18 12/29/18 04:00 56 L 16 12/29/18 02:00 12/29/18 00:00 12/28/18 20:54 71 20 12/28/18 16:38 96.0 F L 64 18 212/88 11/22/18 17:20 148/74 11/22/18 14:49 195/86 BP Pulse Ox 01/07/19 12:00 97 01/07/19 08:00 98 01/07/19 04:00 118/65 96 01/07/19 00:00 107/67 93 L 01/06/19 20:00 135/75 98 01/06/19 16:00 123/59 97 01/06/19 12:00 158/80 97 01/06/19 08:00 125/62 98 01/06/19 04:00 122/67 95 01/06/19 00:00 118/66 98 01/05/19 20:00 126/71 98 01/05/19 16:00 118/69 98 01/05/19 12:00 120/63 97 01/05/19 08:00 157/75 99 01/05/19 04:00 148/76 100 01/05/19 00:00 105/59 99 01/04/19 20:00 133/97 99 01/04/19 16:00 122/82 99 01/04/19 12:00 156/80 98 01/04/19 08:00 140/71 98 01/04/19 04:00 98 01/03/19 20:00 171/77 99 01/03/19 16:00 182/87 96 01/03/19 12:00 134/65 97 01/03/19 08:00 101/52 96 01/03/19 04:00 133/65 97 01/03/19 00:00 130/76 96 01/02/19 20:00 147/71 97 01/02/19 12:00 136/88 97 01/02/19 08:00 151/84 96 01/02/19 04:00 160/80 98 01/01/19 20:00 198/91 99 01/01/19 16:00 152/67 97 01/01/19 12:00 144/63 98 01/01/19 08:00 159/77 98 01/01/19 04:00 135/73 99 12/31/18 23:45 194/88 99 12/31/18 20:00 135/70 98 12/31/18 16:00 194/95 98 12/31/18 12:00 98 12/31/18 08:00 96 12/31/18 03:53 98 12/31/18 00:00 96 12/30/18 20:00 94 L 12/30/18 16:00 98 12/30/18 12:00 99 12/30/18 08:00 93 L 12/30/18 04:00 96 12/30/18 00:00 94 L 12/29/18 20:00 97 12/29/18 16:00 94 L 12/29/18 12:00 147/68 95 12/29/18 06:31 105/59 100 12/29/18 05:49 111/55 96 12/29/18 05:00 114/58 12/29/18 04:00 125/67 96 12/29/18 02:00 116/59 12/29/18 00:00 107/55 12/28/18 20:54 146/70 100 12/28/18 16:38 100 11/22/18 17:20 148/74 11/22/18 14:49 General Limitations: Altered Mental Status General Appearance: Alert and In No Apparent Distress Head Head Exam: Normal Inspection Head Exam Physical: Other (NONE REPORTED,) Eyes Eye exam: Normal Appearance Pupils: Regular, Round: Bilateral and Reactive: Bilateral ENT ENT Exam: Normal External Ear Exam External Ear Exam: Normal External Inspection TM/Canal Exam: Bilateral: Normal Nose Exam: Normal Nose Exam Mouth Exam: Normal Inspection Throat Exam: Normal Inspection Neck Neck Exam: Normal Inspection and Trachea Midline Chest Chest Inspection: Normal Inspection and Symmetric Chest Wall Rise Respiratory Respiratory Exam: Normal Lung Sounds Bilat Respiratory Exam: Bilateral: Rhonchi and Lower: Rhonchi Cardiovascular Cardiovascular Exam: Regular Rate and Normal Rhythm Abdominal Exam Abdominal Exam: Normal Inspection, Normal Bowel Sounds and Soft Extremities Extremities Exam: Normal Inspection Back Back Exam: Normal Inspection Neurological Neurological Exam: Alert and Other (DURING EXAM, PATIENT FOLLOW SOME INSTRUCTION. REST OF THE TIME SHE LOOK AT ME WITHOUT RESPONSE.) Patient Oriented To: Person Speech: negative Fluid Speech (SLOW SPEECH.) Cranial Nerve Exam: Gag reflex (XI): Normal Upper Motor Neuron Exam: Babinski Sign: Normal Psychological Psychiatric Exam: Flat Affect Skin Skin Exam: Warm, Dry, Intact and Normal Color MDM Differential Diagnosis Metabolic: Dehydration, Hypercalcemia and Hypoglycemia Structural: CVA and Mass Lesion Infectious: Sepsis and UTI COURSE Treatment Treatment: SEE ORDERS. BP DECREASING WITH MEDS. STILL CONFUSE AND HAVING SPELLS OF JUST STARING WITHOUT MENINFUL RESPONSE. THIS SPONTANOUSLY RESOLVE INTERMITTENTLY. Education/Counseling Education/Counseling: Patient and Family Educated On: Diagnosis ROR Labs Reviewed Laboratory Results Reviewed?: Yes Result Diagrams: 01/07/19 05:35 01/07/19 05:35 Laboratory: 01/06/19 17:24 Blood Blood Culture - Final 01/06/19 17:20 Blood Blood Culture - Final 01/01/19 09:18 Urine,Catheterized Urine Culture - Final 12/29/18 18:40 Blood Blood Culture - Final 12/29/18 18:33 Blood Blood Culture - Final 12/29/18 19:50 Urine,Clean Catch Urine Culture - Final WBC 11.8 X10^3/uL (3.6-10.0) H 01/07/19 05:35 RBC 4.18 X10^6/uL (3.5-5.4) 01/07/19 05:35 Hgb 13.1 g/dL (12.0-16.0) 01/07/19 05:35 Hct 38.2 % (36.0-47.0) 01/07/19 05:35 MCV 91.3 fL (80.0-100.0) 01/07/19 05:35 MCH 31.3 pg (27.0-34.0) 01/07/19 05:35 MCHC 34.3 g/dL (33.0-35.0) 01/07/19 05:35 RDW 12.7 % (11.6-16.5) 01/07/19 05:35 Plt Count 312 X10^3/uL (150.0-450.0) 01/07/19 05:35 MPV 8.6 fL (7.4-11.0) 01/07/19 05:35 Neut % (Auto) 60.0 % (42.0-75.0) 01/07/19 05:35 Lymph % (Auto) 30.8 % (21.0-51.0) 01/07/19 05:35 [place] % (Auto) 6.7 % (0.0-13.0) 01/07/19 05:35 Eos % (Auto) 1.5 % (0.9-2.9) 01/07/19 05:35 Baso % (Auto) 1.0 % (0.2-1.0) 01/07/19 05:35 Neut # (Auto) 7.1 x10^3/uL (2.2-4.8) H 01/07/19 05:35 Lymph # (Auto) 3.6 X10^3/uL (1.3-2.9) H 01/07/19 05:35 [place] # (Auto) 0.8 x10^3/uL (0.3-0.8) 01/07/19 05:35 Eos # (Auto) 0.2 x10^3/uL (0.0-0.2) 01/07/19 05:35 Baso # (Auto) 0.1 X10^3/uL (0.0-0.1) 01/07/19 05:35 Absolute Nucleated RBC 0.0 /100WBC 01/07/19 05:35 Sodium 138 mmol/L (136-145) 01/07/19 05:35 Corrected Sodium TNP 01/07/19 05:35 Potassium 3.7 mmol/L (3.5-5.1) 01/07/19 05:35 Chloride 103 mmol/L (98-107) 01/07/19 05:35 Carbon Dioxide 20.8 mmol/L (21-32) L 01/07/19 05:35 BUN 37 mg/dL (7-18) H 01/07/19 05:35 Creatinine 1.35 mg/dL (0.55-1.02) H 01/07/19 05:35 Est GFR (MDRD) Af Amer 52 (>60) L 01/07/19 05:35 Est GFR (MDRD) Non-Af 43 (>60) L 01/07/19 05:35 Glucose 75 mg/dL (65-99) 01/07/19 05:35 POC Glucose (mg/dL) 81 mg/dL (65-99) 01/07/19 06:30 Lactic Acid 0.9 mmol/L (0.4-2.0) 12/28/18 17:49 Calcium 9.8 mg/dL (8.5-10.1) 01/07/19 05:35 Corrected Calcium TNP 01/07/19 05:35 Magnesium 2.0 mg/dL (1.7-2.9) 01/03/19 05:35 Total Bilirubin 0.40 mg/dL (0.2-1.0) 01/07/19 05:35 AST 27 Units/L (15-37) 01/07/19 05:35 ALT 25 Units/L (12-78) 01/07/19 05:35 Alkaline Phosphatase 94 Units/L (46-116) 01/07/19 05:35 Ammonia 14 umol/L (11-32) 12/28/18 17:49 Creatine Kinase 215 Units/L (26-192) H 01/06/19 17:55 CK-MB (CK-2) 1.4 ng/mL (0-4.0) 01/06/19 17:55 CK/CKMB % Calc 0.7 % (<4) 01/06/19 17:55 Troponin I < 0.02 ng/mL (0-1.5) 01/06/19 17:55 Total Protein 7.7 g/dL (6.4-8.2) 01/07/19 05:35 Albumin 3.9 g/dL (3.4-5.0) 01/07/19 05:35 Globulin 3.8 g/dL (2.5-4.5) 01/07/19 05:35 Albumin/Globulin Ratio 1.0 Ratio (1.1-2.1) L 01/07/19 05:35 Specimen Type Catherized urine 01/01/19 09:18 Urine Color Pale yellow (YELLOW) 01/01/19 09:18 Urine Appearance Clear (CLEAR) 01/01/19 09:18 Urine pH 8.0 (5.0 - 8.0) 01/01/19 09:18 Ur Specific [place] 1.010 (1.000-1.030) 01/01/19 09:18 Urine Protein Negative (NEGATIVE) 01/01/19 09:18 Urine Glucose (UA) Negative (NEGATIVE) 01/01/19 09:18 Urine Ketones Negative (NEGATIVE) 01/01/19 09:18 Urine Occult Blood 4+ (NEGATIVE) 01/01/19 09:18 Urine Nitrite Negative (NEGATIVE) 01/01/19 09:18 Urine Bilirubin Negative (NEGATIVE) 01/01/19 09:18 Urine Urobilinogen Normal (NORMAL) 01/01/19 09:18 Ur Leukocyte Esterase 3+ (NEGATIVE) 01/01/19 09:18 Urine RBC 5-10 /HPF (NONE SEEN) 01/01/19 09:18 Urine WBC 20-30 /HPF (NONE SEEN) 01/01/19 09:18 Ur Squamous Epith Cells Rare /HPF (NEGATIVE) 01/01/19 09:18 Ur Renal Epithelial Cell Rare /HPF (NEGATIVE) 12/28/18 16:55 Urine Bacteria 1+ /HPF (NEGATIVE) 01/01/19 09:18 Ur Culture Indicated? Yes/culture set up 01/01/19 09:18 Urine Opiates Screen Negative (NEG=<300) 12/28/18 17:03 Urine Methadone Screen Negative (NEG=<300) 12/28/18 17:03 Ur Barbiturates Screen Negative (NEG=<200) 12/28/18 17:03 Ur Phencyclidine Scrn Negative (NEG=<25) 12/28/18 17:03 Ur Amphetamines Screen Negative (NEG=<1000) 12/28/18 17:03 U Benzodiazepines Scrn Negative (NEG=<200) 12/28/18 17:03 Urine Cocaine Screen Negative (NEG=<300) 12/28/18 17:03 U Marijuana (THC) Screen Negative (NEG=<50) 12/28/18 17:03 Influenza Type A (PCR) Negative (NEGATIVE) 01/06/19 21:57 Influenza Type B (PCR) Negative (NEGATIVE) 01/06/19 21:57 XRAY XRAY Interpreted by: Radiologist XRAY Findings: REPORT NOTED. EKG Rate: 60 [place]: Normal Rhythm: NSR Block: None Hypertrophy: None ST: Nonsp Diagnosis Discharge Problem: Confusion HTN (hypertension) Qualifiers: Hypertension type: essential hypertension Qualified Code(s): I10 - Essential (primary) hypertension Instructions Instructions: Chronic Obstructive Pulmonary Disease Exacerbation, Abqc-se-Wyhe Stroke Prevention, Vdqh-ip-[id number] Epilepsy, Urpf-ge-Ccmz Confusion Urinary Tract Infection, Adult Type 2 Diabetes Mellitus, Self Care, Adult, [id number] Hypertension, Fmhw-rm-Auxy Hypertension Forms: Patient Portal
--- NOTE | 2018-12-28 17:38 | CT ---
HISTORY: Altered mental status and history of CVAs. Study: CT brain without contrast Comparison: Head CT examination dated 01/09/2018. Technique: Multiple axial images of the brain were obtained from the skull base to the vertex without administration of IV contrast. Findings: Chronic appearing, post-ischemic, encephalomalacia seen within the bilateral occipital lobes and bilateral parietal lobes in the peripheral MCA and COREMAKER PIPE distribution as well as the MCA/COREMAKER PIPE watershed distribution, likely reflecting old ischemic events, are unchanged from prior. However, if the patients symptoms are clinically & neurologically concerning for an acute ischemic event, then MR imaging of the brain with DWI sequencing would likely be beneficial to exclude an acute CVA in this setting. No acute intraparenchymal hemorrhage or mass can be identified. No extra-axial fluid collections are seen. No alteration in the attenuation of the brain parenchyma can be identified to suggest acute or subacute ischemic change. The ventricular system is symmetric and nondilated. Chronic left maxillary sinus disease/sinusitis is noted. The remaining extracranial structures are grossly unremarkable. IMPRESSION: 1. Stable head CT examination and chronic parietal and occipital lobe CVAs and encephalomalacia without evidence for acute intracranial bleed or other acute changes. If there is concern for acute on chronic ischemia, however, then follow-up MRI imaging is recommended for assurance. No midline shift or herniation syndrome is identified. Reported By:
[2018-12-28 18:01] LABS: BASOPHILS # (AUTO) 0.1 X10^3/uL (0.0-0.1); BASOPHILS % (AUTO) 1.1 % (0.2-1.0); EOSINOPHILS # (AUTO) 0.4 x10^3/uL (0.0-0.2); EOSINOPHILS % (AUTO) 3.1 % (0.9-2.9); HEMATOCRIT 39.9 % (36.0-47.0); HEMOGLOBIN 13.5 g/dL (12.0-16.0); LYMPHOCYTES # (AUTO) 4.1 X10^3/uL (1.3-2.9); LYMPHOCYTES % (AUTO) 34.9 % (21.0-51.0); MEAN CORPUSCULAR HEMOGLOBIN 30.9 pg (27.0-34.0); MEAN CORPUSCULAR HGB CONC 33.8 g/dL (33.0-35.0); MEAN CORPUSCULAR VOLUME 91.6 fL (80.0-100.0); MEAN PLATELET VOLUME 8.9 fL (7.4-11.0); MONOCYTES # (AUTO) 0.7 x10^3/uL (0.3-0.8); MONOCYTES % (AUTO) 5.8 % (0.0-13.0); NEUTROPHILS # (AUTO) 6.5 x10^3/uL (2.2-4.8); NEUTROPHILS % (AUTO) 55.1 % (42.0-75.0); PLATELET COUNT 310 X10^3/uL (150.0-450.0); RED BLOOD COUNT 4.36 X10^6/uL (3.5-5.4); WHITE BLOOD COUNT 11.8 X10^3/uL (3.6-10.0)
[2018-12-28 18:04] LABS: BLOOD UREA NITROGEN 18 mg/dL (7-18); CALCIUM 10.2 mg/dL (8.5-10.1); CARBON DIOXIDE 24.7 mmol/L (21-32); CHLORIDE 101 mmol/L (98-107); CREATININE 0.97 mg/dL (0.55-1.02); SODIUM 137 mmol/L (136-145); eGFR NON BLACK RACES > 60 (>60)
[2018-12-28 18:14] LABS: LACTIC ACID 0.9 mmol/L (0.4-2.0)
[2018-12-28 18:19] LABS: AMMONIA 14 umol/L (11-32)
[2018-12-28] MEDS ORDERED: CATAPRES TAB 0.1 MG PO ONE (20:34)
[2018-12-28] MEDS ORDERED: CATAPRES TAB 0.1 MG ONE (20:37)
--- NOTE | 2018-12-29 09:39 | RAD ---
Exam: Portable chest History: 58-year-old female with chest pain Comparison: Previous chest radiograph from 11/22/2018 Findings: Borderline cardiomegaly is present. This finding is accentuated by relatively shallow inspiration. Lungs are clear with no infiltrate or significant effusion on either side. Bony thorax is unremarkable. Impression: No acute cardiopulmonary abnormality is seen on this exam. Reported By:
[2018-12-29 09:52] LABS: CKMB % 1.1 % (<4); CREATINE KINASE 89 Units/L (26-192); CREATINE KINASE MB < 1.0 ng/mL (0-4.0); TROPONIN I < 0.02 ng/mL (0-1.5)
--- NOTE | 2018-12-29 10:48 | MRI ---
MRI Brain without contrast HISTORY: Headache with altered mental status Comparison:CT performed on 12/28/2018 Technique: Multiplanar multi-sequence MRI of the brain was obtained utilizing standard departmental protocol. Sagittal and axial T1 weighted images were obtained. Axial T2 and flair weighted images were performed as well. Axial diffusion weighted and ADC trace mapping was performed. Findings: There is severe encephalomalacia within bilateral parietal and occipital lobes with cortical laminar necrosis noted within both occipital lobe infarcts. Moderate generalized cerebral atrophy. Bilateral periventricular and deep white matter FLAIR and T2 signal hyperintensity is noted and most consistent with sequela of chronic microvascular ischemic disease. Mild left maxillary and right sphenoid sinus mucosal thickening. The midline structures appear unremarkable. The evaluation of the brain parenchyma demonstrates no abnormal signal characteristics to suggest intraparenchymal mass or hemorrhage. No extra-axial fluid collections are observed. The ventricular system appears symmetric and nondilated. The CP angle is normal in its appearance without brainstem mass or evidence for acoustic neuroma. The flow voids on both T1 and T2 weighted imaging appear unremarkable. Evaluation of the diffusion weighted imaging does not demonstrate abnormal signal characteristics to suggest acute ischemic change. The extracranial structures are unremarkable. IMPRESSION: 1.No acute or subacute ischemia. 2. Bilateral parietal and occipital lobe chronic infarcts with severe cortical involution and encephalomalacia. 3. Mild right sphenoid and left maxillary sinus mucosal disease. Reported By:
[2018-12-29 15:43] LABS: CKMB % 1.1 % (<4); CREATINE KINASE 91 Units/L (26-192); CREATINE KINASE MB < 1.0 ng/mL (0-4.0); TROPONIN I < 0.02 ng/mL (0-1.5)
--- NOTE | 2018-12-29 17:59 | DR.H&P ---
H&P - History & Physical for Day of: H&P Date: 12/29/18 - Chief Complaint Chief Complaint: AMS, CONFUSION - History of Present Illness History of Present Illness: 58 WF ER ADMISSION AFTER PRESENTING WITH FAMILY TO ER WITH CO "NOT ACTING RIGHT" CONFUSION, "THINK SHE HAS HAD A STROKE". PT HAS PMH OF CVD WITH MULTIPLE CVAS, PT WAS SEEN IN OFFICE LAST WEEK AND WAS DOING GREAT, SPOUSE STATES SHE STARTED WITH STRANGE BEHAVIOR ON FRIDAY. INAPPROPRIATE RESPONSES. PT HAS PMH OF DM, COPD, CHF, CAD, OA, CVD. SPOUSE REPORTS BP AND BS HAS BEEN STABLE AT HOME. PT HAD CT HEAD IN ER WITHOUT ACUTE FINDINGS. PT ADMITTED FOR MRI, EVALUATION OF ACUTE ILLNESS, R/O CVA OR INFECTIOUS CAUSE OF AMS. - Past Medical History Past Medical History: Coronary Artery Disease, Hypertension, Diabetes, Depression, Anxiety, CVA, COPD, GERD, Arthritis, Migraines - Past Surgical History Surgical History: Hysterectomy - Family History Family Medical History: Diabetes Mellitus, Cancer, Heart Failure, Hypertension - Social History Does patient currently use any type of tobacco product: Yes Have you used tobacco products in the last 12 months: Yes Type of Tobacco Use: Cigarettes Does any household member use tobacco: No Alcohol Use: None Drug Use: Prescription Drugs - Medications Home Medications: No Known Allergies Allergy (Verified 11/22/18 14:01) CONTINUE taking the following medications amlodipine 2.5 mg PO QDAY 12/28/18 [History] atorvastatin 80 mg PO QDAY 12/28/18 [History] gabapentin 100 mg PO QHS 12/28/18 [History] gabapentin 300 mg PO QHS 12/28/18 [History] levocetirizine 5 mg PO QHS 12/28/18 [History] losartan 25 mg PO QDAY 12/28/18 [History] meloxicam 7.5 mg PO QAM 12/28/18 [History] metformin 500 mg PO BID 12/28/18 [History] bnayrsep-ibht-ugc-folic acid [One Daily For Women] 1 tab PO QAM 12/28/18 [History] rivastigmine tartrate 6 mg PO BID 12/28/18 [History] amlodipine 2.5 mg PO DAILY 12/29/18 [History] clopidogrel [Plavix] 75 mg PO DAILY 12/29/18 [History] fluoxetine 10 mg PO DAILY 12/29/18 [History] topiramate 100 mg PO BID 12/29/18 [History] - Review of Systems Constitutional: Weakness Eyes: No Symptoms Reported ENT: No Symptoms Reported Cardiovascular: No Symptoms Reported Gastrointestinal: No Symptoms Reported Musculoskeletal: Back Pain Skin: No Symptoms Reported Neurological: Weakness, Confusion - Physical Exam Vital Signs: Temperature 98.4 F Pulse Rate [Left Brachial] 64 Pulse Rate 64 Respiratory Rate 18 Blood Pressure [Right Arm] 147/68 Blood Pressure [Left Arm] 157/67 Blood Pressure 212/88 O2 Sat by Pulse Oximetry 94 Oriented: Person Eyes: Normal Ear: Normal Nose: Normal Throat: Normal Respiratory: RLL Diminished, LLL Diminished : Normal Auscultation: Bowel Sounds: Normal Palpation: Normal Tenderness: Normal Skin: Normal Musculoskeletal: Back:Lumbar Psychiatric: Anxiety Mood Description: Flat Affect: Flat Speech Pattern: Inappropriate, Delayed, Aphasic (LIMITED VERBAL REPSONSES) - Assessment/Plan (1) Altered mental status Status: Acute Plan: ADMIT, CT HEAD ON ADMISSION. SERIAL CE AND EKG. CXR ON ADMISSION. PLAVIX, BP AND LIPID CONTROL. VERIFY HOME MEDICATION. 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
[2018-12-29] MEDS: ZITHROMAX INJ 500 MG VIAL 500 MG in NS 250 ML IV 250 ML IV SCH (19:07)
[2018-12-29] MEDS: PLAVIX PO SCH (19:08)
[2018-12-29] MEDS: NORVASC TAB 5 MG PO SCH (19:08)
[2018-12-29] MEDS: NORCO 5/325 MG TAB PO PRN (20:49)
[2018-12-29] MEDS: CRESTOR TAB 10 MG PO SCH (20:49)
[2018-12-29] MEDS: SNACK - Diabetic Appropriate PO SCH (21:20)
[2018-12-29] MEDS: HumuLIN R SUBCUT PRN (22:07)
[2018-12-30] MEDS ORDERED: ATIVAN INJ 2 MG VIAL ONE (05:44)
[2018-12-30] MEDS ORDERED: ATIVAN INJ 2 MG VIAL IVP ONE (05:45)
[2018-12-30 08:59] LABS: BASOPHILS # (AUTO) 0.1 X10^3/uL (0.0-0.1); BASOPHILS % (AUTO) 0.8 % (0.2-1.0); EOSINOPHILS # (AUTO) 0.1 x10^3/uL (0.0-0.2); HEMATOCRIT 38.6 % (36.0-47.0); HEMOGLOBIN 12.9 g/dL (12.0-16.0); LYMPHOCYTES # (AUTO) 1.8 X10^3/uL (1.3-2.9); MEAN CORPUSCULAR HEMOGLOBIN 30.8 pg (27.0-34.0); MEAN CORPUSCULAR HGB CONC 33.3 g/dL (33.0-35.0); MEAN CORPUSCULAR VOLUME 92.5 fL (80.0-100.0); MEAN PLATELET VOLUME 9.2 fL (7.4-11.0); MONOCYTES # (AUTO) 0.7 x10^3/uL (0.3-0.8); NEUTROPHILS # (AUTO) 10.4 x10^3/uL (2.2-4.8); NEUTROPHILS % (AUTO) 79.2 % (42.0-75.0); PLATELET COUNT 281 X10^3/uL (150.0-450.0); RED BLOOD COUNT 4.17 X10^6/uL (3.5-5.4); RED CELL DISTRIBUTION WIDTH 13.1 % (11.6-16.5); WHITE BLOOD COUNT 13.1 X10^3/uL (3.6-10.0)
[2018-12-30 09:13] LABS: ALANINE AMINOTRANSFERASE 32 Units/L (12-78); ALBUMIN 3.7 g/dL (3.4-5.0); ALKALINE PHOSPHATASE 84 Units/L (46-116); ASPARTATE AMINO TRANSFERASE 19 Units/L (15-37); BLOOD UREA NITROGEN 22 mg/dL (7-18); CALCIUM 9.4 mg/dL (8.5-10.1); CARBON DIOXIDE 23.9 mmol/L (21-32); CHLORIDE 104 mmol/L (98-107); COR NA(FOR HYPERGLY) 142 mmol/L (136-145); CREATININE 1.16 mg/dL (0.55-1.02); SODIUM 140 mmol/L (136-145); TOTAL PROTEIN 7.1 g/dL (6.4-8.2); eGFR NON BLACK RACES 51 (>60)
[2018-12-30] MEDS: ZITHROMAX INJ 500 MG VIAL 500 MG in NS 250 ML IV 250 ML IV SCH (09:23)
[2018-12-30] MEDS: PLAVIX PO SCH (09:24)
[2018-12-30] MEDS: NORVASC TAB 5 MG PO SCH (09:24)
[2018-12-30] MEDS ORDERED: LANOXIN INJ ONE (09:30)
[2018-12-30] MEDS: MOBIC TAB 15 MG PO SCH (14:00)
[2018-12-30] MEDS: PROzac PO SCH (14:00)
[2018-12-30] MEDS: COZAAR PO SCH (14:00)
[2018-12-30] MEDS ORDERED: GLUCOPHAGE ONE (21:18)
[2018-12-30] MEDS: CRESTOR TAB 10 MG PO SCH (21:21)
[2018-12-30] MEDS: TOPAMAX TAB 100 MG PO SCH (21:22)
[2018-12-30] MEDS: NEURONTIN CAP 400 MG PO SCH (21:22)
[2018-12-30] MEDS: EXELON PO SCH (21:23)
[2018-12-30] MEDS: GLUCOPHAGE PO SCH (21:23)
[2018-12-30] MEDS: SNACK - Diabetic Appropriate PO SCH (21:23)
[2018-12-30] MEDS: NORCO 5/325 MG TAB PO PRN (21:30)
[2018-12-31] MEDS ORDERED: GLUCOPHAGE ONE ×2 (05:32→16:31)
[2018-12-31] MEDS: GLUCOPHAGE PO SCH ×2 (06:02→16:41)
[2018-12-31 06:59] LABS: BASOPHILS # (AUTO) 0.1 X10^3/uL (0.0-0.1); BASOPHILS % (AUTO) 1.2 % (0.2-1.0); EOSINOPHILS # (AUTO) 0.2 x10^3/uL (0.0-0.2); EOSINOPHILS % (AUTO) 2.3 % (0.9-2.9); HEMOGLOBIN 13.8 g/dL (12.0-16.0); LYMPHOCYTES # (AUTO) 3.4 X10^3/uL (1.3-2.9); LYMPHOCYTES % (AUTO) 35.2 % (21.0-51.0); MEAN CORPUSCULAR HEMOGLOBIN 31.1 pg (27.0-34.0); MEAN CORPUSCULAR HGB CONC 33.7 g/dL (33.0-35.0); MEAN CORPUSCULAR VOLUME 92.4 fL (80.0-100.0); MEAN PLATELET VOLUME 8.9 fL (7.4-11.0); MONOCYTES # (AUTO) 0.6 x10^3/uL (0.3-0.8); MONOCYTES % (AUTO) 6.6 % (0.0-13.0); NEUTROPHILS # (AUTO) 5.3 x10^3/uL (2.2-4.8); NEUTROPHILS % (AUTO) 54.7 % (42.0-75.0); PLATELET COUNT 308 X10^3/uL (150.0-450.0); RED BLOOD COUNT 4.44 X10^6/uL (3.5-5.4); RED CELL DISTRIBUTION WIDTH 12.9 % (11.6-16.5); WHITE BLOOD COUNT 9.7 X10^3/uL (3.6-10.0)
[2018-12-31 07:28] LABS: ALANINE AMINOTRANSFERASE 34 Units/L (12-78); ALBUMIN 4.2 g/dL (3.4-5.0); ALKALINE PHOSPHATASE 93 Units/L (46-116); ASPARTATE AMINO TRANSFERASE 25 Units/L (15-37); BLOOD UREA NITROGEN 27 mg/dL (7-18); CALCIUM 9.7 mg/dL (8.5-10.1); CARBON DIOXIDE 21.5 mmol/L (21-32); CHLORIDE 106 mmol/L (98-107); COR NA(FOR HYPERGLY) 142 mmol/L (136-145); SODIUM 141 mmol/L (136-145); TOTAL PROTEIN 8.2 g/dL (6.4-8.2); eGFR NON BLACK RACES 54 (>60)
[2018-12-31] MEDS: ZITHROMAX INJ 500 MG VIAL 500 MG in NS 250 ML IV 250 ML IV SCH (09:36)
[2018-12-31] MEDS: COZAAR PO SCH (09:36)
[2018-12-31] MEDS: MOBIC TAB 15 MG PO SCH (09:36)
[2018-12-31] MEDS: PROzac PO SCH (09:37)
[2018-12-31] MEDS: PLAVIX PO SCH (09:37)
[2018-12-31] MEDS: EXELON PO SCH ×2 (09:38→21:15)
[2018-12-31] MEDS: NORVASC TAB 5 MG PO SCH (09:38)
[2018-12-31] MEDS: TOPAMAX TAB 100 MG PO SCH ×2 (09:38→21:15)
[2018-12-31] MEDS ORDERED: KLONOPIN TAB 0.5 MG ONE (11:59)
[2018-12-31] MEDS: KLONOPIN TAB 0.5 MG PO PRN ×2 (12:04→23:53)
[2018-12-31] MEDS: NORCO 5/325 MG TAB PO PRN ×2 (12:04→19:58)
[2018-12-31] MEDS ORDERED: BENADRYL INJ 50 MG VIAL ONE (12:04)
[2018-12-31] MEDS: BENADRYL INJ 50 MG VIAL IVP PRN ×2 (12:22→23:54)
[2018-12-31] MEDS: CRESTOR TAB 10 MG PO SCH (21:15)
[2018-12-31] MEDS: NEURONTIN CAP 400 MG PO SCH (21:15)
[2018-12-31] MEDS: SNACK - Diabetic Appropriate PO SCH (21:15)
[2019-01-01] MEDS ORDERED: GLUCOPHAGE ONE ×3 (05:13→17:42)
[2019-01-01 06:16] LABS: BASOPHILS # (AUTO) 0.2 X10^3/uL (0.0-0.1); BASOPHILS % (AUTO) 1.2 % (0.2-1.0); EOSINOPHILS # (AUTO) 0.3 x10^3/uL (0.0-0.2); EOSINOPHILS % (AUTO) 2.6 % (0.9-2.9); HEMATOCRIT 39.9 % (36.0-47.0); HEMOGLOBIN 13.4 g/dL (12.0-16.0); LYMPHOCYTES # (AUTO) 5.3 X10^3/uL (1.3-2.9); LYMPHOCYTES % (AUTO) 40.4 % (21.0-51.0); MEAN CORPUSCULAR HGB CONC 33.5 g/dL (33.0-35.0); MEAN CORPUSCULAR VOLUME 92.3 fL (80.0-100.0); MEAN PLATELET VOLUME 9.2 fL (7.4-11.0); MONOCYTES # (AUTO) 0.9 x10^3/uL (0.3-0.8); MONOCYTES % (AUTO) 6.6 % (0.0-13.0); NEUTROPHILS # (AUTO) 6.5 x10^3/uL (2.2-4.8); NEUTROPHILS % (AUTO) 49.2 % (42.0-75.0); PLATELET COUNT 316 X10^3/uL (150.0-450.0); RED BLOOD COUNT 4.33 X10^6/uL (3.5-5.4); RED CELL DISTRIBUTION WIDTH 12.7 % (11.6-16.5); WHITE BLOOD COUNT 13.1 X10^3/uL (3.6-10.0)
[2019-01-01 06:30] LABS: ALANINE AMINOTRANSFERASE 31 Units/L (12-78); ALBUMIN 4.1 g/dL (3.4-5.0); ALKALINE PHOSPHATASE 90 Units/L (46-116); ASPARTATE AMINO TRANSFERASE 21 Units/L (15-37); BLOOD UREA NITROGEN 22 mg/dL (7-18); CALCIUM 9.6 mg/dL (8.5-10.1); CARBON DIOXIDE 24.6 mmol/L (21-32); CHLORIDE 106 mmol/L (98-107); CREATININE 1.06 mg/dL (0.55-1.02); SODIUM 142 mmol/L (136-145); eGFR NON BLACK RACES 57 (>60)
[2019-01-01] MEDS: ZITHROMAX INJ 500 MG VIAL 500 MG in NS 250 ML IV 250 ML IV SCH (08:30)
[2019-01-01] MEDS: NORCO 5/325 MG TAB PO PRN ×2 (08:31→17:48)
[2019-01-01] MEDS: COZAAR PO SCH (08:33)
[2019-01-01] MEDS: TOPAMAX TAB 100 MG PO SCH ×2 (08:33→20:07)
[2019-01-01] MEDS: PROzac PO SCH (08:33)
[2019-01-01] MEDS: PLAVIX PO SCH (08:33)
[2019-01-01] MEDS: EXELON PO SCH ×2 (08:34→20:07)
[2019-01-01] MEDS: MOBIC TAB 15 MG PO SCH (08:34)
[2019-01-01] MEDS: GLUCOPHAGE PO SCH ×2 (08:35→17:35)
[2019-01-01] MEDS: NORVASC TAB 5 MG PO SCH (08:35)
[2019-01-01 09:28] LABS: BILIRUBIN,URINE NEGATIVE (NEGATIVE); BLOOD/HEMOGLOBIN,URINE 4+ (NEGATIVE); GLUCOSE, URINE NEGATIVE (NEGATIVE); KETONES,URINE NEGATIVE (NEGATIVE); LEUKOCYTE ESTERASE ,URINE 3+ (NEGATIVE); NITRITES,URINE NEGATIVE (NEGATIVE); PROTEIN,URINE NEGATIVE (NEGATIVE); UROBILINOGEN,URINE NORMAL (NORMAL)
[2019-01-01 09:40] LABS: APPEARANCE,URINE CLEAR (CLEAR); COLOR,URINE PALE YELLOW (YELLOW)
[2019-01-01 09:41] LABS: BACTERIA,URINE 1+ /HPF (NEGATIVE); SQUAMOUS EPITHELIAL CELL,UR RARE /HPF (NEGATIVE)
[2019-01-01] MEDS: KLONOPIN TAB 0.5 MG PO PRN ×2 (10:31→21:40)
[2019-01-01] MEDS: BENADRYL INJ 50 MG VIAL IVP PRN ×2 (10:31→21:40)
--- NOTE | 2019-01-01 13:53 | PCM.PROG ---
Progress Note - Progress Note for Day of Date of Exam: 01/01/19 - Subjective Subjective: This is a 58-year-old white female who was admitted on 12/28/18, with episodes of confusion. The family was concerned that she had a CVA. The patients CT of the head on admission was without acute findings and the following MRI also showed some chronic changes. Her white count was 11.8 on admission, it is 9.7 this morning. She has been afebrile. The patient has exhibited some episodes of confusion. When talking to her this morning, she recognized who I was and obeyed commands. The patient did have some inappropriate responses as well. She has previously had episodes of confusion and slow to respond. Nursing staff reports pt yelling yesterday after noon with extreme agitation and "delusions". This moring pt had monroe catheter in place, pulling on cath saying "help me im bleeding out, i just had this baby" Pt is more difficult to calm and orient today, on clonazepam and prn benadryl iv. Nursing staff reports that she has had no additional documented seizure activity. The patient is on blood sugar control for chronic diabetes and we have her on Zithromax for patients sinusitis revealed on CT. We discussed the need for disease management and supportive care. We also talked with family about possible Behavioral Health for management of vascular dementia with psycho sis behavior. - Past Medical Family Social History Past Med/Fam/Surg Hx: No changes since H&P Allergies: Allergies No Known Allergies Allergy (Verified 11/22/18 14:01) - Review of Systems ROS: No change since H&P - Vital Signs and I&O's Vital Signs: Temperature 99 F Pulse Rate [Right Brachial] 86 Pulse Rate [Left Brachial] 116 Pulse Rate 64 Respiratory Rate 20 Blood Pressure [Right Arm] 144/63 Blood Pressure [Left Arm] 190/86 Blood Pressure 212/88 O2 Sat by Pulse Oximetry 98 Intake and Output: Intake & Output 12/30/18 12/31/18 01/01/19 01/02/19 11:59 11:59 11:59 11:59 Intake Total 1230 / 1230 905 / 905 1140 / 1140 Output Total 300 / 300 Balance 930 / 930 905 / 905 1140 / 1140 - Physical Exam Oriented: Person Eyes: Normal Ear: Normal Nose: Normal Throat: Normal Respiratory: Diminished Cardiovascular: Normal : Normal Auscultation: Bowel Sounds: Normal Tenderness: Normal Skin: Normal Musculoskeletal: Back:Lumbar Psychiatric: Anxiety, Agitation Mood Description: Anxious Affect: Anxious Speech Pattern: Inappropriate, Delayed, Excessive - Laboratory and Diagnostics Result Diagrams: 01/01/19 05:33 01/01/19 05:33 Labs: 12/29/18 18:40 Blood Blood Culture - Preliminary 12/29/18 18:33 Blood Blood Culture - Preliminary 12/29/18 19:50 Urine,Clean Catch Urine Culture - Final Laboratory WBC 13.1 X10^3/uL (3.6-10.0) H 01/01/19 05:33 RBC 4.33 X10^6/uL (3.5-5.4) 01/01/19 05:33 Hgb 13.4 g/dL (12.0-16.0) 01/01/19 05:33 Hct 39.9 % (36.0-47.0) 01/01/19 05:33 MCV 92.3 fL (80.0-100.0) 01/01/19 05:33 MCH 31.0 pg (27.0-34.0) 01/01/19 05:33 MCHC 33.5 g/dL (33.0-35.0) 01/01/19 05:33 RDW 12.7 % (11.6-16.5) 01/01/19 05:33 Plt Count 316 X10^3/uL (150.0-450.0) 01/01/19 05:33 MPV 9.2 fL (7.4-11.0) 01/01/19 05:33 Neut % (Auto) 49.2 % (42.0-75.0) 01/01/19 05:33 Lymph % (Auto) 40.4 % (21.0-51.0) 01/01/19 05:33 [place] % (Auto) 6.6 % (0.0-13.0) 01/01/19 05:33 Eos % (Auto) 2.6 % (0.9-2.9) 01/01/19 05:33 Baso % (Auto) 1.2 % (0.2-1.0) H 01/01/19 05:33 Neut # (Auto) 6.5 x10^3/uL (2.2-4.8) H 01/01/19 05:33 Lymph # (Auto) 5.3 X10^3/uL (1.3-2.9) H 01/01/19 05:33 [place] # (Auto) 0.9 x10^3/uL (0.3-0.8) H 01/01/19 05:33 Eos # (Auto) 0.3 x10^3/uL (0.0-0.2) H 01/01/19 05:33 Baso # (Auto) 0.2 X10^3/uL (0.0-0.1) H 01/01/19 05:33 Absolute Nucleated RBC 0.1 /100WBC 01/01/19 05:33 Sodium 142 mmol/L (136-145) 01/01/19 05:33 Corrected Sodium TNP 01/01/19 05:33 Potassium 3.6 mmol/L (3.5-5.1) 01/01/19 05:33 Chloride 106 mmol/L (98-107) 01/01/19 05:33 Carbon Dioxide 24.6 mmol/L (21-32) 01/01/19 05:33 BUN 22 mg/dL (7-18) H 01/01/19 05:33 Creatinine 1.06 mg/dL (0.55-1.02) H 01/01/19 05:33 Est GFR (MDRD) Af Amer > 60 (>60) 01/01/19 05:33 Est GFR (MDRD) Non-Af 57 (>60) L 01/01/19 05:33 Glucose 98 mg/dL (65-99) 01/01/19 05:33 POC Glucose (mg/dL) 111 mg/dL (65-99) H 01/01/19 13:29 Lactic Acid 0.9 mmol/L (0.4-2.0) 12/28/18 17:49 Calcium 9.6 mg/dL (8.5-10.1) 01/01/19 05:33 Corrected Calcium TNP 01/01/19 05:33 Magnesium 2.0 mg/dL (1.7-2.9) 01/01/19 05:33 Total Bilirubin 0.30 mg/dL (0.2-1.0) 01/01/19 05:33 AST 21 Units/L (15-37) 01/01/19 05:33 ALT 31 Units/L (12-78) 01/01/19 05:33 Alkaline Phosphatase 90 Units/L (46-116) 01/01/19 05:33 Ammonia 14 umol/L (11-32) 12/28/18 17:49 Creatine Kinase 91 Units/L (26-192) 12/29/18 15:12 CK-MB (CK-2) < 1.0 ng/mL (0-4.0) 12/29/18 15:12 CK/CKMB % Calc 1.1 % (<4) 12/29/18 15:12 Troponin I < 0.02 ng/mL (0-1.5) 12/29/18 15:12 Total Protein 8.0 g/dL (6.4-8.2) 01/01/19 05:33 Albumin 4.1 g/dL (3.4-5.0) 01/01/19 05:33 Globulin 3.9 g/dL (2.5-4.5) 01/01/19 05:33 Albumin/Globulin Ratio 1.1 Ratio (1.1-2.1) 01/01/19 05:33 Specimen Type Catherized urine 01/01/19 09:18 Urine Color Pale yellow (YELLOW) 01/01/19 09:18 Urine Appearance Clear (CLEAR) 01/01/19 09:18 Urine pH 8.0 (5.0 - 8.0) 01/01/19 09:18 Ur Specific [place] 1.010 (1.000-1.030) 01/01/19 09:18 Urine Protein Negative (NEGATIVE) 01/01/19 09:18 Urine Glucose (UA) Negative (NEGATIVE) 01/01/19 09:18 Urine Ketones Negative (NEGATIVE) 01/01/19 09:18 Urine Occult Blood 4+ (NEGATIVE) 01/01/19 09:18 Urine Nitrite Negative (NEGATIVE) 01/01/19 09:18 Urine Bilirubin Negative (NEGATIVE) 01/01/19 09:18 Urine Urobilinogen Normal (NORMAL) 01/01/19 09:18 Ur Leukocyte Esterase 3+ (NEGATIVE) 01/01/19 09:18 Urine RBC 5-10 /HPF (NONE SEEN) 02/15/19 09:18 Urine WBC 20-30 /HPF (NONE SEEN) 01/01/19 09:18 Ur Squamous Epith Cells Rare /HPF (NEGATIVE) 01/01/19 09:18 Ur Renal Epithelial Cell Rare /HPF (NEGATIVE) 12/28/18 16:55 Urine Bacteria 1+ /HPF (NEGATIVE) 01/01/19 09:18 Ur Culture Indicated? Yes/culture set up 01/01/19 09:18 Urine Opiates Screen Negative (NEG=<300) 12/28/18 17:03 Urine Methadone Screen Negative (NEG=<300) 12/28/18 17:03 Ur Barbiturates Screen Negative (NEG=<200) 12/28/18 17:03 Ur Phencyclidine Scrn Negative (NEG=<25) 12/28/18 17:03 Ur Amphetamines Screen Negative (NEG=<1000) 12/28/18 17:03 U Benzodiazepines Scrn Negative (NEG=<200) 12/28/18 17:03 Urine Cocaine Screen Negative (NEG=<300) 12/28/18 17:03 U Marijuana (THC) Screen Negative (NEG=<50) 12/28/18 17:03 - Plan (1) Altered mental status Status: Acute Plan: CT HEAD ON ADMISSION AND MRI. SERIAL CE AND EKG ON ADMISSION, REVIEWED WITH FAMILY. CXR ON ADMISSION. PLAVIX, BP AND LIPID CONTROL. VERIFY HOME MEDICATION AND RESUMED. 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 PROZAC (4) HTN (hypertension) Status: Acute Qualifiers: Hypertension type: essential hypertension Qualified Code(s): I10 - Essential (primary) hypertension (5) History of CVA (cerebrovascular accident) Status: Chronic (6) Diabetes Status: Chronic (7) COPD (chronic obstructive pulmonary disease) Status: Chronic (8) Seizure disorder Status: Acute Plan: RESUMED TOPAMAX AND GABAPENTIN, SHE WAS PRESCRIBED BY NEUROLOGIST FOLLOWING HER PREVIOUS STROKE INDUCED ONSET OF SEIZURE ACTIVITY.
[2019-01-01] MEDS: NICOTINE PATCH TD SCH (18:26)
[2019-01-01] MEDS: SNACK - Diabetic Appropriate PO SCH (20:15)
[2019-01-01] MEDS: CRESTOR TAB 10 MG PO SCH (20:15)
[2019-01-01] MEDS: NS 500 ML IV 500 ML IV SCH (20:16)
[2019-01-01] MEDS ORDERED: COLACE CAP 100 MG PO PRN (20:17)
[2019-01-01] MEDS: NEURONTIN CAP 400 MG PO SCH (22:44)
[2019-01-02 05:57] LABS: BASOPHILS # (AUTO) 0.1 X10^3/uL (0.0-0.1); BASOPHILS % (AUTO) 1.1 % (0.2-1.0); EOSINOPHILS # (AUTO) 0.4 x10^3/uL (0.0-0.2); EOSINOPHILS % (AUTO) 3.9 % (0.9-2.9); HEMOGLOBIN 13.8 g/dL (12.0-16.0); LYMPHOCYTES # (AUTO) 3.5 X10^3/uL (1.3-2.9); LYMPHOCYTES % (AUTO) 33.8 % (21.0-51.0); MEAN CORPUSCULAR HEMOGLOBIN 31.2 pg (27.0-34.0); MEAN CORPUSCULAR HGB CONC 33.8 g/dL (33.0-35.0); MEAN CORPUSCULAR VOLUME 92.5 fL (80.0-100.0); MEAN PLATELET VOLUME 8.7 fL (7.4-11.0); MONOCYTES # (AUTO) 0.6 x10^3/uL (0.3-0.8); MONOCYTES % (AUTO) 5.9 % (0.0-13.0); NEUTROPHILS # (AUTO) 5.7 x10^3/uL (2.2-4.8); NEUTROPHILS % (AUTO) 55.3 % (42.0-75.0); PLATELET COUNT 327 X10^3/uL (150.0-450.0); RED BLOOD COUNT 4.43 X10^6/uL (3.5-5.4); RED CELL DISTRIBUTION WIDTH 12.6 % (11.6-16.5); WHITE BLOOD COUNT 10.3 X10^3/uL (3.6-10.0)
[2019-01-02 06:10] LABS: ALANINE AMINOTRANSFERASE 28 Units/L (12-78); ALBUMIN 4.1 g/dL (3.4-5.0); ALKALINE PHOSPHATASE 90 Units/L (46-116); ASPARTATE AMINO TRANSFERASE 17 Units/L (15-37); BLOOD UREA NITROGEN 21 mg/dL (7-18); CALCIUM 9.6 mg/dL (8.5-10.1); CARBON DIOXIDE 22.5 mmol/L (21-32); CHLORIDE 108 mmol/L (98-107); CREATININE 1.09 mg/dL (0.55-1.02); SODIUM 142 mmol/L (136-145); TOTAL PROTEIN 7.9 g/dL (6.4-8.2); eGFR NON BLACK RACES 55 (>60)
[2019-01-02] MEDS ORDERED: GLUCOPHAGE ONE ×2 (06:10→17:02)
[2019-01-02] MEDS: GLUCOPHAGE PO SCH ×2 (06:23→18:12)
[2019-01-02] MEDS: KLONOPIN TAB 0.5 MG PO PRN (09:23)
[2019-01-02] MEDS: NORVASC TAB 5 MG PO SCH (09:23)
[2019-01-02] MEDS: EXELON PO SCH ×2 (09:23→21:51)
[2019-01-02] MEDS: TOPAMAX TAB 100 MG PO SCH ×2 (09:23→21:52)
[2019-01-02] MEDS: NICOTINE PATCH TD SCH (09:24)
[2019-01-02] MEDS: PLAVIX PO SCH (09:24)
[2019-01-02] MEDS: PROzac PO SCH (09:24)
[2019-01-02] MEDS: COZAAR PO SCH (09:24)
[2019-01-02] MEDS: BENADRYL INJ 50 MG VIAL IVP PRN (09:25)
[2019-01-02] MEDS: MOBIC TAB 15 MG PO SCH (09:25)
[2019-01-02] MEDS: ZITHROMAX INJ 500 MG VIAL 500 MG in NS 250 ML IV 250 ML IV SCH (09:31)
[2019-01-02] MEDS: NORCO 5/325 MG TAB PO PRN ×2 (13:46→21:52)
[2019-01-02] MEDS: HALDOL INJ IM PRN ×2 (15:12→21:54)
[2019-01-02] MEDS ORDERED: XYLOCAINE 1 % (PLAIN) ONE (17:23)
[2019-01-02] MEDS: ROCEPHIN VIAL 2 GRAMS IM SCH (18:13)
[2019-01-02] MEDS: HumuLIN R SUBCUT PRN (18:44)
[2019-01-02] MEDS: SNACK - Diabetic Appropriate PO SCH (20:45)
[2019-01-02] MEDS: NEURONTIN CAP 400 MG PO SCH (21:52)
[2019-01-02] MEDS: CRESTOR TAB 10 MG PO SCH (21:52)
[2019-01-02] MEDS: NS 500 ML IV 500 ML IV SCH (22:04)
[2019-01-03 05:53] LABS: BASOPHILS # (AUTO) 0.1 X10^3/uL (0.0-0.1); BASOPHILS % (AUTO) 1.4 % (0.2-1.0); EOSINOPHILS # (AUTO) 0.3 x10^3/uL (0.0-0.2); EOSINOPHILS % (AUTO) 3.2 % (0.9-2.9); HEMATOCRIT 37.7 % (36.0-47.0); HEMOGLOBIN 13.1 g/dL (12.0-16.0); LYMPHOCYTES % (AUTO) 36.9 % (21.0-51.0); MEAN CORPUSCULAR HEMOGLOBIN 31.5 pg (27.0-34.0); MEAN CORPUSCULAR HGB CONC 34.7 g/dL (33.0-35.0); MEAN CORPUSCULAR VOLUME 90.9 fL (80.0-100.0); MEAN PLATELET VOLUME 8.7 fL (7.4-11.0); MONOCYTES # (AUTO) 0.8 x10^3/uL (0.3-0.8); MONOCYTES % (AUTO) 7.3 % (0.0-13.0); NEUTROPHILS # (AUTO) 5.5 x10^3/uL (2.2-4.8); NEUTROPHILS % (AUTO) 51.2 % (42.0-75.0); PLATELET COUNT 300 X10^3/uL (150.0-450.0); RED BLOOD COUNT 4.15 X10^6/uL (3.5-5.4); RED CELL DISTRIBUTION WIDTH 12.8 % (11.6-16.5); WHITE BLOOD COUNT 10.7 X10^3/uL (3.6-10.0)
[2019-01-03 06:16] LABS: ALANINE AMINOTRANSFERASE 26 Units/L (12-78); ALBUMIN 3.8 g/dL (3.4-5.0); ALKALINE PHOSPHATASE 84 Units/L (46-116); ASPARTATE AMINO TRANSFERASE 34 Units/L (15-37); BLOOD UREA NITROGEN 25 mg/dL (7-18); CALCIUM 9.4 mg/dL (8.5-10.1); CARBON DIOXIDE 23.9 mmol/L (21-32); CHLORIDE 106 mmol/L (98-107); SODIUM 142 mmol/L (136-145); TOTAL PROTEIN 7.4 g/dL (6.4-8.2); eGFR NON BLACK RACES 49 (>60)
[2019-01-03] MEDS ORDERED: K-DUR TAB 20 MEQ PO PRN (06:57)
[2019-01-03] MEDS ORDERED: POTASSIUM CHL 40 MEQ/NS 0.45% 500 ML IV PRN (06:57)
[2019-01-03] MEDS ORDERED: POTASSIUM CHL 60 MEQ/NS 0.45% 500 ML IV PRN (06:57)
[2019-01-03] MEDS ORDERED: MICRO K EXTEN CAP 10 MEQ PO PRN (06:57)
[2019-01-03] MEDS ORDERED: K-RIDER 10 MEQ/NS 100 ML 10 MEQ/100 ML BAG IV PRN (06:57)
[2019-01-03] MEDS ORDERED: KLOR-CON PO PRN (06:57)
[2019-01-03] MEDS ORDERED: POTASSIUM CHLORIDE LIQ 20 MEQ UDC PO PRN (06:57)
[2019-01-03] MEDS ORDERED: GLUCOPHAGE ONE ×2 (08:42→16:11)
[2019-01-03] MEDS: GLUCOPHAGE PO SCH ×2 (09:35→16:24)
[2019-01-03] MEDS: TOPAMAX TAB 100 MG PO SCH ×2 (09:36→21:15)
[2019-01-03] MEDS: NORVASC TAB 5 MG PO SCH (09:36)
[2019-01-03] MEDS: EXELON PO SCH ×2 (09:36→21:15)
[2019-01-03] MEDS: COZAAR PO SCH (09:36)
[2019-01-03] MEDS: ROCEPHIN VIAL 2 GRAMS IM SCH (09:36)
[2019-01-03] MEDS: PLAVIX PO SCH (09:37)
[2019-01-03] MEDS: MOBIC TAB 15 MG PO SCH (09:37)
[2019-01-03] MEDS: XYLOCAINE 1 % (PLAIN) IJ SCH (09:37)
[2019-01-03] MEDS: NICOTINE PATCH TD SCH (09:37)
[2019-01-03] MEDS: PROzac PO SCH (09:37)
[2019-01-03] MEDS: HALDOL INJ IM PRN ×2 (15:20→21:20)
[2019-01-03] MEDS: KLONOPIN TAB 0.5 MG PO PRN (16:23)
[2019-01-03] MEDS: NORCO 5/325 MG TAB PO PRN (16:28)
[2019-01-03] MEDS ORDERED: OTBS NS XX SCH (17:00)
[2019-01-03] MEDS: NS 500 ML IV 500 ML IV SCH (20:00)
[2019-01-03] MEDS: CRESTOR TAB 10 MG PO SCH (21:15)
[2019-01-03] MEDS: NEURONTIN CAP 400 MG PO SCH (21:15)
[2019-01-04] MEDS ORDERED: GLUCOPHAGE ONE ×2 (04:18→16:25)
[2019-01-04 06:11] LABS: ALANINE AMINOTRANSFERASE 26 Units/L (12-78); ALKALINE PHOSPHATASE 98 Units/L (46-116); ASPARTATE AMINO TRANSFERASE 44 Units/L (15-37); CARBON DIOXIDE 22.2 mmol/L (21-32); CHLORIDE 107 mmol/L (98-107); SODIUM 142 mmol/L (136-145); TOTAL PROTEIN 8.2 g/dL (6.4-8.2)
[2019-01-04] MEDS: GLUCOPHAGE PO SCH ×2 (06:18→16:29)
[2019-01-04] MEDS: OTBS NS XX SCH ×3 (06:19→16:28)
[2019-01-04 06:22] LABS: ALBUMIN 4.2 g/dL (3.4-5.0); BLOOD UREA NITROGEN 25 mg/dL (7-18); CALCIUM 9.6 mg/dL (8.5-10.1); CREATININE 1.07 mg/dL (0.55-1.02); eGFR NON BLACK RACES 56 (>60)
[2019-01-04 06:31] LABS: BASOPHILS # (AUTO) 0.1 X10^3/uL (0.0-0.1); BASOPHILS % (AUTO) 0.9 % (0.2-1.0); EOSINOPHILS # (AUTO) 0.2 x10^3/uL (0.0-0.2); EOSINOPHILS % (AUTO) 2.4 % (0.9-2.9); HEMOGLOBIN 14.4 g/dL (12.0-16.0); LYMPHOCYTES # (AUTO) 3.2 X10^3/uL (1.3-2.9); LYMPHOCYTES % (AUTO) 33.3 % (21.0-51.0); MEAN CORPUSCULAR HEMOGLOBIN 31.3 pg (27.0-34.0); MEAN CORPUSCULAR HGB CONC 33.6 g/dL (33.0-35.0); MEAN CORPUSCULAR VOLUME 93.2 fL (80.0-100.0); MONOCYTES # (AUTO) 0.7 x10^3/uL (0.3-0.8); MONOCYTES % (AUTO) 7.3 % (0.0-13.0); NEUTROPHILS # (AUTO) 5.4 x10^3/uL (2.2-4.8); NEUTROPHILS % (AUTO) 56.1 % (42.0-75.0); PLATELET COUNT 303 X10^3/uL (150.0-450.0); RED BLOOD COUNT 4.61 X10^6/uL (3.5-5.4); RED CELL DISTRIBUTION WIDTH 12.6 % (11.6-16.5); WHITE BLOOD COUNT 9.6 X10^3/uL (3.6-10.0)
[2019-01-04] MEDS: PLAVIX PO SCH (09:22)
[2019-01-04] MEDS: TOPAMAX TAB 100 MG PO SCH ×2 (09:22→21:03)
[2019-01-04] MEDS: COZAAR PO SCH (09:22)
[2019-01-04] MEDS: EXELON PO SCH ×2 (09:22→21:03)
[2019-01-04] MEDS: NORVASC TAB 5 MG PO SCH (09:22)
[2019-01-04] MEDS: PROzac PO SCH (09:22)
[2019-01-04] MEDS: MOBIC TAB 15 MG PO SCH (09:23)
[2019-01-04] MEDS: ROCEPHIN VIAL 2 GRAMS IM SCH (09:23)
[2019-01-04] MEDS: XYLOCAINE 1 % (PLAIN) IJ SCH (09:24)
[2019-01-04] MEDS: NICOTINE PATCH TD SCH (09:24)
[2019-01-04] MEDS: KLONOPIN TAB 0.5 MG PO PRN ×2 (11:37→23:13)
[2019-01-04] MEDS: NORCO 5/325 MG TAB PO PRN (11:37)
[2019-01-04] MEDS: HALDOL INJ IM PRN (14:41)
[2019-01-04] MEDS: BENADRYL INJ 50 MG VIAL IVP PRN (21:03)
[2019-01-04] MEDS: NEURONTIN CAP 400 MG PO SCH (21:03)
[2019-01-04] MEDS: CRESTOR TAB 10 MG PO SCH (21:03)
[2019-01-04] MEDS: NS 500 ML IV 500 ML IV SCH (21:36)
[2019-01-05] MEDS: OTBS NS XX SCH ×4 (06:02→16:16)
[2019-01-05 06:16] LABS: BASOPHILS # (AUTO) 0.1 X10^3/uL (0.0-0.1); BASOPHILS % (AUTO) 1.2 % (0.2-1.0); EOSINOPHILS # (AUTO) 0.5 x10^3/uL (0.0-0.2); EOSINOPHILS % (AUTO) 4.3 % (0.9-2.9); HEMATOCRIT 38.7 % (36.0-47.0); HEMOGLOBIN 13.4 g/dL (12.0-16.0); LYMPHOCYTES # (AUTO) 3.2 X10^3/uL (1.3-2.9); LYMPHOCYTES % (AUTO) 27.9 % (21.0-51.0); MEAN CORPUSCULAR HEMOGLOBIN 31.6 pg (27.0-34.0); MEAN CORPUSCULAR HGB CONC 34.5 g/dL (33.0-35.0); MEAN CORPUSCULAR VOLUME 91.5 fL (80.0-100.0); MEAN PLATELET VOLUME 8.5 fL (7.4-11.0); MONOCYTES # (AUTO) 0.8 x10^3/uL (0.3-0.8); MONOCYTES % (AUTO) 6.7 % (0.0-13.0); NEUTROPHILS # (AUTO) 6.9 x10^3/uL (2.2-4.8); NEUTROPHILS % (AUTO) 59.9 % (42.0-75.0); PLATELET COUNT 324 X10^3/uL (150.0-450.0); RED BLOOD COUNT 4.23 X10^6/uL (3.5-5.4); RED CELL DISTRIBUTION WIDTH 13.1 % (11.6-16.5); WHITE BLOOD COUNT 11.5 X10^3/uL (3.6-10.0)
[2019-01-05 06:34] LABS: BLOOD UREA NITROGEN 21 mg/dL (7-18); CALCIUM 9.6 mg/dL (8.5-10.1); CARBON DIOXIDE 23.2 mmol/L (21-32); CHLORIDE 104 mmol/L (98-107); CREATININE 1.05 mg/dL (0.55-1.02); SODIUM 140 mmol/L (136-145); eGFR NON BLACK RACES 57 (>60)
[2019-01-05] MEDS ORDERED: GLUCOPHAGE ONE ×2 (08:25→18:05)
[2019-01-05] MEDS: NICOTINE PATCH TD SCH (09:26)
[2019-01-05] MEDS: XYLOCAINE 1 % (PLAIN) IJ SCH (09:28)
[2019-01-05] MEDS: GLUCOPHAGE PO SCH ×2 (09:29→18:07)
[2019-01-05] MEDS: TOPAMAX TAB 100 MG PO SCH ×2 (09:30→21:24)
[2019-01-05] MEDS: NORCO 5/325 MG TAB PO PRN ×2 (09:30→21:25)
[2019-01-05] MEDS: NORVASC TAB 5 MG PO SCH (09:30)
[2019-01-05] MEDS: MOBIC TAB 15 MG PO SCH (09:30)
[2019-01-05] MEDS: PLAVIX PO SCH (09:31)
[2019-01-05] MEDS: PROzac PO SCH (09:31)
[2019-01-05] MEDS: COZAAR PO SCH (09:31)
[2019-01-05] MEDS: EXELON PO SCH ×2 (09:32→21:24)
[2019-01-05 13:04] LABS: ALANINE AMINOTRANSFERASE 29 Units/L (12-78); ALKALINE PHOSPHATASE 94 Units/L (46-116); ASPARTATE AMINO TRANSFERASE 38 Units/L (15-37); TOTAL PROTEIN 7.9 g/dL (6.4-8.2)
--- NOTE | 2019-01-05 13:04 | RAD ---
History: Shortness of breath and elevated white blood cell count Study: AP chest Comparison: December 29 Findings: Reported By:
--- NOTE | 2019-01-05 16:59 | PCM.PROG ---
Progress Note - Progress Note for Day of Date of Exam: 01/04/19 - Subjective Subjective: This is a 58-year-old white female who was admitted on 12/28/18, with episodes of confusion. The family was concerned that she had a CVA. The patients CT of the head on admission was without acute findings and the following MRI also showed some chronic changes. The patient has exhibited some episodes of confusion with psychosis requiring haldol for treatment. When talking to her this morning, she recognized who I was and obeyed commands. The patient did have some inappropriate responses as well. She has previously had episodes of confusion and slow to respond. Nursing staff reports pt yelling yesterday after noon with extreme agitation and "delusions". We also talked with family about possible Behavioral Health for management of vascular dementia with psychosis behavior. pt was referred to behavior health in [place] with acceptance pending. pt is afebrile with stable labs and bp. pt sleeping on exam this am, family concerned about her hx of "aneurysm" records from neurologist requested. - Past Medical Family Social History Past Med/Fam/Surg Hx: No changes since H&P Allergies: Allergies No Known Allergies Allergy (Verified 11/22/18 14:01) - Review of Systems ROS: No change since H&P - Vital Signs and I&O's Vital Signs: Temperature 98.3 F Pulse Rate [Right Brachial] 99 Pulse Rate [Left Brachial] 116 Pulse Rate 64 Respiratory Rate 18 Blood Pressure [Right Arm] 118/69 Blood Pressure [Left Arm] 123/74 Blood Pressure 212/88 O2 Sat by Pulse Oximetry 98 Intake and Output: Intake & Output 01/03/19 01/04/19 01/05/19 01/06/19 11:59 11:59 11:59 11:59 Intake Total 740 / 740 1320 / 1320 690 / 690 360 / 360 Balance 740 / 740 1320 / 1320 690 / 690 360 / 360 - Physical Exam Oriented: Person Eyes: Normal Ear: Normal Nose: Normal Throat: Normal Respiratory: Diminished Cardiovascular: Normal : Normal Auscultation: Bowel Sounds: Normal Tenderness: Normal Skin: Normal Musculoskeletal: Back:Lumbar Psychiatric: Anxiety, Agitation Mood Description: Anxious Affect: Anxious Speech Pattern: Inappropriate, Delayed - Laboratory and Diagnostics Result Diagrams: 01/05/19 06:00 01/05/19 06:00 Labs: 01/01/19 09:18 Urine,Catheterized Urine Culture - Final 12/29/18 18:40 Blood Blood Culture - Final 12/29/18 18:33 Blood Blood Culture - Final 12/29/18 19:50 Urine,Clean Catch Urine Culture - Final Laboratory WBC 11.5 X10^3/uL (3.6-10.0) H 01/05/19 06:00 RBC 4.23 X10^6/uL (3.5-5.4) 01/05/19 06:00 Hgb 13.4 g/dL (12.0-16.0) 01/05/19 06:00 Hct 38.7 % (36.0-47.0) 01/05/19 06:00 MCV 91.5 fL (80.0-100.0) 01/05/19 06:00 MCH 31.6 pg (27.0-34.0) 01/05/19 06:00 MCHC 34.5 g/dL (33.0-35.0) 01/05/19 06:00 RDW 13.1 % (11.6-16.5) 01/05/19 06:00 Plt Count 324 X10^3/uL (150.0-450.0) 01/05/19 06:00 MPV 8.5 fL (7.4-11.0) 01/05/19 06:00 Neut % (Auto) 59.9 % (42.0-75.0) 01/05/19 06:00 Lymph % (Auto) 27.9 % (21.0-51.0) 01/05/19 06:00 [place] % (Auto) 6.7 % (0.0-13.0) 01/05/19 06:00 Eos % (Auto) 4.3 % (0.9-2.9) H 01/05/19 06:00 Baso % (Auto) 1.2 % (0.2-1.0) H 01/05/19 06:00 Neut # (Auto) 6.9 x10^3/uL (2.2-4.8) H 01/05/19 06:00 Lymph # (Auto) 3.2 X10^3/uL (1.3-2.9) H 01/05/19 06:00 [place] # (Auto) 0.8 x10^3/uL (0.3-0.8) 01/05/19 06:00 Eos # (Auto) 0.5 x10^3/uL (0.0-0.2) H 01/05/19 06:00 Baso # (Auto) 0.1 X10^3/uL (0.0-0.1) 01/05/19 06:00 Absolute Nucleated RBC 0.0 /100WBC 01/05/19 06:00 Sodium 140 mmol/L (136-145) 01/05/19 06:00 Corrected Sodium TNP 01/05/19 06:00 Potassium 3.8 mmol/L (3.5-5.1) 01/05/19 06:00 Chloride 104 mmol/L (98-107) 01/05/19 06:00 Carbon Dioxide 23.2 mmol/L (21-32) 01/05/19 06:00 BUN 21 mg/dL (7-18) H 01/05/19 06:00 Creatinine 1.05 mg/dL (0.55-1.02) H 01/05/19 06:00 Est GFR (MDRD) Af Amer > 60 (>60) 01/05/19 06:00 Est GFR (MDRD) Non-Af 57 (>60) L 01/05/19 06:00 Glucose 109 mg/dL (65-99) H 01/05/19 06:00 POC Glucose (mg/dL) 105 mg/dL (65-99) H 01/05/19 16:09 Lactic Acid 0.9 mmol/L (0.4-2.0) 12/28/18 17:49 Calcium 9.6 mg/dL (8.5-10.1) 01/05/19 06:00 Corrected Calcium TNP 01/05/19 06:00 Magnesium 2.0 mg/dL (1.7-2.9) 01/03/19 05:35 Total Bilirubin 0.30 mg/dL (0.2-1.0) 01/05/19 06:00 AST 38 Units/L (15-37) H 01/05/19 06:00 ALT 29 Units/L (12-78) 01/05/19 06:00 Alkaline Phosphatase 94 Units/L (46-116) 01/05/19 06:00 Ammonia 14 umol/L (11-32) 12/28/18 17:49 Creatine Kinase 91 Units/L (26-192) 12/29/18 15:12 CK-MB (CK-2) < 1.0 ng/mL (0-4.0) 12/29/18 15:12 CK/CKMB % Calc 1.1 % (<4) 12/29/18 15:12 Troponin I < 0.02 ng/mL (0-1.5) 12/29/18 15:12 Total Protein 7.9 g/dL (6.4-8.2) 01/05/19 06:00 Albumin 4.0 g/dL (3.4-5.0) 01/05/19 06:00 Globulin 3.9 g/dL (2.5-4.5) 01/05/19 06:00 Albumin/Globulin Ratio 1.0 Ratio (1.1-2.1) L 01/05/19 06:00 Specimen Type Catherized urine 01/01/19 09:18 Urine Color Pale yellow (YELLOW) 01/01/19 09:18 Urine Appearance Clear (CLEAR) 01/01/19 09:18 Urine pH 8.0 (5.0 - 8.0) 01/01/19 09:18 Ur Specific [place] 1.010 (1.000-1.030) 01/01/19 09:18 Urine Protein Negative (NEGATIVE) 01/01/19 09:18 Urine Glucose (UA) Negative (NEGATIVE) 01/01/19 09:18 Urine Ketones Negative (NEGATIVE) 01/01/19 09:18 Urine Occult Blood 4+ (NEGATIVE) 01/01/19 09:18 Urine Nitrite Negative (NEGATIVE) 01/01/19 09:18 Urine Bilirubin Negative (NEGATIVE) 01/01/19 09:18 Urine Urobilinogen Normal (NORMAL) 01/01/19 09:18 Ur Leukocyte Esterase 3+ (NEGATIVE) 01/01/19 09:18 Urine RBC 5-10 /HPF (NONE SEEN) 01/01/19 09:18 Urine WBC 20-30 /HPF (NONE SEEN) 01/01/19 09:18 Ur Squamous Epith Cells Rare /HPF (NEGATIVE) 01/01/19 09:18 Ur Renal Epithelial Cell Rare /HPF (NEGATIVE) 12/28/18 16:55 Urine Bacteria 1+ /HPF (NEGATIVE) 01/01/19 09:18 Ur Culture Indicated? Yes/culture set up 01/01/19 09:18 Urine Opiates Screen Negative (NEG=<300) 12/28/18 17:03 Urine Methadone Screen Negative (NEG=<300) 12/28/18 17:03 Ur Barbiturates Screen Negative (NEG=<200) 12/28/18 17:03 Ur Phencyclidine Scrn Negative (NEG=<25) 12/28/18 17:03 Ur Amphetamines Screen Negative (NEG=<1000) 12/28/18 17:03 U Benzodiazepines Scrn Negative (NEG=<200) 12/28/18 17:03 Urine Cocaine Screen Negative (NEG=<300) 12/28/18 17:03 U Marijuana (THC) Screen Negative (NEG=<50) 12/28/18 17:03 - Plan (1) Altered mental status Status: Inactive Plan: CT HEAD ON ADMISSION AND MRI. SERIAL CE AND EKG ON ADMISSION, REVIEWED WITH FAMILY. CXR ON ADMISSION. PLAVIX, BP AND LIPID CONTROL. VERIFY HOME MEDICATION AND RESUMED. 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 PROZAC (4) HTN (hypertension) Status: Chronic Qualifiers: Hypertension type: essential hypertension Qualified Code(s): I10 - Essential (primary) hypertension (5) History of CVA (cerebrovascular accident) Status: Chronic (6) Diabetes Status: Chronic (7) COPD (chronic obstructive pulmonary disease) Status: Chronic (8) Seizure disorder Status: Chronic Plan: RESUMED TOPAMAX AND GABAPENTIN, SHE WAS PRESCRIBED BY NEUROLOGIST FOLLOWING HER PREVIOUS STROKE INDUCED ONSET OF SEIZURE ACTIVITY.
--- NOTE | 2019-01-05 17:04 | PCM.PROG ---
Progress Note - Subjective Subjective: This is a 58-year-old white female who was admitted on 12/28/18, with episodes of confusion. The family was concerned that she had a CVA. The patients CT of the head on admission was without acute findings and the following MRI also showed some chronic changes. The patient has exhibited some episodes of confusion with psychosis requiring haldol for treatment. When talking to her this morning, she recognized who I was and obeyed commands. The patient did have some inappropriate responses as well. She has previously had episodes of confusion and slow to respond. Nursing staff reports pt yelling yesterday after noon with extreme agitation and "delusions". We also talked with family about possible Behavioral Health for management of vascular dementia with psychosis behavior. pt was referred to behavior health in [place] with acceptance pending. pt is afebrile with stable labs and bp. wbc 11.5 this am, repeat cxr orderd, cultures are negative at this time. pt sleeping on exam this am, but easily to awaken, "knows shes at [facility]" family concerned about her hx of "aneurysm" records from neurologist requested. - Past Medical Family Social History Past Med/Fam/Surg Hx: No changes since H&P Allergies: Allergies No Known Allergies Allergy (Verified 11/22/18 14:01) - Review of Systems ROS: No change since H&P - Vital Signs and I&O's Vital Signs: Temperature 98.3 F Pulse Rate [Right Brachial] 99 Pulse Rate [Left Brachial] 116 Pulse Rate 64 Respiratory Rate 18 Blood Pressure [Right Arm] 118/69 Blood Pressure [Left Arm] 123/74 Blood Pressure 212/88 O2 Sat by Pulse Oximetry 98 Intake and Output: Intake & Output 01/03/19 01/04/19 01/05/19 01/06/19 11:59 11:59 11:59 11:59 Intake Total 740 / 740 1320 / 1320 690 / 690 360 / 360 Balance 740 / 740 1320 / 1320 690 / 690 360 / 360 - Physical Exam Oriented: Person Eyes: Normal Ear: Normal Nose: Normal Throat: Normal Respiratory: Diminished Cardiovascular: Normal : Normal Auscultation: Bowel Sounds: Normal Tenderness: Normal Skin: Normal Musculoskeletal: Back:Lumbar Psychiatric: Anxiety, Agitation Mood Description: Anxious Affect: Anxious Speech Pattern: Inappropriate, Delayed - Laboratory and Diagnostics Result Diagrams: 01/05/19 06:00 01/05/19 06:00 Labs: 01/01/19 09:18 Urine,Catheterized Urine Culture - Final 12/29/18 18:40 Blood Blood Culture - Final 12/29/18 18:33 Blood Blood Culture - Final 12/29/18 19:50 Urine,Clean Catch Urine Culture - Final Laboratory WBC 11.5 X10^3/uL (3.6-10.0) H 01/05/19 06:00 RBC 4.23 X10^6/uL (3.5-5.4) 01/05/19 06:00 Hgb 13.4 g/dL (12.0-16.0) 01/05/19 06:00 Hct 38.7 % (36.0-47.0) 01/05/19 06:00 MCV 91.5 fL (80.0-100.0) 01/05/19 06:00 MCH 31.6 pg (27.0-34.0) 01/05/19 06:00 MCHC 34.5 g/dL (33.0-35.0) 01/05/19 06:00 RDW 13.1 % (11.6-16.5) 01/05/19 06:00 Plt Count 324 X10^3/uL (150.0-450.0) 01/05/19 06:00 MPV 8.5 fL (7.4-11.0) 01/05/19 06:00 Neut % (Auto) 59.9 % (42.0-75.0) 01/05/19 06:00 Lymph % (Auto) 27.9 % (21.0-51.0) 01/05/19 06:00 [place] % (Auto) 6.7 % (0.0-13.0) 01/05/19 06:00 Eos % (Auto) 4.3 % (0.9-2.9) H 01/05/19 06:00 Baso % (Auto) 1.2 % (0.2-1.0) H 01/05/19 06:00 Neut # (Auto) 6.9 x10^3/uL (2.2-4.8) H 01/05/19 06:00 Lymph # (Auto) 3.2 X10^3/uL (1.3-2.9) H 01/05/19 06:00 [place] # (Auto) 0.8 x10^3/uL (0.3-0.8) 01/05/19 06:00 Eos # (Auto) 0.5 x10^3/uL (0.0-0.2) H 01/05/19 06:00 Baso # (Auto) 0.1 X10^3/uL (0.0-0.1) 01/05/19 06:00 Absolute Nucleated RBC 0.0 /100WBC 01/05/19 06:00 Sodium 140 mmol/L (136-145) 01/05/19 06:00 Corrected Sodium TNP 01/05/19 06:00 Potassium 3.8 mmol/L (3.5-5.1) 01/05/19 06:00 Chloride 104 mmol/L (98-107) 01/05/19 06:00 Carbon Dioxide 23.2 mmol/L (21-32) 01/05/19 06:00 BUN 21 mg/dL (7-18) H 01/05/19 06:00 Creatinine 1.05 mg/dL (0.55-1.02) H 01/05/19 06:00 Est GFR (MDRD) Af Amer > 60 (>60) 01/05/19 06:00 Est GFR (MDRD) Non-Af 57 (>60) L 01/05/19 06:00 Glucose 109 mg/dL (65-99) H 01/05/19 06:00 POC Glucose (mg/dL) 105 mg/dL (65-99) H 01/05/19 16:09 Lactic Acid 0.9 mmol/L (0.4-2.0) 12/28/18 17:49 Calcium 9.6 mg/dL (8.5-10.1) 01/05/19 06:00 Corrected Calcium TNP 01/05/19 06:00 Magnesium 2.0 mg/dL (1.7-2.9) 01/03/19 05:35 Total Bilirubin 0.30 mg/dL (0.2-1.0) 01/05/19 06:00 AST 38 Units/L (15-37) H 01/05/19 06:00 ALT 29 Units/L (12-78) 01/05/19 06:00 Alkaline Phosphatase 94 Units/L (46-116) 01/05/19 06:00 Ammonia 14 umol/L (11-32) 12/28/18 17:49 Creatine Kinase 91 Units/L (26-192) 12/29/18 15:12 CK-MB (CK-2) < 1.0 ng/mL (0-4.0) 12/29/18 15:12 CK/CKMB % Calc 1.1 % (<4) 12/29/18 15:12 Troponin I < 0.02 ng/mL (0-1.5) 12/29/18 15:12 Total Protein 7.9 g/dL (6.4-8.2) 01/05/19 06:00 Albumin 4.0 g/dL (3.4-5.0) 01/05/19 06:00 Globulin 3.9 g/dL (2.5-4.5) 01/05/19 06:00 Albumin/Globulin Ratio 1.0 Ratio (1.1-2.1) L 01/05/19 06:00 Specimen Type Catherized urine 01/01/19 09:18 Urine Color Pale yellow (YELLOW) 01/01/19 09:18 Urine Appearance Clear (CLEAR) 01/01/19 09:18 Urine pH 8.0 (5.0 - 8.0) 01/01/19 09:18 Ur Specific [place] 1.010 (1.000-1.030) 01/01/19 09:18 Urine Protein Negative (NEGATIVE) 01/01/19 09:18 Urine Glucose (UA) Negative (NEGATIVE) 01/01/19 09:18 Urine Ketones Negative (NEGATIVE) 01/01/19 09:18 Urine Occult Blood 4+ (NEGATIVE) 01/01/19 09:18 Urine Nitrite Negative (NEGATIVE) 01/01/19 09:18 Urine Bilirubin Negative (NEGATIVE) 01/01/19 09:18 Urine Urobilinogen Normal (NORMAL) 01/01/19 09:18 Ur Leukocyte Esterase 3+ (NEGATIVE) 01/01/19 09:18 Urine RBC 5-10 /HPF (NONE SEEN) 01/01/19 09:18 Urine WBC 20-30 /HPF (NONE SEEN) 01/01/19 09:18 Ur Squamous Epith Cells Rare /HPF (NEGATIVE) 01/01/19 09:18 Ur Renal Epithelial Cell Rare /HPF (NEGATIVE) 12/28/18 16:55 Urine Bacteria 1+ /HPF (NEGATIVE) 01/01/19 09:18 Ur Culture Indicated? Yes/culture set up 01/01/19 09:18 Urine Opiates Screen Negative (NEG=<300) 12/28/18 17:03 Urine Methadone Screen Negative (NEG=<300) 12/28/18 17:03 Ur Barbiturates Screen Negative (NEG=<200) 12/28/18 17:03 Ur Phencyclidine Scrn Negative (NEG=<25) 12/28/18 17:03 Ur Amphetamines Screen Negative (NEG=<1000) 12/28/18 17:03 U Benzodiazepines Scrn Negative (NEG=<200) 12/28/18 17:03 Urine Cocaine Screen Negative (NEG=<300) 12/28/18 17:03 U Marijuana (THC) Screen Negative (NEG=<50) 12/28/18 17:03 - Plan (1) Altered mental status Status: Inactive Plan: CT HEAD ON ADMISSION AND MRI. SERIAL CE AND EKG ON ADMISSION, REVIEWED WITH FAMILY. CXR ON ADMISSION. PLAVIX, BP AND LIPID CONTROL. VERIFY HOME MEDICATION AND RESUMED. 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 PROZAC (4) HTN (hypertension) Status: Chronic Qualifiers: Hypertension type: essential hypertension Qualified Code(s): I10 - Essential (primary) hypertension (5) History of CVA (cerebrovascular accident) Status: Chronic Plan: cta of brain with and w/o contrast (6) Diabetes Status: Chronic (7) COPD (chronic obstructive pulmonary disease) Status: Chronic (8) Seizure disorder Status: Chronic Plan: RESUMED TOPAMAX AND GABAPENTIN, SHE WAS PRESCRIBED BY NEUROLOGIST FOLLOWING HER PREVIOUS STROKE INDUCED ONSET OF SEIZURE ACTIVITY.
[2019-01-05] MEDS: CRESTOR TAB 10 MG PO SCH (21:25)
[2019-01-05] MEDS: NEURONTIN CAP 400 MG PO SCH (21:30)
[2019-01-05] MEDS: NS 500 ML IV 500 ML IV SCH (22:01)
[2019-01-06] MEDS: OTBS NS XX SCH ×4 (06:02→16:45)
[2019-01-06 06:15] LABS: ALANINE AMINOTRANSFERASE 26 Units/L (12-78); ALBUMIN 3.8 g/dL (3.4-5.0); ALKALINE PHOSPHATASE 92 Units/L (46-116); ASPARTATE AMINO TRANSFERASE 25 Units/L (15-37); BASOPHILS # (AUTO) 0.1 X10^3/uL (0.0-0.1); BASOPHILS % (AUTO) 0.9 % (0.2-1.0); BLOOD UREA NITROGEN 26 mg/dL (7-18); CALCIUM 9.6 mg/dL (8.5-10.1); CARBON DIOXIDE 23.6 mmol/L (21-32); CHLORIDE 105 mmol/L (98-107); CREATININE 1.09 mg/dL (0.55-1.02); EOSINOPHILS # (AUTO) 0.3 x10^3/uL (0.0-0.2); HEMATOCRIT 39.1 % (36.0-47.0); HEMOGLOBIN 13.2 g/dL (12.0-16.0); LYMPHOCYTES # (AUTO) 3.7 X10^3/uL (1.3-2.9); LYMPHOCYTES % (AUTO) 34.3 % (21.0-51.0); MEAN CORPUSCULAR HEMOGLOBIN 31.1 pg (27.0-34.0); MEAN CORPUSCULAR HGB CONC 33.8 g/dL (33.0-35.0); MEAN CORPUSCULAR VOLUME 92.1 fL (80.0-100.0); MEAN PLATELET VOLUME 8.9 fL (7.4-11.0); MONOCYTES # (AUTO) 0.7 x10^3/uL (0.3-0.8); MONOCYTES % (AUTO) 6.7 % (0.0-13.0); NEUTROPHILS % (AUTO) 55.1 % (42.0-75.0); PLATELET COUNT 287 X10^3/uL (150.0-450.0); RED BLOOD COUNT 4.25 X10^6/uL (3.5-5.4); SODIUM 139 mmol/L (136-145); TOTAL PROTEIN 7.4 g/dL (6.4-8.2); WHITE BLOOD COUNT 10.9 X10^3/uL (3.6-10.0); eGFR NON BLACK RACES 55 (>60)
[2019-01-06] MEDS: TOPAMAX TAB 100 MG PO SCH ×2 (09:52→21:16)
[2019-01-06] MEDS: EXELON PO SCH ×2 (09:52→21:16)
[2019-01-06] MEDS: COZAAR PO SCH (09:53)
[2019-01-06] MEDS: MOBIC TAB 15 MG PO SCH (09:53)
[2019-01-06] MEDS: PLAVIX PO SCH (09:56)
[2019-01-06] MEDS: PROzac PO SCH (09:56)
[2019-01-06] MEDS: NORVASC TAB 5 MG PO SCH (09:56)
[2019-01-06] MEDS: NICOTINE PATCH TD SCH (09:57)
[2019-01-06] MEDS ORDERED: GLUCOPHAGE ONE ×2 (10:00→19:29)
[2019-01-06] MEDS: GLUCOPHAGE PO SCH ×2 (10:03→19:32)
--- NOTE | 2019-01-06 12:11 | MRI ---
HISTORY: Seizures. Study: MRA brain without contrast. Comparison: MRI brain dated December 29, 2018. Technique: 3-D [id number] imaging of the intracranial circulation was performed. Findings: The anterior circulation demonstrates normal anatomic findings. The internal carotid artery, M1 segment, and A1 segments do not demonstrates atherosclerotic changes. No aneurysmal changes or evidence for vascular malformation can be identified. The posterior circulation demonstrates a posterior communicating artery on the right and left. The basal vertebral system is normal in its appearance. IMPRESSION: Unremarkable MRA of the brain. Reported By:
--- NOTE | 2019-01-06 17:49 | PCM.PROG ---
Progress Note - Progress Note for Day of Date of Exam: 01/06/19 - Subjective Subjective: This is a 58-year-old white female who was admitted on 12/28/18, with episodes of confusion. The family was concerned that she had a CVA. The patients CT of the head on admission was without acute findings and the following MRI also showed some chronic changes. The patient has exhibited some episodes of confusion with psychosis requiring haldol for treatment. When talking to her this morning, she recognized who I was and obeyed commands. The patient did have some inappropriate responses as well. She has previously had episodes of confusion and slow to respond. Nursing staff reports pt yelling yesterday after noon with extreme agitation and "delusions". We also talked with family about possible Behavioral Health for management of vascular dementia with psychosis behavior. pt was referred to behavior health without acceptance at this time. pt has low grade fever, repeat am labs, influenza swab, repeat chest xray. pt sleeping on exam this am, but easily to awaken, "knows shes [facility]" family concerned about her hx of "aneurysm" records from neurologist requested and reviewed, mra obtained this am. family reports pt has hx of CHF and carotid artery disease. CTA carotid ordered to assess for disease progression. pt is currently on bp control, plavix, statin and blood sugar control. Discussed extensively with family about pt's physical findings and objective results. family reports they cannot take care her at home in this condition, "feel like something medical is wrong". discussed plans for diagnostic tests and if pt is phsysically stable she will need mental health management. recommend APS consult as well. - Past Medical Family Social History Past Med/Fam/Surg Hx: No changes since H&P Allergies: Allergies No Known Allergies Allergy (Verified 11/22/18 14:01) - Review of Systems ROS: No change since H&P - Vital Signs and I&O's Vital Signs: Temperature 100.0 F Pulse Rate [Right Brachial] 121 Pulse Rate [Left Brachial] 116 Pulse Rate 64 Respiratory Rate 20 Blood Pressure [Right Arm] 123/59 Blood Pressure [Left Arm] 125/62 Blood Pressure 212/88 O2 Sat by Pulse Oximetry 97 Intake and Output: Intake & Output 01/04/19 01/05/19 01/06/19 01/07/19 11:59 11:59 11:59 11:59 Intake Total 1320 / 1320 690 / 690 860 / 860 580 / 580 Balance 1320 / 1320 690 / 690 860 / 860 580 / 580 - Physical Exam Oriented: Person Eyes: Normal Ear: Normal Nose: Normal Throat: Normal Respiratory: Diminished Cardiovascular: Normal : Normal Auscultation: Bowel Sounds: Normal Tenderness: Normal Skin: Normal Musculoskeletal: Back:Lumbar Psychiatric: Anxiety, Agitation Mood Description: Anxious Affect: Anxious Speech Pattern: Inappropriate, Delayed - Laboratory and Diagnostics Result Diagrams: 01/06/19 05:12 01/06/19 05:12 Labs: 01/01/19 09:18 Urine,Catheterized Urine Culture - Final 12/29/18 18:40 Blood Blood Culture - Final 12/29/18 18:33 Blood Blood Culture - Final 12/29/18 19:50 Urine,Clean Catch Urine Culture - Final Laboratory WBC 10.9 X10^3/uL (3.6-10.0) H 01/06/19 05:12 RBC 4.25 X10^6/uL (3.5-5.4) 01/06/19 05:12 Hgb 13.2 g/dL (12.0-16.0) 01/06/19 05:12 Hct 39.1 % (36.0-47.0) 01/06/19 05:12 MCV 92.1 fL (80.0-100.0) 01/06/19 05:12 MCH 31.1 pg (27.0-34.0) 01/06/19 05:12 MCHC 33.8 g/dL (33.0-35.0) 01/06/19 05:12 RDW 13.0 % (11.6-16.5) 01/06/19 05:12 Plt Count 287 X10^3/uL (150.0-450.0) 01/06/19 05:12 MPV 8.9 fL (7.4-11.0) 01/06/19 05:12 Neut % (Auto) 55.1 % (42.0-75.0) 01/06/19 05:12 Lymph % (Auto) 34.3 % (21.0-51.0) 01/06/19 05:12 [place] % (Auto) 6.7 % (0.0-13.0) 01/06/19 05:12 Eos % (Auto) 3.0 % (0.9-2.9) H 01/06/19 05:12 Baso % (Auto) 0.9 % (0.2-1.0) 01/06/19 05:12 Neut # (Auto) 6.0 x10^3/uL (2.2-4.8) H 01/06/19 05:12 Lymph # (Auto) 3.7 X10^3/uL (1.3-2.9) H 01/06/19 05:12 [place] # (Auto) 0.7 x10^3/uL (0.3-0.8) 01/06/19 05:12 Eos # (Auto) 0.3 x10^3/uL (0.0-0.2) H 01/06/19 05:12 Baso # (Auto) 0.1 X10^3/uL (0.0-0.1) 01/06/19 05:12 Absolute Nucleated RBC 0.0 /100WBC 01/06/19 05:12 Sodium 139 mmol/L (136-145) 01/06/19 05:12 Corrected Sodium TNP 01/06/19 05:12 Potassium 3.9 mmol/L (3.5-5.1) 01/06/19 05:12 Chloride 105 mmol/L (98-107) 01/06/19 05:12 Carbon Dioxide 23.6 mmol/L (21-32) 01/06/19 05:12 BUN 26 mg/dL (7-18) H 01/06/19 05:12 Creatinine 1.09 mg/dL (0.55-1.02) H 01/06/19 05:12 Est GFR (MDRD) Af Amer > 60 (>60) 01/06/19 05:12 Est GFR (MDRD) Non-Af 55 (>60) L 01/06/19 05:12 Glucose 83 mg/dL (65-99) 01/06/19 05:12 POC Glucose (mg/dL) 103 mg/dL (65-99) H 01/06/19 16:08 Lactic Acid 0.9 mmol/L (0.4-2.0) 12/28/18 17:49 Calcium 9.6 mg/dL (8.5-10.1) 01/06/19 05:12 Corrected Calcium TNP 01/06/19 05:12 Magnesium 2.0 mg/dL (1.7-2.9) 01/03/19 05:35 Total Bilirubin 0.30 mg/dL (0.2-1.0) 01/06/19 05:12 AST 25 Units/L (15-37) 01/06/19 05:12 ALT 26 Units/L (12-78) 01/06/19 05:12 Alkaline Phosphatase 92 Units/L (46-116) 01/06/19 05:12 Ammonia 14 umol/L (11-32) 12/28/18 17:49 Creatine Kinase 91 Units/L (26-192) 12/29/18 15:12 CK-MB (CK-2) < 1.0 ng/mL (0-4.0) 12/29/18 15:12 CK/CKMB % Calc 1.1 % (<4) 12/29/18 15:12 Troponin I < 0.02 ng/mL (0-1.5) 12/29/18 15:12 Total Protein 7.4 g/dL (6.4-8.2) 01/06/19 05:12 Albumin 3.8 g/dL (3.4-5.0) 01/06/19 05:12 Globulin 3.6 g/dL (2.5-4.5) 01/06/19 05:12 Albumin/Globulin Ratio 1.1 Ratio (1.1-2.1) 01/06/19 05:12 Specimen Type Catherized urine 01/01/19 09:18 Urine Color Pale yellow (YELLOW) 01/01/19 09:18 Urine Appearance Clear (CLEAR) 01/01/19 09:18 Urine pH 8.0 (5.0 - 8.0) 01/01/19 09:18 Ur Specific [place] 1.010 (1.000-1.030) 01/01/19 09:18 Urine Protein Negative (NEGATIVE) 01/01/19 09:18 Urine Glucose (UA) Negative (NEGATIVE) 01/01/19 09:18 Urine Ketones Negative (NEGATIVE) 01/01/19 09:18 Urine Occult Blood 4+ (NEGATIVE) 01/01/19 09:18 Urine Nitrite Negative (NEGATIVE) 01/01/19 09:18 Urine Bilirubin Negative (NEGATIVE) 01/01/19 09:18 Urine Urobilinogen Normal (NORMAL) 01/01/19 09:18 Ur Leukocyte Esterase 3+ (NEGATIVE) 01/01/19 09:18 Urine RBC 5-10 /HPF (NONE SEEN) 01/01/19 09:18 Urine WBC 20-30 /HPF (NONE SEEN) 01/01/19 09:18 Ur Squamous Epith Cells Rare /HPF (NEGATIVE) 01/01/19 09:18 Ur Renal Epithelial Cell Rare /HPF (NEGATIVE) 12/28/18 16:55 Urine Bacteria 1+ /HPF (NEGATIVE) 01/01/19 09:18 Ur Culture Indicated? Yes/culture set up 01/01/19 09:18 Urine Opiates Screen Negative (NEG=<300) 12/28/18 17:03 Urine Methadone Screen Negative (NEG=<300) 12/28/18 17:03 Ur Barbiturates Screen Negative (NEG=<200) 12/28/18 17:03 Ur Phencyclidine Scrn Negative (NEG=<25) 12/28/18 17:03 Ur Amphetamines Screen Negative (NEG=<1000) 12/28/18 17:03 U Benzodiazepines Scrn Negative (NEG=<200) 12/28/18 17:03 Urine Cocaine Screen Negative (NEG=<300) 12/28/18 17:03 U Marijuana (THC) Screen Negative (NEG=<50) 12/28/18 17:03 - Plan (1) Altered mental status Status: Inactive Plan: CT HEAD ON ADMISSION AND MRI, MRA OBTAINED. SERIAL CE AND EKG ON ADMISSI ON, REVIEWED WITH FAMILY. CXR 2 VIEW, REPEAT CE TODAY AND EKG. CTA CAROTIDS. PLAVIX, BP AND LIPID CONTROL. VERIFY HOME MEDICATION AND RESUMED. 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 PROZAC (4) HTN (hypertension) Status: Chronic Qualifiers: Hypertension type: essential hypertension Qualified Code(s): I10 - Essential (primary) hypertension (5) History of CVA (cerebrovascular accident) Status: Chronic Plan: cta of brain with and w/o contrast (6) Diabetes Status: Chronic (7) COPD (chronic obstructive pulmonary disease) Status: Chronic (8) Seizure disorder Status: Chronic Plan: RESUMED TOPAMAX AND GABAPENTIN, SHE WAS PRESCRIBED BY NEUROLOGIST FOLLOWING HER PREVIOUS STROKE INDUCED ONSET OF SEIZURE ACTIVITY. (9) Fever Status: Acute Plan: FLU SWAB, REPEAT BC AND CXR
[2019-01-06 18:25] LABS: CKMB % 0.7 % (<4); CREATINE KINASE 215 Units/L (26-192); CREATINE KINASE MB 1.4 ng/mL (0-4.0); TROPONIN I < 0.02 ng/mL (0-1.5)
[2019-01-06] MEDS: NS 500 ML IV 500 ML IV SCH (20:25)
--- NOTE | 2019-01-06 20:48 | RAD ---
HISTORY: COPD with cough and fever Study: Two-view chest Comparison: 01/05/2019 Findings: The trachea is midline. The cardiac silhouette is unremarkable. The lungs are clear without focal infiltrate or effusion. The bony thorax is unremarkable. IMPRESSION: 1. No acute cardiopulmonary disease. Reported By:
[2019-01-06] MEDS: CRESTOR TAB 10 MG PO SCH (21:15)
[2019-01-06] MEDS: NEURONTIN CAP 400 MG PO SCH (21:16)
[2019-01-07 06:08] LABS: BASOPHILS # (AUTO) 0.1 X10^3/uL (0.0-0.1); EOSINOPHILS # (AUTO) 0.2 x10^3/uL (0.0-0.2); EOSINOPHILS % (AUTO) 1.5 % (0.9-2.9); HEMATOCRIT 38.2 % (36.0-47.0); HEMOGLOBIN 13.1 g/dL (12.0-16.0); LYMPHOCYTES # (AUTO) 3.6 X10^3/uL (1.3-2.9); LYMPHOCYTES % (AUTO) 30.8 % (21.0-51.0); MEAN CORPUSCULAR HEMOGLOBIN 31.3 pg (27.0-34.0); MEAN CORPUSCULAR HGB CONC 34.3 g/dL (33.0-35.0); MEAN CORPUSCULAR VOLUME 91.3 fL (80.0-100.0); MEAN PLATELET VOLUME 8.6 fL (7.4-11.0); MONOCYTES # (AUTO) 0.8 x10^3/uL (0.3-0.8); MONOCYTES % (AUTO) 6.7 % (0.0-13.0); NEUTROPHILS # (AUTO) 7.1 x10^3/uL (2.2-4.8); PLATELET COUNT 312 X10^3/uL (150.0-450.0); RED BLOOD COUNT 4.18 X10^6/uL (3.5-5.4); RED CELL DISTRIBUTION WIDTH 12.7 % (11.6-16.5); WHITE BLOOD COUNT 11.8 X10^3/uL (3.6-10.0)
[2019-01-07 06:21] LABS: ALANINE AMINOTRANSFERASE 25 Units/L (12-78); ALBUMIN 3.9 g/dL (3.4-5.0); ALKALINE PHOSPHATASE 94 Units/L (46-116); ASPARTATE AMINO TRANSFERASE 27 Units/L (15-37); BLOOD UREA NITROGEN 37 mg/dL (7-18); CALCIUM 9.8 mg/dL (8.5-10.1); CARBON DIOXIDE 20.8 mmol/L (21-32); CHLORIDE 103 mmol/L (98-107); CREATININE 1.35 mg/dL (0.55-1.02); SODIUM 138 mmol/L (136-145); TOTAL PROTEIN 7.7 g/dL (6.4-8.2); eGFR NON BLACK RACES 43 (>60)
[2019-01-07] MEDS: OTBS NS XX SCH (06:39)
[2019-01-07] MEDS ORDERED: NS 100 ML IV 100 ML IV ONE (06:50)
[2019-01-07] MEDS ORDERED: GLUCOPHAGE ONE (08:15)
[2019-01-07] MEDS: GLUCOPHAGE PO SCH (09:30)
[2019-01-07] MEDS: NORVASC TAB 5 MG PO SCH (09:30)
[2019-01-07] MEDS: TOPAMAX TAB 100 MG PO SCH (09:30)
[2019-01-07] MEDS: PROzac PO SCH (09:30)
[2019-01-07] MEDS: EXELON PO SCH (09:31)
[2019-01-07] MEDS: PLAVIX PO SCH (09:31)
[2019-01-07] MEDS: COZAAR PO SCH (09:31)
[2019-01-07] MEDS: NICOTINE PATCH TD SCH (09:32)
[2019-01-07] MEDS: MOBIC TAB 15 MG PO SCH (09:33)
[2019-01-07 12:05] VITALS: BP 117/71
--- NOTE | 2019-01-07 14:20 | CT ---
Carotid CTA Clinical indication: Altered mental status, seizures Technique: The patient received in arterial phase bolus of 75 cc of Omnipaque 350. Axial sequences were performed from the level of the thoracic aorta to the level of the base of the skull. The axial sequences are reconstructed with multi planer reformats and volume rendered MIP reconstructions. Initial noncontrast CT of the head was also performed. Comparison: 12/28/2017. Findings: Noncontrast CT: There is no lymphadenopathy or soft tissue asymmetry identified within the head and neck. Atheromatous calcifications are present within the bilateral carotid bulbs. There is encephalomalacia within the right parietal and temporal lobe indicating old infarction within the right MCA territory. Chronic encephalomalacia is also noted within the left parietal lobe. There is also evidence of chronic encephalomalacia within the left and right occipital lobes. No acute hemorrhage is identified the ventricular size is normal CTA carotid: Upper lobe predominant paraseptal and centrilobular emphysematous changes of moderate severity are demonstrated. A 3 vessel aortic arch is demonstrated. There is mild plaque observed at the origin of the left subclavian and common carotid artery. Both vertebral arteries are derived from the subclavian artery. The common carotid arteries are well opacified. Accumulation of atheromatous plaque is observed within the bilateral carotid bulbs and origin of the proximal internal carotid arteries of moderate severity. Beyond the origin of the internal carotid arteries, the bilateral ICAs remain well opacified through the ICA terminus. Minor plaque is observed within the bilateral cavernous ICA segments. The partially visualized bilateral anterior cerebral arteries are well opacified proximally. The left middle cerebral artery territory, partially visualized, appears well perfused where imaged. There is a markedly attenuated flow within the right middle cerebral artery territory. The distal right M1 segment a demonstrates a sharp cut off of flow indicating a region of high-grade stenosis to near occlusion. There is very little flow demonstrated with M2 and M3 branches of the right middle cerebral artery territory. Regarding the posterior circulatory system, both vertebral arteries are derived from the subclavian arteries and maintained robust flow through the base of the skull with no significant stenosis or dissection identified. Right posterior inferior cerebellar artery branches well opacified. The vertebral arteries are codominant. The basilar artery remains widely patent. There is a short fenestrated identified at the junction of the bilateral vertebral arteries. Flow is maintained through the bilateral superior cerebellar artery branches as well as the visualized bilateral posterior cerebral artery branches. Bilateral posterior communicating artery branches are widely patent. Left P1 segment is hypoplastic and much of the flow of the left [employer] is supplied through the posterior communicating artery via persistent type circulation. Review of bone windows demonstrates no aggressive bony lesions or acute osseous abnormalities. Note is made of partially opacified left maxillary sinus with inspissated secretions. Impression: Moderate accumulation of partially calcified plaque of the bilateral carotid bulbs and origin of the proximal internal carotid arteries, not meeting threshold for hemodynamically significant stenosis (70% or greater). There is marked attenuation of flow within the right middle cerebral artery segment where chronic high-grade stenosis to near occlusion of the right M1 segment is demonstrated. A chronic right middle cerebral artery territory infarct is noted. Chronic infarctions of the left parietal lobe and bilateral occipital lobes also noted. No flow limiting stenosis of the posterior circulatory system. Other chronic and incidental findings as discussed above Reported By:
== END 2019-01-07 15:55 | disposition short-term general hospital (02) | DRG 884 ==
LOC: ER 16:38 → MED/SURG 16:38
PROVIDERS: ADMIT Internal Medicine; ATTEND Internal Medicine
DX: G40.89 Other seizures; K21.9 Gastro-esophageal reflux disease without esophagitis; Z86.73 Personal history of transient ischemic attack (TIA), and cerebral infarction without residual deficits; N39.0 Urinary tract infection, site not specified; F03.91 Unspecified dementia, unspecified severity, with behavioral disturbance; J32.8 Other chronic sinusitis; Z78.1 Physical restraint status; J44.9 Chronic obstructive pulmonary disease, unspecified; I25.10 Atherosclerotic heart disease of native coronary artery without angina pectoris; F32.89 Other specified depressive episodes; Z86.69 Personal history of other diseases of the nervous system and sense organs; R26.89 Other abnormalities of gait and mobility; R40.4 Transient alteration of awareness; I10 Essential (primary) hypertension; Z79.01 Long term (current) use of anticoagulants; E11.65 Type 2 diabetes mellitus with hyperglycemia; F41.8 Other specified anxiety disorders
CPT/HCPCS: 36415; 70450; 70498; 70544; 70551; 71010; 71020; 71045; 71046; 80048; 80053; 80307; 81001; 82140; 82550; 82553; 83605; 83735; 84484; 85025; 87040; 87086; 87502; 92507; 92523; 93005; 93306; 96365; 97110; 97162; 97167; 97530; 97535; 99282; 99284; A4222; G0378; G0434; J0456; J0696; J1200; J1630; J1815; J2060; J7040; J7050

== ENCOUNTER 2019-01-21 00:45 | Inpatient (IN) ==
[2019-01-21] MEDS ORDERED: COLACE CAP 100 MG PO PRN (01:31)
[2019-01-21] MEDS ORDERED: MILK OF MAGNESIA PO PRN (01:31)
[2019-01-21] MEDS: NS 1000 ML 1,000 ML IV SCH ×2 (02:19→19:21)
[2019-01-21 02:38] VITALS: BMI 25.0
[2019-01-21] MEDS ORDERED: HumuLIN R SUBCUT PRN (02:43)
[2019-01-21 05:27] LABS: BASOPHILS # (AUTO) 0.1 X10^3/uL (0.0-0.1); BASOPHILS % (AUTO) 0.8 % (0.2-1.0); EOSINOPHILS # (AUTO) 0.4 x10^3/uL (0.0-0.2); EOSINOPHILS % (AUTO) 5.1 % (0.9-2.9); HEMOGLOBIN 11.5 g/dL (12.0-16.0); LYMPHOCYTES # (AUTO) 3.9 X10^3/uL (1.3-2.9); LYMPHOCYTES % (AUTO) 52.4 % (21.0-51.0); MEAN CORPUSCULAR HEMOGLOBIN 31.1 pg (27.0-34.0); MEAN CORPUSCULAR VOLUME 91.7 fL (80.0-100.0); MEAN PLATELET VOLUME 8.7 fL (7.4-11.0); MONOCYTES # (AUTO) 0.4 x10^3/uL (0.3-0.8); MONOCYTES % (AUTO) 5.5 % (0.0-13.0); NEUTROPHILS # (AUTO) 2.7 x10^3/uL (2.2-4.8); NEUTROPHILS % (AUTO) 36.2 % (42.0-75.0); PLATELET COUNT 323 X10^3/uL (150.0-450.0); RED BLOOD COUNT 3.71 X10^6/uL (3.5-5.4); WHITE BLOOD COUNT 7.5 X10^3/uL (3.6-10.0)
[2019-01-21 05:43] LABS: ALANINE AMINOTRANSFERASE 37 Units/L (12-78); ALKALINE PHOSPHATASE 70 Units/L (46-116); ASPARTATE AMINO TRANSFERASE 19 Units/L (15-37); BLOOD UREA NITROGEN 15 mg/dL (7-18); CALCIUM 9.2 mg/dL (8.5-10.1); CARBON DIOXIDE 23.8 mmol/L (21-32); CHLORIDE 112 mmol/L (98-107); CREATININE 0.92 mg/dL (0.55-1.02); SODIUM 146 mmol/L (136-145); TOTAL PROTEIN 6.3 g/dL (6.4-8.2); eGFR NON BLACK RACES > 60 (>60)
[2019-01-21] MEDS ORDERED: POTASSIUM CHL 60 MEQ/NS 0.45% 500 ML IV PRN (06:16)
[2019-01-21] MEDS ORDERED: POTASSIUM CHLORIDE LIQ 20 MEQ UDC PO PRN (06:16)
[2019-01-21] MEDS ORDERED: MICRO K EXTEN CAP 10 MEQ PO PRN (06:16)
[2019-01-21] MEDS ORDERED: K-RIDER 10 MEQ/NS 100 ML 10 MEQ/100 ML BAG IV PRN (06:16)
[2019-01-21] MEDS ORDERED: MAGNESIUM SULFATE 1 GRAM/100 mL PREMIX 1 GM/100 ML BAG IV PRN (06:16)
[2019-01-21] MEDS ORDERED: KLOR-CON PO PRN (06:16)
[2019-01-21] MEDS ORDERED: POTASSIUM CHL 40 MEQ/NS 0.45% 500 ML IV PRN (06:16)
[2019-01-21] MEDS: K-DUR TAB 20 MEQ PO PRN (06:37)
[2019-01-21] MEDS ORDERED: GLUCOPHAGE ONE ×2 (07:43→17:03)
[2019-01-21] MEDS: GLUCOPHAGE PO SCH ×2 (07:50→17:05)
[2019-01-21] MEDS: COZAAR PO SCH (09:35)
[2019-01-21] MEDS: NORVASC TAB 5 MG PO SCH (09:35)
[2019-01-21] MEDS: FLOMAX PO SCH (09:35)
[2019-01-21] MEDS: PLAVIX PO SCH (09:35)
[2019-01-21] MEDS: VITAMIN B-12 INJ IM SCH (09:36)
[2019-01-21] MEDS: KEPPRA ORAL SOLN PO SCH ×2 (09:37→20:31)
[2019-01-21 09:58] LABS: APPEARANCE,URINE CLOUDY (CLEAR); BLOOD/HEMOGLOBIN,URINE 1+ (NEGATIVE); COLOR,URINE YELLOW (YELLOW); GLUCOSE, URINE NEGATIVE (NEGATIVE); KETONES,URINE NEGATIVE (NEGATIVE); PH,URINE 6.5 (5.0 - 8.0); PROTEIN,URINE 2+ (NEGATIVE)
[2019-01-21 09:59] LABS: BILIRUBIN,URINE NEGATIVE (NEGATIVE); LEUKOCYTE ESTERASE ,URINE 3+ (NEGATIVE); NITRITES,URINE POSITIVE (NEGATIVE); UROBILINOGEN,URINE NORMAL (NORMAL)
[2019-01-21 10:00] LABS: BACTERIA,URINE 2+ /HPF (NEGATIVE); MUCUS,URINE FEW /HPF (NEGATIVE); SQUAMOUS EPITHELIAL CELL,UR FEW /HPF (NEGATIVE)
--- NOTE | 2019-01-21 14:12 | DR.H&P ---
H&P - History & Physical for Day of: H&P Date: 01/20/19 - Chief Complaint Chief Complaint: 58 WF BACK TRANSFER FROM [facility]/ DISCHARGE PLANNING FOLLOWING ENCEPHALOPATHY DUE TO POST CVA SEIZURE DISORDER WITH BEHAVIOR DISTURBANCE. PT IS DM WITH HX OF COPD, CVD, OA, AMITA, CAD. PT IS ALERT, AWAKE AND ORIENTED TO SELF AND LOCATION. PT ANSWERED QUESTIONS APPORPRIATELY AND CO MULTIPLE JOINT PAIN THIS AM, AFEBRILE. PT HAS DAMON CATH. CONSULTED CASE MANAGEMENT FOR PLAN FOR DISCHARGE. BLADDER TRAINING AND URINE CULTURE ORDERED. - History of Present Illness History of Present Illness: 58 WF BACK TRANSFER FROM [facility]/ D ISCHARGE PLANNING FOLLOWING ENCEPHALOPATHY DUE TO POST CVA SEIZURE DISORDER WITH BEHAVIOR DISTURBANCE. PT IS DM WITH HX OF COPD, CVD, OA, AMITA, CAD. PT IS ALERT, AWAKE AND ORIENTED TO SELF AND LOCATION. PT ANSWERED QUESTIONS APPORPRIATELY AND CO MULTIPLE JOINT PAIN THIS AM, AFEBRILE. PT HAS DAMON CATH. CONSULTED CASE MANAGEMENT FOR PLAN FOR DISCHARGE. BLADDER TRAINING AND URINE CULTURE ORDERED. - Past Medical History Past Medical History: Coronary Artery Disease, Hypertension, Diabetes, Depression, Anxiety, CVA, COPD, GERD, Arthritis, Migraines - Past Surgical History Surgical History: Hysterectomy - Family History Family Medical History: Diabetes Mellitus, Cancer, Heart Failure, Hypertension - Social History Does patient currently use any type of tobacco product: No Have you used tobacco products in the last 12 months: No Type of Tobacco Use: None Does any household member use tobacco: No Alcohol Use: None Drug Use: None - Medications Home Medications: No Known Allergies Allergy (Verified 01/21/19 01:56) CONTINUE taking the following medications acetaminophen [Tylenol] 650 mg PO Q6H PRN 01/21/19 [History] amlodipine [Norvasc] 5 mg PO DAILY 01/21/19 [History] clopidogrel [Plavix] 75 mg PO DAILY 01/21/19 [History] cyanocobalamin (vitamin B-12) 1,000 mcg IM QDAY 01/21/19 [History] docusate sodium [Colace] 100 mg PO BID PRN 01/21/19 [History] gabapentin [Neurontin] 400 mg PO HS 01/21/19 [History] hydrocodone-acetaminophen [[place]] 1 tab PO Q6H PRN 01/21/19 [History] levetiracetam 1,000 mg PO BID 01/21/19 [History] losartan 25 mg PO DAILY 01/21/19 [History] metformin 500 mg PO BIDWM 01/21/19 [History] olanzapine 2.5 mg PO Q6H PRN 01/21/19 [History] rosuvastatin [Crestor] 10 mg PO HS 01/21/19 [History] tamsulosin 0.4 mg PO DAILY 01/21/19 [History] - Review of Systems Constitutional: Weakness Eyes: No Symptoms Reported ENT: No Symptoms Reported Respiratory: No Symptoms Reported Cardiovascular: No Symptoms Reported Gastrointestinal: No Symptoms Reported Genitourinary: No Symptoms Reported Musculoskeletal: No Symptoms Reported Skin: No Symptoms Reported Neurological: Weakness - Physical Exam Vital Signs: Temperature 98.0 F Pulse Rate [Radial] 70 Respiratory Rate 18 Blood Pressure [Right Arm] 121/59 Blood Pressure [Left Arm] 117/71 Blood Pressure 117/71 O2 Sat by Pulse Oximetry 96 Oriented: Normal Eyes: Normal Ear: Normal Nose: Normal Throat: Normal Respiratory: RLL Diminished, LLL Diminished Cardiovascular: Normal : Normal Auscultation: Bowel Sounds: Normal Palpation: Normal Tenderness: Normal Skin: Decreased Turgur Musculoskeletal: Back:Thoracic, Back:Lumbar Psychiatric: Anxiety Affect: Anxious Speech Pattern: Appropriate - Assessment/Plan (1) Encephalopathy Status: Acute Plan: CONTINUE CURRENT MEDICATION REGIMEN, BLOOD PRESSURE AND BLOOD SUGAR CONTROL. PHYSICAL THERAPY, CONSULT CASE MANAGEMENT FOR DC PLAN. 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
[2019-01-21] MEDS: NORCO 5/325 MG TAB PO PRN (16:21)
[2019-01-21] MEDS: SNACK - Diabetic Appropriate PO SCH (20:30)
[2019-01-21] MEDS: NEURONTIN CAP 400 MG PO SCH (20:31)
[2019-01-21] MEDS: CRESTOR TAB 10 MG PO SCH (20:31)
[2019-01-22 05:05] LABS: BASOPHILS # (AUTO) 0.1 X10^3/uL (0.0-0.1); BASOPHILS % (AUTO) 0.8 % (0.2-1.0); EOSINOPHILS # (AUTO) 0.5 x10^3/uL (0.0-0.2); HEMATOCRIT 33.3 % (36.0-47.0); HEMOGLOBIN 11.4 g/dL (12.0-16.0); LYMPHOCYTES # (AUTO) 4.1 X10^3/uL (1.3-2.9); LYMPHOCYTES % (AUTO) 53.4 % (21.0-51.0); MEAN CORPUSCULAR HEMOGLOBIN 31.4 pg (27.0-34.0); MEAN CORPUSCULAR HGB CONC 34.2 g/dL (33.0-35.0); MEAN PLATELET VOLUME 8.6 fL (7.4-11.0); MONOCYTES # (AUTO) 0.4 x10^3/uL (0.3-0.8); MONOCYTES % (AUTO) 5.9 % (0.0-13.0); NEUTROPHILS # (AUTO) 2.6 x10^3/uL (2.2-4.8); NEUTROPHILS % (AUTO) 33.9 % (42.0-75.0); PLATELET COUNT 328 X10^3/uL (150.0-450.0); RED BLOOD COUNT 3.62 X10^6/uL (3.5-5.4); RED CELL DISTRIBUTION WIDTH 13.1 % (11.6-16.5); WHITE BLOOD COUNT 7.6 X10^3/uL (3.6-10.0)
[2019-01-22 05:24] LABS: ALANINE AMINOTRANSFERASE 33 Units/L (12-78); ALKALINE PHOSPHATASE 65 Units/L (46-116); ASPARTATE AMINO TRANSFERASE 17 Units/L (15-37); BLOOD UREA NITROGEN 17 mg/dL (7-18); CALCIUM 8.9 mg/dL (8.5-10.1); CARBON DIOXIDE 25.7 mmol/L (21-32); CHLORIDE 111 mmol/L (98-107); COR CA(FOR HYPOALB) 9.7 mg/dL (8.5-10.1); CREATININE 0.94 mg/dL (0.55-1.02); SODIUM 144 mmol/L (136-145); TOTAL PROTEIN 6.1 g/dL (6.4-8.2); eGFR NON BLACK RACES > 60 (>60)
[2019-01-22] MEDS ORDERED: GLUCOPHAGE ONE ×3 (05:45→15:19)
[2019-01-22] MEDS: GLUCOPHAGE PO SCH ×2 (09:27→17:38)
[2019-01-22] MEDS: FLOMAX PO SCH (09:28)
[2019-01-22] MEDS: PLAVIX PO SCH (09:28)
[2019-01-22] MEDS: COZAAR PO SCH (09:28)
[2019-01-22] MEDS: NORVASC TAB 5 MG PO SCH (09:28)
[2019-01-22] MEDS: KEPPRA ORAL SOLN PO SCH ×2 (09:28→20:30)
[2019-01-22] MEDS: VITAMIN B-12 INJ IM SCH (09:29)
[2019-01-22] MEDS: ROCEPHIN VIAL 1 GRAM IVP SCH (15:23)
[2019-01-22] MEDS: K-DUR TAB 20 MEQ PO PRN (20:24)
[2019-01-22] MEDS: SNACK - Diabetic Appropriate PO SCH (20:24)
[2019-01-22] MEDS: NEURONTIN CAP 400 MG PO SCH (20:25)
[2019-01-22] MEDS: CRESTOR TAB 10 MG PO SCH (20:30)
[2019-01-22] MEDS: TYLENOL 325 MG TAB PO PRN (21:35)
[2019-01-23 05:30] LABS: ALANINE AMINOTRANSFERASE 33 Units/L (12-78); ALBUMIN 3.1 g/dL (3.4-5.0); ALKALINE PHOSPHATASE 65 Units/L (46-116); ASPARTATE AMINO TRANSFERASE 16 Units/L (15-37); BLOOD UREA NITROGEN 16 mg/dL (7-18); CALCIUM 9.1 mg/dL (8.5-10.1); CARBON DIOXIDE 28.1 mmol/L (21-32); CHLORIDE 107 mmol/L (98-107); COR CA(FOR HYPOALB) 9.8 mg/dL (8.5-10.1); CREATININE 0.95 mg/dL (0.55-1.02); SODIUM 143 mmol/L (136-145); TOTAL PROTEIN 6.4 g/dL (6.4-8.2); eGFR NON BLACK RACES > 60 (>60)
[2019-01-23 06:02] LABS: BASOPHILS # (AUTO) 0.1 X10^3/uL (0.0-0.1); BASOPHILS % (AUTO) 0.8 % (0.2-1.0); EOSINOPHILS # (AUTO) 0.4 x10^3/uL (0.0-0.2); EOSINOPHILS % (AUTO) 4.7 % (0.9-2.9); HEMATOCRIT 38.6 % (36.0-47.0); LYMPHOCYTES # (AUTO) 3.4 X10^3/uL (1.3-2.9); LYMPHOCYTES % (AUTO) 43.2 % (21.0-51.0); MEAN CORPUSCULAR HEMOGLOBIN 31.2 pg (27.0-34.0); MEAN CORPUSCULAR HGB CONC 33.8 g/dL (33.0-35.0); MEAN CORPUSCULAR VOLUME 92.2 fL (80.0-100.0); MEAN PLATELET VOLUME 8.1 fL (7.4-11.0); MONOCYTES # (AUTO) 0.4 x10^3/uL (0.3-0.8); MONOCYTES % (AUTO) 5.4 % (0.0-13.0); NEUTROPHILS # (AUTO) 3.6 x10^3/uL (2.2-4.8); NEUTROPHILS % (AUTO) 45.9 % (42.0-75.0); PLATELET COUNT 369 X10^3/uL (150.0-450.0); RED BLOOD COUNT 4.18 X10^6/uL (3.5-5.4); RED CELL DISTRIBUTION WIDTH 13.4 % (11.6-16.5); WHITE BLOOD COUNT 7.8 X10^3/uL (3.6-10.0)
[2019-01-23] MEDS ORDERED: GLUCOPHAGE ONE ×2 (06:09→16:53)
[2019-01-23] MEDS: GLUCOPHAGE PO SCH ×2 (06:19→17:32)
[2019-01-23] MEDS: VITAMIN B-12 INJ IM SCH (09:00)
[2019-01-23] MEDS: KEPPRA ORAL SOLN PO SCH ×2 (09:00→20:29)
[2019-01-23] MEDS: PLAVIX PO SCH (09:00)
[2019-01-23] MEDS: ROCEPHIN VIAL 1 GRAM IVP SCH (09:00)
[2019-01-23] MEDS: FLOMAX PO SCH (09:06)
[2019-01-23] MEDS: NORVASC TAB 5 MG PO SCH (09:06)
[2019-01-23] MEDS: COZAAR PO SCH (09:06)
[2019-01-23] MEDS: TYLENOL 325 MG TAB PO PRN (17:49)
[2019-01-23] MEDS: NEURONTIN CAP 400 MG PO SCH (20:05)
[2019-01-23] MEDS: SNACK - Diabetic Appropriate PO SCH (20:05)
[2019-01-23] MEDS: NORCO 5/325 MG TAB PO PRN (20:15)
[2019-01-23] MEDS: CRESTOR TAB 10 MG PO SCH (20:18)
[2019-01-24] MEDS: NORCO 5/325 MG TAB PO PRN ×3 (04:30→20:34)
[2019-01-24] MEDS: GLUCOPHAGE PO SCH ×2 (06:06→16:42)
[2019-01-24] MEDS ORDERED: ROCEPHIN VIAL 1 GRAM IM SCH (09:00)
[2019-01-24] MEDS ORDERED: XYLOCAINE 1 % (PLAIN) IM SCH (09:00)
[2019-01-24] MEDS: PLAVIX PO SCH (09:30)
[2019-01-24] MEDS: KEPPRA ORAL SOLN PO SCH ×2 (09:30→20:30)
[2019-01-24] MEDS: COZAAR PO SCH (09:30)
[2019-01-24] MEDS: NORVASC TAB 5 MG PO SCH (09:30)
[2019-01-24] MEDS: FLOMAX PO SCH (09:30)
[2019-01-24] MEDS: VITAMIN B-12 INJ IM SCH (10:02)
[2019-01-24] MEDS ORDERED: GLUCOPHAGE ONE (16:33)
[2019-01-24] MEDS: MACROBID CAP 100 MG EXT REL PO SCH ×2 (16:41→20:15)
[2019-01-24] MEDS: NEURONTIN CAP 400 MG PO SCH (20:15)
[2019-01-24] MEDS: CRESTOR TAB 10 MG PO SCH (20:30)
[2019-01-24] MEDS: SNACK - Diabetic Appropriate PO SCH (20:30)
[2019-01-25] MEDS ORDERED: GLUCOPHAGE ONE ×2 (04:41→07:47)
[2019-01-25 05:19] LABS: BASOPHILS # (AUTO) 0.1 X10^3/uL (0.0-0.1); EOSINOPHILS # (AUTO) 0.5 x10^3/uL (0.0-0.2); EOSINOPHILS % (AUTO) 5.7 % (0.9-2.9); HEMATOCRIT 34.8 % (36.0-47.0); HEMOGLOBIN 11.9 g/dL (12.0-16.0); LYMPHOCYTES # (AUTO) 3.9 X10^3/uL (1.3-2.9); LYMPHOCYTES % (AUTO) 46.3 % (21.0-51.0); MEAN CORPUSCULAR HEMOGLOBIN 31.7 pg (27.0-34.0); MEAN CORPUSCULAR HGB CONC 34.2 g/dL (33.0-35.0); MEAN CORPUSCULAR VOLUME 92.6 fL (80.0-100.0); MEAN PLATELET VOLUME 8.3 fL (7.4-11.0); MONOCYTES # (AUTO) 0.5 x10^3/uL (0.3-0.8); NEUTROPHILS # (AUTO) 3.5 x10^3/uL (2.2-4.8); PLATELET COUNT 354 X10^3/uL (150.0-450.0); RED BLOOD COUNT 3.76 X10^6/uL (3.5-5.4); RED CELL DISTRIBUTION WIDTH 13.2 % (11.6-16.5); WHITE BLOOD COUNT 8.5 X10^3/uL (3.6-10.0)
[2019-01-25 05:27] LABS: ALANINE AMINOTRANSFERASE 28 Units/L (12-78); ALBUMIN 3.4 g/dL (3.4-5.0); ALKALINE PHOSPHATASE 69 Units/L (46-116); ASPARTATE AMINO TRANSFERASE 14 Units/L (15-37); BLOOD UREA NITROGEN 17 mg/dL (7-18); CALCIUM 9.1 mg/dL (8.5-10.1); CARBON DIOXIDE 27.8 mmol/L (21-32); CHLORIDE 107 mmol/L (98-107); COR NA(FOR HYPERGLY) 144 mmol/L (136-145); CREATININE 1.06 mg/dL (0.55-1.02); SODIUM 143 mmol/L (136-145); TOTAL PROTEIN 6.9 g/dL (6.4-8.2); eGFR NON BLACK RACES 57 (>60)
[2019-01-25] MEDS: GLUCOPHAGE PO SCH ×3 (06:00→09:17)
[2019-01-25] MEDS: KEPPRA ORAL SOLN PO SCH (08:34)
[2019-01-25] MEDS: FLOMAX PO SCH (08:34)
[2019-01-25] MEDS: NORVASC TAB 5 MG PO SCH (08:34)
[2019-01-25] MEDS: MACROBID CAP 100 MG EXT REL PO SCH (08:34)
[2019-01-25] MEDS: COZAAR PO SCH (08:34)
[2019-01-25] MEDS: VITAMIN B-12 INJ IM SCH (08:35)
[2019-01-25] MEDS: NORCO 5/325 MG TAB PO PRN (08:36)
[2019-01-25] MEDS: PLAVIX PO SCH (08:49)
[2019-01-25 09:05] VITALS: BP 164/90
== END 2019-01-25 11:45 | disposition home or self-care (01) | DRG 71 ==
LOC: MED/SURG 01:06 → UNDODISIN 01-23 13:30
PROVIDERS: ADMIT Internal Medicine; ATTEND Internal Medicine
DX: I10 Essential (primary) hypertension; R46.89 Other symptoms and signs involving appearance and behavior; F32.89 Other specified depressive episodes; N39.0 Urinary tract infection, site not specified; G40.802 Other epilepsy, not intractable, without status epilepticus; I25.10 Atherosclerotic heart disease of native coronary artery without angina pectoris; M13.89 Other specified arthritis, multiple sites; E11.65 Type 2 diabetes mellitus with hyperglycemia; R26.89 Other abnormalities of gait and mobility; I69.398 Other sequelae of cerebral infarction; K21.9 Gastro-esophageal reflux disease without esophagitis; G93.49 Other encephalopathy; F41.8 Other specified anxiety disorders; E87.6 Hypokalemia; B95.7 Other staphylococcus as the cause of diseases classified elsewhere; J44.9 Chronic obstructive pulmonary disease, unspecified
CPT/HCPCS: 36415; 80053; 80177; 81001; 83735; 85025; 87086; 87088; 87186; 97110; 97116; 97161; 97166; 97535; A4222; J0696; J1815; J3420; J3490

== ENCOUNTER 2019-10-11 17:20 | Observation (INO) ==
[2019-10-11 18:04] VITALS: BMI 31.6
[2019-10-11 18:19] LABS: BASOPHILS # (AUTO) 0.1 X10^3/uL (0.0-0.1); BASOPHILS % (AUTO) 1.2 % (0.2-1.0); EOSINOPHILS # (AUTO) 0.4 x10^3/uL (0.0-0.2); EOSINOPHILS % (AUTO) 3.6 % (0.9-2.9); HEMOGLOBIN 14.7 g/dL (12.0-16.0); LYMPHOCYTES # (AUTO) 4.2 X10^3/uL (1.3-2.9); LYMPHOCYTES % (AUTO) 35.6 % (21.0-51.0); MEAN CORPUSCULAR HEMOGLOBIN 30.4 pg (27.0-34.0); MEAN CORPUSCULAR HGB CONC 34.1 g/dL (33.0-35.0); MEAN CORPUSCULAR VOLUME 89.2 fL (80.0-100.0); MEAN PLATELET VOLUME 8.3 fL (7.4-11.0); MONOCYTES # (AUTO) 0.7 x10^3/uL (0.3-0.8); MONOCYTES % (AUTO) 6.2 % (0.0-13.0); NEUTROPHILS # (AUTO) 6.4 x10^3/uL (2.2-4.8); NEUTROPHILS % (AUTO) 53.4 % (42.0-75.0); PLATELET COUNT 296 X10^3/uL (150.0-450.0); RED BLOOD COUNT 4.82 X10^6/uL (3.5-5.4); RED CELL DISTRIBUTION WIDTH 13.5 % (11.6-16.5); WHITE BLOOD COUNT 11.9 X10^3/uL (3.6-10.0)
[2019-10-11 18:30] LABS: BLOOD UREA NITROGEN 22 mg/dL (7-18); CALCIUM 9.8 mg/dL (8.5-10.1); CARBON DIOXIDE 26.6 mmol/L (21-32); CHLORIDE 96 mmol/L (98-107); COR NA(FOR HYPERGLY) 139 mmol/L (136-145); CREATININE 1.05 mg/dL (0.55-1.02); SODIUM 137 mmol/L (136-145); eGFR NON BLACK RACES 57 (>60)
[2019-10-11 18:35] LABS: ALANINE AMINOTRANSFERASE 35 Units/L (12-78); ALBUMIN 4.3 g/dL (3.4-5.0); ALKALINE PHOSPHATASE 123 Units/L (46-116); ASPARTATE AMINO TRANSFERASE 39 Units/L (15-37); TOTAL PROTEIN 8.8 g/dL (6.4-8.2)
[2019-10-11] MEDS ORDERED: SNACK - Diabetic Appropriate PO SCH (20:00)
[2019-10-11] MEDS: NS 1000 ML 1,000 ML IV SCH (20:03)
[2019-10-11] MEDS: ROCEPHIN VIAL 1 GRAM 1 G in NS 100 ML IV + SPIKE MINIBAG* 100 ML IV SCH (20:05)
[2019-10-11] MEDS: PROTONIX INJ 40 MG VIAL IVP SCH (20:05)
[2019-10-11] MEDS: NEURONTIN CAP 400 MG PO SCH ×2 (20:06)
[2019-10-11] MEDS: NORCO 7.5/325 MG TAB PO PRN (20:21)
[2019-10-11] MEDS: HumuLIN R SUBCUT PRN (20:22)
[2019-10-11] MEDS: KEPPRA ORAL SOLN PO SCH (20:41)
[2019-10-11] MEDS ORDERED: RESTORIL CAP 15 MG PO PRN (21:18)
[2019-10-11 21:35] LABS: BILIRUBIN,URINE NEGATIVE (NEGATIVE); BLOOD/HEMOGLOBIN,URINE NEGATIVE (NEGATIVE); GLUCOSE, URINE NEGATIVE (NEGATIVE); KETONES,URINE NEGATIVE (NEGATIVE); LEUKOCYTE ESTERASE ,URINE 1+ (NEGATIVE); NITRITES,URINE NEGATIVE (NEGATIVE); PROTEIN,URINE 2+ (NEGATIVE); UROBILINOGEN,URINE NORMAL (NORMAL)
[2019-10-11 21:42] LABS: APPEARANCE,URINE SLIGHTLY HAZY (CLEAR); BACTERIA,URINE TRACE /HPF (NEGATIVE); COLOR,URINE DARK YELLOW (YELLOW); RBC,URINE NONE SEEN /HPF (0-3); SQUAMOUS EPITHELIAL CELL,UR MANY /HPF (NEGATIVE)
[2019-10-11] MEDS ORDERED: K-RIDER 10 MEQ/NS 100 ML 10 MEQ/100 ML BAG IV PRN (21:45)
[2019-10-11] MEDS ORDERED: K-DUR TAB 20 MEQ PO PRN (21:45)
[2019-10-11] MEDS ORDERED: POTASSIUM CHL 40 MEQ/NS 0.45% 500 ML IV PRN (21:45)
[2019-10-11] MEDS ORDERED: KLOR-CON PO PRN (21:45)
[2019-10-11] MEDS ORDERED: POTASSIUM CHLORIDE LIQ 20 MEQ UDC PO PRN (21:45)
[2019-10-11] MEDS ORDERED: POTASSIUM CHL 60 MEQ/NS 0.45% 500 ML IV PRN (21:45)
[2019-10-11] MEDS ORDERED: MICRO K EXTEN CAP 10 MEQ PO PRN (21:45)
[2019-10-11] MEDS: MAGNESIUM SULFATE 1 GRAM/100 mL PREMIX 1 GM/100 ML BAG IV PRN ×2 (22:19→23:28)
[2019-10-12] MEDS: MAGNESIUM SULFATE 1 GRAM/100 mL PREMIX 1 GM/100 ML BAG IV PRN ×2 (00:36→01:42)
--- NOTE | 2019-10-12 04:21 | RAD ---
AP abdomen Indication: Abdominal distension Comparison: None Findings: There is mildly increased colonic stool burden. No significantly dilated small bowel loops identified. No suspicious calcifications or gross free air identified. Impression: No acute abnormality. Suggestion of constipation. Reported By:
[2019-10-12] MEDS ORDERED: COLACE CAP 100 MG PO PRN (04:34)
[2019-10-12] MEDS ORDERED: MILK OF MAGNESIA ONE (04:36)
[2019-10-12] MEDS ORDERED: COLACE CAP 100 MG PO ONE (04:36)
[2019-10-12] MEDS: MILK OF MAGNESIA PO PRN ×2 (04:46→04:47)
[2019-10-12 05:11] LABS: BASOPHILS # (AUTO) 0.1 X10^3/uL (0.0-0.1); BASOPHILS % (AUTO) 1.1 % (0.2-1.0); EOSINOPHILS # (AUTO) 0.5 x10^3/uL (0.0-0.2); HEMATOCRIT 39.8 % (36.0-47.0); HEMOGLOBIN 13.6 g/dL (12.0-16.0); LYMPHOCYTES # (AUTO) 3.9 X10^3/uL (1.3-2.9); LYMPHOCYTES % (AUTO) 35.8 % (21.0-51.0); MEAN CORPUSCULAR HEMOGLOBIN 30.6 pg (27.0-34.0); MEAN PLATELET VOLUME 8.4 fL (7.4-11.0); MONOCYTES # (AUTO) 0.7 x10^3/uL (0.3-0.8); MONOCYTES % (AUTO) 6.1 % (0.0-13.0); NEUTROPHILS # (AUTO) 5.6 x10^3/uL (2.2-4.8); PLATELET COUNT 282 X10^3/uL (150.0-450.0); RED BLOOD COUNT 4.43 X10^6/uL (3.5-5.4); RED CELL DISTRIBUTION WIDTH 13.3 % (11.6-16.5); WHITE BLOOD COUNT 10.8 X10^3/uL (3.6-10.0)
[2019-10-12 05:22] LABS: ALANINE AMINOTRANSFERASE 31 Units/L (12-78); ALBUMIN 3.5 g/dL (3.4-5.0); ALKALINE PHOSPHATASE 109 Units/L (46-116); ASPARTATE AMINO TRANSFERASE 32 Units/L (15-37); BLOOD UREA NITROGEN 18 mg/dL (7-18); CALCIUM 8.7 mg/dL (8.5-10.1); CARBON DIOXIDE 30.4 mmol/L (21-32); CHLORIDE 97 mmol/L (98-107); COR NA(FOR HYPERGLY) 142 mmol/L (136-145); CREATININE 1.08 mg/dL (0.55-1.02); MAGNESIUM 2.7 mg/dL (1.7-2.9); SODIUM 137 mmol/L (136-145); TOTAL PROTEIN 7.4 g/dL (6.4-8.2); eGFR NON BLACK RACES 55 (>60)
[2019-10-12] MEDS: KEPPRA ORAL SOLN PO SCH (06:28)
[2019-10-12] MEDS: HumuLIN R SUBCUT PRN ×2 (06:29→12:02)
[2019-10-12] MEDS: NORCO 7.5/325 MG TAB PO PRN ×2 (06:30→14:28)
[2019-10-12] MEDS ORDERED: PLAVIX PO SCH (09:00)
[2019-10-12] MEDS ORDERED: LANTUS SC ONE (09:08)
[2019-10-12] MEDS: NEURONTIN CAP 400 MG PO SCH (09:29)
[2019-10-12] MEDS: PROTONIX INJ 40 MG VIAL IVP SCH (09:30)
[2019-10-12] MEDS: ROCEPHIN VIAL 1 GRAM 1 G in NS 100 ML IV + SPIKE MINIBAG* 100 ML IV SCH (09:31)
[2019-10-12] MEDS: NS 1000 ML 1,000 ML IV SCH (09:34)
[2019-10-12] MEDS ORDERED: COLACE CAP 100 MG PO SCH (11:16)
[2019-10-12] MEDS ORDERED: DULCOLAX SUPPOSITORY 10 MG RECTAL ONE (11:19)
[2019-10-12 15:04] VITALS: BP 119/60
[2019-10-12] MEDS ORDERED: SNACK - Diabetic Appropriate PO SCH (20:00)
[2019-10-12] MEDS ORDERED: KEPPRA TAB 500 MG PO SCH (21:00)
[2019-10-12] MEDS ORDERED: MILK OF MAGNESIA PO SCH (21:00)
--- NOTE | 2019-10-13 18:30 | DR.CARTERS ---
Short Stay Summary - Short Stay Summary for: Short Stay Summary for Date of:: 10/12/19 - Admission Date Date of Admission: 10/11/19 - Discharge Date Discharge Date: 10/12/19 - Admission Diagnoses (1) Hyperglycemia Status: Acute (2) Constipation Status: Acute (3) Dehydration, mild Status: Acute (4) COPD (chronic obstructive pulmonary disease) Status: Chronic (5) Diabetes Status: Chronic (6) GERD (gastroesophageal reflux disease) Status: Chronic (7) HTN (hypertension) Status: Chronic - Hospital Course Hospital Course: PT 59 WF DIRECT ADMIT FROM DR GALAN KALEN OFFICE AFTER PT PRESENTED WITH CO ABDOMINAL DISTENTION AND FLUID RETENTION, ELEVATED BLOOD SUGAR. PT BS IN OFFICE >300, PT REPORTS SHE WAS FASTING. PT HAD NOT BEEN TAKING HER BASAL INSULIN DAILY. PT HAD UTI +ECOLI AND COMPLETED ORAL ANTIBIOTICS BUT SHE WAS CONCERNED ABOUT HER "KIDNEY INFECTION" BECAUSE SHE HAD DECREASE URINE OUTPT AND SWELLING. PT WAS ADMITTED FOR TREATMENT OF ACUTE ILLNESS. PT HAD ABD XRAY REVEALING CONSTIPATION WHICH SHE WAS TREATED FOR. PT HAD BM AND IMPROVED ABDOMINAL DISTENTIONS. PT UA WAS NEGATIVE FOR ACUTE INFECTION. PT WAS TREATED WITH IV ROCEPHIN FOR UTI PRIOR TO FINAL RESULTS. PT GIVEN SSI AND RESUMED LANTUS. PT CONDITION WAS IMPROVED AND STABLE FOR D/C. PT HAS HX OF NON COMPLIANCE. PT ENCOURAGED TO TAKE MEDICATION DIRECTED AND KEEP BP AND BS DIARY. F/U DR TUBBS IN ONE WEEK. SEE D/C PLAN FOR DC MEDICATIONS AND EMR FOR LABS. - Discharge Medications Discharge Medications: Home Medication List Lantus Solostar U-100 Insulin 25 unit SUBCUT DAILY #0 ml 10/12/19 [Rx] atorvastatin 80 mg PO HS 10/12/19 [History] chlorthalidone 25 mg PO DAILY 10/12/19 [History] clonazepam 0.5 mg PO HS PRN 10/12/19 [History] clonidine HCl 0.1 mg PO DAILY 10/12/19 [History] furosemide 20 mg PO DAILY 10/12/19 [History] levocetirizine 5 mg PO DAILY 10/12/19 [History] meloxicam 7.5 mg PO DAILY 10/12/19 [History] metformin 1,000 mg PO BID 10/12/19 [History] potassium chloride 10 meq PO DAILY 10/12/19 [History] rivastigmine tartrate 6 mg PO BID 10/12/19 [History] tizanidine 4 mg PO BID PRN 10/12/19 [History] Prescriptions: Risks, benefits, and alternatives of opioids discussed: Yes Prescription drug monitoring program results: PDMP reviewed and no concerns identified - Discharge Plan Disposition: 01 HOME, SELF-CARE Condition: Stable - Follow up/Referrals Follow up/Referrals: BEA TUBBS [Primary Care Provider] - 10/20/19 10:45 am - Instructions Instructions: Dehydration, Adult, [id number], Hyperglycemia, [id number], Type 2 Diabetes Mellitus, Self Care, Adult, [id number], Constipation, Adult, [id number], Steps to Quit Smoking, Fever, Adult, [id number] Forms: Excuse From Work or School, Patient Portal
== END 2019-10-12 14:35 | disposition home or self-care (01) ==
LOC: MED/SURG
PROVIDERS: ADMIT Internal Medicine; ATTEND Internal Medicine
CPT/HCPCS: 36415; 74000; 74018; 80053; 81001; 83735; 85025; 94760; 96360; 96361; 96372; A4222; C9113; G0378; J0696; J1815; J3475; J7030; J7050

== ENCOUNTER 2019-12-19 20:38 | Inpatient (IN) ==
[2019-12-19 21:03] VITALS: BMI 30.2
--- NOTE | 2019-12-19 21:14 | DR.GENAD ---
HPI Time Seen Time Seen by Provider: 12/19/19 21:11 PCP Primary Care Physician: yves HPI Comment HPI Comment: PATIENT IS IN ER VIA EMS FOR AMS AND ELEVATED BLOOD PRESSURE. PATIENT HAVE HISTORY OF DIABETES AND GLUSOSE IS ELEVATED. SHE IS RUNNING LOW GRADE TEMP. IN ER. SHE IS RESPONDING TO DEEP PAINFUL STIMULI. SHE HAS HISTORY OF PREVIOUS CVA AND SEIZURE DISORDER. Complaint/Symptoms Chief Complaint Doctors Comments: AMS PER FAMILY. HERE VIA EMS. Chief Complaint:: EMS STATED THAT ON ARRIVAL FAMILY STATED PT WAS ALTERED BUT BREATHING. THEY CHECKED HER BS IT WAS 427. WHEN EMS ARRIVED THEY STATED BS CHECKED IT WAS 534 AND B/P WAS 221/97. PT VERY DROWSY BUT WILL AWAKE TO STIMULATION. Self Treatment fo Chief Complaint: EMS STATED FAMILY GAVE 25 UNITS OF INSULIN BUT UNKNOWN OF THE TYPE OF INSULIN. 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.) Mode of Arrival Mode of Arrival: EMS Timing Onset of Chief Complaint: 12/19/19 Came on: Suddenly Duration Duration: Constant Duration: Hours Severity Severity: Severe PMH PMH Past Medical History: Yes Past Medical History: CHF, COPD, CVA, Diabetes, Hypertension and Seizures Past Surgical History: Yes Surgical History: REPLACER Surgery and Hysterectomy Family History History of Family Medical Conditions: Yes Family Medical History: Diabetes Mellitus, Cancer, Heart Failure and Hypertension Social History Do you use any recreational Drugs:: No infectious screening In the last 2 months have you had wt loss of >10#?: NO Have you had fever, night sweats or hemotysis?: No Have you traveled outside the country in the last 6 months?: No Isolation: Standard ROS Review of Systems Constitutional: No Symptoms Reported, See HPI, Fever, Weakness and Fatigue Eyes: No Symptoms Reported and See HPI ENTM: No Symptoms Reported and See HPI Respiratoy: No Symptoms Reported, See HPI, Non-Productive Cough and Short of Breath; negative Wheezing Cardiovascular: No Symptoms Reported and See HPI Gastrointestinal/Abdominal: No Symptoms Reported and See HPI; negative Abdominal Pain, Diarrhea and Vomiting Genitourinary: Other (RASH IN GENETAL AREA.); negative See HPI, Dysuria and Frequency Neurological: No Symptoms Reported, See HPI, Weakness and Dizziness Musculoskeletal: See HPI, Back Pain and Muscle Pain Integumentary: No Symptoms Reported and See HPI; negative Lumps Hematologic/Lymphatic: No Symptoms Reported and See HPI Endocrine: No Symptoms Reported and See HPI Psychiatric: No Symptoms Reported, See HPI and Other (HISTORY PROVIDED MOSTLY BY PATIENTS PIPE ROLLER. PATIENT SLEEPY NOT ANSWERING QUESTIONS.) All Other Systems: Reviewed and Negative PE Vital Signs Vitals: Temperature 99.5 F Pulse Rate [Left Radial] 105 Pulse Rate 90 Respiratory Rate 20 Blood Pressure [Left Arm] 105/88 Blood Pressure 159/67 O2 Sat by Pulse Oximetry 93 General Limitations: Altered Mental Status and Other (PATIENT RESPOND TO DEEP STIMULI.) General Appearance: Obtunded and Other (SLEEPY, RESPOND TO PAINF) Head Head Exam: Atraumatic Eyes Eye exam: Normal Appearance, PERRL and Other; negative Scleral Icterus, C onjunctival Injection and Periorbital Tenderness ENT ENT Exam: Normal Oropharynx, Normal External Ear Exam and TM's Normal Bilaterally External Ear Exam: Normal External Inspection; negative Mastoid Tenderness TM/Canal Exam: Bilateral: Normal Nose Exam: negative Sinus Tenderness Mouth Exam: negative Trismus and Lip Swelling Throat Exam: Normal Inspection, Tonsillar Erythema and Tonsillomegaly MDM Additional Information Additional Information Obtained From: Family Differential Diagnosis Differential Diagnosis: AMS, HI, PNEUMONIA, UTI, DKA, TIA, DKA COURSE Treatment Treatment: SEE ORDERS. NS 1L IV BOLUS. Consultation Consultation Comments: DISCUSSED PATIENT WITH DR. TUBBS. HE WILL ADMIT PATIENT. Education/Counseling Education/Counseling: Family Educated On: Diagnosis ROR Labs Reviewed Laboratory Results Reviewed?: Yes Result Diagrams: 12/20/19 06:00 12/20/19 06:00 Laboratory: WBC 14.7 X10^3/uL (3.6-10.0) H 12/20/19 06:00 RBC 4.04 X10^6/uL (3.5-5.4) 12/20/19 06:00 Hgb 12.4 g/dL (12.0-16.0) 12/20/19 06:00 Hct 36.7 % (36.0-47.0) 12/20/19 06:00 MCV 91.0 fL (80.0-100.0) 12/20/19 06:00 MCH 30.7 pg (27.0-34.0) 12/20/19 06:00 MCHC 33.8 g/dL (33.0-35.0) 12/20/19 06:00 RDW 14.2 % (11.6-16.5) 12/20/19 06:00 Plt Count 257 X10^3/uL (150.0-450.0) 12/20/19 06:00 MPV 8.1 fL (7.4-11.0) 12/20/19 06:00 Neut % (Auto) 78.5 % (42.0-75.0) H 12/20/19 06:00 Lymph % (Auto) 13.2 % (21.0-51.0) L 12/20/19 06:00 [place] % (Auto) 5.4 % (0.0-13.0) 12/20/19 06:00 Eos % (Auto) 2.0 % (0.9-2.9) 12/20/19 06:00 Baso % (Auto) 0.9 % (0.2-1.0) 12/20/19 06:00 Neut # (Auto) 11.6 x10^3/uL (2.2-4.8) H 12/20/19 06:00 Lymph # (Auto) 1.9 X10^3/uL (1.3-2.9) 12/20/19 06:00 [place] # (Auto) 0.8 x10^3/uL (0.3-0.8) 12/20/19 06:00 Eos # (Auto) 0.3 x10^3/uL (0.0-0.2) H 12/20/19 06:00 Baso # (Auto) 0.1 X10^3/uL (0.0-0.1) 12/20/19 06:00 Absolute Nucleated RBC 0.0 /100WBC 12/20/19 06:00 Sodium 140 mmol/L (136-145) 12/20/19 06:00 Corrected Sodium 145 mmol/L (136-145) 12/20/19 06:00 Potassium 3.2 mmol/L (3.5-5.1) L 12/20/19 06:00 Chloride 99 mmol/L (98-107) 12/20/19 06:00 Carbon Dioxide 32.1 mmol/L (21-32) H 12/20/19 06:00 BUN 23 mg/dL (7-18) H 12/20/19 06:00 Creatinine 1.36 mg/dL (0.55-1.02) H 12/20/19 06:00 Est GFR (MDRD) Af Amer 51 (>60) L 12/20/19 06:00 Est GFR (MDRD) Non-Af 42 (>60) L 12/20/19 06:00 Glucose 302 mg/dL (65-99) H 12/20/19 06:00 POC Glucose (mg/dL) 388 mg/dL (65-99) H 12/20/19 02:18 Calcium 9.5 mg/dL (8.5-10.1) 12/20/19 06:00 Corrected Calcium TNP 12/20/19 06:00 Total Bilirubin 0.30 mg/dL (0.2-1.0) 12/20/19 06:00 AST 28 Units/L (15-37) 12/20/19 06:00 ALT 36 Units/L (12-78) 12/20/19 06:00 Alkaline Phosphatase 127 Units/L (46-116) H 12/20/19 06:00 Creatine Kinase 121 Units/L (26-192) 12/20/19 06:00 CK-MB (CK-2) 1.2 ng/mL (0-4.0) 12/20/19 06:00 CK/CKMB % Calc 1.0 % (<4) 12/20/19 06:00 Troponin I < 0.02 ng/mL (0-1.5) 12/20/19 06:00 Total Protein 8.0 g/dL (6.4-8.2) 12/20/19 06:00 Albumin 3.7 g/dL (3.4-5.0) 12/20/19 06:00 Globulin 4.3 g/dL (2.5-4.5) 12/20/19 06:00 Albumin/Globulin Ratio 0.9 Ratio (1.1-2.1) L 12/20/19 06:00 Specimen Type Catherized urine 12/19/19 22:36 Urine Color Pale yellow (YELLOW) 12/19/19 22:36 Urine Appearance Clear (CLEAR) 12/19/19 22:36 Urine pH 6.5 (5.0 - 8.0) 12/19/19 22:36 Ur Specific [place] 1.010 (1.000-1.030) 12/19/19 22:36 Urine Protein Negative (NEGATIVE) 12/19/19 22:36 Urine Glucose (UA) 4+ (NEGATIVE) 12/19/19 22:36 Urine Ketones Negative (NEGATIVE) 12/19/19 22:36 Urine Occult Blood Negative (NEGATIVE) 12/19/19 22:36 Urine Nitrite Negative (NEGATIVE) 12/19/19 22:36 Urine Bilirubin Negative (NEGATIVE) 12/19/19 22:36 Urine Urobilinogen Normal (NORMAL) 12/19/19 22:36 Ur Leukocyte Esterase Negative (NEGATIVE) 12/19/19 22:36 Urine RBC None seen /HPF (0-3) 12/19/19 22:36 Urine WBC None seen /HPF (0-5) 12/19/19 22:36 Ur Squamous Epith Cells Rare /HPF (NEGATIVE) 12/19/19 22:36 Amorphous Sediment Trace /HPF (NEGATIVE) 12/19/19 22:36 Urine Bacteria Negative /HPF (NEGATIVE) 12/19/19 22:36 Ur Culture Indicated? No/not indicated 12/19/19 22:36 Urine Opiates Screen Negative (NEG=<300) 12/19/19 22:36 Urine Methadone Screen Negative (NEG=<300) 12/19/19 22:36 Ur Barbiturates Screen Negative (NEG=<200) 12/19/19 22:36 Ur Phencyclidine Scrn Negative (NEG=<25) 12/19/19 22:36 Ur Amphetamines Screen Negative (NEG=<1000) 12/19/19 22:36 U Benzodiazepines Scrn Positive (NEG=<200) A 12/19/19 22:36 Urine Cocaine Screen Negative (NEG=<300) 12/19/19 22:36 U Marijuana (THC) Screen Negative (NEG=<50) 12/19/19 22:36 Acetone, Semi-Quant Negative (NEGATIVE) 12/19/19 22:08 Influenza Type A (PCR) Negative (NEGATIVE) 12/20/19 08:19 Influenza Type B (PCR) Negative (NEGATIVE) 12/20/19 08:19 XRAY XRAY Interpreted by: Radiologist and Self XRAY Findings: REPORT NOTED AND DISCUSSED WITH FAMILY. EKG Rate: 84 [place]: Normal Rhythm: NSR Block: None Hypertrophy: None ST: Normal Opioid Opioid Risk Tool Age (Ryan box if 16-45): No History of Preadolescent Sexual Abuse: No Total: 0 Total Score Risk Category: Low Risk Copyright: Bull STEVENS predicting aberrant behaviors Diagnosis Discharge Problem: Acute hyperglycemia AMS (altered mental status) Qualifiers: Altered mental status type: transient alteration of awareness Qualified Code(s): R40.4 - Transient alteration of awareness Instructions Forms: Excuse From Work Patient Portal
[2019-12-19] MEDS ORDERED: NS 1000 ML 1,000 ML ONE (21:27)
[2019-12-19] MEDS ORDERED: NS 1000 ML 1,000 ML IV SCH (22:00)
[2019-12-19 22:05] LABS: CREATININE 1.78 mg/dL (0.55-1.02); eGFR NON BLACK RACES 31 (>60)
[2019-12-19 22:09] LABS: CKMB % 1.3 % (<4)
[2019-12-19 22:14] LABS: BASOPHILS # (AUTO) 0.1 X10^3/uL (0.0-0.1); BASOPHILS % (AUTO) 0.9 % (0.2-1.0); EOSINOPHILS # (AUTO) 0.4 x10^3/uL (0.0-0.2); HEMATOCRIT 36.4 % (36.0-47.0); HEMOGLOBIN 12.5 g/dL (12.0-16.0); LYMPHOCYTES # (AUTO) 2.4 X10^3/uL (1.3-2.9); LYMPHOCYTES % (AUTO) 23.8 % (21.0-51.0); MEAN CORPUSCULAR HEMOGLOBIN 31.3 pg (27.0-34.0); MEAN CORPUSCULAR HGB CONC 34.3 g/dL (33.0-35.0); MEAN CORPUSCULAR VOLUME 91.1 fL (80.0-100.0); MEAN PLATELET VOLUME 8.1 fL (7.4-11.0); MONOCYTES # (AUTO) 0.4 x10^3/uL (0.3-0.8); MONOCYTES % (AUTO) 4.2 % (0.0-13.0); NEUTROPHILS # (AUTO) 6.6 x10^3/uL (2.2-4.8); NEUTROPHILS % (AUTO) 67.1 % (42.0-75.0); PLATELET COUNT 252 X10^3/uL (150.0-450.0); RED BLOOD COUNT 3.99 X10^6/uL (3.5-5.4); RED CELL DISTRIBUTION WIDTH 14.4 % (11.6-16.5); WHITE BLOOD COUNT 9.9 X10^3/uL (3.6-10.0)
[2019-12-19 22:33] LABS: ALANINE AMINOTRANSFERASE 34 Units/L (12-78); ALBUMIN 3.7 g/dL (3.4-5.0); ALKALINE PHOSPHATASE 124 Units/L (46-116); ASPARTATE AMINO TRANSFERASE 26 Units/L (15-37); BLOOD UREA NITROGEN 28 mg/dL (7-18); CALCIUM 9.3 mg/dL (8.5-10.1); CARBON DIOXIDE 32.8 mmol/L (21-32); CHLORIDE 90 mmol/L (98-107); COR NA(FOR HYPERGLY) 142 mmol/L (136-145); CREATINE KINASE 142 Units/L (26-192); CREATINE KINASE MB 1.8 ng/mL (0-4.0); SODIUM 132 mmol/L (136-145); TOTAL PROTEIN 7.7 g/dL (6.4-8.2); TROPONIN I < 0.02 ng/mL (0-1.5)
[2019-12-19 22:48] LABS: BILIRUBIN,URINE NEGATIVE (NEGATIVE); BLOOD/HEMOGLOBIN,URINE NEGATIVE (NEGATIVE); GLUCOSE, URINE 4+ (NEGATIVE); KETONES,URINE NEGATIVE (NEGATIVE); LEUKOCYTE ESTERASE ,URINE NEGATIVE (NEGATIVE); NITRITES,URINE NEGATIVE (NEGATIVE); PH,URINE 6.5 (5.0 - 8.0); PROTEIN,URINE NEGATIVE (NEGATIVE); UROBILINOGEN,URINE NORMAL (NORMAL)
--- NOTE | 2019-12-19 22:49 | CT ---
STUDY: CT HEAD WITHOUT IV CONTRASTCOMPARISON: OCTOBER 23, 2019TECHNIQUE: axial images were acquired of the head without IV contrast. Coronal and sagittal images were provided. All images were reviewed in a variety of windows and levels.RADIATION REDUCTION TECHNIQUE: Automated exposure control, Adjustment of the mA and/or kV according to patient size, or iterative reconstruction techniques were used.HISTORY: AMS confusionFINDINGS:There is diffuse cerebral atrophy with a regional distribution of low attenuation along the periventricular white matter most likely representing small vessel ischemic changes which are to a degree that would be considered within normal limits for the patient's stated age.There is no evidence of an acute intracranial bleed. Scattered areas of encephalomalacia are seen in the right parietal lobe, posterior parietal occipital region, and left posterior occipital region. This is most likely from prior infarction and is unchanged from the prior study.There is no evidence of a mass or midline shift.There is no evidence of an extra-axial fluid collection.The galan-white matter differentiation is within normal limits.The visualized bones are unremarkable.The visualized sinuses demonstrates an air-fluid level in the right maxillary sinus with mucosal thickening of the right sphenoid sinus which may represent infectious or inflammatory sinus disease.The mastoid air cells are well-aerated.IMPRESSION:1. INVOLUTIONAL CHANGES ARE PRESENT WITH FINDINGS SUGGESTING SMALL VESSEL ISCHEMIC DISEASE WITCH IS TO A DEGREE THAT WOULD BE CONSIDERED WITHIN NORMAL LIMITS FOR THE PATIENT'S STATED AGE.2. THERE IS NO EVIDENCE OF ACUTE INTRACRANIAL BLEED.Electronically signed by: Thuan Lester (Dec 19, 2019 22:48:07)
[2019-12-19 22:51] LABS: APPEARANCE,URINE CLEAR (CLEAR); COLOR,URINE PALE YELLOW (YELLOW)
[2019-12-19 22:52] LABS: AMORPHOUS SEDIMENT,UR TRACE /HPF (NEGATIVE); BACTERIA,URINE NEGATIVE /HPF (NEGATIVE); RBC,URINE NONE SEEN /HPF (0-3); SQUAMOUS EPITHELIAL CELL,UR RARE /HPF (NEGATIVE)
[2019-12-20] MEDS ORDERED: TORADOL TAB PO ONE (00:12)
[2019-12-20] MEDS ORDERED: VIBRAMYCIN PO ONE (00:13)
[2019-12-20] MEDS: HumuLIN R SUBCUT PRN ×3 (00:45→06:56)
[2019-12-20] MEDS ORDERED: HumuLIN R ONE ×3 (00:50→06:54)
[2019-12-20] MEDS ORDERED: NS 1000 ML 1,000 ML ONE (01:23)
[2019-12-20] MEDS ORDERED: NS 1000 ML 1,000 ML IV SCH (02:00)
--- NOTE | 2019-12-20 04:47 | RAD ---
STUDY: CHEST, 1 VIEWCOMPARISON: October 23, 2019HISTORY: SOBFINDINGS:There is diffuse alveolar airspace disease throughout the right left lung. Heart size is enlarged but stable from prior study. No pleural effusion or pneumothorax is seen.IMPRESSION:Interval development of diffuse alveolar airspace disease throughout the right left lung suggesting pulmonary edema.Correlation with patient BNP levels may be helpful.Electronically signed by: Thuan Lester (Dec 20, 2019 04:46:03)
[2019-12-20 06:18] LABS: BASOPHILS # (AUTO) 0.1 X10^3/uL (0.0-0.1); BASOPHILS % (AUTO) 0.9 % (0.2-1.0); EOSINOPHILS # (AUTO) 0.3 x10^3/uL (0.0-0.2); HEMATOCRIT 36.7 % (36.0-47.0); HEMOGLOBIN 12.4 g/dL (12.0-16.0); LYMPHOCYTES # (AUTO) 1.9 X10^3/uL (1.3-2.9); LYMPHOCYTES % (AUTO) 13.2 % (21.0-51.0); MEAN CORPUSCULAR HEMOGLOBIN 30.7 pg (27.0-34.0); MEAN CORPUSCULAR HGB CONC 33.8 g/dL (33.0-35.0); MEAN PLATELET VOLUME 8.1 fL (7.4-11.0); MONOCYTES # (AUTO) 0.8 x10^3/uL (0.3-0.8); MONOCYTES % (AUTO) 5.4 % (0.0-13.0); NEUTROPHILS # (AUTO) 11.6 x10^3/uL (2.2-4.8); NEUTROPHILS % (AUTO) 78.5 % (42.0-75.0); PLATELET COUNT 257 X10^3/uL (150.0-450.0); RED BLOOD COUNT 4.04 X10^6/uL (3.5-5.4); RED CELL DISTRIBUTION WIDTH 14.2 % (11.6-16.5); WHITE BLOOD COUNT 14.7 X10^3/uL (3.6-10.0)
[2019-12-20 06:40] LABS: BLOOD UREA NITROGEN 23 mg/dL (7-18); CALCIUM 9.5 mg/dL (8.5-10.1); CARBON DIOXIDE 32.1 mmol/L (21-32); CHLORIDE 99 mmol/L (98-107); COR NA(FOR HYPERGLY) 145 mmol/L (136-145); CREATININE 1.36 mg/dL (0.55-1.02); SODIUM 140 mmol/L (136-145); TROPONIN I < 0.02 ng/mL (0-1.5); eGFR NON BLACK RACES 42 (>60)
[2019-12-20 06:43] LABS: ALANINE AMINOTRANSFERASE 36 Units/L (12-78); ALBUMIN 3.7 g/dL (3.4-5.0); ALKALINE PHOSPHATASE 127 Units/L (46-116); ASPARTATE AMINO TRANSFERASE 28 Units/L (15-37); CREATINE KINASE 121 Units/L (26-192); CREATINE KINASE MB 1.2 ng/mL (0-4.0)
[2019-12-20] MEDS ORDERED: TORADOL 30 MG VIAL IVP ONE (07:46)
[2019-12-20] MEDS ORDERED: ATIVAN INJ 2 MG VIAL IVP ONE ×2 (07:50→18:01)
[2019-12-20] MEDS ORDERED: ATIVAN INJ 2 MG VIAL ONE ×2 (07:54→18:02)
[2019-12-20] MEDS ORDERED: CATAPRES TAB 0.2 MG ONE (07:54)
[2019-12-20] MEDS ORDERED: TORADOL 30 MG VIAL ONE (07:54)
[2019-12-20] MEDS: CATAPRES TAB 0.2 MG PO ONE ×2 (08:02→08:04)
[2019-12-20] MEDS ORDERED: RIVASTIGMINE TARTRATE 6 MG PO SCH (15:06)
[2019-12-20] MEDS ORDERED: ZANAFLEX PO PRN (15:06)
[2019-12-20] MEDS ORDERED: VITAMIN B-12 INJ IM SCH (15:06)
[2019-12-20] MEDS ORDERED: GLUCOPHAGE PO SCH (15:06)
[2019-12-20] MEDS ORDERED: COZAAR PO SCH (15:06)
[2019-12-20] MEDS: NS 1000 ML 1,000 ML IV SCH (15:54)
[2019-12-20] MEDS: ROCEPHIN VIAL 1 GRAM 1 G in NS 100 ML IV + SPIKE MINIBAG* 100 ML IV SCH (15:54)
[2019-12-20 16:10] LABS: CKMB % 0.2 % (<4); CREATINE KINASE 754 Units/L (26-192); CREATINE KINASE MB 1.4 ng/mL (0-4.0); TROPONIN I < 0.02 ng/mL (0-1.5)
[2019-12-20] MEDS: MICRO K EXTEN CAP 10 MEQ PO SCH (16:10)
[2019-12-20] MEDS: COZAAR PO SCH (17:14)
[2019-12-20] MEDS: PLAVIX PO SCH (17:15)
[2019-12-20] MEDS: GLUCOPHAGE PO SCH (17:15)
[2019-12-20] MEDS: MOBIC TAB 15 MG PO SCH (17:15)
[2019-12-20] MEDS: NEURONTIN CAP 300 MG PO SCH ×2 (17:15→21:12)
--- NOTE | 2019-12-20 18:17 | DR.H&P ---
H&P - History & Physical for Day of: H&P Date: 12/20/19 - Chief Complaint Chief Complaint: AMS, FEVER - History of Present Illness History of Present Illness: PT IS 59 WF WITH PMH OF DM, CVA, SEIZURES DISORDER FOLLOWING CVA, HTN, OA. PT HAD FEVER ON ADMISSION, INFLUENZA -IN ER. PT CMP IN ER REVEALED HYPONATREMIA, DEHYDRATION. PT ADMITTED FOR TREATMENT OF ACUTE ILLNESS. - Past Medical History Past Medical History: Hypertension, Diabetes, CVA, Seizures, COPD, CHF - Past Surgical History Surgical History: Hysterectomy - Family History Family Medical History: Diabetes Mellitus, Cancer, Heart Failure, Hypertension - Social History Does patient currently use any type of tobacco product: Yes Have you used tobacco products in the last 12 months: Yes Type of Tobacco Use: Cigarettes Alcohol Use: None Drug Use: Prescription Drugs - Medications Home Medications: No Known Allergies Allergy (Verified 10/23/19 21:58) CONTINUE taking the following medications amitriptyline 25 mg PO QHS 12/19/19 [History] citalopram 20 mg PO HS 12/19/19 [History] - Review of Systems Constitutional: Fever, Weakness, Malaise Eyes: No Symptoms Reported ENT: Nose Congestion Respiratory: Cough Cardiovascular: No Symptoms Reported Gastrointestinal: Nausea Genitourinary: No Symptoms Reported Musculoskeletal: Back Pain Skin: No Symptoms Reported Neurological: Weakness, Confusion (REPORTED PER FAMILY) - Physical Exam Vital Signs: Temperature 98.2 F Pulse Rate [Left Radial] 102 Pulse Rate 86 Respiratory Rate 14 Blood Pressure [Left Arm] 158/72 Blood Pressure 121/63 O2 Sat by Pulse Oximetry 96 Oriented: Person Eyes: Normal Ear: Normal Nose: Discharge Throat: Dry Respiratory: RLL Diminished, LLL Diminished Cardiovascular: Normal : Normal Auscultation: Bowel Sounds: Normal Tenderness: Normal Skin: Decreased [place] Musculoskeletal: Back:Thoracic, Back:Lumbar Psychiatric: Anxiety Affect: Anxious - Assessment/Plan (1) AMS (altered mental status) Qualifiers: Altered mental status type: transient alteration of awareness Qualified Code(s): R40.4 - Transient alteration of awareness Status: Acute Plan: ADMIT, FLU SWAB ON ADMISSION. BLOOD AND URINE CULTURES. IV HYDRATION, BS CONTROL. BP CONTROL, VERIFY HOME MEDICATIONS, SUPPLEMENTAL O2. 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
[2019-12-20] MEDS ORDERED: KLOR-CON PO PRN (19:27)
[2019-12-20] MEDS ORDERED: POTASSIUM CHLORIDE LIQ 20 MEQ UDC PO PRN (19:27)
[2019-12-20] MEDS ORDERED: K-RIDER 10 MEQ/NS 100 ML 10 MEQ/100 ML BAG IV PRN (19:27)
[2019-12-20] MEDS ORDERED: POTASSIUM CHL 60 MEQ/NS 0.45% 500 ML IV PRN (19:27)
[2019-12-20] MEDS ORDERED: POTASSIUM CHL 40 MEQ/NS 0.45% 500 ML IV PRN (19:27)
[2019-12-20] MEDS ORDERED: MICRO K EXTEN CAP 10 MEQ PO PRN (19:27)
[2019-12-20] MEDS: SNACK - Diabetic Appropriate PO SCH (20:00)
[2019-12-20] MEDS ORDERED: PATIENT'S HOME MEDICATION (Levocetirizine 5 MG) PO SCH (21:00)
[2019-12-20] MEDS: KLONOPIN TAB 0.5 MG PO PRN (21:12)
[2019-12-20] MEDS: K-DUR TAB 20 MEQ PO PRN (21:41)
[2019-12-20 22:32] LABS: CKMB % 0.2 % (<4); CREATINE KINASE 794 Units/L (26-192); CREATINE KINASE MB 1.5 ng/mL (0-4.0); TROPONIN I < 0.02 ng/mL (0-1.5)
[2019-12-21] MEDS: NS 1000 ML 1,000 ML IV SCH (04:23)
[2019-12-21 05:44] LABS: BASOPHILS # (AUTO) 0.1 X10^3/uL (0.0-0.1); BASOPHILS % (AUTO) 0.5 % (0.2-1.0); EOSINOPHILS # (AUTO) 0.4 x10^3/uL (0.0-0.2); EOSINOPHILS % (AUTO) 3.6 % (0.9-2.9); HEMOGLOBIN 10.9 g/dL (12.0-16.0); LYMPHOCYTES # (AUTO) 2.8 X10^3/uL (1.3-2.9); LYMPHOCYTES % (AUTO) 23.3 % (21.0-51.0); MEAN CORPUSCULAR HEMOGLOBIN 31.2 pg (27.0-34.0); MEAN CORPUSCULAR VOLUME 91.8 fL (80.0-100.0); MEAN PLATELET VOLUME 8.7 fL (7.4-11.0); MONOCYTES # (AUTO) 0.7 x10^3/uL (0.3-0.8); MONOCYTES % (AUTO) 5.6 % (0.0-13.0); NEUTROPHILS # (AUTO) 8.2 x10^3/uL (2.2-4.8); PLATELET COUNT 230 X10^3/uL (150.0-450.0); RED BLOOD COUNT 3.48 X10^6/uL (3.5-5.4); RED CELL DISTRIBUTION WIDTH 14.4 % (11.6-16.5); WHITE BLOOD COUNT 12.2 X10^3/uL (3.6-10.0)
[2019-12-21 05:52] LABS: ALANINE AMINOTRANSFERASE 29 Units/L (12-78); ALBUMIN 2.9 g/dL (3.4-5.0); ALKALINE PHOSPHATASE 96 Units/L (46-116); ASPARTATE AMINO TRANSFERASE 34 Units/L (15-37); BLOOD UREA NITROGEN 14 mg/dL (7-18); CALCIUM 8.9 mg/dL (8.5-10.1); CARBON DIOXIDE 32.4 mmol/L (21-32); CHLORIDE 103 mmol/L (98-107); COR CA(FOR HYPOALB) 9.8 mg/dL (8.5-10.1); COR NA(FOR HYPERGLY) 143 mmol/L (136-145); CREATININE 0.91 mg/dL (0.55-1.02); MAGNESIUM 1.5 mg/dL (1.7-2.9); SODIUM 142 mmol/L (136-145); TOTAL PROTEIN 6.6 g/dL (6.4-8.2); eGFR NON BLACK RACES > 60 (>60)
[2019-12-21] MEDS ORDERED: GLUCOPHAGE ONE ×2 (06:05→16:52)
[2019-12-21] MEDS: NEURONTIN CAP 300 MG PO SCH ×3 (06:07→21:00)
[2019-12-21] MEDS: GLUCOPHAGE PO SCH ×2 (06:08→16:59)
[2019-12-21] MEDS: MAGNESIUM SULFATE 1 GRAM/100 mL PREMIX 1 GM/100 ML BAG IV PRN ×2 (06:31→13:58)
[2019-12-21] MEDS: K-DUR TAB 20 MEQ PO PRN (06:32)
[2019-12-21] MEDS: COZAAR PO SCH (09:02)
[2019-12-21] MEDS: MICRO K EXTEN CAP 10 MEQ PO SCH (09:03)
[2019-12-21] MEDS: MOBIC TAB 15 MG PO SCH (09:03)
[2019-12-21] MEDS: PLAVIX PO SCH (09:04)
[2019-12-21] MEDS: ROCEPHIN VIAL 1 GRAM 1 G in NS 100 ML IV + SPIKE MINIBAG* 100 ML IV SCH (09:05)
[2019-12-21] MEDS: HumuLIN R SUBCUT PRN ×3 (11:54→21:02)
[2019-12-21] MEDS: KLONOPIN TAB 0.5 MG PO PRN ×2 (12:28→21:00)
[2019-12-21] MEDS: TYLENOL 325 MG TAB PO PRN (12:29)
[2019-12-21] MEDS: NORCO 5/325 MG TAB PO PRN (14:14)
[2019-12-21] MEDS ORDERED: NS 1/2 1000 ML IV 1,000 ML IV ONE (18:25)
[2019-12-21] MEDS: NS 1/2 1000 ML IV 1,000 ML IV SCH (18:29)
[2019-12-21] MEDS: SNACK - Diabetic Appropriate PO SCH (21:00)
[2019-12-22] MEDS ORDERED: GLUCOPHAGE ONE ×2 (04:52→16:31)
[2019-12-22 05:39] LABS: BASOPHILS # (AUTO) 0.1 X10^3/uL (0.0-0.1); BASOPHILS % (AUTO) 0.9 % (0.2-1.0); EOSINOPHILS # (AUTO) 0.6 x10^3/uL (0.0-0.2); HEMATOCRIT 33.4 % (36.0-47.0); HEMOGLOBIN 11.3 g/dL (12.0-16.0); LYMPHOCYTES # (AUTO) 2.8 X10^3/uL (1.3-2.9); MEAN CORPUSCULAR HGB CONC 33.7 g/dL (33.0-35.0); MEAN CORPUSCULAR VOLUME 92.1 fL (80.0-100.0); MEAN PLATELET VOLUME 8.6 fL (7.4-11.0); MONOCYTES # (AUTO) 0.7 x10^3/uL (0.3-0.8); MONOCYTES % (AUTO) 7.5 % (0.0-13.0); NEUTROPHILS # (AUTO) 5.4 x10^3/uL (2.2-4.8); NEUTROPHILS % (AUTO) 56.6 % (42.0-75.0); PLATELET COUNT 241 X10^3/uL (150.0-450.0); RED BLOOD COUNT 3.63 X10^6/uL (3.5-5.4); RED CELL DISTRIBUTION WIDTH 14.2 % (11.6-16.5); WHITE BLOOD COUNT 9.5 X10^3/uL (3.6-10.0)
[2019-12-22 05:49] LABS: ALANINE AMINOTRANSFERASE 29 Units/L (12-78); ALBUMIN 2.9 g/dL (3.4-5.0); ALKALINE PHOSPHATASE 101 Units/L (46-116); ASPARTATE AMINO TRANSFERASE 29 Units/L (15-37); BLOOD UREA NITROGEN 12 mg/dL (7-18); CARBON DIOXIDE 29.7 mmol/L (21-32); CHLORIDE 100 mmol/L (98-107); COR CA(FOR HYPOALB) 9.9 mg/dL (8.5-10.1); COR NA(FOR HYPERGLY) 140 mmol/L (136-145); CREATINE KINASE 315 Units/L (26-192); CREATININE 0.98 mg/dL (0.55-1.02); MAGNESIUM 1.5 mg/dL (1.7-2.9); SODIUM 137 mmol/L (136-145); eGFR NON BLACK RACES > 60 (>60)
[2019-12-22] MEDS: NEURONTIN CAP 300 MG PO SCH ×3 (05:56→21:09)
[2019-12-22] MEDS: HumuLIN R SUBCUT PRN ×4 (05:59→20:51)
[2019-12-22] MEDS: GLUCOPHAGE PO SCH ×2 (05:59→16:35)
[2019-12-22] MEDS: MAGNESIUM SULFATE 1 GRAM/100 mL PREMIX 1 GM/100 ML BAG IV PRN ×2 (06:17→14:56)
--- NOTE | 2019-12-22 06:35 | RAD ---
HISTORYSOBSTUDYPortable AP chestCOMPARISONFebruary 2019FINDINGSThe heart is mildly enlarged. There is vascular congestion. There is no obvious effusion.IMPRESSIONMild cardiomegaly and vascular congestionElectronically signed by: JEFRY JAMA (Dec 22, 2019 06:34:15)
[2019-12-22] MEDS: COZAAR PO SCH (08:58)
[2019-12-22] MEDS: MICRO K EXTEN CAP 10 MEQ PO SCH (08:59)
[2019-12-22] MEDS: MOBIC TAB 15 MG PO SCH (09:00)
[2019-12-22] MEDS: PLAVIX PO SCH (09:01)
[2019-12-22] MEDS: ROCEPHIN VIAL 1 GRAM 1 G in NS 100 ML IV + SPIKE MINIBAG* 100 ML IV SCH (09:01)
[2019-12-22] MEDS: KLONOPIN TAB 0.5 MG PO PRN ×2 (11:35→20:52)
[2019-12-22] MEDS: ROBITUSSIN DM PO SCH ×3 (13:34→20:50)
[2019-12-22] MEDS ORDERED: NS 1/2 1000 ML IV 1,000 ML IV ONE (14:52)
[2019-12-22] MEDS: NS 1/2 1000 ML IV 1,000 ML IV SCH ×2 (14:55→21:03)
[2019-12-22] MEDS: NORCO 5/325 MG TAB PO PRN (19:26)
[2019-12-22] MEDS: SNACK - Diabetic Appropriate PO SCH (20:48)
[2019-12-22] MEDS: MILK OF MAGNESIA PO SCH (20:50)
[2019-12-22] MEDS ORDERED: COLACE CAP 100 MG PO SCH (21:00)
[2019-12-23] MEDS: TYLENOL 325 MG TAB PO PRN (04:01)
[2019-12-23] MEDS ORDERED: GLUCOPHAGE ONE (05:46)
[2019-12-23] MEDS: NEURONTIN CAP 300 MG PO SCH ×2 (06:10→13:48)
[2019-12-23] MEDS: GLUCOPHAGE PO SCH (06:11)
[2019-12-23 06:32] LABS: BASOPHILS # (AUTO) 0.1 X10^3/uL (0.0-0.1); EOSINOPHILS # (AUTO) 0.5 x10^3/uL (0.0-0.2); EOSINOPHILS % (AUTO) 6.1 % (0.9-2.9); HEMATOCRIT 35.1 % (36.0-47.0); HEMOGLOBIN 11.9 g/dL (12.0-16.0); LYMPHOCYTES # (AUTO) 2.8 X10^3/uL (1.3-2.9); LYMPHOCYTES % (AUTO) 32.5 % (21.0-51.0); MEAN CORPUSCULAR HEMOGLOBIN 30.8 pg (27.0-34.0); MEAN CORPUSCULAR VOLUME 90.6 fL (80.0-100.0); MEAN PLATELET VOLUME 8.4 fL (7.4-11.0); MONOCYTES # (AUTO) 0.5 x10^3/uL (0.3-0.8); MONOCYTES % (AUTO) 6.1 % (0.0-13.0); NEUTROPHILS # (AUTO) 4.7 x10^3/uL (2.2-4.8); NEUTROPHILS % (AUTO) 54.3 % (42.0-75.0); PLATELET COUNT 239 X10^3/uL (150.0-450.0); RED BLOOD COUNT 3.87 X10^6/uL (3.5-5.4); RED CELL DISTRIBUTION WIDTH 13.7 % (11.6-16.5); WHITE BLOOD COUNT 8.6 X10^3/uL (3.6-10.0)
[2019-12-23 06:46] LABS: ALANINE AMINOTRANSFERASE 34 Units/L (12-78); ALKALINE PHOSPHATASE 115 Units/L (46-116); ASPARTATE AMINO TRANSFERASE 38 Units/L (15-37); BLOOD UREA NITROGEN 14 mg/dL (7-18); CALCIUM 8.8 mg/dL (8.5-10.1); CARBON DIOXIDE 27.1 mmol/L (21-32); CHLORIDE 101 mmol/L (98-107); COR CA(FOR HYPOALB) 9.6 mg/dL (8.5-10.1); COR NA(FOR HYPERGLY) 139 mmol/L (136-145); SODIUM 137 mmol/L (136-145); TOTAL PROTEIN 7.2 g/dL (6.4-8.2); eGFR NON BLACK RACES > 60 (>60)
[2019-12-23] MEDS: MICRO K EXTEN CAP 10 MEQ PO SCH (08:59)
[2019-12-23] MEDS: ROCEPHIN VIAL 1 GRAM 1 G in NS 100 ML IV + SPIKE MINIBAG* 100 ML IV SCH (08:59)
[2019-12-23] MEDS: K-DUR TAB 20 MEQ PO PRN (08:59)
[2019-12-23] MEDS: ROBITUSSIN DM PO SCH ×2 (08:59→13:48)
[2019-12-23] MEDS: MILK OF MAGNESIA PO SCH (09:00)
[2019-12-23] MEDS: MOBIC TAB 15 MG PO SCH (09:00)
[2019-12-23] MEDS ORDERED: COZAAR PO SCH (09:00)
[2019-12-23] MEDS: PLAVIX PO SCH (09:02)
[2019-12-23] MEDS: NORCO 5/325 MG TAB PO PRN (09:48)
[2019-12-23] MEDS: KLONOPIN TAB 0.5 MG PO PRN (09:48)
[2019-12-23] MEDS: HumuLIN R SUBCUT PRN (10:53)
[2019-12-23] MEDS ORDERED: NORVASC TAB 5 MG PO SCH (13:00)
[2019-12-23 13:14] VITALS: BP 174/81
[2019-12-23] MEDS: NS 1/2 1000 ML IV 1,000 ML IV SCH (15:43)
== END 2019-12-23 15:45 | disposition home or self-care (01) | DRG 884 ==
LOC: ICU 20:38 → ER 20:38 → OBSVTOIN 12-20 08:43 → ICU 12-20 14:35 → MED/SURG 12-22 17:00
PROVIDERS: ADMIT Internal Medicine; ATTEND Internal Medicine
DX: E87.1 Hypo-osmolality and hyponatremia; Z79.899 Other long term (current) drug therapy; M62.82 Rhabdomyolysis; R40.4 Transient alteration of awareness; G40.802 Other epilepsy, not intractable, without status epilepticus; J44.9 Chronic obstructive pulmonary disease, unspecified; I11.9 Hypertensive heart disease without heart failure; R26.89 Other abnormalities of gait and mobility; I69.398 Other sequelae of cerebral infarction; E86.0 Dehydration; E10.65 Type 1 diabetes mellitus with hyperglycemia; J20.9 Acute bronchitis, unspecified
CPT/HCPCS: 36415; 51701; 70450; 71010; 71045; 80053; 80307; 81001; 82009; 82550; 82553; 83735; 84132; 84484; 85025; 87040; 87502; 93005; 96365; 96367; 96372; 96374; 96375; 97162; 99285; A4222; J0696; J1815; J1885; J2060; J3475; J3490; J7030; J7050

== ENCOUNTER 2022-01-04 17:44 | Observation (INO) ==
[2022-01-04 18:02] VITALS: BMI 23.1
--- NOTE | 2022-01-04 18:16 | DR.GENAD ---
HPI Time Seen Time Seen by Provider: 01/04/22 18:12 PCP Primary Care Physician: CARRIE Complaint/Symptoms Chief Complaint Doctors Comments: PATIENT ARRIVED BY EMS. STATED PATIENT COMPLAINED OF CHEST PAIN TODAY. SHE HAS DEMENTIA AND WAS DISCHARGED FROM [facility] IN [place] YESTERDAY AFTER TREATMENT FOR COVID PNEUMONIA. PATIENT DENIED CHEST PAIN UPON ARRIVAL TO ER. Chief Complaint:: PT ARRIVED TO ED VIA EMS AND IS ALERT TO PERSON ONLY. PER EMS STATES THAT PT GOT HOME FROM [facility] LAST NIGHT AFTER BEING TREATED FOR SEPSIS SECONDARY TO UTI AND COVID PNEUMONIA. PT IS AT HER BASELINE MENTAL STATUS BUT APPARENTLY HAD VAGUE C/O CHEST PAIN THIS AFTERNOON. UPON ARRIVAL PT DENIES C/O CHEST PAIN BUT STATES THAT SHE DID HAVE SOME NAUSEA BUT NO VOMITING EARLIER. DENIES NAUSEA NOW COVID-19 Coronavirus risk:travel/contact w/high risk person: No Has patient experienced Coronavirus symptoms: No Source History Provided: EMS Mode of Arrival Mode of Arrival: Ambulatory Timing Onset of Chief Complaint: 01/04/22 PMH PMH Past Medical History: Yes Past Medical History: Anxiety, CHF, COPD, CVA, Depression, Diabetes, Dyslipidemia, GERD, Hypertension, PUD, Renal Disease and Seizures Past Surgical History: Yes Surgical History: Hysterectomy Family History History of Family Medical Conditions: Yes Family Medical History: Diabetes Mellitus, Cancer, Heart Failure and Hypertension Social History Does patient currently use any type of tobacco product: Yes Have you used tobacco products in the last 12 months: Yes Type of Tobacco Use: Cigarettes Does any household member use tobacco: Yes Alcohol Use: None Do you use any recreational Drugs:: No Lives With: Family Lives Where: Home Travel Risk Coronavirus risk:travel/contact w/high risk person: No Has patient experienced Coronavirus symptoms: No Infectious screening In the last 2 months have you had wt loss of >10#?: NO Have you had fever, night sweats or hemotysis?: No Have you traveled outside the country in the last 6 months?: No Isolation: Standard ROS Review of Systems Constitutional: Other (CHEST PAIN) Eyes: No Symptoms Reported ENTM: No Symptoms Reported Respiratoy: No Symptoms Reported Cardiovascular: No Symptoms Reported Gastrointestinal/Abdominal: No Symptoms Reported Genitourinary: No Symptoms Reported Neurological: No Symptoms Reported Musculoskeletal: No Symptoms Reported Integumentary: No Symptoms Reported Hematologic/Lymphatic: No Symptoms Reported Endocrine: No Symptoms Reported Psychiatric: No Symptoms Reported All Other Systems: Reviewed and Negative PE Vital Signs Vitals: Temperature 98.9 F Pulse Rate 67 Respiratory Rate 19 Blood Pressure [Left Arm] 102/68 Blood Pressure [Right Arm] 130/66 Blood Pressure 123/61 O2 Sat by Pulse Oximetry 100 General Limitations: No Limitations General Appearance: Alert and In No Apparent Distress Head Head Exam: Normal Inspection Eyes Eye exam: Normal Appearance ENT ENT Exam: Normal Exam External Ear Exam: Normal External Inspection TM/Canal Exam: Bilateral: Normal Nose Exam: Normal Nose Exam Mouth Exam: Normal Inspection Throat Exam: Normal Inspection Neck Neck Exam: Normal Inspection Chest Chest Inspection: Normal Inspection Respiratory Respiratory Exam: Normal Lung Sounds Bilat Respiratory Exam: Bilateral: Clear to Auscultation Cardiovascular Cardiovascular Exam: Regular Rate and Normal Rhythm Abdominal Exam Abdominal Exam: Normal Inspection, Normal Bowel Sounds and Soft Extremities Extremities Exam: Normal Inspection Back Back Exam: Normal Inspection Neurologic Neurological Exam: Alert and Oriented X3 Psychiatric Psychiatric Exam: Normal Affect and Normal Mood Skin Skin Exam: Warm, Dry, Intact and Normal Color MDM Additional Information Findings: NO SYMPTOMS FOUND,DENIED CHEST PAIN Differential Diagnosis Differential Diagnosis: ANGINA,UTI,DEMENTIA COURSE Treatment Treatment: PATIENT REMAINED STABLE DURING ER EVLUATION. DENIED CHEST PAIN DURING EVALUATION. CARDIAC ENZYMES WERE ELEVATED BUT PATIENT HAD COVID PNEUMONIA AND WAS RELEASED FROM [facility] IN [place] YESTERDAY AFTER TREATMENT. SHE ALSO HAD CHEST PAIN WORKUP THER THAT WAS NEGATIVE AND WAS ALSO TRETED FOR UTI. I REPEATED THE CARDIAC ENZYMES AND THEY REMAINED AROUND THE SAME LEVEL. CALLED DR SAUER THE ON [facility] AND TOLD HER THE PATIENT'S STATUS AND SHE AGREED TO ACCEPT THE PATIENT TO OBSERVATION TO MONITOR THE CARDIAC ENZYMES AND CHEST R/O. ROR Labs Reviewed Laboratory Results Reviewed?: Yes (PATIENT'S SODIUM WAS ALITTLE LOW AND SHE WAS GIVEN A ONE LITER BOLUS OF NAC) Result Diagrams: 01/07/22 06:15 01/07/22 06:15 Laboratory: WBC 10.7 X10^3/uL (3.6-10.0) H 01/04/22 18:40 RBC 4.99 X10^6/uL (3.5-5.4) 01/04/22 18:40 Hgb 14.4 g/dL (12.0-16.0) 01/04/22 18:40 Hct 42.5 % (36.0-47.0) 01/04/22 18:40 MCV 85.2 fL (80.0-100.0) 01/04/22 18:40 MCH 28.9 pg (27.0-34.0) 01/04/22 18:40 MCHC 33.9 g/dL (33.0-35.0) 01/04/22 18:40 RDW 14.2 % (11.6-16.5) 01/04/22 18:40 Plt Count 344 X10^3/uL (150.0-450.0) 01/04/22 18:40 MPV 8.4 fL (7.4-11.0) 01/04/22 18:40 Neut % (Auto) 75.2 % (42.0-75.0) H 01/04/22 18:40 Lymph % (Auto) 19.2 % (21.0-51.0) L 01/04/22 18:40 [place] % (Auto) 5.2 % (0.0-13.0) 01/04/22 18:40 Eos % (Auto) 0.2 % (0.9-2.9) L 01/04/22 18:40 Baso % (Auto) 0.2 % (0.2-1.0) 01/04/22 18:40 Neut # (Auto) 8.0 x10^3/uL (2.2-4.8) H 01/04/22 18:40 Lymph # (Auto) 2.1 X10^3/uL (1.3-2.9) 01/04/22 18:40 [place] # (Auto) 0.6 x10^3/uL (0.3-0.8) 01/04/22 18:40 Eos # (Auto) 0.0 x10^3/uL (0.0-0.2) 01/04/22 18:40 Baso # (Auto) 0.0 X10^3/uL (0.0-0.1) 01/04/22 18:40 Absolute Nucleated RBC 0.0 /100WBC 01/04/22 18:40 Sodium 132 mmol/L (136-145) L 01/04/22 18:40 Corrected Sodium 137 mmol/L (136-145) 01/04/22 18:40 Potassium 5.2 mmol/L (3.5-5.1) H 01/04/22 18:40 Chloride 100 mmol/L (98-107) 01/04/22 18:40 Carbon Dioxide 20.5 mmol/L (21-32) L 01/04/22 18:40 BUN 28 mg/dL (7-18) H 01/04/22 18:40 Creatinine 0.85 mg/dL (0.55-1.02) 01/04/22 18:40 Est GFR (MDRD) Af Amer > 60 (>60) 01/04/22 18:40 Est GFR (MDRD) Non-Af > 60 (>60) 01/04/22 18:40 Glucose 315 mg/dL (65-99) H 01/04/22 18:40 Calcium 8.8 mg/dL (8.5-10.1) 01/04/22 18:40 Corrected Calcium 9.4 mg/dL (8.5-10.1) 01/04/22 18:40 Total Bilirubin 0.70 mg/dL (0.2-1.0) 01/04/22 18:40 AST 49 Units/L (15-37) H 01/04/22 18:40 ALT 46 Units/L (12-78) 01/04/22 18:40 Alkaline Phosphatase 46 Units/L (46-116) 01/04/22 18:40 Creatine Kinase 68 Units/L (26-192) 01/04/22 21:50 CK-MB (CK-2) 9.5 ng/mL (0-4.0) H* 01/04/22 21:50 CK/CKMB % Calc 14.0 % (<4) 01/04/22 21:50 Troponin I High Sens 117.6 ng/L (4.0-60.0) H* 01/04/22 21:50 Total Protein 7.0 g/dL (6.4-8.2) 01/04/22 18:40 Albumin 3.2 g/dL (3.4-5.0) L 01/04/22 18:40 Globulin 3.8 g/dL (2.5-4.5) 01/04/22 18:40 Albumin/Globulin Ratio 0.8 Ratio (1.1-2.1) L 01/04/22 18:40 Specimen Type Catherized urine 01/04/22 18:42 Urine Color Yellow (YELLOW) 01/04/22 18:42 Urine Appearance Hazy (CLEAR) 01/04/22 18:42 Urine pH 7.0 (5.0 - 8.0) 01/04/22 18:42 Ur Specific [place] 1.010 (1.000-1.030) 01/04/22 18:42 Urine Protein 1+ (NEGATIVE) 01/04/22 18:42 Urine Glucose (UA) 4+ (NEGATIVE) 01/04/22 18:42 Urine Ketones Negative (NEGATIVE) 01/04/22 18:42 Urine Occult Blood Negative (NEGATIVE) 01/04/22 18:42 Urine Nitrite Negative (NEGATIVE) 01/04/22 18:42 Urine Bilirubin Negative (NEGATIVE) 01/04/22 18:42 Urine Urobilinogen 1+ (NORMAL) 01/04/22 18:42 Ur Leukocyte Esterase Negative (NEGATIVE) 01/04/22 18:42 Urine RBC 0-2 /HPF (0-3) 01/04/22 18:42 Urine WBC 3-5 /HPF (0-5) 01/04/22 18:42 Ur Squamous Epith Cells Rare /HPF (NEGATIVE) 01/04/22 18:42 Amorphous Sediment 2+ /HPF (NEGATIVE) 01/04/22 18:42 Urine Bacteria Trace /HPF (NEGATIVE) 01/04/22 18:42 Ur Culture Indicated? No/not indicated 01/04/22 18:42 SARS CoV-2 RNA Rapid JAS[place]ET Negative (NEGATIVE) 01/04/22 18:42 XRAY XRAY Interpreted by: Radiologist (CHEST XRAY SHOWED NO INFILTRATE) EKG [place]: Normal Opioid Opioid Risk Tool Age (Ryan box if 16-45): No History of Preadolescent Sexual Abuse: No Total: 0 Total Score Risk Category: Low Risk Copyright: Bull STEVENS predicting aberrant behaviors Diagnosis Discharge Problem: Chest pain of uncertain etiology, Elevation of cardiac enzymes Instructions Instructions: Type 2 Diabetes Mellitus, Diagnosis, Adult Home Oxygen Use, Adult Steps to Quit Smoking, [id number] Chronic Obstructive Pulmonary Disease Exacerbation, [id number] Hypertension, Adult, [id number] Forms: Excuse From Work or School Precautions for COVID19 [facility] Patient Portal Social Distancing
[2022-01-04 18:45] LABS: BASOPHILS % (AUTO) 0.2 % (0.2-1.0); EOSINOPHILS % (AUTO) 0.2 % (0.9-2.9); HEMATOCRIT 42.5 % (36.0-47.0); HEMOGLOBIN 14.4 g/dL (12.0-16.0); LYMPHOCYTES # (AUTO) 2.1 X10^3/uL (1.3-2.9); LYMPHOCYTES % (AUTO) 19.2 % (21.0-51.0); MEAN CORPUSCULAR HEMOGLOBIN 28.9 pg (27.0-34.0); MEAN CORPUSCULAR HGB CONC 33.9 g/dL (33.0-35.0); MEAN CORPUSCULAR VOLUME 85.2 fL (80.0-100.0); MEAN PLATELET VOLUME 8.4 fL (7.4-11.0); MONOCYTES # (AUTO) 0.6 x10^3/uL (0.3-0.8); MONOCYTES % (AUTO) 5.2 % (0.0-13.0); NEUTROPHILS % (AUTO) 75.2 % (42.0-75.0); RED BLOOD COUNT 4.99 X10^6/uL (3.5-5.4); RED CELL DISTRIBUTION WIDTH 14.2 % (11.6-16.5); WHITE BLOOD COUNT 10.7 X10^3/uL (3.6-10.0)
[2022-01-04 19:03] LABS: BILIRUBIN,URINE NEGATIVE (NEGATIVE); BLOOD/HEMOGLOBIN,URINE NEGATIVE (NEGATIVE); GLUCOSE, URINE 4+ (NEGATIVE); KETONES,URINE NEGATIVE (NEGATIVE); LEUKOCYTE ESTERASE ,URINE NEGATIVE (NEGATIVE); NITRITES,URINE NEGATIVE (NEGATIVE); PROTEIN,URINE 1+ (NEGATIVE); UROBILINOGEN,URINE 1+ (NORMAL)
[2022-01-04 19:14] LABS: APPEARANCE,URINE HAZY (CLEAR); COLOR,URINE YELLOW (YELLOW)
[2022-01-04 19:15] LABS: RBC,URINE 0-2 /HPF (0-3)
[2022-01-04 19:16] LABS: BACTERIA,URINE TRACE /HPF (NEGATIVE); SQUAMOUS EPITHELIAL CELL,UR RARE /HPF (NEGATIVE)
[2022-01-04 19:29] LABS: ALANINE AMINOTRANSFERASE 46 Units/L (12-78); ALBUMIN 3.2 g/dL (3.4-5.0); ALKALINE PHOSPHATASE 46 Units/L (46-116); ASPARTATE AMINO TRANSFERASE 49 Units/L (15-37); BLOOD UREA NITROGEN 28 mg/dL (7-18); CALCIUM 8.8 mg/dL (8.5-10.1); CARBON DIOXIDE 20.5 mmol/L (21-32); CHLORIDE 100 mmol/L (98-107); CKMB % 9.6 % (<4); COR CA(FOR HYPOALB) 9.4 mg/dL (8.5-10.1); COR NA(FOR HYPERGLY) 137 mmol/L (136-145); CREATINE KINASE 97 Units/L (26-192); CREATININE 0.85 mg/dL (0.55-1.02); SODIUM 132 mmol/L (136-145); eGFR NON BLACK RACES > 60 (>60)
[2022-01-04 19:32] LABS: CREATINE KINASE MB 9.3 ng/mL (0-4.0)
--- NOTE | 2022-01-04 22:15 | RAD ---
HISTORYPNEUMONIA. PT IS AT HER BASELINE MENTAL STATUS BUT APPARENTLY HAD VAGUE C/O CHEST PAIN THIS AFTERNOON.STUDYCHEST, 1 VIEWCOMPARISONFebruary 2021TECHNIQUEChest radiographic imaging, AP portable projection, 1 imageFINDINGSMild cardiomegaly.Mild diffuse increased interstitial markings.No focal airspace disease.No pleural effusion.No pneumothorax.No acute osseous abnormality.IMPRESSIONFindings could represent acute cardiogenic edema superimposed on chronic interstitial changes.Electronically signed by: Noe Avilez (Jan 04, 2022 22:13:17)
--- NOTE | 2022-01-04 22:18 | CT ---
HISTORYPNEUMONIA. PT IS AT HER BASELINE MENTAL STATUS BUT APPARENTLY HAD VAGUE C/O CHEST PAIN THIS AFTERNOON.STUDYBRAIN W/O CONCOMPARISONFebruary 2021TECHNIQUEAxial non-contrast images of the head were obtained with coronal and sagittal reformats provided.Radiation dose: 1329.50 mGy-cm total DLPFINDINGSEncephalomalacia in the mid to posterior right parietal lobe, left posterior parietal lobe and right occipital lobe.No abnormal areas of acute attenuation in the brain parenchyma.Butler-white differentiation remains intact.No intracranial, extra-axial, fluid collection.No hemorrhage.Periventricular chronic microvascular disease.No mass, mass effect or midline shift.Age related brain parenchymal global atrophy.No ventriculomegaly.No acute fracture.Moderate mucosal thickening in the posterior aspect of the maxillary sinuses, otherwise, the sinuses are well aerated.Mastoid air cells are well aerated.Globes and intra-orbital contents are unremarkable.IMPRESSIONNo acute intracranial abnormality identified. No significant changes when compared to the previous exam.Electronically signed by: Noe Avilez (Jan 04, 2022 22:16:47)
[2022-01-04 22:46] LABS: CREATINE KINASE MB 9.5 ng/mL (0-4.0)
[2022-01-05] MEDS ORDERED: PHENERGAN TAB 25 MG PO PRN (00:29)
[2022-01-05] MEDS ORDERED: CATAPRES TAB 0.1 MG PO PRN (00:29)
[2022-01-05] MEDS ORDERED: VITAMIN B-12 INJ IM SCH (01:00)
[2022-01-05 02:57] LABS: CKMB % 13.1 % (<4)
[2022-01-05 02:59] LABS: CREATINE KINASE MB 9.7 ng/mL (0-4.0)
[2022-01-05 07:34] LABS: EOSINOPHILS # (AUTO) 0.1 x10^3/uL (0.0-0.2)
[2022-01-05 07:39] LABS: BASOPHILS # (AUTO) 0.1 X10^3/uL (0.0-0.1); BASOPHILS % (AUTO) 0.7 % (0.2-1.0); EOSINOPHILS % (AUTO) 0.8 % (0.9-2.9); HEMATOCRIT 42.7 % (36.0-47.0); HEMOGLOBIN 14.4 g/dL (12.0-16.0); LYMPHOCYTES % (AUTO) 25.5 % (21.0-51.0); MEAN CORPUSCULAR HEMOGLOBIN 28.8 pg (27.0-34.0); MEAN CORPUSCULAR HGB CONC 33.7 g/dL (33.0-35.0); MEAN CORPUSCULAR VOLUME 85.3 fL (80.0-100.0); MEAN PLATELET VOLUME 8.4 fL (7.4-11.0); MONOCYTES # (AUTO) 0.8 x10^3/uL (0.3-0.8); MONOCYTES % (AUTO) 7.1 % (0.0-13.0); NEUTROPHILS # (AUTO) 7.8 x10^3/uL (2.2-4.8); NEUTROPHILS % (AUTO) 65.9 % (42.0-75.0); RED CELL DISTRIBUTION WIDTH 14.1 % (11.6-16.5); WHITE BLOOD COUNT 11.8 X10^3/uL (3.6-10.0)
[2022-01-05 07:52] LABS: ALANINE AMINOTRANSFERASE 47 Units/L (12-78); ALBUMIN 3.4 g/dL (3.4-5.0); ALKALINE PHOSPHATASE 48 Units/L (46-116); ASPARTATE AMINO TRANSFERASE 44 Units/L (15-37); BLOOD UREA NITROGEN 25 mg/dL (7-18); CALCIUM 9.1 mg/dL (8.5-10.1); CHLORIDE 102 mmol/L (98-107); COR NA(FOR HYPERGLY) 138 mmol/L (136-145); CREATININE 0.79 mg/dL (0.55-1.02); SODIUM 136 mmol/L (136-145); TOTAL PROTEIN 7.2 g/dL (6.4-8.2); eGFR NON BLACK RACES > 60 (>60)
[2022-01-05 07:56] LABS: CARBON DIOXIDE 18.9 mmol/L (21-32)
[2022-01-05] MEDS ORDERED: GLUCOPHAGE ONE ×2 (08:42→17:05)
[2022-01-05] MEDS ORDERED: LANTUS SC SCH (09:00)
[2022-01-05] MEDS: GLUCOPHAGE PO SCH ×2 (09:11→17:04)
[2022-01-05] MEDS: AMARYL TAB 4 MG PO SCH (09:11)
[2022-01-05] MEDS: EXELON PO SCH ×2 (09:11→22:03)
[2022-01-05] MEDS: LASIX PO SCH (09:11)
[2022-01-05] MEDS: KEPPRA TAB 500 MG PO SCH ×2 (09:11→22:04)
[2022-01-05] MEDS: PLAVIX PO SCH (09:12)
[2022-01-05] MEDS: NORVASC TAB 5 MG PO SCH (09:12)
[2022-01-05] MEDS: TRICOR TAB 145 MG PO SCH (09:12)
[2022-01-05] MEDS: ATIVAN INJ 2 MG VIAL IVP PRN (11:05)
[2022-01-05 11:13] LABS: CKMB % 14.3 % (<4)
[2022-01-05 11:16] LABS: CREATINE KINASE MB 9.7 ng/mL (0-4.0)
[2022-01-05] MEDS ORDERED: ATIVAN INJ 2 MG VIAL ONE (11:27)
--- NOTE | 2022-01-05 11:43 | DR.H&P ---
H&P History & Physical for Day of: H&P Date: 01/05/22 Chief Complaint Chief Complaint: chest pain Allergies Allergies Allergy/AdvReac Type Severity Reaction Status Date / Time No Known Allergies Allergy Verified 05/16/20 00:48 History of Present Illness History of Present Illness: Ms King is a 61y/o female with a PMH of CAD, CHF, HTN, Type 2 DM, Dementia. Chronic anxiety/depression and other comorbidity presented with chest pain. Patient was discharged from [facility] yesterday after being treated for NSTEMI, COVID pneumonia, UTI and sepsis. Loli ent had presented here on 12/18/21 with chest pain and found to have elevated cardiac enzymes so was transferred to [facility]. As per ER physician and patient's son, patient had full cardiac work up there including a cath with no intervention needed. Patient is not able to provide any history due to dementia. She is staring in space during rounds, does not follow commands. RN reports patient did take her medications after repetitive commands. Awaiting on records from [facility]. Er work-up - Labs: trop 116.9 -> 117.6 --> 131.3. Patient's trop on 12/18/21:177 - EKG: no ST changes - COVID (-) - CT-brain: no acute process In the ER, patient was oriented to self, denied any further episodes of chest pain. Plan: follow up on records from [facility], trend cardiac enzymes. Reconcile home med list. Monitor on telemetry. Patient's elevated troponin likely due to recent COVID infection and CKD. Resume home medications as tolerated. Monitor neuro status. Monitor AM labs/imaging. Past Medical History Past Medical History: Anxiety, CHF, COPD, CVA, Depression, Diabetes, Dyslipidemia, GERD, Hypertension, PUD, Renal Disease and Seizures Past Surgical History Surgical History: Hysterectomy Family History Family Medical History: Diabetes Mellitus, Cancer, Heart Failure and Hypertension Social History Does patient currently use any type of tobacco product: Yes Have you used tobacco products in the last 12 months: Yes Type of Tobacco Use: Cigarettes Does any household member use tobacco: Yes Alcohol Use: None Drug Use: None Prescription drug monitoring program results: PDMP reviewed and no concerns identified Medications Home Medications: No Known Allergies Allergy (Verified 05/16/20 00:48) Labs Result Diagrams: 01/05/22 07:25 01/05/22 07:25 Labs: Laboratory WBC 11.8 X10^3/uL (3.6-10.0) H 01/05/22 07:25 RBC 5.00 X10^6/uL (3.5-5.4) 01/05/22 07:25 Hgb 14.4 g/dL (12.0-16.0) 01/05/22 07:25 Hct 42.7 % (36.0-47.0) 01/05/22 07:25 MCV 85.3 fL (80.0-100.0) 01/05/22 07:25 MCH 28.8 pg (27.0-34.0) 01/05/22 07:25 MCHC 33.7 g/dL (33.0-35.0) 01/05/22 07:25 RDW 14.1 % (11.6-16.5) 01/05/22 07:25 Plt Count 280 X10^3/uL (150.0-450.0) 01/05/22 07:25 MPV 8.4 fL (7.4-11.0) 01/05/22 07:25 Neut % (Auto) 65.9 % (42.0-75.0) 01/05/22 07:25 Lymph % (Auto) 25.5 % (21.0-51.0) 01/05/22 07:25 [place] % (Auto) 7.1 % (0.0-13.0) 01/05/22 07:25 Eos % (Auto) 0.8 % (0.9-2.9) L 01/05/22 07:25 Baso % (Auto) 0.7 % (0.2-1.0) 01/05/22 07:25 Neut # (Auto) 7.8 x10^3/uL (2.2-4.8) H 01/05/22 07:25 Lymph # (Auto) 3.0 X10^3/uL (1.3-2.9) H 01/05/22 07:25 [place] # (Auto) 0.8 x10^3/uL (0.3-0.8) 01/05/22 07:25 Eos # (Auto) 0.1 x10^3/uL (0.0-0.2) 01/05/22 07:25 Baso # (Auto) 0.1 X10^3/uL (0.0-0.1) 01/05/22 07:25 Absolute Nucleated RBC 0.0 /100WBC 01/05/22 07:25 Sodium 136 mmol/L (136-145) 01/05/22 07:25 Corrected Sodium 138 mmol/L (136-145) 01/05/22 07:25 Potassium 4.8 mmol/L (3.5-5.1) 01/05/22 07:25 Chloride 102 mmol/L (98-107) 01/05/22 07:25 Carbon Dioxide 18.9 mmol/L (21-32) L 01/05/22 07:25 BUN 25 mg/dL (7-18) H 01/05/22 07:25 Creatinine 0.79 mg/dL (0.55-1.02) 01/05/22 07:25 Est GFR (MDRD) Af Amer > 60 (>60) 01/05/22 07:25 Est GFR (MDRD) Non-Af > 60 (>60) 01/05/22 07:25 Glucose 168 mg/dL (65-99) H 01/05/22 07:25 POC Glucose (mg/dL) 298 mg/dL (65-99) H 01/05/22 11:35 Calcium 9.1 mg/dL (8.5-10.1) 01/05/22 07:25 Corrected Calcium TNP 01/05/22 07:25 Total Bilirubin 0.60 mg/dL (0.2-1.0) 01/05/22 07:25 AST 44 Units/L (15-37) H 01/05/22 07:25 ALT 47 Units/L (12-78) 01/05/22 07:25 Alkaline Phosphatase 48 Units/L (46-116) 01/05/22 07:25 Creatine Kinase 68 Units/L (26-192) 01/05/22 10:27 CK-MB (CK-2) 9.7 ng/mL (0-4.0) H* 01/05/22 10:27 CK/CKMB % Calc 14.3 % (<4) 01/05/22 10:27 Troponin I High Sens 137.3 ng/L (4.0-60.0) H* 01/05/22 10:27 Total Protein 7.2 g/dL (6.4-8.2) 01/05/22 07:25 Albumin 3.4 g/dL (3.4-5.0) 01/05/22 07:25 Globulin 3.8 g/dL (2.5-4.5) 01/05/22 07:25 Albumin/Globulin Ratio 0.9 Ratio (1.1-2.1) L 01/05/22 07:25 Specimen Type Catherized urine 01/04/22 18:42 Urine Color Yellow (YELLOW) 01/04/22 18:42 Urine Appearance Hazy (CLEAR) 01/04/22 18:42 Urine pH 7.0 (5.0 - 8.0) 01/04/22 18:42 Ur Specific [place] 1.010 (1.000-1.030) 01/04/22 18:42 Urine Protein 1+ (NEGATIVE) 01/04/22 18:42 Urine Glucose (UA) 4+ (NEGATIVE) 01/04/22 18:42 Urine Ketones Negative (NEGATIVE) 01/04/22 18:42 Urine Occult Blood Negative (NEGATIVE) 01/04/22 18:42 Urine Nitrite Negative (NEGATIVE) 01/04/22 18:42 Urine Bilirubin Negative (NEGATIVE) 01/04/22 18:42 Urine Urobilinogen 1+ (NORMAL) 01/04/22 18:42 Ur Leukocyte Esterase Negative (NEGATIVE) 01/04/22 18:42 Urine RBC 0-2 /HPF (0-3) 01/04/22 18:42 Urine WBC 3-5 /HPF (0-5) 01/04/22 18:42 Ur Squamous Epith Cells Rare /HPF (NEGATIVE) 01/04/22 18:42 Amorphous Sediment 2+ /HPF (NEGATIVE) 01/04/22 18:42 Urine Bacteria Trace /HPF (NEGATIVE) 01/04/22 18:42 Ur Culture Indicated? No/not indicated 01/04/22 18:42 SARS CoV-2 RNA Rapid JASMEET Negative (NEGATIVE) 01/04/22 18:42 Review of Systems Constitutional: No Symptoms Reported Eyes: No Symptoms Reported ENT: No Symptoms Reported Respiratory: No Symptoms Reported Cardiovascular: Chest Pain Gastrointestinal: No Symptoms Reported Genitourinary: No Symptoms Reported Musculoskeletal: No Symptoms Reported Skin: No Symptoms Reported Neurological: No Symptoms Reported Physical Exam Vital Signs: Temperature 97.8 F Pulse Rate [Left Brachial] 88 Pulse Rate 75 Respiratory Rate 18 Blood Pressure [Left Arm] 134/61 Blood Pressure [Right Arm] 130/66 Blood Pressure 148/69 O2 Sat by Pulse Oximetry 94 Oriented: Unable to test Eyes: Normal Ear: Normal Nose: Normal Respiratory: Diminished Throughout Cardiovascular: Normal Auscultation: Bowel Sounds: Normal Palpation: Normal Tenderness: Normal Skin: Normal Mood Description: Flat Speech Pattern: Aphasic Assessment/Plan (1) Nonspecific chest pain: Status: Acute (2) Elevated troponin: Status: Acute (3) Chest pain of uncertain etiology: Status: Acute (4) History of CVA (cerebrovascular accident): Status: Chronic (5) COPD (chronic obstructive pulmonary disease): Qualifiers: COPD type: unspecified COPD Qualified Code(s): J44.9 - Chronic obstructive pulmonary disease, unspecified Status: Chronic (6) Diabetes: Qualifiers: Diabetes mellitus complication status: with other specified complication Diabetes mellitus keno terminal operator insulin use: unspecified keno terminal operator insulin use status Diabetes mellitus type: type 2 Qualified Code(s): E11.69 - Type 2 diabetes mellitus with other specified complication Status: Chronic (7) Dementia: Qualifiers: Dementia behavioral disturbance: without behavioral disturbance Dementia type: unspecified type Qualified Code(s): F03.90 - Unspecified dementia without behavioral disturbance Status: Acute (8) Anxiety: Status: Acute (9) Chronic kidney disease (CKD): Qualifiers: Chronic kidney disease stage: stage 3 (moderate) Qualified Code(s): N18.3 - Chronic kidney disease, stage 3 (moderate) Status: Acute Review H&P Reviewed: Yes Patient was examined?: Yes
[2022-01-05] MEDS: NICOTINE PATCH TD SCH (14:14)
[2022-01-05] MEDS ORDERED: CELEXA PO SCH (21:00)
[2022-01-05] MEDS: SNACK - Diabetic Appropriate PO SCH (22:03)
[2022-01-05] MEDS: ELAVIL PO SCH (22:04)
[2022-01-05] MEDS: ZyrTEC TAB 10 MG PO SCH (22:04)
[2022-01-05] MEDS: LIPITOR TAB 80 MG PO SCH (22:04)
[2022-01-05] MEDS: LOPRESSOR TAB 50 MG PO SCH (22:04)
[2022-01-06] MEDS ORDERED: GLUCOPHAGE ONE ×2 (05:46→16:34)
[2022-01-06] MEDS: GLUCOPHAGE PO SCH ×2 (06:00→16:33)
[2022-01-06 06:36] LABS: BASOPHILS # (AUTO) 0.1 X10^3/uL (0.0-0.1); BASOPHILS % (AUTO) 0.8 % (0.2-1.0); EOSINOPHILS # (AUTO) 0.2 x10^3/uL (0.0-0.2); EOSINOPHILS % (AUTO) 1.6 % (0.9-2.9); HEMATOCRIT 40.6 % (36.0-47.0); HEMOGLOBIN 13.6 g/dL (12.0-16.0); LYMPHOCYTES # (AUTO) 4.1 X10^3/uL (1.3-2.9); LYMPHOCYTES % (AUTO) 35.6 % (21.0-51.0); MEAN CORPUSCULAR HEMOGLOBIN 28.4 pg (27.0-34.0); MEAN CORPUSCULAR HGB CONC 33.6 g/dL (33.0-35.0); MEAN CORPUSCULAR VOLUME 84.6 fL (80.0-100.0); MONOCYTES # (AUTO) 0.9 x10^3/uL (0.3-0.8); MONOCYTES % (AUTO) 7.8 % (0.0-13.0); NEUTROPHILS # (AUTO) 6.3 x10^3/uL (2.2-4.8); NEUTROPHILS % (AUTO) 54.2 % (42.0-75.0); RED CELL DISTRIBUTION WIDTH 14.4 % (11.6-16.5); WHITE BLOOD COUNT 11.6 X10^3/uL (3.6-10.0)
[2022-01-06 06:58] LABS: ALANINE AMINOTRANSFERASE 40 Units/L (12-78); ALBUMIN 2.9 g/dL (3.4-5.0); ALKALINE PHOSPHATASE 43 Units/L (46-116); ASPARTATE AMINO TRANSFERASE 31 Units/L (15-37); BLOOD UREA NITROGEN 16 mg/dL (7-18); CALCIUM 8.3 mg/dL (8.5-10.1); CARBON DIOXIDE 24.9 mmol/L (21-32); CHLORIDE 103 mmol/L (98-107); COR CA(FOR HYPOALB) 9.2 mg/dL (8.5-10.1); CREATININE 0.73 mg/dL (0.55-1.02); SODIUM 139 mmol/L (136-145); TOTAL PROTEIN 6.2 g/dL (6.4-8.2); eGFR NON BLACK RACES > 60 (>60)
[2022-01-06] MEDS: AMARYL TAB 4 MG PO SCH (08:49)
[2022-01-06] MEDS: EXELON PO SCH ×2 (08:50→22:45)
[2022-01-06] MEDS: LANTUS SC SCH (08:50)
[2022-01-06] MEDS: LASIX PO SCH (08:50)
[2022-01-06] MEDS: KEPPRA TAB 500 MG PO SCH ×2 (08:50→22:44)
[2022-01-06] MEDS: NICOTINE PATCH TD SCH (08:51)
[2022-01-06] MEDS: NORVASC TAB 5 MG PO SCH (08:51)
[2022-01-06] MEDS: LOPRESSOR TAB 50 MG PO SCH ×2 (08:51→22:44)
[2022-01-06] MEDS: PLAVIX PO SCH (08:51)
[2022-01-06] MEDS: KLONOPIN TAB 0.5 MG PO PRN (08:52)
[2022-01-06] MEDS: NORCO 5/325 MG TAB PO PRN (08:52)
[2022-01-06] MEDS: TRICOR TAB 145 MG PO SCH (08:52)
[2022-01-06] MEDS ORDERED: K-DUR TAB 20 MEQ PO ONE (08:57)
--- NOTE | 2022-01-06 12:07 | PCM.PROG ---
Progress Note Progress Note for Day of Date of Exam: 01/06/22 Subjective Subjective: Patient seen at bedside, appears more alert his morning. She is oriented to self. Patient did have a seizure yesterday late morning, given 1mg ativan. She did not have any post-ictal weakness, vitals remained stable. She has been taking her PO medications crushed in apple sauce. This morning, she is able to answer some very simple direct questions. She denies chest pain. Records from [facility] reviewed. Patient was admitted for COVID pneumonia, NSTEMI, UTI, sepsis and seizures. Patient was evaluated by pulmonary and cardiology there. Cardio had recommended medical management for CAD as patient is not a candidate for any intervention due to her comorbidities and disorientation. She was advised to follow up with cardio outpatient. Patient also had a complete neuro work up with CT-head, MRI-brain and EEG. MRI showed chronic infarcts due to previous CVA. Labs/imaging reviewed Plan: Replace K as per protocol. Continue telemetry. Continue medical management, continue home medications. Patient's vitals remain stable, denies chest pain. Monitor AM labs/imaging. Past Medical Family Social History Past Med/Fam/Surg Hx: No changes since H&P Allergies: Allergies No Known Allergies Allergy (Verified 05/16/20 00:48) Review of Systems ROS: No change since H&P Vital Signs and I&O's Vital Signs: Temperature 98.2 F Pulse Rate [Left Brachial] 88 Pulse Rate 75 Respiratory Rate 20 Blood Pressure [Left Arm] 117/63 Blood Pressure [Right Arm] 115/56 Blood Pressure 148/69 O2 Sat by Pulse Oximetry 96 Intake and Output: Intake & Output 01/03/22 01/04/22 01/05/22 01/06/22 23:59 23:59 23:59 23:59 Intake Total 440 / 440 310 / 310 Output Total 1950 / 1950 2900 / 2900 Balance -1510 / -1510 -2590 / -2590 Physical Exam Oriented: Person Eyes: Normal Ear: Normal Nose: Normal Respiratory: Generalized and Diminished Cardiovascular: Normal Auscultation: Bowel Sounds: Normal Tenderness: Normal Skin: Normal Mood Description: Calm Speech Pattern: Inappropriate and Delayed Laboratory and Diagnostics Result Diagrams: 01/06/22 06:21 01/06/22 06:21 Labs: Laboratory WBC 11.6 X10^3/uL (3.6-10.0) H 01/06/22 06:21 RBC 4.80 X10^6/uL (3.5-5.4) 01/06/22 06:21 Hgb 13.6 g/dL (12.0-16.0) 01/06/22 06:21 Hct 40.6 % (36.0-47.0) 01/06/22 06:21 MCV 84.6 fL (80.0-100.0) 01/06/22 06:21 MCH 28.4 pg (27.0-34.0) 01/06/22 06:21 MCHC 33.6 g/dL (33.0-35.0) 01/06/22 06:21 RDW 14.4 % (11.6-16.5) 01/06/22 06:21 Plt Count 251 X10^3/uL (150.0-450.0) 01/06/22 06:21 MPV 8.0 fL (7.4-11.0) 01/06/22 06:21 Neut % (Auto) 54.2 % (42.0-75.0) 01/06/22 06:21 Lymph % (Auto) 35.6 % (21.0-51.0) 01/06/22 06:21 [place] % (Auto) 7.8 % (0.0-13.0) 01/06/22 06:21 Eos % (Auto) 1.6 % (0.9-2.9) 01/06/22 06:21 Baso % (Auto) 0.8 % (0.2-1.0) 01/06/22 06:21 Neut # (Auto) 6.3 x10^3/uL (2.2-4.8) H 01/06/22 06:21 Lymph # (Auto) 4.1 X10^3/uL (1.3-2.9) H 01/06/22 06:21 [place] # (Auto) 0.9 x10^3/uL (0.3-0.8) H 01/06/22 06:21 Eos # (Auto) 0.2 x10^3/uL (0.0-0.2) 01/06/22 06:21 Baso # (Auto) 0.1 X10^3/uL (0.0-0.1) 01/06/22 06:21 Absolute Nucleated RBC 0.0 /100WBC 01/06/22 06:21 Sodium 139 mmol/L (136-145) 01/06/22 06:21 Corrected Sodium TNP 01/06/22 06:21 Potassium 3.4 mmol/L (3.5-5.1) L 01/06/22 06:21 Chloride 103 mmol/L (98-107) 01/06/22 06:21 Carbon Dioxide 24.9 mmol/L (21-32) 01/06/22 06:21 BUN 16 mg/dL (7-18) 01/06/22 06:21 Creatinine 0.73 mg/dL (0.55-1.02) 01/06/22 06:21 Est GFR (MDRD) Af Amer > 60 (>60) 01/06/22 06:21 Est GFR (MDRD) Non-Af > 60 (>60) 01/06/22 06:21 Glucose 76 mg/dL (65-99) 01/06/22 06:21 POC Glucose (mg/dL) 193 mg/dL (65-99) H 01/05/22 16:27 Calcium 8.3 mg/dL (8.5-10.1) L 01/06/22 06:21 Corrected Calcium 9.2 mg/dL (8.5-10.1) 01/06/22 06:21 Total Bilirubin 0.70 mg/dL (0.2-1.0) 01/06/22 06:21 AST 31 Units/L (15-37) 01/06/22 06:21 ALT 40 Units/L (12-78) 01/06/22 06:21 Alkaline Phosphatase 43 Units/L (46-116) L 01/06/22 06:21 Creatine Kinase 68 Units/L (26-192) 01/05/22 10:27 CK-MB (CK-2) 9.7 ng/mL (0-4.0) H* 01/05/22 10:27 CK/CKMB % Calc 14.3 % (<4) 01/05/22 10:27 Troponin I High Sens 137.3 ng/L (4.0-60.0) H* 01/05/22 10:27 Total Protein 6.2 g/dL (6.4-8.2) L 01/06/22 06:21 Albumin 2.9 g/dL (3.4-5.0) L 01/06/22 06:21 Globulin 3.3 g/dL (2.5-4.5) 01/06/22 06:21 Albumin/Globulin Ratio 0.9 Ratio (1.1-2.1) L 01/06/22 06:21 Specimen Type Catherized urine 01/04/22 18:42 Urine Color Yellow (YELLOW) 01/04/22 18:42 Urine Appearance Hazy (CLEAR) 01/04/22 18:42 Urine pH 7.0 (5.0 - 8.0) 01/04/22 18:42 Ur Specific [place] 1.010 (1.000-1.030) 01/04/22 18:42 Urine Protein 1+ (NEGATIVE) 01/04/22 18:42 Urine Glucose (UA) 4+ (NEGATIVE) 01/04/22 18:42 Urine Ketones Negative (NEGATIVE) 01/04/22 18:42 Urine Occult Blood Negative (NEGATIVE) 01/04/22 18:42 Urine Nitrite Negative (NEGATIVE) 01/04/22 18:42 Urine Bilirubin Negative (NEGATIVE) 01/04/22 18:42 Urine Urobilinogen 1+ (NORMAL) 01/04/22 18:42 Ur Leukocyte Esterase Negative (NEGATIVE) 01/04/22 18:42 Urine RBC 0-2 /HPF (0-3) 01/04/22 18:42 Urine WBC 3-5 /HPF (0-5) 01/04/22 18:42 Ur Squamous Epith Cells Rare /HPF (NEGATIVE) 01/04/22 18:42 Amorphous Sediment 2+ /HPF (NEGATIVE) 01/04/22 18:42 Urine Bacteria Trace /HPF (NEGATIVE) 01/04/22 18:42 Ur Culture Indicated? No/not indicated 01/04/22 18:42 SARS CoV-2 RNA Rapid JASMEET Negative (NEGATIVE) 01/04/22 18:42 Plan (1) Nonspecific chest pain: Status: Acute (2) Elevated troponin: Status: Acute (3) Chest pain of uncertain etiology: Status: Acute (4) History of CVA (cerebrovascular accident): Status: Chronic (5) COPD (chronic obstructive pulmonary disease): Status: Chronic Qualifiers: COPD type: unspecified COPD Qualified Code(s): J44.9 - Chronic obstructive pulmonary disease, unspecified (6) Diabetes: Status: Chronic Qualifiers: Diabetes mellitus complication status: with other specified complication Diabetes mellitus skilled nursing insulin use: unspecified skilled nursing insulin use status Diabetes mellitus type: type 2 Qualified Code(s): E11.69 - Type 2 diabetes mellitus with other specified complication (7) Dementia: Status: Acute Qualifiers: Dementia behavioral disturbance: without behavioral disturbance Dementia type: unspecified type Qualified Code(s): F03.90 - Unspecified dementia without behavioral disturbance (8) Anxiety: Status: Acute (9) CAD (coronary artery disease): Status: Acute Qualifiers: Associated angina: unspecified whether angina present Coronary Disease- Associated Artery/Lesion type: unspecified vessel or lesion type [place] vs. transplanted heart: unspecified whether [place] or transplanted heart Qualified Code(s): I25.10 - Atherosclerotic heart disease of [place] coronary artery without angina pectoris
[2022-01-06] MEDS: ATIVAN INJ 2 MG VIAL IVP PRN (16:58)
[2022-01-06] MEDS: ZyrTEC TAB 10 MG PO SCH (22:44)
[2022-01-06] MEDS: LIPITOR TAB 80 MG PO SCH (22:44)
[2022-01-06] MEDS: ELAVIL PO SCH (22:44)
[2022-01-06] MEDS: SNACK - Diabetic Appropriate PO SCH (22:45)
[2022-01-07] MEDS ORDERED: GLUCOPHAGE ONE (05:04)
[2022-01-07] MEDS: GLUCOPHAGE PO SCH (06:17)
[2022-01-07 06:52] LABS: BASOPHILS % (AUTO) 0.3 % (0.2-1.0); EOSINOPHILS # (AUTO) 0.4 x10^3/uL (0.0-0.2); EOSINOPHILS % (AUTO) 3.7 % (0.9-2.9); HEMATOCRIT 38.4 % (36.0-47.0); HEMOGLOBIN 13.1 g/dL (12.0-16.0); LYMPHOCYTES # (AUTO) 3.2 X10^3/uL (1.3-2.9); LYMPHOCYTES % (AUTO) 29.4 % (21.0-51.0); MEAN CORPUSCULAR HEMOGLOBIN 29.1 pg (27.0-34.0); MEAN CORPUSCULAR HGB CONC 34.2 g/dL (33.0-35.0); MEAN PLATELET VOLUME 8.7 fL (7.4-11.0); MONOCYTES # (AUTO) 0.7 x10^3/uL (0.3-0.8); MONOCYTES % (AUTO) 6.8 % (0.0-13.0); NEUTROPHILS # (AUTO) 6.6 x10^3/uL (2.2-4.8); NEUTROPHILS % (AUTO) 59.8 % (42.0-75.0); RED BLOOD COUNT 4.51 X10^6/uL (3.5-5.4); RED CELL DISTRIBUTION WIDTH 14.3 % (11.6-16.5)
[2022-01-07 07:31] LABS: ALANINE AMINOTRANSFERASE 35 Units/L (12-78); ALBUMIN 2.7 g/dL (3.4-5.0); ALKALINE PHOSPHATASE 44 Units/L (46-116); ASPARTATE AMINO TRANSFERASE 31 Units/L (15-37); BLOOD UREA NITROGEN 14 mg/dL (7-18); CALCIUM 8.3 mg/dL (8.5-10.1); CARBON DIOXIDE 23.1 mmol/L (21-32); CHLORIDE 107 mmol/L (98-107); COR CA(FOR HYPOALB) 9.3 mg/dL (8.5-10.1); CREATININE 0.72 mg/dL (0.55-1.02); MAGNESIUM 2.1 mg/dL (1.7-2.9); SODIUM 141 mmol/L (136-145); TOTAL PROTEIN 6.1 g/dL (6.4-8.2); eGFR NON BLACK RACES > 60 (>60)
[2022-01-07] MEDS: LOPRESSOR TAB 50 MG PO SCH (08:45)
[2022-01-07] MEDS: LASIX PO SCH (08:45)
[2022-01-07] MEDS: AMARYL TAB 4 MG PO SCH (08:45)
[2022-01-07] MEDS: EXELON PO SCH (08:45)
[2022-01-07] MEDS: TRICOR TAB 145 MG PO SCH (08:45)
[2022-01-07] MEDS: KEPPRA TAB 500 MG PO SCH (08:45)
[2022-01-07] MEDS: LANTUS SC SCH (08:45)
[2022-01-07] MEDS: KLONOPIN TAB 0.5 MG PO PRN (08:45)
[2022-01-07] MEDS: PLAVIX PO SCH (08:45)
[2022-01-07] MEDS: NORVASC TAB 5 MG PO SCH (08:45)
[2022-01-07] MEDS: NORCO 5/325 MG TAB PO PRN (08:45)
[2022-01-07] MEDS: NICOTINE PATCH TD SCH (11:42)
--- NOTE | 2022-01-07 11:58 | W.DIS.FURT ---
Summary of Discharge Discharge Summary of Date Date of Exam: 01/07/22 Admission Date Date of Admission: 01/05/22 Admission Diagnosis Hospital Course: Ms Knig is a 61y/o female with a PMH of CAD, CHF, HTN, Type 2 DM, Dementia. Chronic anxiety/depression and other comorbidity presented with chest pain. Patient was discharged from [facility] yesterday after being treated for NSTEMI, COVID pneumonia, UTI and sepsis. Patient had presented here on 12/18/21 with chest pain and found to have elevated cardiac enzymes so was transferred to [facility]. As per ER physician and patient's son, patient had full cardiac work up there including a cath with no intervention needed. Patient is not able to provide any history due to dementia.Records from [facility] reviewed. Patient was admitted for COVID pneumonia, NSTEMI, UTI, sepsis and seizures. Patient was evaluated by pulmonary and cardiology there. Cardio had recommended medical management for CAD as patient is not a candidate for any intervention due to her comorbidities and disorientation. She was advised to follow up with cardio outpatient. Patient also had a complete neuro work up with CT-head, MRI-brain and EEG. MRI showed chronic infarcts due to previous CVA. In the ER, patient's troponin was elevated, no ST changes seen on EKG. She was COVID (-). CT-brain was negative for any acute process. Patient was admitted on telemetry and cardiac enzymes were monitred. She was initially not as alert and oriented but her mentation did improve. She was able to tolerate PO intake. Patient's labs were monitored and electrolytes replaces as needed. Patient was taking her home medications. She denied chest pain. She was stable for discharge with PCP and cardiology follow up. She has home health set up for outpatient. Vital Signs: Vital Signs (72 hours) 01/04/22 17:47 01/04/22 17:52 01/04/22 18:00 Temperature 98.9 F Pulse Rate 66 66 64 Pulse Rate [Left Brachial] Respiratory Rate 21 20 18 Blood Pressure 122/65 Blood Pressure [Left Arm] Blood Pressure [Right Arm] O2 Sat by Pulse Oximetry 97 97 97 01/04/22 18:15 01/04/22 18:17 01/04/22 18:20 Temperature Pulse Rate 66 63 66 Pulse Rate [Left Brachial] Respiratory Rate 21 21 23 Blood Pressure 128/68 119/68 Blood Pressure [Left Arm] Blood Pressure [Right Arm] O2 Sat by Pulse Oximetry 98 97 01/04/22 18:30 01/04/22 18:40 01/04/22 18:45 Temperature Pulse Rate 66 65 63 Pulse Rate [Left Brachial] Respiratory Rate 23 21 Blood Pressure 134/69 Blood Pressure [Left Arm] Blood Pressure [Right Arm] O2 Sat by Pulse Oximetry 95 97 93 L 01/04/22 19:00 01/04/22 19:15 01/04/22 19:20 Temperature Pulse Rate 64 65 Pulse Rate [Left Brachial] Respiratory Rate 22 23 Blood Pressure 149/72 134/66 Blood Pressure [Left Arm] Blood Pressure [Right Arm] O2 Sat by Pulse Oximetry 99 99 01/04/22 19:30 01/04/22 19:40 01/04/22 19:45 Temperature Pulse Rate 64 65 66 Pulse Rate [Left Brachial] Respiratory Rate 18 20 21 Blood Pressure 132/68 Blood Pressure [Left Arm] Blood Pressure [Right Arm] O2 Sat by Pulse Oximetry 99 99 99 01/04/22 20:00 01/04/22 20:15 01/04/22 20:20 Temperature Pulse Rate 63 67 65 Pulse Rate [Left Brachial] Respiratory Rate 20 19 18 Blood Pressure 137/68 139/78 Blood Pressure [Left Arm] Blood Pressure [Right Arm] O2 Sat by Pulse Oximetry 99 98 98 01/04/22 20:30 01/04/22 20:40 01/04/22 20:45 Temperature Pulse Rate 65 61 64 Pulse Rate [Left Brachial] Respiratory Rate 20 21 21 Blood Pressure 125/66 Blood Pressure [Left Arm] Blood Pressure [Right Arm] O2 Sat by Pulse Oximetry 99 99 99 01/04/22 21:00 01/04/22 21:15 01/04/22 21:20 Temperature Pulse Rate 68 59 L 70 Pulse Rate [Left Brachial] Respiratory Rate 23 17 21 Blood Pressure 142/72 138/71 Blood Pressure [Left Arm] Blood Pressure [Right Arm] O2 Sat by Pulse Oximetry 100 99 99 01/04/22 21:30 01/04/22 21:40 01/04/22 21:45 Temperature Pulse Rate 62 70 65 Pulse Rate [Left Brachial] Respiratory Rate 19 21 21 Blood Pressure 152/74 Blood Pressure [Left Arm] Blood Pressure [Right Arm] O2 Sat by Pulse Oximetry 99 97 98 02/18/22 22:08 01/04/22 22:15 01/04/22 22:30 Temperature Pulse Rate 63 64 74 Pulse Rate [Left Brachial] Respiratory Rate 20 21 19 Blood Pressure Blood Pressure [Left Arm] Blood Pressure [Right Arm] O2 Sat by Pulse Oximetry 98 97 01/04/22 22:45 01/04/22 23:00 01/04/22 23:15 Temperature Pulse Rate 67 62 69 Pulse Rate [Left Brachial] Respiratory Rate 19 18 18 Blood Pressure Blood Pressure [Left Arm] Blood Pressure [Right Arm] O2 Sat by Pulse Oximetry 96 99 99 01/04/22 23:30 01/04/22 23:45 01/05/22 00:00 Temperature Pulse Rate 59 L 58 L 63 Pulse Rate [Left Brachial] Respiratory Rate 18 16 20 Blood Pressure Blood Pressure [Left Arm] Blood Pressure [Right Arm] O2 Sat by Pulse Oximetry 100 100 99 01/05/22 00:11 01/05/22 00:15 01/05/22 00:20 Temperature Pulse Rate 64 62 67 Pulse Rate [Left Brachial] Respiratory Rate 18 18 19 Blood Pressure 133/63 123/61 Blood Pressure [Left Arm] Blood Pressure [Right Arm] O2 Sat by Pulse Oximetry 99 100 100 01/05/22 00:30 01/05/22 00:40 01/05/22 00:45 Temperature Pulse Rate 62 58 L 58 L Pulse Rate [Left Brachial] Respiratory Rate 19 18 19 Blood Pressure 127/60 Blood Pressure [Left Arm] Blood Pressure [Right Arm] O2 Sat by Pulse Oximetry 98 98 100 01/05/22 01:00 01/05/22 01:11 01/05/22 01:15 Temperature Pulse Rate 57 L 78 Pulse Rate [Left Brachial] 79 Respiratory Rate 19 18 15 Blood Pressure 140/63 Blood Pressure [Left Arm] 140/63 Blood Pressure [Right Arm] O2 Sat by Pulse Oximetry 99 100 98 01/05/22 01:20 01/05/22 04:00 01/05/22 08:00 Temperature 98.3 F 97.8 F Pulse Rate 75 Pulse Rate [Left Brachial] 70 88 Respiratory Rate 16 18 18 Blood Pressure 148/69 Blood Pressure [Left Arm] 147/71 134/61 Blood Pressure [Right Arm] O2 Sat by Pulse Oximetry 99 97 94 L 01/05/22 12:00 01/05/22 16:00 01/05/22 20:00 Temperature 98.5 F 97.3 F L 97.6 F Pulse Rate Pulse Rate [Left Brachial] 75 106 H 110 H Respiratory Rate 20 20 22 Blood Pressure Blood Pressure [Left Arm] 185/89 114/66 97/53 Blood Pressure [Right Arm] O2 Sat by Pulse Oximetry 97 98 96 01/06/22 00:00 01/06/22 04:00 01/06/22 08:00 Temperature 97.5 F L 97.2 F L 98.2 F Pulse Rate Pulse Rate [Left Brachial] 75 78 88 Respiratory Rate 20 18 18 Blood Pressure Blood Pressure [Left Arm] 115/58 117/63 Blood Pressure [Right Arm] 115/56 O2 Sat by Pulse Oximetry 98 96 96 01/06/22 08:52 01/06/22 09:52 01/06/22 12:00 Temperature 98.3 F Pulse Rate Pulse Rate [Left Brachial] 68 Respiratory Rate 20 20 18 Blood Pressure Blood Pressure [Left Arm] 98/55 Blood Pressure [Right Arm] O2 Sat by Pulse Oximetry 97 01/06/22 16:00 01/06/22 20:00 01/07/22 00:00 Temperature 98.1 F 98.7 F 99.1 F Pulse Rate Pulse Rate [Left Brachial] 67 99 H 78 Respiratory Rate 18 20 18 Blood Pressure Blood Pressure [Left Arm] 102/74 Blood Pressure [Right Arm] 129/61 106/66 O2 Sat by Pulse Oximetry 97 98 96 01/07/22 04:00 01/07/22 08:45 01/07/22 09:45 Temperature 98.2 F Pulse Rate Pulse Rate [Left Brachial] 71 Respiratory Rate 18 20 20 Blood Pressure Blood Pressure [Left Arm] Blood Pressure [Right Arm] 109/56 O2 Sat by Pulse Oximetry 95 Labs: Laboratory Last Values WBC 11.0 X10^3/uL (3.6-10.0) H 01/07/22 06:15 RBC 4.51 X10^6/uL (3.5-5.4) 01/07/22 06:15 Hgb 13.1 g/dL (12.0-16.0) 01/07/22 06:15 Hct 38.4 % (36.0-47.0) 01/07/22 06:15 MCV 85.0 fL (80.0-100.0) 01/07/22 06:15 MCH 29.1 pg (27.0-34.0) 01/07/22 06:15 MCHC 34.2 g/dL (33.0-35.0) 01/07/22 06:15 RDW 14.3 % (11.6-16.5) 01/07/22 06:15 Plt Count 261 X10^3/uL (150.0-450.0) 01/07/22 06:15 MPV 8.7 fL (7.4-11.0) 01/07/22 06:15 Neut % (Auto) 59.8 % (42.0-75.0) 01/07/22 06:15 Lymph % (Auto) 29.4 % (21.0-51.0) 01/07/22 06:15 [place] % (Auto) 6.8 % (0.0-13.0) 01/07/22 06:15 Eos % (Auto) 3.7 % (0.9-2.9) H 01/07/22 06:15 Baso % (Auto) 0.3 % (0.2-1.0) 01/07/22 06:15 Neut # (Auto) 6.6 x10^3/uL (2.2-4.8) H 01/07/22 06:15 Lymph # (Auto) 3.2 X10^3/uL (1.3-2.9) H 01/07/22 06:15 [place] # (Auto) 0.7 x10^3/uL (0.3-0.8) 01/07/22 06:15 Eos # (Auto) 0.4 x10^3/uL (0.0-0.2) H 01/07/22 06:15 Baso # (Auto) 0.0 X10^3/uL (0.0-0.1) 01/07/22 06:15 Absolute Nucleated RBC 0.2 /100WBC 01/07/22 06:15 Sodium 141 mmol/L (136-145) 01/07/22 06:15 Corrected Sodium TNP 01/07/22 06:15 Potassium 3.5 mmol/L (3.5-5.1) 01/07/22 06:15 Chloride 107 mmol/L (98-107) 01/07/22 06:15 Carbon Dioxide 23.1 mmol/L (21-32) 01/07/22 06:15 BUN 14 mg/dL (7-18) 01/07/22 06:15 Creatinine 0.72 mg/dL (0.55-1.02) 01/07/22 06:15 Est GFR (MDRD) Af Amer > 60 (>60) 01/07/22 06:15 Est GFR (MDRD) Non-Af > 60 (>60) 01/07/22 06:15 Glucose 58 mg/dL (65-99) L 01/07/22 06:15 POC Glucose (mg/dL) 144 mg/dL (65-99) H 01/07/22 10:07 Calcium 8.3 mg/dL (8.5-10.1) L 01/07/22 06:15 Corrected Calcium 9.3 mg/dL (8.5-10.1) 01/07/22 06:15 Magnesium 2.1 mg/dL (1.7-2.9) 01/07/22 06:15 Total Bilirubin 0.40 mg/dL (0.2-1.0) 01/07/22 06:15 AST 31 Units/L (15-37) 01/07/22 06:15 ALT 35 Units/L (12-78) 01/07/22 06:15 Alkaline Phosphatase 44 Units/L (46-116) L 01/07/22 06:15 Creatine Kinase 68 Units/L (26-192) 01/05/22 10:27 CK-MB (CK-2) 9.7 ng/mL (0-4.0) H* 01/05/22 10:27 CK/CKMB % Calc 14.3 % (<4) 01/05/22 10:27 Troponin I High Sens 137.3 ng/L (4.0-60.0) H* 01/05/22 10:27 Total Protein 6.1 g/dL (6.4-8.2) L 01/07/22 06:15 Albumin 2.7 g/dL (3.4-5.0) L 01/07/22 06:15 Globulin 3.4 g/dL (2.5-4.5) 01/07/22 06:15 Albumin/Globulin Ratio 0.8 Ratio (1.1-2.1) L 01/07/22 06:15 Specimen Type Catherized urine 01/04/22 18:42 Urine Color Yellow (YELLOW) 01/04/22 18:42 Urine Appearance Hazy (CLEAR) 01/04/22 18:42 Urine pH 7.0 (5.0 - 8.0) 01/04/22 18:42 Ur Specific [place] 1.010 (1.000-1.030) 01/04/22 18:42 Urine Protein 1+ (NEGATIVE) 01/04/22 18:42 Urine Glucose (UA) 4+ (NEGATIVE) 01/04/22 18:42 Urine Ketones Negative (NEGATIVE) 01/04/22 18:42 Urine Occult Blood Negative (NEGATIVE) 01/04/22 18:42 Urine Nitrite Negative (NEGATIVE) 01/04/22 18:42 Urine Bilirubin Negative (NEGATIVE) 01/04/22 18:42 Urine Urobilinogen 1+ (NORMAL) 01/04/22 18:42 Ur Leukocyte Esterase Negative (NEGATIVE) 01/04/22 18:42 Urine RBC 0-2 /HPF (0-3) 01/04/22 18:42 Urine WBC 3-5 /HPF (0-5) 01/04/22 18:42 Ur Squamous Epith Cells Rare /HPF (NEGATIVE) 01/04/22 18:42 Amorphous Sediment 2+ /HPF (NEGATIVE) 01/04/22 18:42 Urine Bacteria Trace /HPF (NEGATIVE) 01/04/22 18:42 Ur Culture Indicated? No/not indicated 01/04/22 18:42 SARS CoV-2 RNA Rapid JASMEET Negative (NEGATIVE) 01/04/22 18:42 Reason For Visit: CHEST PAIN Discharge Date Discharge Date: 01/07/22 Discharge Diagnosis All Active Problems (Updated 01/16/22 @ 16:26 by Neda Lopez) CAD (coronary artery disease) (Chronic) Dementia (Chronic) Nonspecific chest pain (Acute) Angina pectoris (Chronic) Constipation (Chronic) Hyperglycemia (Acute) Old cerebrovascular accident without late effect (Chronic) Hypokalemia (Acute) Chronic kidney disease (CKD) (Chronic) Insomnia (Chronic) Anxiety (Chronic) Amphetamine abuse (Chronic) Elevated troponin (Acute) Respiratory failure with hypoxia (Chronic) Seizure disorder (Chronic) HTN (hypertension) (Chronic) Depression (Chronic) Arthritis (Chronic) Endometriosis (Chronic) Peptic ulcer disease (Chronic) GERD (gastroesophageal reflux disease) (Chronic) Angina pectoris (Chronic) Hyperlipidemia (Chronic) Anxiety (Chronic) Carotid artery stenosis with cerebral infarction (Chronic) 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 Pt is to keep follow up appointment as instructed and take medications as ordered. Discharge Medications Discharge Medications: No Known Allergies Allergy (Verified 05/16/20 00:48) Follow up and Referral Follow Up: 1 Week (PCP) Discharge Disposition Discharge Disposition: Home Discharge Condition: Stable Discharge Plan Discharge Plan Hospital Course: Ms King is a 61y/o female with a PMH of CAD, CHF, HTN, Type 2 DM, Dementia. Chronic anxiety/depression and other comorbidity presented with chest pain. Patient was discharged from [facility] yesterday after being treated for NSTEMI, COVID pneumonia, UTI and sepsis. Patient had presented here on 12/18/21 with chest pain and found to have elevated cardiac enzymes so was transferred to [facility]. As per ER physician and patient's son, patient had full cardiac work up there including a cath with no intervention needed. Patient is not able to provide any history due to dementia.Records from [facility] reviewed. Patient was admitted for COVID pneumonia, NSTEMI, UTI, sepsis and seizures. Patient was evaluated by pulmonary and cardiology there. Cardio had recommended medical management for CAD as patient is not a candidate for any intervention due to her comorbidities and disorientation. She was advised to follow up with cardio outpatient. Patient also had a complete neuro work up with CT-head, MRI-brain and EEG. MRI showed chronic infarcts due to previous CVA. In the ER, patient's troponin was elevated, no ST changes seen on EKG. She was COVID (-). CT-brain was negative for any acute process. Patient was admitted on telemetry and cardiac enzymes were monitred. She was initially not as alert and oriented but her mentation did improve. She was able to tolerate PO intake. Patient's labs were monitored and electrolytes replaces as needed. Patient was taking her home medications. She denied chest pain. She was stable for discharge with PCP and cardiology follow up. She has home health set up for outpatient. Patient Disposition: HOME HEALTH SERVICE Condition: Stable Health Concerns: Post Hospitalization: new medications and changes needed to prevent readmission or further decline. Pt educated and given instructions on all concerns. Care Plan Goals: Problem: Chest Pain Goals: Chest pain improving/resolved Instructions: Contact your physician or report to the closest Emergency Department if your chest pain returns or worsens. Take medications as prescribed. Follow up with your primary doctor as instructed. Plan of Treatment: Continue with present treatment and follow up plan. Pt is to keep follow up appointment as instructed and take medications as ordered. Prescription drug monitoring program results: PDMP reviewed and no concerns identified Prescriptions: New metoprolol tartrate 50 mg Tablet 50 mg PO BID 30 Days Qty: 60 RF: 0 Continued gabapentin [Neurontin] 400 mg Capsule 400 mg PO HS RF: 0 clopidogrel [Plavix] 75 mg Tablet 75 mg PO DAILY RF: 0 amlodipine [Norvasc] 5 mg Tablet 5 mg PO DAILY RF: 0 atorvastatin 80 mg Tablet 80 mg PO HS RF: 0 metformin 1,000 mg Tablet 1,000 mg PO BID RF: 0 meloxicam 7.5 mg Tablet 7.5 mg PO DAILY RF: 0 clonazepam 0.5 mg Tablet 0.5 mg PO BID PRNRF: 0 potassium chloride 10 mEq Capsule, Extended Release 10 meq PO DAILY RF: 0 furosemide 20 mg Tablet 20 mg PO DAILY RF: 0 Lantus Solostar U-100 Insulin 100 unit/mL (3 mL) insulin pen 30 unit SUBCUT DAILY RF: 0 rivastigmine tartrate 6 mg capsule 6 mg PO BID RF: 0 Farxiga 10 mg tablet 10 mg PO DAILY RF: 0 hydrocodone-acetaminophen 5-325 mg tablet 1 tab PO BID PRNRF: 0 amitriptyline 25 mg Tablet 25 mg PO QHS RF: 0 olmesartan [Benicar] 20 mg tablet 20 mg PO QHS RF: 0 levetiracetam 1,000 mg tablet 1,000 mg PO BID RF: 0 fenofibrate nanocrystallized 145 mg tablet 145 mg PO DAILY RF: 0 Discontinued glimepiride [Amaryl] 4 mg tablet 4 mg PO QAM RF: 0 Follow ups/Referrals Follow ups/Referrals: JESUS BUTLER [Primary Care Provider] - 01/08/22 10:00 am Instructions Instructions: Type 2 Diabetes Mellitus, Diagnosis, Adult, Home Oxygen Use, Adult, Steps to Quit Smoking, [id number], Chronic Obstructive Pulmonary Disease Exacerbation, [id number], Hypertension, Adult, [id number] Activity Restrictions/Additional Instructions: Stop glimepiride until seen by primary care doctor, check blood sugar prior to each meal Follow with cardiology as scheduled Stand Alone Forms: Excuse From Work or School, Precautions for COVID19, [facility], Patient Portal, Social Distancing
[2022-01-07 12:02] VITALS: BP 145/74
== END 2022-01-07 15:46 | disposition home health service (06) ==
LOC: ER 17:44 → MED/SURG 17:44
PROVIDERS: ADMIT Internal Medicine; ATTEND Internal Medicine
DX: Z20.822 Contact with and (suspected) exposure to COVID-19; F41.8 Other specified anxiety disorders; F03.90 Unspecified dementia, unspecified severity, without behavioral disturbance, psychotic disturbance, mood disturbance, and anxiety; Z86.73 Personal history of transient ischemic attack (TIA), and cerebral infarction without residual deficits; J44.9 Chronic obstructive pulmonary disease, unspecified; Z86.16 Personal history of COVID-19; R94.31 Abnormal electrocardiogram [ECG] [EKG]; R74.8 Abnormal levels of other serum enzymes; N18.30 Chronic kidney disease, stage 3 unspecified; E11.65 Type 2 diabetes mellitus with hyperglycemia; I25.10 Atherosclerotic heart disease of native coronary artery without angina pectoris; R07.89 Other chest pain; R77.8 Other specified abnormalities of plasma proteins

== ENCOUNTER 2023-05-11 14:39 | Observation (INO) ==
--- NOTE | 2023-05-11 14:45 | DR.AMS ---
HPI Time Seen Time Seen by Provider: 05/11/23 14:44 HPI Comment HPI Comment: 68 y/o with hx cva, chf and htn brought in by ems after developing ams last night; son says she was "agitated" last night and would not take her medications; she was a little better this morning and took all of them including bp med just before arrival; currently she is alert and admits to cp and back pain and dysuria; she cannot give me any additional info and says "Toby, I don't know"; says she's on adderall but doesn't know why; ems says she has oxygen at home but no cpap PMH PMH Past Medical History: Anxiety, CHF, COPD, CVA, Depression, Diabetes, Dyslipidemia, GERD, Hypertension, PUD, Renal Disease and Seizures Past Surgical History: Yes Surgical History: Hysterectomy Family History Family Medical History: Diabetes Mellitus, Cancer, Heart Failure and Hypertension Social History Do you use any recreational Drugs:: No ROS Review of Systems Constitutional: No Symptoms Reported Eyes: No Symptoms Reported ENTM: No Symptoms Reported Respiratoy: No Symptoms Reported Cardiovascular: See HPI and Chest Pain Gastrointestinal/Abdominal: No Symptoms Reported Genitourinary: No Symptoms Reported Neurological: See HPI Musculoskeletal: See HPI Integumentary: No Symptoms Reported Hematologic/Lymphatic: No Symptoms Reported Endocrine: No Symptoms Reported Psychiatric: No Symptoms Reported PE Vitals Vital Signs: Temp Pulse Resp BP Pulse Ox O2 Del Method 05/11/23 17:45 64 19 94 L 05/11/23 17:30 65 20 94 L 05/11/23 17:30 129/64 05/11/23 17:15 65 21 96 05/11/23 17:00 65 22 99 05/11/23 17:00 125/63 05/11/23 16:45 64 21 96 05/11/23 16:30 63 19 92 L 05/11/23 16:30 151/72 05/11/23 16:15 66 20 92 L 05/11/23 16:00 61 18 93 L 05/11/23 16:00 135/67 05/11/23 15:45 129/70 05/11/23 15:45 129/70 05/11/23 15:59 129/70 05/11/23 15:45 64 94 L 05/11/23 15:45 129/70 05/11/23 15:44 93 L 05/11/23 15:15 73 22 95 05/11/23 15:10 185/87 05/11/23 15:10 78 21 94 L 05/11/23 15:09 78 94 L 05/11/23 14:45 85 24 98 05/11/23 14:52 98.4 F 85 18 221/95 97 Nasal Cannula General Limitations: Language Barrier General Appearance: Alert Head Head Exam: Normal Inspection Eyes Eye exam: Normal Appearance ENT ENT Exam: Normal Exam External Ear Exam: Normal External Inspection Nose Exam: Normal Nose Exam Mouth Exam: Normal Inspection Throat Exam: Normal Inspection Neck Neck Exam: Normal Inspection Chest Chest Inspection: Normal Inspection Respiratory Respiratory Exam: Normal Lung Sounds Bilat Cardiovascular Cardiovascular Exam: Regular Rate and Normal Rhythm Abdominal Exam Abdominal Exam: Normal Inspection, Normal Bowel Sounds and Soft Extremities Extremities Exam: Normal Inspection Back Back Exam: Normal Inspection Neurological Neurological Exam: Alert and Oriented X3 Psychological Psychiatric Exam: Normal Affect, Normal Mood and Other (pleasant, unable to answer all questions) Skin Skin Exam: Warm, Dry, Intact and Normal Color ROR Labs Reviewed Laboratory Results Reviewed?: Yes Result Diagrams: 05/11/23 15:40 05/11/23 15:40 Laboratory: WBC 9.4 X10^3/uL (3.6-10.0) 05/11/23 15:40 RBC 5.18 X10^6/uL (3.5-5.4) 05/11/23 15:40 Hgb 15.6 g/dL (12.0-16.0) 05/11/23 15:40 Hct 46.0 % (36.0-47.0) 05/11/23 15:40 MCV 88.8 fL (80.0-100.0) 05/11/23 15:40 MCH 30.0 pg (27.0-34.0) 05/11/23 15:40 MCHC 33.8 g/dL (33.0-35.0) 05/11/23 15:40 RDW 13.6 % (11.6-16.5) 05/11/23 15:40 Plt Count 333 X10^3/uL (150.0-450.0) 05/11/23 15:40 MPV 7.9 fL (7.4-11.0) 05/11/23 15:40 Neut % (Auto) 67.3 % (42.0-75.0) 05/11/23 15:40 Lymph % (Auto) 25.8 % (21.0-51.0) 05/11/23 15:40 [place] % (Auto) 4.6 % (0.0-13.0) 05/11/23 15:40 Eos % (Auto) 0.9 % (0.9-2.9) 05/11/23 15:40 Baso % (Auto) 1.4 % (0.2-1.0) H 05/11/23 15:40 Neut # (Auto) 6.3 x10^3/uL (2.2-4.8) H 05/11/23 15:40 Lymph # (Auto) 2.4 X10^3/uL (1.3-2.9) 05/11/23 15:40 [place] # (Auto) 0.4 x10^3/uL (0.3-0.8) 05/11/23 15:40 Eos # (Auto) 0.1 x10^3/uL (0.0-0.2) 05/11/23 15:40 Baso # (Auto) 0.1 X10^3/uL (0.0-0.1) 05/11/23 15:40 Absolute Nucleated RBC 0.1 /100WBC 05/11/23 15:40 Sodium 136 mmol/L (136-145) 05/11/23 15:40 Corrected Sodium 137 mmol/L (136-145) 05/11/23 15:40 Potassium 4.3 mmol/L (3.5-5.1) 05/11/23 15:40 Chloride 98 mmol/L (98-107) 05/11/23 15:40 Carbon Dioxide 27.5 mmol/L (21-32) 05/11/23 15:40 BUN 19 mg/dL (7-18) H 05/11/23 15:40 Creatinine 1.05 mg/dL (0.55-1.02) H 05/11/23 15:40 Est GFR (MDRD) Af Amer > 60 (>60) 05/11/23 15:40 Est GFR (MDRD) Non-Af 57 (>60) L 05/11/23 15:40 Glucose 125 mg/dL (65-99) H 05/11/23 15:40 Calcium 9.6 mg/dL (8.5-10.1) 05/11/23 15:40 Corrected Calcium TNP 05/11/23 15:40 Total Bilirubin 0.60 mg/dL (0.2-1.0) 05/11/23 15:40 AST 23 Units/L (15-37) 05/11/23 15:40 ALT 24 Units/L (12-78) 05/11/23 15:40 Alkaline Phosphatase 57 Units/L (46-116) 05/11/23 15:40 Ammonia 21 umol/L (11-32) 05/11/23 16:41 Creatine Kinase 109 Units/L (26-192) 05/11/23 15:40 Troponin I High Sens 10.4 ng/L (4.0-60.0) 05/11/23 15:40 Total Protein 8.2 g/dL (6.4-8.2) 05/11/23 15:40 Albumin 4.6 g/dL (3.4-5.0) 05/11/23 15:40 Globulin 3.6 g/dL (2.5-4.5) 05/11/23 15:40 Albumin/Globulin Ratio 1.3 Ratio (1.1-2.1) 05/11/23 15:40 Specimen Type Catherized urine 05/11/23 15:49 Urine Color Pale yellow (YELLOW) 05/11/23 15:49 Urine Appearance Clear (CLEAR) 05/11/23 15:49 Urine pH 7.0 (5.0 - 8.0) 05/11/23 15:49 Ur Specific [place] 1.010 (1.000-1.030) 05/11/23 15:49 Urine Protein Negative (NEGATIVE) 05/11/23 15:49 Urine Glucose (UA) 4+ (NEGATIVE) 05/11/23 15:49 Urine Ketones Negative (NEGATIVE) 05/11/23 15:49 Urine Blood Negative (NEGATIVE) 05/11/23 15:49 Urine Nitrite Negative (NEGATIVE) 05/11/23 15:49 Urine Bilirubin Negative (NEGATIVE) 05/11/23 15:49 Urine Urobilinogen Normal (NORMAL) 05/11/23 15:49 Ur Leukocyte Esterase Negative (NEGATIVE) 05/11/23 15:49 Urine Opiates Screen Negative (NEG=<300) 05/11/23 15:49 Urine Methadone Screen Negative (NEG=<300) 05/11/23 15:49 Ur Barbiturates Screen Negative (NEG=<200) 05/11/23 15:49 Ur Phencyclidine Scrn Negative (NEG=<25) 05/11/23 15:49 Ur Amphetamines Screen Negative (NEG=<1000) 05/11/23 15:49 U Benzodiazepines Scrn Negative (NEG=<200) 05/11/23 15:49 Urine Cocaine Screen Negative (NEG=<300) 05/11/23 15:49 U Marijuana (THC) Screen Negative (NEG=<50) 05/11/23 15:49 XRAY X-ray Results: ct brain w/o: 1. Nothing acute. 2. Chronic encephalomalacia bilaterally likely related to prior infarcts. 3. Generalized atrophy and small vessel ischemic disease. 4. Mild chronic maxillary sinus disease. Opioid Opioid Risk Tool Age (Ryan box if 16-45): No History of Preadolescent Sexual Abuse: No Total: 0 Total Score Risk Category: Low Risk Copyright: Bull [employer]EVENS predicting aberrant behaviors Discharge Plan Diagnosis Discharge Problem: Altered mental status Discharge Plan Patient Disposition: 09 ADMITTED INPATIENT Condition: Stable Prescriptions: No Action gabapentin [Neurontin] 400 mg Capsule 400 mg PO HS clopidogrel [Plavix] 75 mg Tablet 75 mg PO DAILY amlodipine [Norvasc] 5 mg Tablet 5 mg PO DAILY atorvastatin 80 mg Tablet 80 mg PO HS metformin 1,000 mg Tablet 1,000 mg PO BID meloxicam 7.5 mg Tablet 7.5 mg PO DAILY clonazepam 0.5 mg Tablet 0.5 mg PO BID PRN potassium chloride 10 mEq Capsule, Extended Release 10 meq PO DAILY furosemide 20 mg Tablet 20 mg PO DAILY Lantus Solostar U-100 Insulin 100 unit/mL (3 mL) insulin pen 30 unit SUBCUT DAILY rivastigmine tartrate 6 mg capsule 6 mg PO BID Label Comments: Take 1 capsule by mouth twice a day Farxiga 10 mg tablet 10 mg PO DAILY Label Comments: Take 1 tablet by mouth once a day hydrocodone-acetaminophen 5-325 mg tablet 1 tab PO BID PRN Label Comments: Take 1 tablet by mouth twice a day as needed for pain amitriptyline 25 mg Tablet 25 mg PO QHS olmesartan [Benicar] 20 mg tablet 20 mg PO QHS Label Comments: Take 1 tablet by mouth every evening levetiracetam 1,000 mg tablet 1,000 mg PO BID Label Comments: TAKE ONE (1) TABLET(S) EVERY 12 HOURS BY ORAL ROUTE. fenofibrate nanocrystallized 145 mg tablet 145 mg PO DAILY Label Comments: Take 1 tablet by mouth once a day Health Concerns: Post Hospitalization: new medications and changes needed to prevent readmission or further decline. Pt educated and given instructions on all concerns. Plan of Treatment: Continue with present treatment and follow up plan. Pt is to keep follow up appointment as instructed and take medications as ordered. Follow ups/Referrals Follow ups/Referrals: JESUS BUTLER [Primary Care Provider] - 3 days
[2023-05-11] MEDS ORDERED: LOPRESSOR INJ 5 MG AMP IVP ONE (14:48)
[2023-05-11] MEDS ORDERED: LOPRESSOR INJ 5 MG AMP ONE (14:59)
--- NOTE | 2023-05-11 15:20 | EKG ---
Test Reason : ams Blood Pressure : */* mmHG Vent. Rate : 71 BPM Atrial Rate : 71 BPM P-R Int : 152 ms QRS Dur : 84 ms QT Int : 400 ms P-R-T Axes : 38 73 49 degrees QTc Int : 434 ms Normal sinus rhythm Normal ECG No previous ECGs available Confirmed by Anish Morton ([id number]) on 05/11/2023 6:11:02 PM Referred By: Confirmed By: Anish Morton
[2023-05-11 15:52] LABS: BASOPHILS # (AUTO) 0.1 X10^3/uL (0.0-0.1); BASOPHILS % (AUTO) 1.4 % (0.2-1.0); EOSINOPHILS # (AUTO) 0.1 x10^3/uL (0.0-0.2); EOSINOPHILS % (AUTO) 0.9 % (0.9-2.9); HEMOGLOBIN 15.6 g/dL (12.0-16.0); LYMPHOCYTES # (AUTO) 2.4 X10^3/uL (1.3-2.9); LYMPHOCYTES % (AUTO) 25.8 % (21.0-51.0); MEAN CORPUSCULAR HGB CONC 33.8 g/dL (33.0-35.0); MEAN CORPUSCULAR VOLUME 88.8 fL (80.0-100.0); MEAN PLATELET VOLUME 7.9 fL (7.4-11.0); MONOCYTES # (AUTO) 0.4 x10^3/uL (0.3-0.8); MONOCYTES % (AUTO) 4.6 % (0.0-13.0); NEUTROPHILS # (AUTO) 6.3 x10^3/uL (2.2-4.8); NEUTROPHILS % (AUTO) 67.3 % (42.0-75.0); PLATELET COUNT 333 X10^3/uL (150.0-450.0); RED BLOOD COUNT 5.18 X10^6/uL (3.5-5.4); RED CELL DISTRIBUTION WIDTH 13.6 % (11.6-16.5); WHITE BLOOD COUNT 9.4 X10^3/uL (3.6-10.0)
--- NOTE | 2023-05-11 15:57 | CT ---
HISTORYAMSSTUDYBRAIN W/O [id number]/18/2022.TECHNIQUE br techniques including Automated Exposure Control (AEC) and adjustment of mA and kV were utilized.Contrast: NoneFINDINGSBRAIN PARENCHYMA: No acute hemorrhage, infarct, mass, or mass effect. There is chronic encephalomalacia in the right parietal and occipital and temporal lobes. There is also encephalomalacia in the left parietal and occipital lobes.There is no acute loss of the galan-white junction.Scattered white matter chronic small vessel ischemic changes.VENTRICLES/EXTRA-AXIAL SPACES: Unremarkable size and configuration. No hydrocephalus or extra-axial fluid collections.EXTRACRANIAL STRUCTURES:Unremarkable bones and soft tissues. There is mucosal thickening in the maxillary sinuses bilaterally. The paranasal sinuses are otherwise clear. Middle ear cavity and mastoids are clear.IMPRESSION1. Nothing acute. 2. Chronic encephalomalacia bilaterally likely related to prior infarcts. 3. Generalized atrophy and small vessel ischemic disease. 4. Mild chronic maxillary sinus disease.Electronically signed by: Jasson Hurtado (May 11, 2023 15:56:04)
[2023-05-11 16:03] LABS: ALANINE AMINOTRANSFERASE 24 Units/L (12-78); ALBUMIN 4.6 g/dL (3.4-5.0); ALKALINE PHOSPHATASE 57 Units/L (46-116); ASPARTATE AMINO TRANSFERASE 23 Units/L (15-37); BLOOD UREA NITROGEN 19 mg/dL (7-18); CALCIUM 9.6 mg/dL (8.5-10.1); CARBON DIOXIDE 27.5 mmol/L (21-32); CHLORIDE 98 mmol/L (98-107); COR NA(FOR HYPERGLY) 137 mmol/L (136-145); CREATINE KINASE 109 Units/L (26-192); CREATININE 1.05 mg/dL (0.55-1.02); GLUCOSE 125 mg/dL (65-99); POTASSIUM 4.3 mmol/L (3.5-5.1); SODIUM 136 mmol/L (136-145); TOTAL PROTEIN 8.2 g/dL (6.4-8.2); eGFR NON BLACK RACES 57 (>60)
[2023-05-11 16:26] LABS: BILIRUBIN,URINE NEGATIVE (NEGATIVE); BLOOD/HEMOGLOBIN,URINE NEGATIVE (NEGATIVE); GLUCOSE, URINE 4+ (NEGATIVE); KETONES,URINE NEGATIVE (NEGATIVE); LEUKOCYTE ESTERASE ,URINE NEGATIVE (NEGATIVE); NITRITES,URINE NEGATIVE (NEGATIVE); PROTEIN,URINE NEGATIVE (NEGATIVE); UROBILINOGEN,URINE NORMAL (NORMAL)
[2023-05-11 16:28] LABS: APPEARANCE,URINE CLEAR (CLEAR); COLOR,URINE PALE YELLOW (YELLOW)
[2023-05-11] MEDS ORDERED: ATIVAN 20 MG/10 ML VIAL IVP PRN (18:55)
[2023-05-11] MEDS ORDERED: ATIVAN INJ 2 MG VIAL ONE (19:46)
[2023-05-11] MEDS: ATIVAN INJ 2 MG VIAL IVP PRN (19:50)
[2023-05-11 20:51] VITALS: BMI 27.0
[2023-05-11] MEDS ORDERED: NORCO 5/325 MG TAB PO PRN (21:41)
[2023-05-12 05:24] LABS: BASOPHILS # (AUTO) 0.1 X10^3/uL (0.0-0.1); BASOPHILS % (AUTO) 1.1 % (0.2-1.0); EOSINOPHILS # (AUTO) 0.1 x10^3/uL (0.0-0.2); EOSINOPHILS % (AUTO) 1.3 % (0.9-2.9); HEMATOCRIT 43.4 % (36.0-47.0); LYMPHOCYTES # (AUTO) 3.2 X10^3/uL (1.3-2.9); LYMPHOCYTES % (AUTO) 36.7 % (21.0-51.0); MEAN CORPUSCULAR HEMOGLOBIN 30.4 pg (27.0-34.0); MEAN CORPUSCULAR HGB CONC 34.6 g/dL (33.0-35.0); MEAN CORPUSCULAR VOLUME 87.8 fL (80.0-100.0); MEAN PLATELET VOLUME 8.2 fL (7.4-11.0); MONOCYTES # (AUTO) 0.7 x10^3/uL (0.3-0.8); MONOCYTES % (AUTO) 7.5 % (0.0-13.0); NEUTROPHILS # (AUTO) 4.7 x10^3/uL (2.2-4.8); NEUTROPHILS % (AUTO) 53.4 % (42.0-75.0); PLATELET COUNT 317 X10^3/uL (150.0-450.0); RED BLOOD COUNT 4.95 X10^6/uL (3.5-5.4); RED CELL DISTRIBUTION WIDTH 13.4 % (11.6-16.5); WHITE BLOOD COUNT 8.7 X10^3/uL (3.6-10.0)
[2023-05-12 05:42] LABS: ALANINE AMINOTRANSFERASE 23 Units/L (12-78); ALBUMIN 4.2 g/dL (3.4-5.0); ALKALINE PHOSPHATASE 53 Units/L (46-116); ASPARTATE AMINO TRANSFERASE 22 Units/L (15-37); BLOOD UREA NITROGEN 23 mg/dL (7-18); CALCIUM 9.2 mg/dL (8.5-10.1); CARBON DIOXIDE 26.7 mmol/L (21-32); CHLORIDE 100 mmol/L (98-107); CREATININE 1.04 mg/dL (0.55-1.02); GLUCOSE 110 mg/dL (65-99); POTASSIUM 3.7 mmol/L (3.5-5.1); SODIUM 138 mmol/L (136-145); TOTAL PROTEIN 7.6 g/dL (6.4-8.2); eGFR NON BLACK RACES 57 (>60)
[2023-05-12] MEDS ORDERED: PHARMACY CONSULT - POTASSIUM & MAGNESIUM XX SCH (06:00)
[2023-05-12] MEDS ORDERED: K-DUR TAB 20 MEQ PO ONE (08:00)
[2023-05-12] MEDS: ATIVAN INJ 2 MG VIAL IVP PRN (08:49)
[2023-05-12] MEDS ORDERED: HALDOL INJ IM ONE (09:50)
[2023-05-12] MEDS ORDERED: HALDOL INJ IM NR (10:00)
[2023-05-12] MEDS ORDERED: MULTIHANCE INJ VIAL ONE (12:06)
--- NOTE | 2023-05-12 13:20 | MRI ---
HISTORYAMS, HTN- ENCEPHALOMALACIA. History of stroke.STUDYBRAIN W W/O CONCOMPARISONHead CT 05/11/2023TECHNIQUEMultiplanar multisequence MRI of the brain was obtained without and with contrast using standard departmental protocol.FINDINGSDiffusion sequences show no abnormal signal. No evidence for acute ischemia.Old focal areas of encephalomalacia are stable in size and shape consistent with old infarcts. This involves right temporal lobe, bilateral occipital lobes.Age-related findings include central and cortical atrophy with abnormal signal in the periventricular white matter, most likely the micro-ischemic changes of aging. Otherwise galan and white matter have normal differentiation.There is no mass, shift, or hemorrhage. Cerebellar tonsils are at an appropriate level.Normal signal flow void in the central vessels. No significant abnormal signal on susceptibility sequences.No fluid in the sinuses or mucosal thickening to suggest sinusitis. There is no mastoid effusion.With contrast, there is no abnormal enhancement.IMPRESSION1. No acute findings2. Pole bilateral cortical infarctsElectronically signed by: Celestino Jackson (May 12, 2023 13:19:17)
--- NOTE | 2023-05-12 17:41 | DR.H&P ---
H&P - History & Physical for Day of: H&P Date: 05/11/23 - Chief Complaint Chief Complaint: AMS - History of Present Illness History of Present Illness: 68 y/o, ER admission with hx cva, chf and htn brought in by [facility] after developing ams last night; son says she was "agitated" last night and would not take her medications; she was a little better this morning and took all of them including bp med just before arrival; currently she is alert and admits to cp and back pain and dysuria; she cannot give me any additional info and says "Toby, I don't know"; says she's on adderall but doesn't know why; ems says she has oxygen at home but no cpap. Pt had ct head in ER and admitted for treatment and evaluation. - Past Medical History Past Medical History: Hypertension, Dyslipidemia, Diabetes, Renal Disease, Depression, Anxiety, CVA, Seizures, COPD, PUD, GERD, CHF - Past Surgical History Surgical History: Hysterectomy - Family History Family Medical History: Diabetes Mellitus, Cancer, Hypertension - Social History Does patient currently use any type of tobacco product: Yes Have you used tobacco products in the last 12 months: Yes Type of Tobacco Use: Cigarettes Does any household member use tobacco: Yes Alcohol Use: None Drug Use: Prescription Drugs - Review of Systems Constitutional: Weakness Eyes: No Symptoms Reported ENT: No Symptoms Reported Respiratory: No Symptoms Reported Cardiovascular: No Symptoms Reported Gastrointestinal: No Symptoms Reported Genitourinary: No Symptoms Reported Musculoskeletal: No Symptoms Reported Skin: No Symptoms Reported Neurological: Confusion - Physical Exam Vital Signs: Vital Signs Temperature 98.9 F Temperature 97.9 F Pulse Rate [Right Radial] 76 Pulse Rate [Right Radial] 87 Respiratory Rate 16 Respiratory Rate 20 Blood Pressure [Left Arm] 112/58 Blood Pressure [Left Arm] 129/60 O2 Sat by Pulse Oximetry 99 O2 Sat by Pulse Oximetry 97 05/12/23 16:00 Temperature 98.9 F Temperature Source Oral Pulse Rate [Right Radial] 76 Respiratory Rate 16 O2 Sat by Pulse Oximetry 99 Oxygen Delivery Method Nasal Cannula Oxygen Flow Rate 2 Blood Pressure [Left Arm] 112/58 Blood Pressure Mean [Left Arm] 76 Blood Pressure Source [Left Arm] Automatic Cuff Oriented: Person. negative: Place, Not Oriented Eyes: Normal Ear: Normal Nose: Injected Throat: Normal Respiratory: RLL Diminished, LLL Diminished Cardiovascular: Normal : Normal Auscultation: Bowel Sounds: Normal Palpation: Normal Skin: Decreased Turgur Musculoskeletal: Back:Lumbar Psychiatric: Anxiety Affect: Anxious Speech Pattern: Clear, Delayed - Assessment/Plan (1) Altered mental status Status: Acute Plan: ADMIT, CT HEAD IN ER ON ADMISSION. CE AND EKG. BP CONTROL AND CARDIAC MONITORING. MRI BRAIN (2) TIA (transient ischemic attack) Status: Acute (3) CAD (coronary artery disease) Qualifiers: Coronary Disease-Associated Artery/Lesion type: unspecified vessel or lesion type [place] vs. 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 insulin use status Diabetes mellitus complication status: with other specified complication Qualified Code(s): E11.69 - Type 2 diabetes mellitus with other specified complication Status: Chronic (8) COPD (chronic obstructive pulmonary disease) Qualifiers: COPD type: unspecified COPD Qualified Code(s): J44.9 - Chronic obstructive pulmonary disease, unspecified Status: Chronic - Allergies Allergies/Adverse Reactions: Allergies Allergy/AdvReac Type Severity Reaction Status Date / Time No Known Allergies Allergy Verified 05/16/20 00:48 - Medications Home Medications: Home Medications Medication Instructions Recorded Confirmed amlodipine 5 mg tablet (Norvasc) 5 mg PO DAILY 01/21/19 05/11/23 clopidogrel 75 mg tablet (Plavix) 75 mg PO DAILY 01/21/19 05/12/23 atorvastatin 80 mg tablet 80 mg PO HS 10/12/19 05/11/23 clonazepam 0.5 mg tablet 0.5 mg PO BID PRN 10/12/19 05/12/23 furosemide 20 mg tablet 20 mg PO DAILY 10/12/19 05/11/23 metformin 1,000 mg tablet 1,000 mg PO BID 10/12/19 05/11/23 potassium chloride 10 mEq 10 meq PO DAILY 10/12/19 05/11/23 capsule,extended release insulin glargine 100 unit/mL (3 40 unit subcut DAILY 07/14/20 05/12/23 mL) subcutaneous pen (Lantus Solostar U-100 Insulin) dapagliflozin propanediol 10 mg 10 mg PO DAILY 12/18/21 05/11/23 tablet (Farxiga) rivastigmine tartrate 6 mg capsule 6 mg PO BID 12/18/21 05/11/23 fenofibrate nanocrystallized 145 145 mg PO DAILY 12/19/21 05/11/23 mg tablet levetiracetam 1,000 mg tablet 1,000 mg PO BID 12/19/21 05/11/23 olmesartan 20 mg tablet (Benicar) 20 mg PO QHS 12/19/21 05/11/23 metoprolol tartrate 50 mg tablet 1 tab PO BID 05/11/23 05/11/23
[2023-05-12] MEDS: NORVASC TAB 5 MG PO SCH (17:42)
[2023-05-12] MEDS: PLAVIX PO SCH (17:43)
--- NOTE | 2023-05-12 17:45 | PCM.PROG ---
Progress Note - Progress Note for Day of Date of Exam: 05/12/23 - Subjective Subjective: PT IS 62 WF, ER ADMISSION AFTER PRESENTING WITH AMS. FAMILY WAS CONCERNED PT MAY HAVE HAD A STROKE. PT HAS PMH OF CVA, VASCULAR DEMENTIA WITH BEHAVIORAL DISTURBANCE, SEIZURE DISORDER, HTN, DM, OA, AMITA AND HYPERLIPIDEMIA. PT WAS VERY AGITATED AND AGGRESSIVE WITH NURSING STAFF THIS MORNING. PT DID TOLERATE MRI. WE RESUMED HOME MEDICATION AND ADDED CXR, FLP AND CAROTID ARTERY US. PT MAY REQUIRE BEHAVIOR HEALTH TREATMENT FOR MEDICATION MANAGEMENT WHEN SHE IS MEDICALLY CLEAR. - Past Medical Family Social History Past Med/Fam/Surg Hx: No changes since H&P Allergies: Allergies No Known Allergies Allergy (Verified 05/16/20 00:48) - Review of Systems ROS: No change since H&P - Vital Signs and I&O's Vital Signs: Vital Signs Temperature 98.9 F Temperature 97.9 F Pulse Rate [Right Radial] 76 Pulse Rate [Right Radial] 87 Respiratory Rate 16 Respiratory Rate 20 Blood Pressure [Left Arm] 112/58 Blood Pressure [Left Arm] 129/60 O2 Sat by Pulse Oximetry 99 O2 Sat by Pulse Oximetry 97 05/12/23 16:00 Temperature 98.9 F Temperature Source Oral Pulse Rate [Right Radial] 76 Respiratory Rate 16 O2 Sat by Pulse Oximetry 99 Oxygen Delivery Method Nasal Cannula Oxygen Flow Rate 2 Blood Pressure [Left Arm] 112/58 Blood Pressure Mean [Left Arm] 76 Blood Pressure Source [Left Arm] Automatic Cuff Intake and Output: Intake & Output 05/10/23 05/11/23 05/12/23 05/13/23 11:59 11:59 11:59 11:59 Intake Total 660 / 660 Output Total 1200 / 1200 Balance -540 / -540 - Physical Exam Oriented: Person, Not Oriented Eyes: Normal Ear: Normal Nose: Normal Throat: Normal Respiratory: Diminished Cardiovascular: Normal : Normal Auscultation: Bowel Sounds: Normal Tenderness: Normal Skin: Decreased [place]urgur Musculoskeletal: Back:Lumbar Psychiatric: Anxiety Mood Description: Calm Affect: Anxious Speech Pattern: Clear, Delayed - Laboratory and Diagnostics Result Diagrams: 05/12/23 04:25 05/12/23 04:25 Labs: Laboratory WBC 8.7 X10^3/uL (3.6-10.0) 05/12/23 04:25 RBC 4.95 X10^6/uL (3.5-5.4) 05/12/23 04:25 Hgb 15.0 g/dL (12.0-16.0) 05/12/23 04:25 Hct 43.4 % (36.0-47.0) 05/12/23 04:25 MCV 87.8 fL (80.0-100.0) 05/12/23 04:25 MCH 30.4 pg (27.0-34.0) 05/12/23 04:25 MCHC 34.6 g/dL (33.0-35.0) 05/12/23 04:25 RDW 13.4 % (11.6-16.5) 05/12/23 04:25 Plt Count 317 X10^3/uL (150.0-450.0) 05/12/23 04:25 MPV 8.2 fL (7.4-11.0) 05/12/23 04:25 Neut % (Auto) 53.4 % (42.0-75.0) 05/12/23 04:25 Lymph % (Auto) 36.7 % (21.0-51.0) 05/12/23 04:25 [place] % (Auto) 7.5 % (0.0-13.0) 05/12/23 04:25 Eos % (Auto) 1.3 % (0.9-2.9) 05/12/23 04:25 Baso % (Auto) 1.1 % (0.2-1.0) H 05/12/23 04:25 Neut # (Auto) 4.7 x10^3/uL (2.2-4.8) 05/12/23 04:25 Lymph # (Auto) 3.2 X10^3/uL (1.3-2.9) H 05/12/23 04:25 [place] # (Auto) 0.7 x10^3/uL (0.3-0.8) 05/12/23 04:25 Eos # (Auto) 0.1 x10^3/uL (0.0-0.2) 05/12/23 04:25 Baso # (Auto) 0.1 X10^3/uL (0.0-0.1) 05/12/23 04:25 Absolute Nucleated RBC 0.0 /100WBC 05/12/23 04:25 Sodium 138 mmol/L (136-145) 05/12/23 04:25 Corrected Sodium TNP 05/12/23 04:25 Potassium 3.7 mmol/L (3.5-5.1) 05/12/23 04:25 Chloride 100 mmol/L (98-107) 05/12/23 04:25 Carbon Dioxide 26.7 mmol/L (21-32) 05/12/23 04:25 BUN 23 mg/dL (7-18) H 05/12/23 04:25 Creatinine 1.04 mg/dL (0.55-1.02) H 05/12/23 04:25 Est GFR (MDRD) Af Amer > 60 (>60) 05/12/23 04:25 Est GFR (MDRD) Non-Af 57 (>60) L 05/12/23 04:25 Glucose 110 mg/dL (65-99) H 05/12/23 04:25 POC Glucose (mg/dL) 149 mg/dL (65-99) H 05/12/23 11:31 Calcium 9.2 mg/dL (8.5-10.1) 05/12/23 04:25 Corrected Calcium TNP 05/12/23 04:25 Magnesium 2.2 mg/dL (2.0-2.9) 05/12/23 04:25 Total Bilirubin 0.40 mg/dL (0.2-1.0) 05/12/23 04:25 AST 22 Units/L (15-37) 05/12/23 04:25 ALT 23 Units/L (12-78) 05/12/23 04:25 Alkaline Phosphatase 53 Units/L (46-116) 05/12/23 04:25 Ammonia 21 umol/L (11-32) 05/11/23 16:41 Creatine Kinase 109 Units/L (26-192) 05/11/23 15:40 Troponin I High Sens 10.4 ng/L (4.0-60.0) 05/11/23 15:40 Total Protein 7.6 g/dL (6.4-8.2) 05/12/23 04:25 Albumin 4.2 g/dL (3.4-5.0) 05/12/23 04:25 Globulin 3.4 g/dL (2.5-4.5) 05/12/23 04:25 Albumin/Globulin Ratio 1.2 Ratio (1.1-2.1) 05/12/23 04:25 Specimen Type Catherized urine 05/11/23 15:49 Urine Color Pale yellow (YELLOW) 05/11/23 15:49 Urine Appearance Clear (CLEAR) 05/11/23 15:49 Urine pH 7.0 (5.0 - 8.0) 05/11/23 15:49 Ur Specific [place] 1.010 (1.000-1.030) 05/11/23 15:49 Urine Protein Negative (NEGATIVE) 05/11/23 15:49 Urine Glucose (UA) 4+ (NEGATIVE) 05/11/23 15:49 Urine Ketones Negative (NEGATIVE) 05/11/23 15:49 Urine Blood Negative (NEGATIVE) 05/11/23 15:49 Urine Nitrite Negative (NEGATIVE) 05/11/23 15:49 Urine Bilirubin Negative (NEGATIVE) 05/11/23 15:49 Urine Urobilinogen Normal (NORMAL) 05/11/23 15:49 Ur Leukocyte Esterase Negative (NEGATIVE) 05/11/23 15:49 Urine Opiates Screen Negative (NEG=<300) 05/11/23 15:49 Urine Methadone Screen Negative (NEG=<300) 05/11/23 15:49 Ur Barbiturates Screen Negative (NEG=<200) 05/11/23 15:49 Ur Phencyclidine Scrn Negative (NEG=<25) 05/11/23 15:49 Ur Amphetamines Screen Negative (NEG=<1000) 05/11/23 15:49 U Benzodiazepines Scrn Negative (NEG=<200) 05/11/23 15:49 Urine Cocaine Screen Negative (NEG=<300) 05/11/23 15:49 U Marijuana (THC) Screen Negative (NEG=<50) 05/11/23 15:49 SARS-CoV-2 (PCR) Negative (NEGATIVE) 05/11/23 19:15 - Plan (1) Altered mental status Status: Acute Plan: CT HEAD IN ER ON ADMISSION. CE AND EKG, CXR. CAROTID ARTERY US AND FLP. BP CONTROL AND CARDIAC MONITORING. MRI BRAIN (2) TIA (transient ischemic attack) Status: Acute (3) CAD (coronary artery disease) Status: Chronic Qualifiers: Coronary Disease-Associated Artery/Lesion type: unspecified vessel or lesion type [place] vs. 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
[2023-05-12] MEDS: NICOTINE PATCH TD SCH (19:35)
[2023-05-12] MEDS ORDERED: LIPITOR TAB 80 MG PO SCH (21:00)
[2023-05-12] MEDS: EXELON PO SCH (21:08)
[2023-05-12] MEDS: KLONOPIN TAB 0.5 MG PO SCH (21:08)
[2023-05-12] MEDS: KEPPRA TAB 500 MG PO SCH (21:08)
[2023-05-12] MEDS: LOPRESSOR TAB 50 MG PO SCH (21:09)
[2023-05-12] MEDS: NovoLIN R (or HumuLIN R) SUBCUT PRN (21:09)
[2023-05-13 05:47] LABS: BASOPHILS % (AUTO) 0.3 % (0.2-1.0); EOSINOPHILS # (AUTO) 0.1 x10^3/uL (0.0-0.2); EOSINOPHILS % (AUTO) 1.6 % (0.9-2.9); HEMATOCRIT 39.8 % (36.0-47.0); HEMOGLOBIN 13.6 g/dL (12.0-16.0); LYMPHOCYTES # (AUTO) 3.8 X10^3/uL (1.3-2.9); LYMPHOCYTES % (AUTO) 39.8 % (21.0-51.0); MEAN CORPUSCULAR HEMOGLOBIN 30.4 pg (27.0-34.0); MEAN CORPUSCULAR HGB CONC 34.1 g/dL (33.0-35.0); MEAN CORPUSCULAR VOLUME 88.9 fL (80.0-100.0); MEAN PLATELET VOLUME 7.9 fL (7.4-11.0); MONOCYTES # (AUTO) 0.8 x10^3/uL (0.3-0.8); MONOCYTES % (AUTO) 8.4 % (0.0-13.0); NEUTROPHILS # (AUTO) 4.7 x10^3/uL (2.2-4.8); NEUTROPHILS % (AUTO) 49.9 % (42.0-75.0); PLATELET COUNT 291 X10^3/uL (150.0-450.0); RED BLOOD COUNT 4.47 X10^6/uL (3.5-5.4); RED CELL DISTRIBUTION WIDTH 13.3 % (11.6-16.5); WHITE BLOOD COUNT 9.5 X10^3/uL (3.6-10.0)
[2023-05-13 06:07] LABS: ALANINE AMINOTRANSFERASE 20 Units/L (12-78); ALBUMIN 3.6 g/dL (3.4-5.0); ALKALINE PHOSPHATASE 47 Units/L (46-116); ASPARTATE AMINO TRANSFERASE 23 Units/L (15-37); BLOOD UREA NITROGEN 22 mg/dL (7-18); CALCIUM 8.9 mg/dL (8.5-10.1); CARBON DIOXIDE 25.2 mmol/L (21-32); CHLORIDE 101 mmol/L (98-107); CHOLESTEROL 156 mg/dL (0-200); CREATININE 0.91 mg/dL (0.55-1.02); GLUCOSE 108 mg/dL (65-99); HDL CHOLESTEROL 26 mg/dL (40-60); MAGNESIUM 2.2 mg/dL (2.0-2.9); POTASSIUM 4.1 mmol/L (3.5-5.1); SODIUM 136 mmol/L (136-145); TOTAL PROTEIN 6.8 g/dL (6.4-8.2); TRIGLYCERIDES 290 mg/dL (0-150); eGFR NON BLACK RACES > 60 (>60)
[2023-05-13] MEDS: EXELON PO SCH (08:44)
[2023-05-13] MEDS: KEPPRA TAB 500 MG PO SCH (08:45)
[2023-05-13] MEDS: KLONOPIN TAB 0.5 MG PO SCH (08:45)
[2023-05-13] MEDS: NORVASC TAB 5 MG PO SCH (08:45)
[2023-05-13] MEDS: LOPRESSOR TAB 50 MG PO SCH (08:46)
[2023-05-13] MEDS: PLAVIX PO SCH (08:46)
[2023-05-13] MEDS: NICOTINE PATCH TD SCH (08:50)
[2023-05-13] MEDS ORDERED: FARXIGA PO SCH (09:00)
[2023-05-13 09:33] VITALS: RESP 18
--- NOTE | 2023-05-13 10:27 | RAD ---
HISTORYCOPD, CHFSTUDYCHEST, 1 [id number] trachea is midline. The cardiac silhouette is enlarged with a tortuous thoracic aorta . Increased interstitial changes with prominent vascular markings are observed consistent with underlying CHF.. The bony thorax is unremarkable.IMPRESSIONImproved interstitial and vascular changes consistent with CHF.Electronically signed by: KIARRA MADDOX (May 13, 2023 10:23:22)
[2023-05-13] MEDS: NovoLIN R (or HumuLIN R) SUBCUT PRN (12:07)
[2023-05-13 13:11] VITALS: BP 95/52; PULSE 63; TEMP 98.4; O2SAT 98
[2023-05-13] MEDS ORDERED: SNACK - Diabetic Appropriate PO SCH (20:00)
--- NOTE | 2023-05-14 12:25 | VAS ---
CAROTID USCLINICAL INDICATION: CVAPROCEDURE: Pulsed wave and color-flow duplex imaging was utilized to evaluate the extracranial carotid arteries.COMPARISON:NoneFINDINGS:Right carotid:The velocities are as follows:Distal CCA systolic velocity 79 cm/sec, ICA peak systolic velocity 213 cm/sec. Flow within the right vertebral and right ECA is directed antegrade.ICA/CCA ratio: 2.7Left carotid:No hemodynamically significant stenosis involving the left carotid artery. The velocities are as follows:Distal CCA systolic velocity 72 cm/sec, ICA peak systolic velocity 113 cm/sec. Flow within the left vertebral and left ECA is directed antegrade.ICA/CCA ratio: 1.6IMPRESSION:1. Elevated peak systolic velocity corresponds to a 50-70% diameter stenosis of the right ICA.2. Normal peak systolic velocity corresponds to a less than 50% diameter stenosis of the left ICA.Electronically signed by: PADMINI MURRAY (May 14, 2023 12:24:06)
== END 2023-05-13 17:00 | disposition home or self-care (01) ==
LOC: ER 14:39 → MED/SURG 14:39
PROVIDERS: ADMIT Family Medicine; ATTEND Internal Medicine
DX: K21.9 Gastro-esophageal reflux disease without esophagitis; Z20.822 Contact with and (suspected) exposure to COVID-19; I10 Essential (primary) hypertension; R41.82 Altered mental status, unspecified; F01.518 Vascular dementia, unspecified severity, with other behavioral disturbance; I25.10 Atherosclerotic heart disease of native coronary artery without angina pectoris; J44.9 Chronic obstructive pulmonary disease, unspecified; E11.65 Type 2 diabetes mellitus with hyperglycemia; E78.2 Mixed hyperlipidemia; F41.8 Other specified anxiety disorders; M54.59 Other low back pain; Z86.73 Personal history of transient ischemic attack (TIA), and cerebral infarction without residual deficits; G45.8 Other transient cerebral ischemic attacks and related syndromes